=== PATIENT | female | born 1970 ===

== ENCOUNTER 2017-07-15 16:07 | Emergency (ER) | payer MEDICAID, MEDICARE ==
[2017-07-15 16:17] VITALS: RESP 18
[2017-07-15] MEDS ORDERED: Sodium Chloride 0.9% 1,000 ML IV ONE (16:47)
[2017-07-15 17:29] LABS: BASO % 0.5 % (0.0-2.0); EOS % 0.1 % (0.0-4.0); HEMATOCRIT 34.1 % (34.0-47.0); LYMPH # 0.4 K/uL (1.0-4.3); LYMPH % 4.4 % (20.0-40.0); MEAN CELL VOLUME 92.7 fL (81.0-99.0); MEAN CORPUSCULAR HGB CONC 33.4 g/dL (33.0-37.0); MEAN PLATELET VOLUME 7.4 fL (7.2-11.7); MONO # 0.4 K/uL (0.0-0.8); NRBC % 0.1 % (0.0-2.0); PLATELET COUNT 333 K/uL (130-400); RED CELL DISTRIBUTION WIDTH 14.8 % (11.5-14.5); WHITE BLOOD COUNT 8.6 K/uL (4.8-10.8)
--- NOTE | 2017-07-15 17:29 | C.PDOC ---
History Of Present Illness 46 yr old female with past medical history of kidney transplant in [address] [facility] and is compliant with all anti rejection medication, presents to the ER for feeling dehydrated and body pains. Patient states the body pain is chronic but recently seems worse for the past few days. Patient also reports of mild dysuria. Denies fever, chest pain, SOB, nausea, vomiting, hematuria, vaginal discharge or vaginal bleeding Time Seen by Provider: 07/15/17 16:31 Chief Complaint (Nursing): Weakness/Neurological Deficit History Per: Patient History/Exam Limitations: no limitations Onset/Duration Of Symptoms: Days Past Medical History Reviewed: Historical Data, Nursing Documentation, Vital Signs Vital Signs: Last Vital Signs Temp 98.1 F 07/15/17 16:14 Pulse 74 07/15/17 16:14 Resp 18 07/15/17 16:14 BP 138/76 07/15/17 16:14 Pulse Ox 100 07/15/17 17:31 - Medical History PMH: Anemia, Anxiety, Arthritis, Gall Bladder Disease, HTN, Migraine, Pancreatitis, Chronic Kidney Disease Surgical History: Cholecystectomy (2002), - [facility] Procedures DILATION OF COMMON BILE DUCT, ENDO (09/23/15) DILATION OF LEFT HEPATIC DUCT, ENDO (09/23/15) DRAINAGE OF RIGHT PLEURAL CAVITY, PERC APPROACH, DIAGN (09/23/15) ENDOSCOPIC EXCIS OR DESTRUCT OF LESION OF DUODENUM (07/01/15) ESOPHAGOGASTRODUODENOSCOPY [EGD] W/CLOSED BIOPSY (07/01/15) EXCISION OF DUODENUM, ENDO, DIAGN (03/13/16) EXCISION OF MIDDLE ESOPHAGUS, ENDO, DIAGN (03/13/16) EXCISION OF STOMACH, ENDO, DIAGN (03/13/16) Family History: States: No Known Family Hx - Social History Hx Alcohol Use: No Hx Substance Use: No - Immunization History Hx Tetanus Toxoid Vaccination: Yes Hx Influenza Vaccination: Yes Hx Pneumococcal Vaccination: No Review Of Systems Except As Marked, All Systems Reviewed And Found Negative. Constitutional: Positive for: Other ((+) Dehydrated. Body pain. ). Negative for : Fever Cardiovascular: Negative for: Chest Pain Respiratory: Negative for: Shortness of Breath Gastrointestinal: Negative for: Nausea, Vomiting Genitourinary: Positive for: Dysuria (Mild). Negative for: Hematuria, Vaginal Discharge, Vaginal Bleeding Physical Exam - Physical Exam Appears: Well, Non-toxic, No Acute Distress Skin: Normal Color, Warm, Dry, No Rash Head: Atraumatic, Normacephalic Eye(s): bilateral: Normal Inspection, PERRL, EOMI Nose: Normal Oral Mucosa: Moist Neck: Normal, Normal ROM, Supple Chest: Symmetrical, No Tenderness Cardiovascular: Rhythm Regular, No Murmur Respiratory: Normal Breath Sounds, No Rales, No Rhonchi, No Stridor, No Wheezing Gastrointestinal/Abdominal: Normal Exam, Soft, No Tenderness, No Guarding, No Rebound Back: Normal Inspection, No CVA Tenderness Extremity: Normal ROM, No Swelling Neurological/Psych: Oriented x3, Normal Speech, Normal Motor ED Course And Treatment - Laboratory Results Result Diagrams: 07/15/17 17:23 07/15/17 17:23 O2 Sat by Pulse Oximetry: 100 (RA ) Pulse Ox Interpretation: Normal Medical Decision Making Medical Decision Making: PLAN: * CBC * CMP * Urinalysis * Tylenol PO * Sodium Chloride IV 6:45pm - Patient feeling better. Labs reviewed. Patient to be discharged with followup instructions. Disposition - Disposition Referrals: Gretta Villela MD [Staff Provider] - Disposition: HOME/ ROUTINE Disposition Time: 18:45 Condition: IMPROVED Additional Instructions: Thank you for letting us take care of you today. Your provider was Dr. Verduzco. You were treated for dehydration. The emergency medical care you received today was directed at your acute symptoms. If you were prescribed any medication, please fill it and take as directed. It may take several days for your symptoms to resolve. Return to the Emergency Department if your symptoms worsen, do not improve, or if you have any other problems. Please contact your doctor or call one of the physicians/clinics you have been referred to that are listed on the Patient Visit Information form that is included in your discharge packet. Bring any paperwork you were given at discharge with you along with any medications you are taking to your follow up visit. Our treatment cannot replace ongoing medical care by a primary care provider (PCP) outside of the emergency department. Thank you for allowing the [facility] team to be part of your care today. Followup with Dr. Villela in 2-3 days for re-evaluation and further management. Instructions: Dehydration (ED) Forms: [employer] (Prydeinig) - Clinical Impression Clinical Impression: Dehydration - Scribe Statement The provider has reviewed the documentation as recorded by the Libanibe Rhona Martinez Provider Attestation: All medical record entries made by the Wally were at my direction and personally dictated by me. I have reviewed the chart and agree that the record accurately reflects my personal performance of the history, physical exam, medical decision making, and the department course for this patient. I have also personally directed, reviewed, and agree with the discharge instructions and disposition.
[2017-07-15 17:48] LABS: POTASSIUM 3.4 mmol/L (3.6-5.2)
[2017-07-15 17:51] LABS: ALB/GLOB RATIO 1.1 (1.0-2.1); BILIRUBIN,TOTAL 0.4 mg/dL (0.2-1.3); TOTAL PROTEIN 6.2 g/dL (6.3-8.3)
[2017-07-15 17:52] LABS: CALCIUM 8.4 mg/dl (8.6-10.4)
[2017-07-15 18:19] LABS: NEUTROPHIL 93 % (50-75); TOTAL CELLS COUNTED 100
[2017-07-15] MEDS ORDERED: Morphine 4 MG/ML VIAL IV STA (18:30)
[2017-07-15 18:31] LABS: RBC URINE < 1 /hpf (0-3); URINE BILIRUBIN NEGATIVE (NEGATIVE); URINE BLOOD NEGATIVE (NEGATIVE); URINE COLOR Straw (YELLOW); URINE GLUCOSE (UA) NORMAL (Normal); URINE KETONE NEGATIVE (NEGATIVE); URINE LEUKOCYTE ESTERASE NEG Leu/uL (Negative); URINE PROTEIN 2+ mg/dL (NEGATIVE); URINE UROBILINOGEN NORMAL mg/dL (0.2-1.0); WBC URINE 2 /hpf (0-5)
[2017-07-15 19:50] VITALS: BP 130/69; PULSE 72; TEMP 98; O2SAT 99
== END 2017-07-15 19:51 | disposition home or self-care (01) ==
LOC: C.ER 16:07
DX: E86.0 Dehydration (principal)
CPT/HCPCS: 80053; 81001; 83690; 85025; 87086; 96361; 96374; 99285; J2270; J7040

== ENCOUNTER 2017-12-13 20:14 | Emergency (ER) | payer OTHER ==
--- NOTE | 2017-12-13 21:02 | C.PDOC ---
History Of Present Illness Patient presents to the ER with a complaint of nausea and vomiting that began today, associate with a cough for the past 3 days. Patient saw her PMD and was started on augmentin today, she reports she began vomiting approximately 2 hours after she took the first pill. Denies fever or chills. Time Seen by Provider: 12/13/17 21:01 Chief Complaint (Nursing): GI Problem History Per: Patient History/Exam Limitations: no limitations Onset/Duration Of Symptoms: Hrs Current Symptoms Are (Timing): Still Present Severity: Mild Pain Scale Rating Of: 3 Location Of Pain/Discomfort: Diffuse Radiation Of Pain To:: None Quality Of Discomfort: Unable To Describe Associated Symptoms: Nausea, Vomiting, Other (Cough). denies: Fever, Chills Exacerbating Factors: None Alleviating Factors: None Recent travel outside of the [place]: No Additional History Per: Family Abnormal Vaginal Bleeding: No Past Medical History Reviewed: Historical Data, Nursing Documentation, Vital Signs Vital Signs: Last Vital Signs Temp 98.3 F 12/13/17 23:22 Pulse 66 12/13/17 23:22 Resp 22 12/13/17 23:22 BP 148/81 12/13/17 23:22 Pulse Ox 99 12/13/17 23:22 - Medical History PMH: Anemia, Anxiety, Arthritis, Gall Bladder Disease, HTN, Migraine, Pancreatitis, Chronic Kidney Disease Surgical History: Cholecystectomy (2002), - [facility] Procedures DILATION OF COMMON BILE DUCT, ENDO (09/23/15) DILATION OF LEFT HEPATIC DUCT, ENDO (09/23/15) DRAINAGE OF RIGHT PLEURAL CAVITY, PERC APPROACH, DIAGN (09/23/15) ENDOSCOPIC EXCIS OR DESTRUCT OF LESION OF DUODENUM (07/01/15) ESOPHAGOGASTRODUODENOSCOPY [EGD] W/CLOSED BIOPSY (07/01/15) EXCISION OF DUODENUM, ENDO, DIAGN (03/13/16) EXCISION OF MIDDLE ESOPHAGUS, ENDO, DIAGN (03/13/16) EXCISION OF STOMACH, ENDO, DIAGN (03/13/16) Family History: States: No Known Family Hx - Social History Hx Alcohol Use: No Hx Substance Use: No - Immunization History Hx Tetanus Toxoid Vaccination: Yes Hx Influenza Vaccination: Yes Hx Pneumococcal Vaccination: No Review Of Systems Constitutional: Negative for: Fever, Chills Cardiovascular: Negative for: Chest Pain Respiratory: Positive for: Cough. Negative for: Shortness of Breath Gastrointestinal: Positive for: Nausea, Vomiting Physical Exam - Physical Exam Appears: Non-toxic Skin: Warm, Dry Head: Normacephalic Eye(s): bilateral: Normal Inspection Oral Mucosa: Moist Neck: Supple Chest: Symmetrical, No Tenderness Cardiovascular: Rhythm Regular Respiratory: No Rales, Rhonchi (Scattered rhonchi), No Wheezing Gastrointestinal/Abdominal: Soft, No Tenderness Back: Normal Inspection, Other (Right flank healed surgical scar from renal transplant.) Extremity: Normal ROM Extremity: Bilateral: Atraumatic Neurological/Psych: Oriented x3 Gait: Steady ED Course And Treatment - Laboratory Results Result Diagrams: 12/13/17 22:43 12/13/17 22:43 O2 Sat by Pulse Oximetry: 100 (Room air) Pulse Ox Interpretation: Normal Progress Note: Blood work, CXR, and urinalysis ordered. IV fluids and zofran administered. pt wants to go home. feels better. Does not feel like she has to void and does not want to wait anymore. Is aware of the risks as I've explained to her including , but pt still wants to go home. Will follow up with dr villela Reevaluation Time: 23:58 Reassessment Condition: Improved Disposition Counseled Patient/Family Regarding: Studies Performed, Diagnosis, Need For Followup, Rx Given - Disposition Referrals: Gretta Villela MD [Staff Provider] - Disposition: HOME/ ROUTINE Disposition Time: 21:02 Condition: FAIR Additional Instructions: Please return of symptoms recur Prescriptions: Nitrofurantoin Macrocrystals [Macrobid] 1 cap PO BID #14 cap Ondansetron ODT [Zofran ODT] 1 odt PO BID PRN #10 odt PRN Reason: Nausea/Vomiting Instructions: Acute Nausea and Vomiting (ED), Urinary Tract Infection in Women (DC) Forms: [employer] (British) - Clinical Impression Clinical Impression: UTI (urinary tract infection), Nausea & vomiting, Medication reaction - Scribe Statement The provider has reviewed the documentation as recorded by the Scribe Ishan Tsang All medical record entries made by the Scribe were at my direction and personally dictated by me. I have reviewed the chart and agree that the record accurately reflects my personal performance of the history, physical exam, medical decision making, and the department course for this patient. I have also personally directed, reviewed, and agree with the discharge instructions and disposition.
[2017-12-13] MEDS ORDERED: Lactated Ringer's 1,000 ML IV STA (21:17)
[2017-12-13] MEDS ORDERED: Lactated Ringer's 1,000 ML ONE (22:39)
[2017-12-13 22:46] LABS: BASO # 0.1 K/uL (0.0-0.2); BASO % 0.5 % (0.0-2.0); EOS # 0.3 K/uL (0.0-0.7); EOS % 2.7 % (0.0-4.0); HEMOGLOBIN 9.7 g/dL (11.0-16.0); LYMPH % 9.1 % (20.0-40.0); MEAN CELL VOLUME 93.8 fL (81.0-99.0); MEAN CORPUSCULAR HEMOGLOBIN 30.1 pg (27.0-31.0); MEAN CORPUSCULAR HGB CONC 32.1 g/dL (33.0-37.0); MEAN PLATELET VOLUME 7.2 fL (7.2-11.7); MONO # 1.2 K/uL (0.0-0.8); NEUT # 8.2 K/uL (1.8-7.0); NEUT % 76.7 % (50.0-75.0); NRBC % 0.2 % (0.0-2.0); RBC 3.21 Mil/uL (3.80-5.20); RED CELL DISTRIBUTION WIDTH 14.1 % (11.5-14.5); WHITE BLOOD COUNT 10.7 K/uL (4.8-10.8)
[2017-12-13 22:53] LABS: PLATELET COUNT 521 K/uL (130-400)
[2017-12-13 22:57] LABS: CALCIUM 7.9 mg/dl (8.6-10.4)
[2017-12-13 22:59] LABS: ALB/GLOB RATIO 1.1 (1.0-2.1); ALBUMIN 3.4 g/dL (3.5-5.0)
[2017-12-13 23:23] VITALS: BP 148/81; PULSE 66; RESP 22; TEMP 98.3
[2017-12-13 23:45] LABS: ANISOCYTOSIS SLIGHT; EOSINOPHIL 2 % (0-4); LYMPHOCYTE 6 % (20-40); MONOCYTE 14 % (0-10); NEUTROPHIL 78 % (50-75); POIKILOCYTOSIS SLIGHT; TOTAL CELLS COUNTED 100
[2017-12-13 23:46] LABS: PLATELET ESTIMATE INCREASED (NORMAL)
[2017-12-14 00:01] VITALS: O2SAT 100
--- NOTE | 2017-12-14 10:14 | RAD ---
HISTORY: cough COMPARISON: 07/22/2016 TECHNIQUE: Chest PA and lateral FINDINGS: LUNGS: No active pulmonary disease. PLEURA: No significant pleural effusion identified. No pneumothorax apparent. CARDIOVASCULAR: Normal. OSSEOUS STRUCTURES: No significant abnormalities. VISUALIZED UPPER ABDOMEN: Normal. OTHER FINDINGS: None. IMPRESSION: No active disease.
== END 2017-12-14 00:11 | disposition home or self-care (01) ==
LOC: C.ER 20:14
DX: N39.0 Urinary tract infection, site not specified (principal); R11.2 Nausea with vomiting, unspecified; T36.0X5A Adverse effect of penicillins, initial encounter; Y92.89 Other specified places as the place of occurrence of the external cause
CPT/HCPCS: 71046; 80053; 83690; 85025; 87040; 96361; 96374; 96375; 99284; J2270; J2405; J7120

== ENCOUNTER 2017-12-27 15:10 | Emergency (ER) | payer OTHER ==
[2017-12-27 15:22] VITALS: BMI 17.3
[2017-12-27 15:25] VITALS: O2SAT 100
[2017-12-27] MEDS ORDERED: Sodium Chloride 0.9% 1,000 ML IV ONE (15:52)
--- NOTE | 2017-12-27 15:52 | C.PDOC ---
History Of Present Illness 47 yr old female presents to the ER with complaints of crampy abdominal discomfort and nausea for 1 week. Patient has chronic body pain from previous fibromyalgia and arthritis. Patient is s/p renal transplant and was referred by Dr. Villela. Patient takes Percocet 75/325 2x a day for her chronic pains. Denies fever, chills, cough, vomiting, diarrhea or dysuria. Time Seen by Provider: 12/27/17 15:23 Chief Complaint (Nursing): Flu-like Symptoms History Per: Patient History/Exam Limitations: no limitations Onset/Duration Of Symptoms: Days Past Medical History Reviewed: Historical Data, Nursing Documentation, Vital Signs Vital Signs: Last Vital Signs Temp 98.4 F 12/27/17 15:23 Pulse 84 12/27/17 15:23 Resp 20 12/27/17 15:23 BP 146/77 12/27/17 15:23 Pulse Ox 100 12/27/17 17:07 - Medical History PMH: Anemia, Anxiety, Arthritis, Gall Bladder Disease, HTN, Migraine, Pancreatitis, Chronic Kidney Disease Surgical History: Cholecystectomy (2002), - [facility] Procedures DILATION OF COMMON BILE DUCT, ENDO (09/23/15) DILATION OF LEFT HEPATIC DUCT, ENDO (09/23/15) DRAINAGE OF RIGHT PLEURAL CAVITY, PERC APPROACH, DIAGN (09/23/15) ENDOSCOPIC EXCIS OR DESTRUCT OF LESION OF DUODENUM (07/01/15) ESOPHAGOGASTRODUODENOSCOPY [EGD] W/CLOSED BIOPSY (07/01/15) EXCISION OF DUODENUM, ENDO, DIAGN (03/13/16) EXCISION OF MIDDLE ESOPHAGUS, ENDO, DIAGN (03/13/16) EXCISION OF STOMACH, ENDO, DIAGN (03/13/16) Family History: States: No Known Family Hx - Social History Hx Alcohol Use: No Hx Substance Use: No - Immunization History Hx Tetanus Toxoid Vaccination: Yes Hx Influenza Vaccination: Yes Hx Pneumococcal Vaccination: No Review Of Systems Except As Marked, All Systems Reviewed And Found Negative. Constitutional: Negative for: Fever, Chills Respiratory: Negative for: Cough Gastrointestinal: Positive for: Nausea, Abdominal Pain (crampy abdominal pain). Negative for: Vomiting, Diarrhea Genitourinary: Negative for: Dysuria Physical Exam - Physical Exam Appears: Non-toxic, Chronically Ill, Other ((+) thin) Skin: Warm, Dry, No Rash Eye(s): bilateral: Normal Inspection, PERRL, EOMI Oral Mucosa: Dry Throat: Normal, No Erythema, No Exudate Cardiovascular: Rhythm Regular, No Murmur Respiratory: Normal Breath Sounds, No Rales, No Rhonchi, No Wheezing Gastrointestinal/Abdominal: Normal Exam, Soft, No Tenderness, No Guarding, No Rebound Extremity: Normal ROM, No Tenderness, No Calf Tenderness, No Swelling Neurological/Psych: Oriented x3, Normal Speech ED Course And Treatment - Laboratory Results Result Diagrams: 12/27/17 15:59 12/27/17 15:59 Lab Interpretation: Normal (ua nl, creat 2.1 is baseline) O2 Sat by Pulse Oximetry: 100 (RA) Pulse Ox Interpretation: Normal - Radiology CXR: Interpreted by Me, Viewed By Me CXR Interpretation: Yes: No Acute Disease - Other Rad abd x 2 X-Ray: Interpreted by Me (+ increased gas, no obst/FA) Progress Note: IVF, pepcid, zofran Reevaluation Time: 17:04 Reassessment Condition: Improved - Physician Consult Information Outcome Of Conversation: 1545 and 1700, d/w Dr. Tyson, aware of baseline w/u and ok to d/c home w opt f/u. Medical Decision Making Medical Decision Making: PLAN: * X-Ray - Obstructive Series * Labs * HCG * Urinalysis * Tamiflu PO * Pepcid IVP * Toradol IVP * Sodium CHloride IV NOTE: viral syndrome vs influenza normal w/u Disposition Doctor Will See Patient In The: Office Counseled Patient/Family Regarding: Studies Performed, Diagnosis - Disposition Referrals: Gretta Villela MD [Staff Provider] - Disposition: HOME/ ROUTINE Disposition Time: 17:06 Condition: GOOD Additional Instructions: eat plenty of fruits and vegetables MINIMAL narcotics- which cause constipation normal baseline labs for you: creatinine 2.1 Continue Pepcid 20 mg @ night to lower stomach acid/Gastritis. Tamiflu 75 mg twice a day for 5 days- empiric treatment for Influenza. Prescriptions: Oseltamivir [Tamiflu] 75 mg PO BID #9 cap Instructions: Gastritis (ED), Constipation (ED), Influenza (ED) Forms: [employer] (Bengali) - Clinical Impression Clinical Impression: Influenza-like illness - Scribe Statement The provider has reviewed the documentation as recorded by the Scribe Rhona Juan Provider Attestation: All medical record entries made by the Wally were at my direction and personally dictated by me. I have reviewed the chart and agree that the record accurately reflects my personal performance of the history, physical exam, medical decision making, and the department course for this patient. I have also personally directed, reviewed, and agree with the discharge instructions and disposition.
[2017-12-27] MEDS ORDERED: Sodium Chloride 0.9% 1,000 ML ONE (15:59)
[2017-12-27 16:03] LABS: BASO % 0.2 % (0.0-2.0); EOS # 0.1 K/uL (0.0-0.7); EOS % 0.8 % (0.0-4.0); HEMOGLOBIN 9.6 g/dL (11.0-16.0); LYMPH # 0.3 K/uL (1.0-4.3); LYMPH % 3.4 % (20.0-40.0); MEAN CORPUSCULAR HEMOGLOBIN 30.5 pg (27.0-31.0); MEAN CORPUSCULAR HGB CONC 33.2 g/dL (33.0-37.0); MONO # 0.5 K/uL (0.0-0.8); NEUT # 8.5 K/uL (1.8-7.0); NEUT % 90.6 % (50.0-75.0); NRBC % 0.2 % (0.0-2.0); PLATELET COUNT 551 K/uL (130-400); RBC 3.16 Mil/uL (3.80-5.20); RED CELL DISTRIBUTION WIDTH 14.1 % (11.5-14.5); WHITE BLOOD COUNT 9.4 K/uL (4.8-10.8)
[2017-12-27 16:10] LABS: MEAN CELL VOLUME 91.8 fL (81.0-99.0)
[2017-12-27 16:22] LABS: ALB/GLOB RATIO 1.2 (1.0-2.1); ALBUMIN 3.6 g/dL (3.5-5.0); CALCIUM 8.8 mg/dl (8.6-10.4)
[2017-12-27 16:35] LABS: HCG,QUALITATIVE URINE NEGATIVE (NEGATIVE)
[2017-12-27 16:36] LABS: SQUAMOUS EPITHIAL 1 /hpf (0-5); URINE BILIRUBIN NEGATIVE (NEGATIVE); URINE BLOOD NEGATIVE (NEGATIVE); URINE CLARITY Hazy (Clear); URINE COLOR Yellow (YELLOW); URINE GLUCOSE (UA) 1+ mg/dL (Normal); URINE LEUKOCYTE ESTERASE NEG Leu/uL (Negative); URINE NITRATE NEGATIVE (NEGATIVE); URINE UROBILINOGEN NORMAL mg/dL (0.2-1.0)
[2017-12-27 16:48] LABS: BARBITURATES, UR NEGATIVE (NEGATIVE); BENZODIAZEPINES, UR NEGATIVE (NEGATIVE); OPIATES, UR NEGATIVE (NEGATIVE); PHENCYCLIDINE, UR NEGATIVE (NEGATIVE)
[2017-12-27 16:51] LABS: URINE PROTEIN 100 mg/dL (NEGATIVE)
--- NOTE | 2017-12-27 16:58 | RAD ---
PROCEDURE: Radiographs of the chest and abdomen (obstructive series) HISTORY: abd pain COMPARISON: Comparison made with chest radiograph 12/13/[address] scan of the abdomen and pelvis dated 08/13/2016. TECHNIQUE: AP radiograph of the chest, with upright and supine radiographs of the abdomen. FINDINGS: CHEST: Lungs: Clear. Cardiovascular: Heart is somewhat prominent. Previously described pericardial effusion seen on CT scan 07/22/2016 is not appreciated on this exam. . Pleura: No pleural fluid. No pneumothorax. Other findings: None. ABDOMEN AND PELVIS: Bowel: No evidence of obstruction however multiple nondistended air-filled loops of small bowel present containing fluid which exhibit non differential fluid levels. . Moderate amount of stool also seen throughout the large bowel ; rule out constipation. . Free air: None. Bones: Unremarkable. Other findings: Metallic clips right upper quadrant of the abdomen consistent with prior cholecystectomy. Metallic clips also seen left upper quadrant of the abdomen. . Transplant kidney seen in the right lower quadrant of the abdomen is not appreciated on this study. Clinical correlation with surgical history. . IMPRESSION: No acute infiltrates. Prominent cardiac silhouette as described above. Moderate amount of stool seen throughout the large bowel; rule out constipation. Transplant kidney right lower quadrant of the abdomen seen on prior CT scan is not appreciated on this exam. Metallic clips are seen in the right and left upper quadrants of the abdomen. Clinical correlation with surgical history.
[2017-12-27 17:22] LABS: ANISOCYTOSIS SLIGHT; EOSINOPHIL 1 % (0-4); HYPOCHROMIC SLIGHT; LYMPHOCYTE 6 % (20-40); MICROCYTOSIS SLIGHT; MONOCYTE 5 % (0-10); NEUTROPHIL 88 % (50-75); PLATELET ESTIMATE INCREASED (NORMAL); TOTAL CELLS COUNTED 100
[2017-12-27 17:23] LABS: BURR CELLS SLIGHT
[2017-12-27 17:31] VITALS: BP 132/80; PULSE 68; RESP 17; TEMP 98.8
== END 2017-12-27 17:43 | disposition home or self-care (01) ==
LOC: C.ER 15:10
DX: J11.1 Influenza due to unidentified influenza virus with other respiratory manifestations (principal); I12.9 Hypertensive chronic kidney disease with stage 1 through stage 4 chronic kidney disease, or unspecified chronic kidney disease; N18.9 Chronic kidney disease, unspecified; Z94.0 Kidney transplant status
CPT/HCPCS: 74022; 80053; 80324; 80345; 80346; 80349; 80353; 80358; 80361; 81001; 83690; 83992; 84703; 85025; 94770; 96361; 96374; 96375; 99284; J1885; J7040

== ENCOUNTER 2018-02-01 11:01 | Inpatient (IN) | payer OTHER ==
[2018-02-01 11:01] VITALS: BMI 17.3
[2018-02-01] MEDS ORDERED: Lactated Ringer's 1,000 ML IVB STA (11:54)
[2018-02-01] MEDS ORDERED: Lactated Ringer's 1,000 ML ONE (12:10)
[2018-02-01 12:13] LABS: BASO % 0.5 % (0.0-2.0); EOS # 0.1 K/uL (0.0-0.7); EOS % 1.6 % (0.0-4.0); HEMOGLOBIN 10.7 g/dL (11.0-16.0); LYMPH # 0.9 K/uL (1.0-4.3); LYMPH % 11.7 % (20.0-40.0); MEAN CELL VOLUME 93.3 fL (81.0-99.0); MEAN CORPUSCULAR HGB CONC 32.1 g/dL (33.0-37.0); MEAN PLATELET VOLUME 8.2 fL (7.2-11.7); MONO # 1.1 K/uL (0.0-0.8); MONO % 13.7 % (0.0-10.0); NEUT # 5.7 K/uL (1.8-7.0); NEUT % 72.5 % (50.0-75.0); NRBC % 0.3 % (0.0-2.0); RBC 3.58 Mil/uL (3.80-5.20); WHITE BLOOD COUNT 7.9 K/uL (4.8-10.8)
[2018-02-01 12:15] LABS: PROTHROMBIN TIME 10.8 SECONDS (9.7-12.2)
[2018-02-01 12:20] LABS: ALB/GLOB RATIO 1.2 (1.0-2.1); ALBUMIN 4.2 g/dL (3.5-5.0)
[2018-02-01 12:30] LABS: SQUAMOUS EPITHIAL 4 /hpf (0-5); URINE BACTERIA RARE (<OCC); URINE BILIRUBIN NEGATIVE (NEGATIVE); URINE BLOOD NEGATIVE (NEGATIVE); URINE CLARITY Hazy (Clear); URINE COLOR Yellow (YELLOW); URINE GLUCOSE (UA) NORMAL (Normal); URINE LEUKOCYTE ESTERASE NEG Leu/uL (Negative); URINE PROTEIN 3+ mg/dL (NEGATIVE); URINE UROBILINOGEN NORMAL mg/dL (0.2-1.0)
--- NOTE | 2018-02-01 12:56 | C.PDOC ---
Time Seen by Provider: 02/01/18 11:39 Chief Complaint (Nursing): Abdominal Pain History Per: Patient, Family Onset/Duration Of Symptoms: Days (about 1 month) Current Symptoms Are (Timing): Still Present Severity: Moderate Location Of Pain/Discomfort: Epigastric Quality Of Discomfort: Unable To Describe Associated Symptoms: Nausea, Vomiting, Diarrhea (watery) Exacerbating Factors: Food Alleviating Factors: None Recent travel outside of the [place]: No Additional History Per: Prior Records Abnormal Vaginal Bleeding: No Last Menstral Period: Menopause for 5 years Past Medical History Reviewed: Historical Data, Nursing Documentation, Vital Signs Vital Signs: Last Vital Signs Temp 98.0 F 02/01/18 11:15 Pulse 68 02/01/18 11:15 Resp 20 02/01/18 11:15 BP 152/80 H 02/01/18 11:15 Pulse Ox 100 02/01/18 12:57 - Medical History PMH: Anemia, Anxiety, Arthritis, Fibromyalgia, HTN, Migraine, Pancreatitis, Chronic Kidney Disease Surgical History: Cholecystectomy (2002), Other Surgeries: Kidney transplant recipient. - [facility] Procedures DILATION OF COMMON BILE DUCT, ENDO (09/23/15) DILATION OF LEFT HEPATIC DUCT, ENDO (09/23/15) DRAINAGE OF RIGHT PLEURAL CAVITY, PERC APPROACH, DIAGN (09/23/15) ENDOSCOPIC EXCIS OR DESTRUCT OF LESION OF DUODENUM (07/01/15) ESOPHAGOGASTRODUODENOSCOPY [EGD] W/CLOSED BIOPSY (07/01/15) EXCISION OF DUODENUM, ENDO, DIAGN (03/13/16) EXCISION OF MIDDLE ESOPHAGUS, ENDO, DIAGN (03/13/16) EXCISION OF STOMACH, ENDO, DIAGN (03/13/16) Family History: States: Unknown Family Hx - Social History Hx Alcohol Use: No Hx Substance Use: No - Immunization History Hx Tetanus Toxoid Vaccination: Yes Hx Influenza Vaccination: Yes Hx Pneumococcal Vaccination: No Review Of Systems Except As Marked, All Systems Reviewed And Found Negative. Constitutional: Positive for: Weakness, Malaise, Weight loss. Negative for: Fever Cardiovascular: Negative for: Chest Pain Respiratory: Negative for: Cough, Shortness of Breath Gastrointestinal: Positive for: Nausea, Vomiting, Abdominal Pain, Diarrhea. Negative for: Melena, Hematochezia, Hematemesis Genitourinary: Negative for: Dysuria Musculoskeletal: Negative for: Neck Pain Skin: Negative for: Rash Neurological: Negative for: Seizures, Altered Mental Status Physical Exam - Physical Exam Appears: No Acute Distress, Chronically Ill Skin: Normal Color, Warm, Dry, No Rash Head: Atraumatic, Normacephalic Eye(s): bilateral: PERRL, EOMI Neck: Normal ROM, Supple Cardiovascular: Rhythm Regular Respiratory: Normal Breath Sounds, No Accessory Muscle Use Gastrointestinal/Abdominal: Soft, Tenderness, No Distention, No Guarding, No Rebound Back: No CVA Tenderness Extremity: Normal ROM, No Pedal Edema, No Calf Tenderness Neurological/Psych: Oriented x3, Normal Motor, Normal Sensation ED Course And Treatment - Laboratory Results Result Diagrams: 02/01/18 12:02 02/01/18 12:02 ECG: Interpreted By Me, Viewed By Me ECG Rhythm: Sinus Rhythm, R BBB, Nonspecific Changes Interpretation Of ECG: No prior EKG available for comparison. O2 Sat by Pulse Oximetry: 100 Pulse Ox Interpretation: Normal Reassessment Condition: Unchanged Progress - Interventions Interventions:: Observation, Intravenous fluid - Medications Administered Intravenous: Antiemetic, Other (PPI) - Data Reviewed Data Reviewed: Lab, EKG, Old records - Patient Status Patient status: Unchanged - Continuity of Care Discussed patient case with:: Patient, Family-HIPPA compliant, ED Nurse, PMD - Patient Plan Patient Plan: Admission Disposition Discussed With : Gretta Villela Comment: He wants pt to be admitted to the hospital on his service for further evaluation and treatment. Doctor Will See Patient In The: Hospital Counseled Patient/Family Regarding: Studies Performed, Diagnosis - Disposition Disposition: HOSPITALIZED Disposition Time: 13:46 Condition: FAIR - Clinical Impression Clinical Impression: Chronic diarrhea, Renal transplant recipient, Immunocompromised patient, Weight loss, unintentional, Renal insufficiency
[2018-02-01 13:32] LABS: FREE T4 0.95 ng/dL (0.78-2.19)
[2018-02-01] MEDS ORDERED: Sodium Chloride 0.45% 1,000 ML IV SCH (17:30)
[2018-02-01] MEDS: Oxycodone/Acetaminophen 5/325 mg Tab PO PRN (18:44)
--- NOTE | 2018-02-01 18:47 | CP.PCM.HP ---
History of Present Illness - History of Present Illness History of Present Illness: Chief comparing: Abdominal pain, chronic recurrent diarrhea History of present illness: 47-year-old female with a history of renal transplant, on immuno suppressive treatment, hypertension, renal insufficiency, recurrent anemia, history of CBD obstruction, status post ERCP, ampullectomy, chronic pain syndrome. Patient also has a significant muscle wasting. Patient is complaining of increasing episodes of diarrheal episode, patient is having the symptoms for almost 2 months to 3 months now, gradually getting worse. Patient was seen by a administrative associate in the past, recently had a CAT scan of the abdomen and pelvis. Patient is having recurrent enteritis. The cause is unclear. Currently on immunosuppressive treatment. Significant nausea noted, and episodic vomiting present, liquid stools noted, patient is getting the diarrhea after eating any type of food, and also significant weight loss noted. Past medical history: Hypertension, renal insufficiency, anemia, osteoporosis, recurrent diarrhea now , history of renal transplant Surgical history: Patient had a cholecystectomy, , and renal transplant Allergies: No known drug allergy Personal history nonsmoker nonalcoholic Family history noncontributory Review of systems: Complaining of generalized body pain, occasional headache, minimal chest discomfort, abdominal discomfort, diarrhea, vomiting occasionally, weight loss. Appetite poor Vital signs reviewed No neck vein distention noted, significant wasting noted Chest good air entry bilaterally, no wheezing or rales noted CVS regular heart sound, no murmur noted Abdomen soft, nontender. 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 Hypertension, fairly controlled. Patient had a history of CBD obstruction, status post ampulla surgical intervention in the past Now having recurrent diarrheal episode, weight loss. Poor nutrition. We'll admit the patient. Stool workup. Renal, gastrointestinal, and a infectious disease evaluation may be needed. I would like to rule out underlying opportunistic infectious process. Present on Admission - Present on Admission Any Indicators Present on Admission: No History of DVT/PE: No History of Uncontrolled Diabetes: No Urinary Catheter: No Decubitus Ulcer Present: No Past Patient History - Infectious Disease Hx of Infectious Diseases: None - Past Medical History & Family History Past Medical History?: Yes - Past Social History Smoking Status: Never Smoked - CARDIAC Hx Hypertension: Yes - PULMONARY Hx Respiratory Disorders: Yes Other/Comment: FLUID IN THE LUNGS? - NEUROLOGICAL Hx Migraine: Yes - HEENT Hx HEENT Problems: No - RENAL Hx Chronic Kidney Disease: Yes - ENDOCRINE/METABOLIC Hx Endocrine Disorders: No - HEMATOLOGICAL/ONCOLOGICAL Hx Anemia: Yes - INTEGUMENTARY Hx Dermatological Problems: No - MUSCULOSKELETAL/RHEUMATOLOGICAL Hx Arthritis: Yes - GASTROINTESTINAL Hx Pancreatitis: Yes - GENITOURINARY/GYNECOLOGICAL Hx Genitourinary Disorders: No - PSYCHIATRIC Hx Anxiety: Yes Hx Substance Use: No - SURGICAL HISTORY Hx Cholecystectomy: Yes (2002) - ANESTHESIA Hx Anesthesia: Yes Hx Anesthesia Reactions: No Hx Malignant Hyperthermia: No Meds Allergies/Adverse Reactions: Allergies Allergy/AdvReac Type Severity Reaction Status Date / Time No Known Allergies Allergy Verified 02/01/18 11:19 Results - Vital Signs Recent Vital Signs: Last Vital Signs Temp 98.2 F 02/01/18 16:20 Pulse 62 02/01/18 16:20 Resp 20 02/01/18 16:20 BP 145/82 02/01/18 16:20 Pulse Ox 100 02/01/18 16:20 - Labs Result Diagrams: 02/01/18 12:02 02/01/18 12:02 Labs: Laboratory Results - last 24 hr 02/01/18 02/01/18 02/01/18 12:02 12:02 12:02 WBC 7.9 RBC 3.58 L Hgb 10.7 L Hct 33.4 L MCV 93.3 MCH 30.0 MCHC 32.1 L RDW 16.0 H Plt Count 483 H MPV 8.2 Neut % (Auto) 72.5 Lymph % (Auto) 11.7 L [place] % (Auto) 13.7 H Eos % (Auto) 1.6 Baso % (Auto) 0.5 Neut # (Auto) 5.7 Lymph # (Auto) 0.9 L [place] # (Auto) 1.1 H Eos # (Auto) 0.1 Baso # (Auto) 0.0 PT 10.8 INR 1.0 APTT 38 H Sodium 142 Potassium 3.7 Chloride 110 H Carbon Dioxide 17 L Anion Gap 19 BUN 26 H Creatinine 2.3 H Est GFR ( Amer) 27 Est GFR (Non-Af Amer) 23 Random Glucose 84 Calcium 9.0 Phosphorus 3.3 Magnesium 1.8 Total Bilirubin 0.5 AST 35 ALT 25 Alkaline Phosphatase 134 H Total Protein 7.8 Albumin 4.2 Globulin 3.6 Albumin/Globulin Ratio 1.2 Lipase 152 Free T4 TSH 3rd Generation Urine Color Urine Clarity Urine pH Ur Specific [place] Urine Protein Urine Glucose (UA) Urine Ketones Urine Blood Urine Nitrate Urine Bilirubin Urine Urobilinogen Ur Leukocyte Esterase Urine WBC (Auto) Urine RBC (Auto) Ur Squamous Epith Cells Urine Bacteria 02/01/18 02/01/18 12:16 12:45 WBC RBC Hgb Hct MCV MCH MCHC RDW Plt Count MPV Neut % (Auto) Lymph % (Auto) [place] % (Auto) Eos % (Auto) Baso % (Auto) Neut # (Auto) Lymph # (Auto) [place] # (Auto) Eos # (Auto) Baso # (Auto) PT INR APTT Sodium Potassium Chloride Carbon Dioxide Anion Gap BUN Creatinine Est GFR ( Amer) Est GFR (Non-Af Amer) Random Glucose Calcium Phosphorus Magnesium Total Bilirubin AST ALT Alkaline Phosphatase Total Protein Albumin Globulin Albumin/Globulin Ratio Lipase Free T4 0.95 TSH 3rd Generation 1.37 Urine Color Yellow Urine Clarity Hazy Urine pH 5.0 Ur Specific [place] 1.011 Urine Protein 3+ H Urine Glucose (UA) Normal Urine Ketones Negative Urine Blood Negative Urine Nitrate Negative Urine Bilirubin Negative Urine Urobilinogen Normal Ur Leukocyte Esterase Neg Urine WBC (Auto) 3 Urine RBC (Auto) < 1 Ur Squamous Epith Cells 4 Urine Bacteria Rare
[2018-02-01] MEDS: MYCOPHENOLIC ACID 360 MG PO SCH (21:12)
[2018-02-02] MEDS: Oxycodone/Acetaminophen 5/325 mg Tab PO PRN ×3 (01:13→21:14)
--- NOTE | 2018-02-02 09:17 | CP.PCM.CON ---
<Loi Reese - Last Filed: 02/02/18 12:54> History of Present Illness - History of Present Illness History of Present Illness: PGY4 GI Initial Consult Starla Mckeon is a 45F w/ hx of renal transplanton on immuno suppressive treatment, hypertension, renal insufficiency, recurrent anemia, history of CBD obstruction, status post ERCP, ampullectomy, chronic pain syndrome who presents to the hospital for acute on chronic diarrhea with weightloss Patient was previously seen by Dr. Mejia on 06/06/15 for a one year history of diarrhea and abdominal pain. All stool studies were negative. Colonoscopy on 06/28/15 showed essentially normal mucosa, and biopsies showed no significant findings. EGD on 07/03/15 also showed no significant findings. She was again admitted 09/23 for abdominal pain and elevated liver enzymes. The LFTs peaked at AST 655, ALT 705 and ALKP 472, with normal values of the bilirubin. Imaging studies showed that the bile duct, which was 8 mm on 06/21/15 had enlarged to 19 mm on sonogram and 17 mm on MRCP, without filling defects. Because of the possibility of biliary obstruction due to stricture or tumor, an ERCP with sphincterotomy and biopsy was performed on 09/29/15 but no stones were seen, and biopsies of the duodenal mucosa were unrevealing; specifically, the biopsies did not show evidence of an opportunistic infection. She notes that she has had chronic diarrhea for years, specifically after her transplant and starting her immunosupressive therapy.She notes that in the last month, her diarrhea has been daily. She notes having loose BM after meals. She denies any interval loose BM. Denies any fever, chills or diaphoresis. Denies any sick contacts. she has 1 dog at home and does have interaction with her godchildren. She also denies any recent travel. ROS: 12 point ROS conducted, neg other than above Past medical history: Hypertension, renal insufficiency, anemia, osteoporosis, recurrent diarrhea now , history of renal transplant Surgical history: Patient had a cholecystectomy, , and renal transplant Personal history nonsmoker nonalcoholic Family history: Denies nay hx of colon cancer or other GI related malignancies Past Patient History - Infectious Disease Hx of Infectious Diseases: None - Past Medical History & Family History Past Medical History?: Yes - Past Social History Smoking Status: Never Smoked - CARDIAC Hx Hypertension: Yes - PULMONARY Hx Respiratory Disorders: Yes Other/Comment: FLUID IN THE LUNGS? - NEUROLOGICAL Hx Migraine: Yes - HEENT Hx HEENT Problems: No - RENAL Hx Chronic Kidney Disease: Yes - ENDOCRINE/METABOLIC Hx Endocrine Disorders: No - HEMATOLOGICAL/ONCOLOGICAL Hx Anemia: Yes - INTEGUMENTARY Hx Dermatological Problems: No - MUSCULOSKELETAL/RHEUMATOLOGICAL Hx Falls: No - GASTROINTESTINAL Hx Pancreatitis: Yes - GENITOURINARY/GYNECOLOGICAL Hx Genitourinary Disorders: No - PSYCHIATRIC Hx Substance Use: No - SURGICAL HISTORY Hx Cholecystectomy: Yes (2002) - ANESTHESIA Hx Anesthesia: Yes Hx Anesthesia Reactions: No Hx Malignant Hyperthermia: No Meds Allergies/Adverse Reactions: Allergies Allergy/AdvReac Type Severity Reaction Status Date / Time No Known Allergies Allergy Verified 02/01/18 11:19 - Medications Medications: Current Medications Amlodipine Besylate (Norvasc) 10 mg PO DAILY [facility] Famotidine (Pepcid) 20 mg PO DAILY [facility] Last Admin: 02/01/18 18:44 Dose: 20 mg Heparin Sodium (Porcine) (Heparin) 5,000 units SC Q12 [facility] Home Med (Patient's Own Medication) 1 tab PO BID [facility] Last Admin: 02/01/18 21:12 Dose: 1 tab Sodium Chloride (Sodium Chloride 0.45%) 1,000 mls @ 50 mls/hr IV .Q20H [facility] Stop: 02/02/18 13:29 Last Admin: 02/01/18 18:45 Dose: 50 mls/hr Losartan Potassium (Cozaar) 50 mg PO DAILY [facility] Last Admin: 02/01/18 18:43 Dose: 50 mg Oxycodone/Acetaminophen (Percocet 5/325 Mg Tab) 1 tab PO TID PRN PRN Reason: Pain, moderate (4-7) Last Admin: 02/02/18 01:13 Dose: 1 tab Prednisone (Prednisone Tab) 5 mg PO DAILY [facility] Last Admin: 02/01/18 18:45 Dose: 5 mg Tacrolimus (Prograf Cap) 1 mg PO BID [facility] Last Admin: 02/01/18 18:45 Dose: 1 mg Vitamin B Complex/Vit C/Folic Acid (Nephro-Ron) 1 tab PO DAILY [facility] Physical Exam - Constitutional Appears: No Acute Distress, Cachectic - Head Exam Head Exam: ATRAUMATIC, NORMOCEPHALIC - Eye Exam Eye Exam: Normal appearance - ENT Exam ENT Exam: Mucous Membranes Moist, Normal Exam - Respiratory Exam Respiratory Exam: Clear to Auscultation Bilateral, NORMAL BREATHING PATTERN. absent: Rales, Rhonchi, Wheezes, Respiratory Distress - Cardiovascular Exam Cardiovascular Exam: REGULAR RHYTHM, +S1, +S2 - GI/Abdominal Exam GI & Abdominal Exam: Normal Bowel Sounds, Soft. absent: Distended, Firm, Guarding, Hernia, Tenderness - Neurological Exam Neurological exam: Alert, Oriented x3 - Psychiatric Exam Psychiatric exam: Normal Affect, Normal Mood - Skin Skin Exam: Dry, Intact, Normal Color, Warm Results - Vital Signs Recent Vital Signs: Last Vital Signs Temp 98.1 F 02/02/18 07:00 Pulse 59 L 02/02/18 07:00 Resp 20 02/02/18 07:00 BP 133/78 02/02/18 07:00 Pulse Ox 100 02/02/18 07:00 - Labs Result Diagrams: 02/01/18 12:02 02/01/18 12:02 Labs: Laboratory Results - last 24 hr 02/01/18 02/01/18 02/01/18 12:02 12:02 12:02 WBC 7.9 RBC 3.58 L Hgb 10.7 L Hct 33.4 L MCV 93.3 MCH 30.0 MCHC 32.1 L RDW 16.0 H Plt Count 483 H MPV 8.2 Neut % (Auto) 72.5 Lymph % (Auto) 11.7 L [place] % (Auto) 13.7 H Eos % (Auto) 1.6 Baso % (Auto) 0.5 Neut # (Auto) 5.7 Lymph # (Auto) 0.9 L [place] # (Auto) 1.1 H Eos # (Auto) 0.1 Baso # (Auto) 0.0 PT 10.8 INR 1.0 APTT 38 H Sodium 142 Potassium 3.7 Chloride 110 H Carbon Dioxide 17 L Anion Gap 19 BUN 26 H Creatinine 2.3 H Est GFR ( Amer) 27 Est GFR (Non-Af Amer) 23 Random Glucose 84 Calcium 9.0 Phosphorus 3.3 Magnesium 1.8 Total Bilirubin 0.5 AST 35 ALT 25 Alkaline Phosphatase 134 H Total Protein 7.8 Albumin 4.2 Globulin 3.6 Albumin/Globulin Ratio 1.2 Lipase 152 Free T4 TSH 3rd Generation Urine Color Urine Clarity Urine pH Ur Specific [place] Urine Protein Urine Glucose (UA) Urine Ketones Urine Blood Urine Nitrate Urine Bilirubin Urine Urobilinogen Ur Leukocyte Esterase Urine WBC (Auto) Urine RBC (Auto) Ur Squamous Epith Cells Urine Bacteria Stool Occult Blood 02/01/18 02/01/18 02/02/18 12:16 12:45 07:35 WBC RBC Hgb Hct MCV MCH MCHC RDW Plt Count MPV Neut % (Auto) Lymph % (Auto) [place] % (Auto) Eos % (Auto) Baso % (Auto) Neut # (Auto) Lymph # (Auto) [place] # (Auto) Eos # (Auto) Baso # (Auto) PT INR APTT Sodium Potassium Chloride Carbon Dioxide Anion Gap BUN Creatinine Est GFR ( Amer) Est GFR (Non-Af Amer) Random Glucose Calcium Phosphorus Magnesium Total Bilirubin AST ALT Alkaline Phosphatase Total Protein Albumin Globulin Albumin/Globulin Ratio Lipase Free T4 0.95 TSH 3rd Generation 1.37 Urine Color Yellow Urine Clarity Hazy Urine pH 5.0 Ur Specific [place] 1.011 Urine Protein 3+ H Urine Glucose (UA) Normal Urine Ketones Negative Urine Blood Negative Urine Nitrate Negative Urine Bilirubin Negative Urine Urobilinogen Normal Ur Leukocyte Esterase Neg Urine WBC (Auto) 3 Urine RBC (Auto) < 1 Ur Squamous Epith Cells 4 Urine Bacteria Rare Stool Occult Blood Negative Assessment & Plan - Assessment and Plan (Free Text) Assessment: Starla Mckeon is a 47F w/ hx of Hypertension, renal insufficiency, anemia, osteoporosis, recurrent diarrhea now, history of renal transplant who presents to the ED with complaints of diarrhea and weightloss Acute on chronic diarrhea, DDx: infectious, pancreatic insuff, bile acid malabsorbtion s/p renal transplant on Immunosupression Weightloss Plan: -agree with current infectous work-up, will add c.diff and ova and paracite -will eval stool electrolytes -imgaing reviewed from 01/21/2018 CT abd, no sig findings -continue diet -will hold on abx for now -can consider colonoscopy to rule microscopic colitis if rest of work-up is neg -will get tacrolimus and mycophenolic acid levels -will get fecal fat Will D/w Dr. Andres <Nithya Andres - Last Filed: 02/02/18 16:37> Meds - Medications Medications: Current Medications Amlodipine Besylate (Norvasc) 10 mg PO DAILY [facility] Last Admin: 02/02/18 10:01 Dose: 10 mg Famotidine (Pepcid) 20 mg PO DAILY [facility] Last Admin: 02/02/18 10:01 Dose: 20 mg Heparin Sodium (Porcine) (Heparin) 5,000 units SC Q12 [facility] Last Admin: 02/02/18 10:02 Dose: 5,000 units Home Med (Patient's Own Medication) 1 tab PO BID [facility] Last Admin: 02/02/18 10:02 Dose: 1 tab Linezolid (Zyvox 600mg/300ml D5w) 600 mg in 300 mls @ 200 mls/hr IVPB Q12 [facility] PRN Reason: Protocol Losartan Potassium (Cozaar) 50 mg PO DAILY [facility] Last Admin: 02/02/18 10:01 Dose: 50 mg Oxycodone/Acetaminophen (Percocet 5/325 Mg Tab) 1 tab PO QID PRN PRN Reason: pain Stop: 02/05/18 14:01 Last Admin: 02/02/18 13:04 Dose: 1 tab Prednisone (Prednisone Tab) 5 mg PO DAILY [facility] Last Admin: 02/02/18 10:01 Dose: 5 mg Tacrolimus (Prograf Cap) 1 mg PO BID [facility] Last Admin: 02/02/18 10:02 Dose: 1 mg Vitamin B Complex/Vit C/Folic Acid (Nephro-Ron) 1 tab PO DAILY [facility] Last Admin: 02/02/18 10:02 Dose: 1 tab Results - Vital Signs Recent Vital Signs: Last Vital Signs Temp 98.1 F 02/02/18 07:00 Pulse 59 L 02/02/18 07:00 Resp 20 02/02/18 07:00 BP 133/78 02/02/18 07:00 Pulse Ox 100 02/02/18 07:00 - Labs Result Diagrams: 02/01/18 12:02 02/01/18 12:02 Labs: Laboratory Results - last 24 hr 02/01/18 02/02/18 07:40 07:35 Stool Occult Blood Negative Stool Leukocytes, Qual Positive H Attending/Attestation - Attestation I have personally seen and examined this patient.: Yes I have fully participated in the care of the patient.: Yes I have reviewed all pertinent clinical information: Yes Notes (Text): 02/02/18 16:33 This is a 47 yr old F of Hypertension, renal insufficiency, anemia, osteoporosis , recurrent diarrhea now, history of renal transplant on 3 immunosuppresion with outpatient follow up at [facility], who presents to the ED with complaints of chronic diarrhea and weightloss. Will send stool infectious studies and electrolytes. Diet as tolerated. Will plan on luminal endoscopic evaluation on Friday. Imaging reviewed from 01/21/2018 CT abdomen with no significant findings
[2018-02-02] MEDS: Multivitamin Vitamin B Complex (Nephro-Vite) Tab PO SCH (10:02)
[2018-02-02] MEDS: MYCOPHENOLIC ACID 360 MG PO SCH ×2 (10:02→17:18)
--- NOTE | 2018-02-02 12:21 | CARD ---
APPROVED REPORT EKG Measurement Heart [id number] CT 194P73 [id number] <Conclusion> Sinus bradycardia Right bundle branch block Septal infarct, age undetermined Abnormal ECG
--- NOTE | 2018-02-02 14:07 | CP.PCM.CON ---
History of Present Illness - History of Present Illness History of Present Illness: INFECTIOUS DISEASE CONSULT; HPI; Starla Mckeon is a 45F w/ hx of renal transplanton on immuno suppressive treatment, hypertension, renal insufficiency, recurrent anemia, history of CBD obstruction, status post ERCP, ampullectomy, chronic pain syndrome who presents to the hospital for acute on chronic diarrhea with weightloss Patient was previously seen by Dr. Mejia on 06/06/15 for a one year history of diarrhea and abdominal pain. All stool studies were negative. Colonoscopy on 06/28/15 showed essentially normal mucosa, and biopsies showed no significant findings. EGD on 07/03/15 also showed no significant findings. She was again admitted 09/23 for abdominal pain and elevated liver enzymes. The LFTs peaked at AST 655, ALT 705 and ALKP 472, with normal values of the bilirubin. Imaging studies showed that the bile duct, which was 8 mm on 06/21/15 had enlarged to 19 mm on sonogram and 17 mm on MRCP, without filling defects. Because of the possibility of biliary obstruction due to stricture or tumor, an ERCP with sphincterotomy and biopsy was performed on 09/29/15 but no stones were seen, and biopsies of the duodenal mucosa were unrevealing; specifically, the biopsies did not show evidence of an opportunistic infection. She notes that she has had chronic diarrhea for years, specifically after her transplant and starting her immunosupressive therapy.She notes that in the last month, her diarrhea has been daily. She notes having loose BM after meals. She denies any interval loose BM. PATIENT ALSO ADMITS TO HAVING LOST ABOUT 15-20 POUNDS THIS YEAR. PATIENT DENIES ANY FEVER, CHILLS, NIGHT SWEATS OR DIAPHORESIS. PATIENT DENIES ANY PREVIOUS HISTORY OF TB/OR ANY SICK CONTACTS.PATIENT DENIES ANY RECENT TRAVEL. PETS; A DOG AT HOME, AND HAS INTERACTION WITH HER GODCHILDREN. ROS: 12 point ROS conducted, neg other than above PMH HYPERTENSION, RENAL INSUFFICIENCY, ANEMIA, OSTEOPOROSIS, PANCREATITIS, RECURRENT DIARRHEA NOW, RENAL TRANSPLANT . HISTORY OF MIGRAINE HEADACHES, FIBROMYALGIA, ARTHRITIS,ANXIETY PROBLEMS. Surgical history: Patient had a cholecystectomy, , and renal transplant SOCIAL HISTORY; nonsmoker nonalcoholic Family history: Denies hx of colon cancer or other GI related malignancies ALLERGIES; NKA. MEDS; REVIEWED; CELLCEPT 1 CAPSULE BY MOUTH ONCE A DAY, TACROLIMUS 1 MG BY MOUTH TWICE A DAY, PREDNISONE 5 MG BY MOUTH ONCE A DAY. (SEE MARS FOR FULL DETAILS ) IMMUNIZATIONS; Hx Tetanus Toxoid Vaccination: Yes Hx Influenza Vaccination: Yes Hx Pneumococcal Vaccination: No Past Patient History - Infectious Disease Hx of Infectious Diseases: None - Past Medical History & Family History Past Medical History?: Yes - Past Social History Smoking Status: Never Smoked - CARDIAC Hx Hypertension: Yes - PULMONARY Hx Respiratory Disorders: Yes Other/Comment: FLUID IN THE LUNGS? - NEUROLOGICAL Hx Migraine: Yes - HEENT Hx HEENT Problems: No - RENAL Hx Chronic Kidney Disease: Yes - ENDOCRINE/METABOLIC Hx Endocrine Disorders: No - HEMATOLOGICAL/ONCOLOGICAL Hx Anemia: Yes - INTEGUMENTARY Hx Dermatological Problems: No - MUSCULOSKELETAL/RHEUMATOLOGICAL Hx Falls: No - GASTROINTESTINAL Hx Pancreatitis: Yes - GENITOURINARY/GYNECOLOGICAL Hx Genitourinary Disorders: No - PSYCHIATRIC Hx Substance Use: No - SURGICAL HISTORY Hx Cholecystectomy: Yes (2002) - ANESTHESIA Hx Anesthesia: Yes Hx Anesthesia Reactions: No Hx Malignant Hyperthermia: No Meds Allergies/Adverse Reactions: Allergies Allergy/AdvReac Type Severity Reaction Status Date / Time No Known Allergies Allergy Verified 02/01/18 11:19 - Medications Medications: Current Medications Amlodipine Besylate (Norvasc) [address] [facility] Last Admin: 02/02/18 10:01 Dose: 10 mg Famotidine (Pepcid) [address] [facility] Last Admin: 02/02/18 10:01 Dose: 20 mg Heparin Sodium (Porcine) (Heparin) 5,[address] [facility] Last Admin: 02/02/18 10:02 Dose: 5,000 units Home Med (Patient's Own Medication) [address] [facility] Last Admin: 02/02/18 10:02 Dose: 1 tab Linezolid (Zyvox 600mg/300ml D5w) 600 mg in 300 mls @ 200 mls/hr IVPB Q12 [facility] PRN Reason: Protocol Losartan Potassium (Cozaar) [address] [facility] Last Admin: 02/02/18 10:01 Dose: 50 mg Oxycodone/Acetaminophen (Percocet 5/325 Mg Tab) 1 tab PO QID PRN PRN Reason: pain Stop: 02/05/18 14:01 Last Admin: 02/02/18 13:04 Dose: 1 tab Prednisone (Prednisone Tab) [address] [facility] Last Admin: 02/02/18 10:01 Dose: 5 mg Tacrolimus (Prograf Cap) [address] [facility] Last Admin: 02/02/18 10:02 Dose: 1 mg Vitamin B Complex/Vit C/Folic Acid (Nephro-Ron) [address] [facility] Last Admin: 02/02/18 10:02 Dose: 1 tab Physical Exam - Constitutional Appears: No Acute Distress, Cachectic, Chronically Ill - Head Exam Head Exam: NORMAL INSPECTION - Eye Exam Eye Exam: EOMI, PERRL - ENT Exam ENT Exam: Normal Oropharynx - Neck Exam Neck exam: Positive for: Normal Inspection. Negative for: Lymphadenopathy, Thyromegaly - Respiratory Exam Respiratory Exam: Clear to Auscultation Bilateral, NORMAL BREATHING PATTERN - Cardiovascular Exam Cardiovascular Exam: REGULAR RHYTHM, +S1, +S2. absent: Systolic Murmur - GI/Abdominal Exam GI & Abdominal Exam: Normal Bowel Sounds, Soft. absent: Organomegaly - Extremities Exam Extremities exam: Positive for: normal capillary refill, pedal pulses present. Negative for: calf tenderness, pedal edema - Neurological Exam Neurological exam: Alert, CN II-XII Intact, Oriented x3, Reflexes Normal - Psychiatric Exam Psychiatric exam: Normal Mood - Skin Skin Exam: Normal Color Results - Vital Signs Recent Vital Signs: Last Vital Signs Temp 98.1 F 02/02/18 07:00 Pulse 59 L 02/02/18 07:00 Resp 20 02/02/18 07:00 BP 133/78 02/02/18 07:00 Pulse Ox 100 02/02/18 07:00 - Labs Result Diagrams: 02/01/18 12:02 02/01/18 12:02 Labs: Laboratory Results - last 24 hr 02/02/18 07:35 Stool Occult Blood Negative Assessment & Plan (1) Chronic diarrhea Assessment and Plan: pancultures Agree with diarrhea workup as ordered by GI. Will check stools for leukocytes. Stools for ova and parasites. Stools for larvae of Strongyloides. stools for Salmonella Shigella, Campylobacter and Giardia. Stools for AFB stain for cystoisospora,AFB SMEARS AND CULTURE. STOOLS FOR MICROSPORIDIA, CRYPTOSPORIDIOSIS-ORDERED ALREADY CMV IGG ANTIBODY . CMV-DNA QUANTITATIVE LEVELS. ENTERIC PRECAUTIONS FOR NOW CASE DISCUSSED WITH PMD,PATIENT MAY NEED COLONOSCOPY WITH TISSUE BX AND CULTURES IF ABOVE WORKUP NOT CONCLUSIVE. Status: Acute (2) Renal transplant recipient Assessment and Plan: PATIENT DOES GIVE HISTORY OF ACUTE ON CHRONIC REJECTIONS IN THE PAST. PATIENT PRESENTLY ON IMMUNOSUPPRESSIVE MEDICATIONS AND PREDNISONE. cREATININE 2.3/bun 26. Status: Acute (3) Weight loss, unintentional Assessment and Plan: PATIENT ADMITS TO WEIGHT LOSS OF ABOUT 15-20 POUNDS DURING PAST FEW MONTHS. Status: Acute (4) SULEMA (acute kidney injury) Status: Acute (5) UTI (urinary tract infection) Assessment and Plan: URINE CULTURE POSITIVE FOR GRAM-POSITIVE COCCI. WILL START PATIENT ON iv ZYVOX 600 MG EVERY 12 HOURLY WHILE AWAITING CULTURES. .. Status: Acute
--- NOTE | 2018-02-02 14:16 | CP.PCM.CON ---
History of Present Illness - History of Present Illness History of Present Illness: Starla Mckeon is a 45F w/ hx of renal transplanton on immuno suppressive treatment, hypertension, renal insufficiency, recurrent anemia, history of CBD obstruction, status post ERCP, ampullectomy, chronic pain syndrome who presents to the hospital for acute on chronic diarrhea with weightloss Patient was previously seen by Dr. Mejia on 06/06/15 for a one year history of diarrhea and abdominal pain. All stool studies were negative. Colonoscopy on 06/28/15 showed essentially normal mucosa, and biopsies showed no significant findings. EGD on 07/03/15 also showed no significant findings. She was again admitted 09/23 for abdominal pain and elevated liver enzymes. The LFTs peaked at AST 655, ALT 705 and ALKP 472, with normal values of the bilirubin. Imaging studies showed that the bile duct, which was 8 mm on 06/21/15 had enlarged to 19 mm on sonogram and 17 mm on MRCP, without filling defects. Because of the possibility of biliary obstruction due to stricture or tumor, an ERCP with sphincterotomy and biopsy was performed on 09/29/15 but no stones were seen, and biopsies of the duodenal mucosa were unrevealing; specifically, the biopsies did not show evidence of an opportunistic infection. She notes that she has had chronic diarrhea for years, specifically after her transplant and starting her immunosupressive therapy.She notes that in the last month, her diarrhea has been daily. She notes having loose BM after meals. She denies any interval loose BM. Denies any fever, chills or diaphoresis. Denies any sick contacts. she has 1 dog at home and does have interaction with her godchildren. She also denies any recent travel. ROS: 12 point ROS conducted, neg other than above Past medical history:Renal transplant, h/o humeral rejection, CKD 4 Hypertension, renal insufficiency, anemia, osteoporosis, recurrent diarrhea now , history of renal transplant Surgical history: Patient had a cholecystectomy, , and renal transplant Personal history nonsmoker nonalcoholic Family history: Denies nay hx of colon cancer or other GI related malignancies Review of Systems - Constitutional Constitutional: Anorexia, Weight Loss, Weakness - EENT Eyes: absent: As Per HPI, Blind Spots, Blurred Vision, Change in Vision, Decreased Night Vision, Diplopia, Discharge, Dry Eye, Exophthalmos, Floaters, Irritation, Itchy Eyes, Loss of Peripheral Vision, Pain, Photophobia, Requires Corrective Lenses, Sees Flashes, Spots in Vision, Tunnel Vision, Other Visual Disturbances, Loss of Vision, Other Ears: absent: As Per HPI, Decreased Hearing, Ear Discharge, Ear Pain, Tinnitus, Abnormal Hearing, Disequilibrium, Dizziness, Other Nose/Mouth/Throat: absent: As Per HPI, Epistaxis, Nasal Congestion, Nasal Discharge, Nasal Obstruction, Nasal Trauma, Nose Pain, Post Nasal Drip, Sinus Pain, Sinus Pressure, Bleeding Gums, Change in Voice, Dental Pain, Dry Mouth, Dysphagia, Halitosis, Hoarsness, Lip Swelling, Mouth Lesions, Mouth Pain, Odynophagia, Sore Throat, Throat Swelling, Tongue Swelling, Facial Pain, Neck Pain, Neck Mass, Other - Cardiovascular Cardiovascular: absent: As Per HPI, Acrocyanosis, Chest Pain, Chest Pain at Rest , Chest Pain with Activity, Claudication, Diaphoresis, Dyspnea, Dyspnea on Exertion, Edema, Irregular Heart Rhythm, Pain Radiating to Arm/Neck/Jaw, Leg Edema, Leg Ulcers, Lightheadedness, Orthopnea, Palpitations, Paroxysmal Nocturnal Dyspnea, Pedal Edema, Radiating Pain, Rapid Heart Rate, Slow Heart Rate, Syncope, Other - Respiratory Respiratory: absent: As Per HPI, Cough, Dyspnea, Hemoptysis, Dyspnea on Exertion , Wheezing, Snoring, Stridor, Pain on Inspiration, Chest Congestion, Excessive Mucous Production, Change in Mucous Color, Pain with Coughing, Other - Gastrointestinal Gastrointestinal: As Per HPI - Genitourinary Genitourinary: Urinary Frequency - Musculoskeletal Musculoskeletal: Muscle Cramps, Muscle Weakness, Myalgias - Integumentary Integumentary: Dry Skin - Neurological Neurological: Weakness Past Patient History - Infectious Disease Hx of Infectious Diseases: None - Past Medical History & Family History Past Medical History?: Yes Past Family History: Reviewed and not pertinent - Past Social History Smoking Status: Never Smoked Chewing Tobacco Use: No Cigar Use: No Alcohol: None Drugs: Denies Home Situation {Lives}: With Family - CARDIAC Hx Hypertension: Yes - PULMONARY Hx Respiratory Disorders: Yes Other/Comment: FLUID IN THE LUNGS? - NEUROLOGICAL Hx Migraine: Yes - HEENT Hx HEENT Problems: No - RENAL Hx Chronic Kidney Disease: Yes - ENDOCRINE/METABOLIC Hx Endocrine Disorders: No - HEMATOLOGICAL/ONCOLOGICAL Hx Anemia: Yes - INTEGUMENTARY Hx Dermatological Problems: No - MUSCULOSKELETAL/RHEUMATOLOGICAL Hx Falls: No - GASTROINTESTINAL Hx Pancreatitis: Yes - GENITOURINARY/GYNECOLOGICAL Hx Genitourinary Disorders: No - PSYCHIATRIC Hx Substance Use: No - SURGICAL HISTORY Hx Cholecystectomy: Yes (2002) - ANESTHESIA Hx Anesthesia: Yes Hx Anesthesia Reactions: No Hx Malignant Hyperthermia: No Meds Allergies/Adverse Reactions: Allergies Allergy/AdvReac Type Severity Reaction Status Date / Time No Known Allergies Allergy Verified 02/01/18 11:19 - Medications Medications: Current Medications Amlodipine Besylate (Norvasc) 10 mg PO DAILY [facility] Last Admin: 02/02/18 10:01 Dose: 10 mg Famotidine (Pepcid) 20 mg PO DAILY [facility] Last Admin: 02/02/18 10:01 Dose: 20 mg Heparin Sodium (Porcine) (Heparin) 5,000 units SC Q12 [facility] Last Admin: 02/02/18 10:02 Dose: 5,000 units Home Med (Patient's Own Medication) 1 tab PO BID [facility] Last Admin: 02/02/18 10:02 Dose: 1 tab Linezolid (Zyvox 600mg/300ml D5w) 600 mg in 300 mls @ 200 mls/hr IVPB Q12 [facility] PRN Reason: Protocol Losartan Potassium (Cozaar) 50 mg PO DAILY [facility] Last Admin: 02/02/18 10:01 Dose: 50 mg Oxycodone/Acetaminophen (Percocet 5/325 Mg Tab) 1 tab PO QID PRN PRN Reason: pain Stop: 02/05/18 14:01 Last Admin: 02/02/18 13:04 Dose: 1 tab Prednisone (Prednisone Tab) 5 mg PO DAILY [facility] Last Admin: 02/02/18 10:01 Dose: 5 mg Tacrolimus (Prograf Cap) 1 mg PO BID [facility] Last Admin: 02/02/18 10:02 Dose: 1 mg Vitamin B Complex/Vit C/Folic Acid (Nephro-Ron) 1 tab PO DAILY [facility] Last Admin: 02/02/18 10:02 Dose: 1 tab Physical Exam - Constitutional Appears: Cachectic, Chronically Ill - Head Exam Head Exam: ATRAUMATIC, NORMAL INSPECTION - Eye Exam Eye Exam: EOMI, Normal appearance - Neck Exam Neck exam: Positive for: Tenderness. Negative for: Normal Inspection - Respiratory Exam Respiratory Exam: Clear to Auscultation Bilateral, NORMAL BREATHING PATTERN - Cardiovascular Exam Cardiovascular Exam: REGULAR RHYTHM, +S1 - GI/Abdominal Exam GI & Abdominal Exam: Soft, Tenderness - Extremities Exam Extremities exam: Positive for: normal inspection. Negative for: tenderness - Neurological Exam Neurological exam: Alert, CN II-XII Intact - Skin Skin Exam: Dry, Warm Results - Vital Signs Recent Vital Signs: Last Vital Signs Temp 98.1 F 02/02/18 07:00 Pulse 59 L 02/02/18 07:00 Resp 20 02/02/18 07:00 BP 133/78 02/02/18 07:00 Pulse Ox 100 02/02/18 07:00 - Labs Result Diagrams: 02/01/18 12:02 02/01/18 12:02 Labs: Laboratory Results - last 24 hr 02/01/18 02/02/18 07:40 07:35 Stool Occult Blood Negative Stool Leukocytes, Qual Positive H Assessment & Plan (1) History of kidney transplant Status: Acute (2) Chronic kidney disease, stage 4 (severe) Status: Acute (3) Chronic diarrhea Status: Acute (4) Immunocompromised patient Status: Acute (5) Pancreatitis Status: Acute - Assessment and Plan (Free Text) Plan: check FK level check amylase serial chemistries GI workup
[2018-02-02] MEDS: Linezolid 600 mg in D5W 300 ml 600 MG/300 ML BAG IVPB SCH (17:14)
--- NOTE | 2018-02-02 20:00 | CP.PCM.PN ---
Subjective - Date & Time of Evaluation Date of Evaluation: 02/02/18 Time of Evaluation: 19:59 - Subjective Subjective: I spoke to the anesthetic assistant, home attendant, as well as infectious disease. Unclear at this time for the diarrhea. According to the home attendant the possibility of drug-induced. Patient is also having significant weight loss. Elevated creatinine level Stool workup currently pending. Closely monitor. And will follow the patient. Objective - Vital Signs/Intake and Output Vital Signs (last 24 hours): Temp Pulse Resp BP Pulse Ox 98.1 F 65 19 105/63 100 02/02/18 15:00 02/02/18 15:00 02/02/18 15:00 02/02/18 15:00 02/02/18 15:00 Intake and Output: 02/02/18 02/03/18 18:59 06:59 Intake Total 400 Balance 400 - Medications Medications: Current Medications Amlodipine Besylate (Norvasc) 10 mg PO DAILY [facility] Last Admin: 02/02/18 10:01 Dose: 10 mg Famotidine (Pepcid) 20 mg PO DAILY [facility] Last Admin: 02/02/18 10:01 Dose: 20 mg Heparin Sodium (Porcine) (Heparin) 5,000 units SC Q12 [facility] Last Admin: 02/02/18 10:02 Dose: 5,000 units Home Med (Patient's Own Medication) 1 tab PO BID [facility] Last Admin: 02/02/18 17:18 Dose: 1 tab Linezolid (Zyvox 600mg/300ml D5w) 600 mg in 300 mls @ 200 mls/hr IVPB Q12 [facility] PRN Reason: Protocol Last Admin: 02/02/18 17:14 Dose: 200 mls/hr Losartan Potassium (Cozaar) 50 mg PO DAILY [facility] Last Admin: 02/02/18 10:01 Dose: 50 mg Oxycodone/Acetaminophen (Percocet 5/325 Mg Tab) 1 tab PO QID PRN PRN Reason: pain Stop: 02/05/18 14:01 Last Admin: 02/02/18 13:04 Dose: 1 tab Prednisone (Prednisone Tab) 5 mg PO DAILY [facility] Last Admin: 02/02/18 10:01 Dose: 5 mg Tacrolimus (Prograf Cap) 1 mg PO BID [facility] Last Admin: 02/02/18 18:28 Dose: 1 mg Vitamin B Complex/Vit C/Folic Acid (Nephro-Ron) 1 tab PO DAILY [facility] Last Admin: 02/02/18 10:02 Dose: 1 tab - Labs Labs: 02/01/18 12:02 02/01/18 12:02 PT 10.8 SECONDS (9.7-12.2) 02/01/18 12:02 INR 1.0 02/01/18 12:02 APTT 38 SECONDS (21-34) H 02/01/18 12:02
[2018-02-03 06:34] LABS: BASO % 0.2 % (0.0-2.0); EOS # 0.1 K/uL (0.0-0.7); EOS % 1.4 % (0.0-4.0); HEMOGLOBIN 8.7 g/dL (11.0-16.0); LYMPH # 0.9 K/uL (1.0-4.3); LYMPH % 12.2 % (20.0-40.0); MEAN CELL VOLUME 91.8 fL (81.0-99.0); MEAN CORPUSCULAR HEMOGLOBIN 30.4 pg (27.0-31.0); MEAN CORPUSCULAR HGB CONC 33.1 g/dL (33.0-37.0); MEAN PLATELET VOLUME 8.3 fL (7.2-11.7); MONO % 13.8 % (0.0-10.0); NEUT # 5.1 K/uL (1.8-7.0); NEUT % 72.4 % (50.0-75.0); NRBC % 0.1 % (0.0-2.0); RBC 2.87 Mil/uL (3.80-5.20); RED CELL DISTRIBUTION WIDTH 16.3 % (11.5-14.5)
[2018-02-03 06:49] LABS: ALB/GLOB RATIO 1.2 (1.0-2.1); ALT/SGPT 25 U/L (9-52); AST/SGOT 12 U/L (14-36); BLOOD UREA NITROGEN 22 mg/dL (7-17); CALCIUM 7.7 mg/dl (8.6-10.4); GFR AFRICAN-AMERICAN 30; GFR NON-AFRICAN AMERICAN 25
[2018-02-03] MEDS: Multivitamin Vitamin B Complex (Nephro-Vite) Tab PO SCH (10:42)
[2018-02-03] MEDS: MYCOPHENOLIC ACID 360 MG PO SCH ×2 (10:43→17:29)
[2018-02-03] MEDS: Oxycodone/Acetaminophen 5/325 mg Tab PO PRN ×2 (10:47→21:50)
[2018-02-03] MEDS: Linezolid 600 mg in D5W 300 ml 600 MG/300 ML BAG IVPB SCH ×2 (10:49→21:38)
--- NOTE | 2018-02-03 10:57 | CP.PCM.PN ---
<Loi Reese - Last Filed: 02/03/18 10:52> Subjective - Date & Time of Evaluation Date of Evaluation: 02/03/18 Time of Evaluation: 06:30 - Subjective Subjective: PGY4 GI Follow-up Pt seen and examined Dairrhea has sig improved Denies any abd pain +bloating Denies any rectal bleeding, melena, hematemesis or coffee-gorund emesis ROS: 10 point ROS conducted, neg other than above Objective - Vital Signs/Intake and Output Vital Signs (last 24 hours): Temp Pulse Resp BP Pulse Ox 98.1 F 55 L 20 151/78 H 99 02/03/18 07:00 02/03/18 07:00 02/03/18 07:00 02/03/18 07:00 02/03/18 07:00 Intake and Output: 02/03/18 02/03/18 06:59 18:59 Intake Total 620 Balance 620 - Medications Medications: Current Medications Amlodipine Besylate (Norvasc) 10 mg PO DAILY [facility] Last Admin: 02/03/18 10:42 Dose: 10 mg Famotidine (Pepcid) 20 mg PO DAILY [facility] Last Admin: 02/03/18 10:42 Dose: 20 mg Heparin Sodium (Porcine) (Heparin) 5,000 units SC Q12 [facility] Last Admin: 02/03/18 10:42 Dose: 5,000 units Home Med (Patient's Own Medication) 1 tab PO BID [facility] Last Admin: 02/03/18 10:43 Dose: 1 tab Linezolid (Zyvox 600mg/300ml D5w) 600 mg in 300 mls @ 200 mls/hr IVPB Q12 [facility] PRN Reason: Protocol Last Admin: 02/03/18 10:49 Dose: 200 mls/hr Losartan Potassium (Cozaar) 50 mg PO DAILY [facility] Last Admin: 02/02/18 10:01 Dose: 50 mg Oxycodone/Acetaminophen (Percocet 5/325 Mg Tab) 1 tab PO QID PRN PRN Reason: pain Stop: 02/05/18 14:01 Last Admin: 02/03/18 10:47 Dose: 1 tab Prednisone (Prednisone Tab) 5 mg PO DAILY [facility] Last Admin: 02/03/18 10:42 Dose: 5 mg Tacrolimus (Prograf Cap) 1 mg PO BID [facility] Last Admin: 02/03/18 10:41 Dose: 1 mg Vitamin B Complex/Vit C/Folic Acid (Nephro-Ron) 1 tab PO DAILY [facility] Last Admin: 02/03/18 10:42 Dose: 1 tab - Labs Labs: 02/03/18 06:14 02/03/18 06:14 PT 10.8 SECONDS (9.7-12.2) 02/01/18 12:02 INR 1.0 02/01/18 12:02 APTT 38 SECONDS (21-34) H 02/01/18 12:02 - Constitutional Appears: Well, No Acute Distress - Head Exam Head Exam: ATRAUMATIC, NORMOCEPHALIC - Eye Exam Eye Exam: Normal appearance - ENT Exam ENT Exam: Mucous Membranes Moist, Normal Exam - Respiratory Exam Respiratory Exam: Clear to Ausculation Bilateral, NORMAL BREATHING PATTERN. absent: Rales, Rhonchi, Wheezes, Respiratory Distress - Cardiovascular Exam Cardiovascular Exam: REGULAR RHYTHM, +S1, +S2 - GI/Abdominal Exam GI & Abdominal Exam: Soft, Normal Bowel Sounds. absent: Guarding, Rigid, Tenderness - Extremities Exam Extremities Exam: absent: Joint Swelling, Pedal Edema - Neurological Exam Neurological Exam: Alert, Awake, Oriented x3 - Psychiatric Exam Psychiatric exam: Normal Affect, Normal Mood - Skin Skin Exam: Dry, Intact, Normal Color, Warm Assessment and Plan - Assessment and Plan (Free Text) Assessment: Starla Mckeon is a 47F w/ hx of Hypertension, renal insufficiency, anemia, osteoporosis, recurrent diarrhea now, history of renal transplant who presents to the ED with complaints of diarrhea and weightloss Acute on chronic diarrhea, DDx: infectious, pancreatic insuff, bile acid malabsorbtion s/p renal transplant on Immunosupression Weightloss Plan: -c.diff neg -will eval stool electrolytes -imgaing reviewed from 01/21/2018 CT abd, no sig findings -continue diet -tacrolimus and mycophenolic acid levels pending -will get fecal fat -stool work-up still pending -will hold on EGD for now -can follow-up with Dr Sanchez as an oupt D/w Dr. Benson <Ugo Benson Y - Last Filed: 02/03/18 12:35> Objective - Vital Signs/Intake and Output Vital Signs (last 24 hours): Temp Pulse Resp BP Pulse Ox 98.1 F 55 L 20 151/78 H 99 02/03/18 07:00 02/03/18 07:00 02/03/18 07:00 02/03/18 07:00 02/03/18 07:00 Intake and Output: 02/03/18 02/03/18 06:59 18:59 Intake Total 620 Balance 620 - Medications Medications: Current Medications Amlodipine Besylate (Norvasc) 10 mg PO DAILY [facility] Last Admin: 02/03/18 10:42 Dose: 10 mg Famotidine (Pepcid) 20 mg PO DAILY [facility] Last Admin: 02/03/18 10:42 Dose: 20 mg Heparin Sodium (Porcine) (Heparin) 5,000 units SC Q12 [facility] Last Admin: 02/03/18 10:42 Dose: 5,000 units Home Med (Patient's Own Medication) 1 tab PO BID [facility] Last Admin: 02/03/18 10:43 Dose: 1 tab Linezolid (Zyvox 600mg/300ml D5w) 600 mg in 300 mls @ 200 mls/hr IVPB Q12 [facility] PRN Reason: Protocol Last Admin: 02/03/18 10:49 Dose: 200 mls/hr Losartan Potassium (Cozaar) 50 mg PO DAILY [facility] Last Admin: 02/02/18 10:01 Dose: 50 mg Oxycodone/Acetaminophen (Percocet 5/325 Mg Tab) 1 tab PO QID PRN PRN Reason: pain Stop: 02/05/18 14:01 Last Admin: 02/03/18 10:47 Dose: 1 tab Prednisone (Prednisone Tab) 5 mg PO DAILY [facility] Last Admin: 02/03/18 10:42 Dose: 5 mg Tacrolimus (Prograf Cap) 1 mg PO BID [facility] Last Admin: 02/03/18 10:41 Dose: 1 mg Vitamin B Complex/Vit C/Folic Acid (Nephro-Ron) 1 tab PO DAILY [facility] Last Admin: 02/03/18 10:42 Dose: 1 tab - Labs Labs: 02/03/18 06:14 02/03/18 06:14 PT 10.8 SECONDS (9.7-12.2) 02/01/18 12:02 INR 1.0 02/01/18 12:02 APTT 38 SECONDS (21-34) H 02/01/18 12:02 Attending/Attestation - Attestation I have personally seen and examined this patient.: Yes I have fully participated in the care of the patient.: Yes I have reviewed all pertinent clinical information, including history, physical exam and plan: Yes Notes (Text): 02/03/18 12:31 I have seen and examined patient with GI fellow. No acute events overnight, she is seen resting in bed comfortably. She reports significant improvement in diarrhea, had one bowel movement overnight. She otherwise denies abdominal pain , nausea, vomiting, fever/chills. Tolerating PO diet without difficulty. HTN CKD s/p renal transplant on immunosuppressive therapy Anemia Diarrhea - resolving UTI - Diet as tolerated - Await further results of stool studies - Patient with chronic anemia without evidence of overt GI bleeding, would likely benefit from additional outpatient follow up with Dr. Sanchez - Follow up renal and ID recommendations - Follow up fecal fat - No further planned GI interventions, will sign off case. Please reconsult as necessary, thank you.
--- NOTE | 2018-02-03 13:17 | CP.PCM.PN ---
Subjective - Date & Time of Evaluation Date of Evaluation: 02/03/18 Time of Evaluation: 13:16 - Subjective Subjective: seen and examined ongoing diarrhea denies any abd pain nausea vomiting fevers chills sob cp dizziness palpitations headache Objective - Vital Signs/Intake and Output Vital Signs (last 24 hours): Temp Pulse Resp BP Pulse Ox 98.1 F 55 L 20 151/78 H 99 02/03/18 07:00 02/03/18 07:00 02/03/18 07:00 02/03/18 07:00 02/03/18 07:00 Intake and Output: 02/03/18 02/03/18 06:59 18:59 Intake Total 620 Balance 620 - Medications Medications: Current Medications Amlodipine Besylate (Norvasc) 10 mg PO DAILY [facility] Last Admin: 02/03/18 10:42 Dose: 10 mg Famotidine (Pepcid) 20 mg PO DAILY [facility] Last Admin: 02/03/18 10:42 Dose: 20 mg Heparin Sodium (Porcine) (Heparin) 5,000 units SC Q12 [facility] Last Admin: 02/03/18 10:42 Dose: 5,000 units Home Med (Patient's Own Medication) 1 tab PO BID [facility] Last Admin: 02/03/18 10:43 Dose: 1 tab Linezolid (Zyvox 600mg/300ml D5w) 600 mg in 300 mls @ 200 mls/hr IVPB Q12 [facility] PRN Reason: Protocol Last Admin: 02/03/18 10:49 Dose: 200 mls/hr Potassium Chloride (Potassium Chloride 20 Meq/100 Ml) 20 meq in 100 mls @ 50 mls/hr IVPB ONCE ONE Stop: 02/03/18 15:14 Losartan Potassium (Cozaar) 50 mg PO DAILY [facility] Last Admin: 02/02/18 10:01 Dose: 50 mg Magnesium Oxide (Mag-Ox) 400 mg PO BID [facility] Oxycodone/Acetaminophen (Percocet 5/325 Mg Tab) 1 tab PO QID PRN PRN Reason: pain Stop: 02/05/18 14:01 Last Admin: 02/03/18 10:47 Dose: 1 tab Prednisone (Prednisone Tab) 5 mg PO DAILY [facility] Last Admin: 02/03/18 10:42 Dose: 5 mg Tacrolimus (Prograf Cap) 1 mg PO BID [facility] Last Admin: 02/03/18 10:41 Dose: 1 mg Vitamin B Complex/Vit C/Folic Acid (Nephro-Ron) 1 tab PO DAILY [facility] Last Admin: 02/03/18 10:42 Dose: 1 tab - Labs Labs: 02/03/18 06:14 02/03/18 06:14 PT 10.8 SECONDS (9.7-12.2) 02/01/18 12:02 INR 1.0 02/01/18 12:02 APTT 38 SECONDS (21-34) H 02/01/18 12:02 - Constitutional Appears: No Acute Distress, Cachectic, Chronically Ill - Head Exam Head Exam: NORMAL INSPECTION, NORMOCEPHALIC - Eye Exam Eye Exam: Normal appearance, PERRL - ENT Exam ENT Exam: Mucous Membranes Moist, Normal Exam - Neck Exam Neck Exam: Full ROM, Normal Inspection - Respiratory Exam Respiratory Exam: Clear to Ausculation Bilateral, NORMAL BREATHING PATTERN - Cardiovascular Exam Cardiovascular Exam: REGULAR RHYTHM, RRR - GI/Abdominal Exam GI & Abdominal Exam: Soft, Normal Bowel Sounds (no tenderness over transplant kidney) - Extremities Exam Extremities Exam: Full ROM, Normal Inspection - Neurological Exam Neurological Exam: Alert, Awake, Oriented x3 - Psychiatric Exam Psychiatric exam: Normal Affect, Normal Mood - Skin Skin Exam: Normal Color, Warm Assessment and Plan (1) Chronic diarrhea Status: Acute (2) Chronic kidney disease, stage 4 (severe) Status: Acute (3) History of kidney transplant Status: Acute (4) Immunocompromised patient Status: Acute (5) Weight loss, unintentional Status: Acute (6) Hypertension Status: Acute - Assessment and Plan (Free Text) Assessment: renal function stable. maintain immunosuppressives, follow tacrolimus level consider dc myfortic potassium and magnesium supplementation GI evaluation, plan for EGD noted
[2018-02-03] MEDS: Magnesium Sulfate 1 gm in D5W 1 GM/100 ML BAG IVPB SCH ×2 (16:26→17:29)
[2018-02-03 17:55] LABS: SOURCE STOOL
[2018-02-03] MEDS ORDERED: Magnesium Oxide 400 mg Tab UD PO SCH (18:00)
--- NOTE | 2018-02-03 20:59 | CP.PCM.PN ---
Subjective - Date & Time of Evaluation Date of Evaluation: 02/03/18 Time of Evaluation: 20:58 - Subjective Subjective: Patient today feeling slightly better. Less diarrhea noted today. No nausea no vomiting. Patient is feeling hungry. Patient was seen by tow truck dispatcher, I spoke to the tow truck dispatcher to, no endoscopy planned now. I suggested the patient needs possibly colonoscopy and possible biopsy, according to them can be done as an outpatient. I explained to the patient. Spoke to the infectious disease, currently pending. Further testing about the stool. Continue to monitor. Advance the diet today. Pain management. Anemia noted, will discuss with the oncologist, patient has a chronic renal insufficiency, possibly causing the anemia of chronic disease. Will follow the patient. Objective - Vital Signs/Intake and Output Vital Signs (last 24 hours): Temp Pulse Resp BP Pulse Ox 98.1 F 68 20 124/77 100 02/03/18 16:11 02/03/18 16:11 02/03/18 16:11 02/03/18 16:11 02/03/18 16:11 Intake and Output: 02/03/18 02/04/18 18:59 06:59 Intake Total 600 Balance 600 - Medications Medications: Current Medications Amlodipine Besylate (Norvasc) 10 mg PO DAILY [facility] Famotidine (Pepcid) 20 mg PO DAILY [facility] Last Admin: 02/03/18 10:42 Dose: 20 mg Gabapentin (Neurontin) 100 mg PO TID [facility] Last Admin: 02/03/18 19:21 Dose: 100 mg Heparin Sodium (Porcine) (Heparin) 5,000 units SC Q12 [facility] Last Admin: 02/03/18 10:42 Dose: 5,000 units Home Med (Patient's Own Medication) 1 tab PO BID [facility] Last Admin: 02/03/18 17:29 Dose: 1 tab Linezolid (Zyvox 600mg/300ml D5w) 600 mg in 300 mls @ 200 mls/hr IVPB Q12 [facility] PRN Reason: Protocol Last Admin: 02/03/18 10:49 Dose: 200 mls/hr Losartan Potassium (Cozaar) 50 mg PO DAILY [facility] Last Admin: 02/02/18 10:01 Dose: 50 mg Oxycodone/Acetaminophen (Percocet 5/325 Mg Tab) 1 tab PO QID PRN PRN Reason: pain Stop: 02/05/18 14:01 Last Admin: 02/03/18 10:47 Dose: 1 tab Prednisone (Prednisone Tab) 5 mg PO DAILY [facility] Last Admin: 02/03/18 10:42 Dose: 5 mg Tacrolimus (Prograf Cap) 1 mg PO BID [facility] Last Admin: 02/03/18 17:28 Dose: 1 mg Vitamin B Complex/Vit C/Folic Acid (Nephro-Ron) 1 tab PO DAILY [facility] Last Admin: 02/03/18 10:42 Dose: 1 tab - Labs Labs: 02/03/18 06:14 02/03/18 06:14 PT 10.8 SECONDS (9.7-12.2) 02/01/18 12:02 INR 1.0 02/01/18 12:02 APTT 38 SECONDS (21-34) H 02/01/18 12:02
--- NOTE | 2018-02-03 22:06 | CP.PCM.PN ---
Subjective - Date & Time of Evaluation Date of Evaluation: 02/03/18 Time of Evaluation: 22:06 - Subjective Subjective: CHIEF COMPLAINTS TODAY : ON GOING DIARRHOEA. DENIES ABDOMINAL PAIN. C/O BLOATING ROS. HEENT : N. Resp : No cough, wheezing ,pleuritic CP ,or hemoptysis Cardio : No anginal CP, PND, orthopnea, palpitation GI : No abd.pain, n/v ,+VE DIARRHOEA CHRONIC , NO GI bleeding . X RAY TECHNICIAN : No headache, vertigo, focal deficit. Musculoskel : No joint swelling , Derm : No rash Psych : Normal affect. Ext : No swelling ,calf pain PE. Pt. is alert awake in no distress. V.S As noted in the chart Head ,ear nose,throat and eyes : Normal. Neck : Supple with normal carotids. Lungs: Clear air entry. Heart : S1 & S2 normal with S4. No murmur. Abd : Soft non tender , BLOATED , DOUGHY with normal bowel sounds. Neuro : Moves all ext. with no localized deficit. Ext : No edema with intact pulses.Non tender calves Derm : No rashes or decubitus ulcer. LABS/RADIOLOGY: URINE CULTURES +VE GPC STOOLS +VE LEUKOCYTES. STOOLS -VE C.DIFFICILE STOOLS -VE OB BLOOD CULTURE -VE GROWTH Objective - Vital Signs/Intake and Output Vital Signs (last 24 hours): Temp Pulse Resp BP Pulse Ox 98.1 F 68 20 124/77 100 02/03/18 16:11 02/03/18 16:11 02/03/18 16:11 02/03/18 16:11 02/03/18 16:11 Intake and Output: 02/03/18 02/04/18 18:59 06:59 Intake Total 600 Balance 600 - Medications Medications: Current Medications Amlodipine Besylate (Norvasc) 10 mg PO DAILY [facility] Famotidine (Pepcid) 20 mg PO DAILY [facility] Last Admin: 02/03/18 10:42 Dose: 20 mg Gabapentin (Neurontin) 100 mg PO TID [facility] Last Admin: 02/03/18 19:21 Dose: 100 mg Heparin Sodium (Porcine) (Heparin) 5,000 units SC Q12 [facility] Last Admin: 02/03/18 21:38 Dose: 5,000 units Home Med (Patient's Own Medication) 1 tab PO BID [facility] Last Admin: 02/03/18 17:29 Dose: 1 tab Linezolid (Zyvox 600mg/300ml D5w) 600 mg in 300 mls @ 200 mls/hr IVPB Q12 [facility] PRN Reason: Protocol Last Admin: 02/03/18 21:38 Dose: 200 mls/hr Losartan Potassium (Cozaar) 50 mg PO DAILY [facility] Last Admin: 02/02/18 10:01 Dose: 50 mg Oxycodone/Acetaminophen (Percocet 5/325 Mg Tab) 1 tab PO QID PRN PRN Reason: pain Stop: 02/05/18 14:01 Last Admin: 02/03/18 21:50 Dose: 1 tab Prednisone (Prednisone Tab) 5 mg PO DAILY [facility] Last Admin: 02/03/18 10:42 Dose: 5 mg Tacrolimus (Prograf Cap) 1 mg PO BID [facility] Last Admin: 02/03/18 17:28 Dose: 1 mg Vitamin B Complex/Vit C/Folic Acid (Nephro-Ron) 1 tab PO DAILY [facility] Last Admin: 02/03/18 10:42 Dose: 1 tab - Labs Labs: 02/03/18 06:14 02/03/18 06:14 PT 10.8 SECONDS (9.7-12.2) 02/01/18 12:02 INR 1.0 02/01/18 12:02 APTT 38 SECONDS (21-34) H 02/01/18 12:02 Assessment and Plan (1) Chronic diarrhea Assessment & Plan: F/U DIARRHOEA W/U. Status: Acute (2) Renal transplant recipient Status: Acute (3) Weight loss, unintentional Status: Acute (4) SULEMA (acute kidney injury) Status: Acute (5) UTI (urinary tract infection) Assessment & Plan: PT ON IV ZYVOX FOR UTI (TRANSPLANT PT ) F/U CULTURES Status: Acute
[2018-02-04 07:30] LABS: BASO % 0.6 % (0.0-2.0); EOS # 0.2 K/uL (0.0-0.7); EOS % 2.4 % (0.0-4.0); HEMOGLOBIN 8.9 g/dL (11.0-16.0); MEAN CELL VOLUME 92.2 fL (81.0-99.0); MEAN CORPUSCULAR HEMOGLOBIN 30.3 pg (27.0-31.0); MEAN CORPUSCULAR HGB CONC 32.9 g/dL (33.0-37.0); MEAN PLATELET VOLUME 7.9 fL (7.2-11.7); NEUT # 4.3 K/uL (1.8-7.0); NRBC % 0.2 % (0.0-2.0); RBC 2.95 Mil/uL (3.80-5.20); RED CELL DISTRIBUTION WIDTH 16.2 % (11.5-14.5); WHITE BLOOD COUNT 6.4 K/uL (4.8-10.8)
[2018-02-04 07:40] LABS: ALB/GLOB RATIO 1.1 (1.0-2.1); ALBUMIN 3.1 g/dL (3.5-5.0); CALCIUM 8.5 mg/dl (8.6-10.4)
[2018-02-04] MEDS: Multivitamin Vitamin B Complex (Nephro-Vite) Tab PO SCH (10:12)
[2018-02-04] MEDS: MYCOPHENOLIC ACID 360 MG PO SCH (10:13)
[2018-02-04] MEDS: Linezolid 600 mg in D5W 300 ml 600 MG/300 ML BAG IVPB SCH (10:14)
--- NOTE | 2018-02-04 11:08 | CP.PCM.CON ---
History of Present Illness - History of Present Illness History of Present Illness: 47 year old female with a history of HTN, renal transplant on immunosuppresion, CKD, chronic anemia, admitted with diarrhea and weightloss. The patients anemia work up in my office was consistent with iron deficiency anemia, anemia of CKD, and anemia from immunsuppresion. She receive IV Venofer with normalization of her iron stores. She notes to improvement in her energy level with iron supplementation. Despite this, her diarrhea continues to make her feel weak and her appetite is poor. She continues to lose weight. She denies abnormal bleeding and bruising. past medical history: HTN, renal transplant on immunosuppresion, CKD, chronic anemia Past surgical history: Renal transplant Family history: Denies hematologic and oncologic problems Social history: Denies tobacco, alcohol, and illicit drug use. Allergies: NKA Review of systems: All remaining review of systems including HEENT, cardiovascular, respiratory, gastrointestinal, genitourinary, musculoskeletal, dermatologic, neurologic, and psychiatric are negative unless mentioned in the HPI. Past Patient History - Infectious Disease Hx of Infectious Diseases: None - Past Medical History & Family History Past Medical History?: Yes - Past Social History Smoking Status: Never Smoked - CARDIAC Hx Hypertension: Yes - PULMONARY Hx Respiratory Disorders: Yes Other/Comment: FLUID IN THE LUNGS? - NEUROLOGICAL Hx Migraine: Yes - HEENT Hx HEENT Problems: No - RENAL Hx Chronic Kidney Disease: Yes - ENDOCRINE/METABOLIC Hx Endocrine Disorders: No - HEMATOLOGICAL/ONCOLOGICAL Hx Anemia: Yes - INTEGUMENTARY Hx Dermatological Problems: No - MUSCULOSKELETAL/RHEUMATOLOGICAL Hx Falls: No - GASTROINTESTINAL Hx Pancreatitis: Yes - GENITOURINARY/GYNECOLOGICAL Hx Genitourinary Disorders: No - PSYCHIATRIC Hx Substance Use: No - SURGICAL HISTORY Hx Cholecystectomy: Yes (2002) - ANESTHESIA Hx Anesthesia: Yes Hx Anesthesia Reactions: No Hx Malignant Hyperthermia: No Meds Allergies/Adverse Reactions: Allergies Allergy/AdvReac Type Severity Reaction Status Date / Time No Known Allergies Allergy Verified 02/01/18 11:19 - Medications Medications: Current Medications Amlodipine Besylate (Norvasc) 10 mg PO DAILY [facility] Last Admin: 02/04/18 10:12 Dose: 10 mg Famotidine (Pepcid) 20 mg PO DAILY [facility] Last Admin: 02/04/18 10:12 Dose: 20 mg Gabapentin (Neurontin) 100 mg PO TID [facility] Last Admin: 02/04/18 10:12 Dose: 100 mg Heparin Sodium (Porcine) (Heparin) 5,000 units SC Q12 [facility] Last Admin: 02/04/18 10:13 Dose: 5,000 units Home Med (Patient's Own Medication) 1 tab PO BID [facility] Last Admin: 02/04/18 10:13 Dose: 1 tab Linezolid (Zyvox 600mg/300ml D5w) 600 mg in 300 mls @ 200 mls/hr IVPB Q12 [facility] PRN Reason: Protocol Last Admin: 02/04/18 10:14 Dose: 200 mls/hr Losartan Potassium (Cozaar) 50 mg PO DAILY [facility] Last Admin: 02/02/18 10:01 Dose: 50 mg Oxycodone/Acetaminophen (Percocet 5/325 Mg Tab) 1 tab PO QID PRN PRN Reason: pain Stop: 02/05/18 14:01 Last Admin: 02/03/18 21:50 Dose: 1 tab Prednisone (Prednisone Tab) 5 mg PO DAILY [facility] Last Admin: 02/04/18 10:12 Dose: 5 mg Tacrolimus (Prograf Cap) 1 mg PO BID [facility] Last Admin: 02/04/18 10:13 Dose: 1 mg Vitamin B Complex/Vit C/Folic Acid (Nephro-Ron) 1 tab PO DAILY [facility] Last Admin: 02/04/18 10:12 Dose: 1 tab Physical Exam - Constitutional Appears: Cachectic - Head Exam Head Exam: ATRAUMATIC - Eye Exam Eye Exam: Normal appearance - ENT Exam ENT Exam: Mucous Membranes Dry - Respiratory Exam Respiratory Exam: NORMAL BREATHING PATTERN - Cardiovascular Exam Cardiovascular Exam: +S1, +S2 - GI/Abdominal Exam GI & Abdominal Exam: Normal Bowel Sounds - Extremities Exam Extremities exam: Positive for: normal inspection - Neurological Exam Neurological exam: Oriented x3 - Psychiatric Exam Psychiatric exam: Normal Affect, Normal Mood - Skin Skin Exam: Warm Results - Vital Signs Recent Vital Signs: Last Vital Signs Temp 97.8 F 02/04/18 07:00 Pulse 63 02/04/18 07:00 Resp 20 02/04/18 07:00 BP 146/84 02/04/18 07:00 Pulse Ox 100 02/04/18 07:00 - Labs Result Diagrams: 02/05/18 08:12 02/05/18 08:12 Labs: Laboratory Results - last 24 hr 03/10/1102/03/18 02/04/18 07:40 15:42 07:12 WBC RBC Hgb Hct MCV MCH MCHC RDW Plt Count MPV Neut % (Auto) Lymph % (Auto) [place] % (Auto) Eos % (Auto) Baso % (Auto) Neut # (Auto) Lymph # (Auto) [place] # (Auto) Eos # (Auto) Baso # (Auto) Sodium 138 Potassium 3.6 Chloride 108 H Carbon Dioxide 17 L Anion Gap 17 BUN 18 H Creatinine 2.2 H Est GFR ( Amer) 29 Est GFR (Non-Af Amer) 24 Random Glucose 82 Calcium 8.5 L Magnesium 2.1 Total Bilirubin 0.1 L AST 22 ALT 29 Alkaline Phosphatase 110 Total Protein 5.8 L Albumin 3.1 L Globulin 2.7 Albumin/Globulin Ratio 1.1 Alpha Fetoprotein 8.6 H Stl Cryptosporidium Ag Not detected Cryptosp/Giardia Source Stool Giardia Antigen Not detected 02/04/18 07:12 WBC 6.4 RBC 2.95 L Hgb 8.9 L Hct 27.2 L MCV 92.2 MCH 30.3 MCHC 32.9 L RDW 16.2 H Plt Count 396 MPV 7.9 Neut % (Auto) 67.0 Lymph % (Auto) 15.0 L [place] % (Auto) 15.0 H Eos % (Auto) 2.4 Baso % (Auto) 0.6 Neut # (Auto) 4.3 Lymph # (Auto) 1.0 [place] # (Auto) 1.0 H Eos # (Auto) 0.2 Baso # (Auto) 0.0 Sodium Potassium Chloride Carbon Dioxide Anion Gap BUN Creatinine Est GFR ( Amer) Est GFR (Non-Af Amer) Random Glucose Calcium Magnesium Total Bilirubin AST ALT Alkaline Phosphatase Total Protein Albumin Globulin Albumin/Globulin Ratio Alpha Fetoprotein Stl Cryptosporidium Ag Cryptosp/Giardia Source Giardia Antigen Assessment & Plan (1) Anemia Assessment and Plan: prior iron deficiency s/p IV iron - ?absorption issue given chronic diarrhea anemia of CKD; EPO if H/H declines anemia of immunosuppression Thank you for this interesting consult. Status: Acute
[2018-02-04] MEDS: Oxycodone/Acetaminophen 5/325 mg Tab PO PRN ×2 (12:11→20:34)
--- NOTE | 2018-02-04 14:34 | CP.PCM.PN ---
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- heme to consider outpt PET scan will stop myfortic due to continued diarrhea Objective - Vital Signs/Intake and Output Vital Signs (last 24 hours): Temp Pulse Resp BP Pulse Ox 97.8 F 63 20 146/84 100 02/04/18 07:00 02/04/18 07:00 02/04/18 07:00 02/04/18 07:00 02/04/18 07:00 - Medications Medications: Current Medications Amlodipine Besylate (Norvasc) 10 mg PO DAILY [facility] Last Admin: 02/04/18 10:12 Dose: 10 mg Famotidine (Pepcid) 20 mg PO DAILY [facility] Last Admin: 02/04/18 10:12 Dose: 20 mg Gabapentin (Neurontin) 100 mg PO TID [facility] Last Admin: 02/04/18 14:28 Dose: 100 mg Heparin Sodium (Porcine) (Heparin) 5,000 units SC Q12 [facility] Last Admin: 02/04/18 10:13 Dose: 5,000 units Home Med (Patient's Own Medication) 1 tab PO BID [facility] Last Admin: 02/04/18 10:13 Dose: 1 tab Linezolid (Zyvox 600mg/300ml D5w) 600 mg in 300 mls @ 200 mls/hr IVPB Q12 [facility] PRN Reason: Protocol Last Admin: 02/04/18 10:14 Dose: 200 mls/hr Losartan Potassium (Cozaar) 50 mg PO DAILY [facility] Last Admin: 02/02/18 10:01 Dose: 50 mg Oxycodone/Acetaminophen (Percocet 5/325 Mg Tab) 1 tab PO QID PRN PRN Reason: pain Stop: 02/05/18 14:01 Last Admin: 02/04/18 12:11 Dose: 1 tab Prednisone (Prednisone Tab) 5 mg PO DAILY [facility] Last Admin: 02/04/18 10:12 Dose: 5 mg Tacrolimus (Prograf Cap) 1 mg PO BID [facility] Last Admin: 02/04/18 10:13 Dose: 1 mg Vitamin B Complex/Vit C/Folic Acid (Nephro-Ron) 1 tab PO DAILY [facility] Last Admin: 02/04/18 10:12 Dose: 1 tab - Labs Labs: 02/04/18 07:12 02/04/18 07:12 PT 10.8 SECONDS (9.7-12.2) 02/01/18 12:02 INR 1.0 02/01/18 12:02 APTT 38 SECONDS (21-34) H 02/01/18 12:02 - Constitutional Appears: No Acute Distress, Cachectic, Chronically Ill - Head Exam Head Exam: ATRAUMATIC, NORMAL INSPECTION - Eye Exam Eye Exam: EOMI, Normal appearance - Neck Exam Neck Exam: Normal Inspection. absent: Tenderness - Respiratory Exam Respiratory Exam: Clear to Ausculation Bilateral, NORMAL BREATHING PATTERN - Cardiovascular Exam Cardiovascular Exam: REGULAR RHYTHM, +S1 - GI/Abdominal Exam GI & Abdominal Exam: Soft. absent: Tenderness - Extremities Exam Extremities Exam: Normal Inspection. absent: Tenderness - Neurological Exam Neurological Exam: Alert, CN II-XII Intact - Skin Skin Exam: Dry, Warm Assessment and Plan (1) History of kidney transplant Status: Acute (2) Chronic kidney disease, stage 4 (severe) Status: Acute (3) Chronic diarrhea Status: Acute (4) Immunocompromised patient Status: Acute (5) Pancreatitis Status: Acute - Assessment and Plan (Free Text) Plan: stop myfortic GI workup Add na bicarb check fe stores ESAs as per heme
[2018-02-04] MEDS: [UNRECOGNIZED DRUG - OTHER] PO SCH (19:05)
--- NOTE | 2018-02-04 22:12 | CP.PCM.PN ---
Subjective - Date & Time of Evaluation Date of Evaluation: 02/04/18 Time of Evaluation: 22:10 - Subjective Subjective: Patient will feeling better, no abdominal pain, had a BM today. But no diarrhea noted. No nausea noted. Slightly increasing intake noted. No leg swelling. Vital signs reviewed No neck vein distention noted Chest good air entry bilaterally, no wheezing or rales noted CVS regular heart sound, no murmur noted Abdomen soft, nontender. 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 On IV antibiotic. Assessment/plan: 47-year-old female with a history of transplant, on immunosuppressive treatment. Admitted with diarrhea, abdominal pain, weight loss. Currently improving. He had attacked infection noted, on antibiotic. We'll repeat the CT of the abdomen tomorrow, if no acute findings, and patient does not have any symptoms after getting infectious disease clearance will possibly discharge the patient. Will follow the patient Objective - Vital Signs/Intake and Output Vital Signs (last 24 hours): Temp Pulse Resp BP Pulse Ox 98.0 F 75 20 120/75 100 02/04/18 15:15 02/04/18 15:15 02/04/18 15:15 02/04/18 15:15 02/04/18 15:15 Intake and Output: 02/04/18 02/05/18 18:59 06:59 Intake Total 300 Balance 300 - Medications Medications: Current Medications Amlodipine Besylate (Norvasc) 10 mg PO DAILY [facility] Last Admin: 02/04/18 10:12 Dose: 10 mg Famotidine (Pepcid) 20 mg PO DAILY [facility] Last Admin: 02/04/18 10:12 Dose: 20 mg Gabapentin (Neurontin) 100 mg PO TID [facility] Last Admin: 02/04/18 17:46 Dose: 100 mg Heparin Sodium (Porcine) (Heparin) 5,000 units SC Q12 [facility] Last Admin: 02/04/18 21:22 Dose: 5,000 units Linezolid (Zyvox) 600 mg PO Q12 [facility] Last Admin: 02/04/18 21:22 Dose: 600 mg Losartan Potassium (Cozaar) 50 mg PO DAILY [facility] Last Admin: 02/02/18 10:01 Dose: [address] ( (Myfortic) 180 Mg) 2 ea PO BID [facility] Last Admin: 02/04/18 19:05 Dose: Not Given Oxycodone/Acetaminophen (Percocet 5/325 Mg Tab) 1 tab PO QID PRN PRN Reason: pain Stop: 02/05/18 14:01 Last Admin: 02/04/18 20:34 Dose: 1 tab Prednisone (Prednisone Tab) 5 mg PO DAILY [facility] Last Admin: 02/04/18 10:12 Dose: 5 mg Sodium Bicarbonate (Sodium Bicarbonate Tab) 650 mg PO BID [facility] Last Admin: 02/04/18 17:47 Dose: 650 mg Tacrolimus (Prograf Cap) 1 mg PO BID [facility] Last Admin: 02/04/18 17:47 Dose: 1 mg Vitamin B Complex/Vit C/Folic Acid (Nephro-Ron) 1 tab PO DAILY [facility] Last Admin: 02/04/18 10:12 Dose: 1 tab - Labs Labs: 02/04/18 07:12 02/04/18 07:12 PT 10.8 SECONDS (9.7-12.2) 02/01/18 12:02 INR 1.0 02/01/18 12:02 APTT 38 SECONDS (21-34) H 02/01/18 12:02
--- NOTE | 2018-02-04 23:29 | CP.PCM.PN ---
Subjective - Date & Time of Evaluation Date of Evaluation: 02/04/18 Time of Evaluation: 23:28 - Subjective Subjective: CHIEF COMPLAINTS TODAY : DIARRHOEA IMPROVING DENIES ABDOMINAL PAIN. ROS. HEENT : N. Resp : No cough, wheezing ,pleuritic CP ,or hemoptysis Cardio : No anginal CP, PND, orthopnea, palpitation GI : No abd.pain, n/v ,+VE DIARRHOEA CHRONIC , NO GI bleeding . TIE LAYER : No headache, vertigo, focal deficit. Musculoskel : No joint swelling , Derm : No rash Psych : Normal affect. Ext : No swelling ,calf pain PE. Pt. is alert awake in no distress. V.S As noted in the chart Head ,ear nose,throat and eyes : Normal. Neck : Supple with normal carotids. Lungs: Clear air entry. Heart : S1 & S2 normal with S4. No murmur. Abd : Soft non tender , BLOATED , DOUGHY with normal bowel sounds. Neuro : Moves all ext. with no localized deficit. Ext : No edema with intact pulses.Non tender calves Derm : No rashes or decubitus ulcer. LABS/RADIOLOGY: wbc 6.4, H/H 8.9 [id number]. CREAT 2.2/BUN 18 LFTS -N URINE CULTURES +VE STREPTOCOCCUS ANGINOUS S -CTR,PCN STOOLS +VE LEUKOCYTES. STOOLS -VE C.DIFFICILE STOOLS -VE OB STOOL -VE SALMONELLA SHIGELLA AND CAMPYLOBACTER. BLOOD CULTURE -VE GROWTH X 48 HOURS. Objective - Vital Signs/Intake and Output Vital Signs (last 24 hours): Temp Pulse Resp BP Pulse Ox 98.0 F 75 20 120/75 100 02/04/18 15:15 02/04/18 15:15 02/04/18 15:15 02/04/18 15:15 02/04/18 15:15 Intake and Output: 02/04/18 02/05/18 18:59 06:59 Intake Total 300 400 Balance 300 400 - Medications Medications: Current Medications Amlodipine Besylate (Norvasc) 10 mg PO DAILY [facility] Last Admin: 02/04/18 10:12 Dose: 10 mg Famotidine (Pepcid) 20 mg PO DAILY [facility] Last Admin: 02/04/18 10:12 Dose: 20 mg Gabapentin (Neurontin) 100 mg PO TID [facility] Last Admin: 02/04/18 17:46 Dose: 100 mg Heparin Sodium (Porcine) (Heparin) 5,000 units SC Q12 [facility] Last Admin: 02/04/18 21:22 Dose: 5,000 units Linezolid (Zyvox) 600 mg PO Q12 [facility] Last Admin: 02/04/18 21:22 Dose: 600 mg Losartan Potassium (Cozaar) 50 mg PO DAILY [facility] Last Admin: 02/02/18 10:01 Dose: [address] ( (Myfortic) 180 Mg) 2 ea PO BID [facility] Last Admin: 02/04/18 19:05 Dose: Not Given Oxycodone/Acetaminophen (Percocet 5/325 Mg Tab) 1 tab PO QID PRN PRN Reason: pain Stop: 02/05/18 14:01 Last Admin: 02/04/18 20:34 Dose: 1 tab Prednisone (Prednisone Tab) 5 mg PO DAILY [facility] Last Admin: 02/04/18 10:12 Dose: 5 mg Sodium Bicarbonate (Sodium Bicarbonate Tab) 650 mg PO BID [facility] Last Admin: 02/04/18 17:47 Dose: 650 mg Tacrolimus (Prograf Cap) 1 mg PO BID [facility] Last Admin: 02/04/18 17:47 Dose: 1 mg Vitamin B Complex/Vit C/Folic Acid (Nephro-Ron) 1 tab PO DAILY [facility] Last Admin: 02/04/18 10:12 Dose: 1 tab - Labs Labs: 02/04/18 07:12 02/04/18 07:12 PT 10.8 SECONDS (9.7-12.2) 02/01/18 12:02 INR 1.0 02/01/18 12:02 APTT 38 SECONDS (21-34) H 02/01/18 12:02 Assessment and Plan (1) UTI (urinary tract infection) Assessment & Plan: IV ZYVOX NOT AVAILABLE IN PHARMACY. START IV ROCEPHIN 1GM IVPB Q 24HRLY. DC PO ZYVOX DUE TO POOR ABSORPTION VIA GI ROUTE. Status: Acute (2) Chronic diarrhea Assessment & Plan: DIARRHEA WORKUP IN PROGRESS. IF NO CONCLUSIVE WORKUP , AND DIARRHEA PERSISTS PATIENT WILL NEED COLONOSCOPY AND BIOPSY WITH APPROPRIATE CULTURE INTRALUMINAL R /O CMV-COLITIS Status: Acute (3) Renal transplant recipient Assessment & Plan: PATIENT ON IMMUNOSUPPRESIVE RX . SEE MARS. Status: Acute (4) Weight loss, unintentional Assessment & Plan: PATIENT FOR CT OF THE ABDOMEN /AND PELVIS PER ONCOLOGY DUE TO UNINTENTIONAL WEIGHT LOSS. CHECK VIT B12 SEUM FOLATE LEVEL.. Status: Acute (5) SULEMA (acute kidney injury) Status: Acute (6) History of splenectomy Assessment & Plan: HX OF SPLENECTOMY NOTED PER RENAL.. pATIENT MORE IMMUNOSUPPERRESSED. Status: Acute
[2018-02-05] MEDS: Oxycodone/Acetaminophen 5/325 mg Tab PO PRN ×2 (04:33→13:40)
[2018-02-05 06:38] LABS: SQUAMOUS EPITHIAL 1 /hpf (0-5); URINE BACTERIA RARE (<OCC); URINE BILIRUBIN NEGATIVE (NEGATIVE); URINE BLOOD NEGATIVE (NEGATIVE); URINE CLARITY Clear (Clear); URINE COLOR Straw (YELLOW); URINE GLUCOSE (UA) NORMAL (Normal); URINE LEUKOCYTE ESTERASE NEG Leu/uL (Negative); URINE PROTEIN 2+ mg/dL (NEGATIVE); URINE UROBILINOGEN NORMAL mg/dL (0.2-1.0)
[2018-02-05 08:23] LABS: HEMOGLOBIN 9.2 g/dL (11.0-16.0); MEAN CELL VOLUME 92.2 fL (81.0-99.0); MEAN CORPUSCULAR HGB CONC 32.5 g/dL (33.0-37.0); MEAN PLATELET VOLUME 8.2 fL (7.2-11.7); RBC 3.06 Mil/uL (3.80-5.20); RED CELL DISTRIBUTION WIDTH 16.3 % (11.5-14.5); WHITE BLOOD COUNT 6.6 K/uL (4.8-10.8)
[2018-02-05 08:45] LABS: ALB/GLOB RATIO 1.1 (1.0-2.1); ALBUMIN 3.2 g/dL (3.5-5.0); ALT/SGPT 41 U/L (9-52); AST/SGOT 29 U/L (14-36); BLOOD UREA NITROGEN 18 mg/dL (7-17); CALCIUM 8.7 mg/dl (8.6-10.4); GFR AFRICAN-AMERICAN 25; GFR NON-AFRICAN AMERICAN 21
[2018-02-05 09:27] LABS: FERRITIN 82.4 ng/mL
[2018-02-05 09:57] LABS: FOLATE > 20.0 ng/mL
--- NOTE | 2018-02-05 10:16 | CP.PCM.PN ---
Subjective - Date & Time of Evaluation Date of Evaluation: 02/05/18 Time of Evaluation: 10:14 - Subjective Subjective: on treatment for UTI claims less diarrhea creat increased to 2.5 tacro level low-3.5 feels sl better Objective - Vital Signs/Intake and Output Vital Signs (last 24 hours): Temp Pulse Resp BP Pulse Ox 97.2 F L 66 20 120/78 100 02/05/18 08:31 02/05/18 08:31 02/05/18 08:31 02/05/18 08:31 02/05/18 08:31 Intake and Output: 02/05/18 02/05/18 06:59 18:59 Intake Total 400 Balance 400 - Medications Medications: Current Medications Amlodipine Besylate (Norvasc) 10 mg PO DAILY [facility] Last Admin: 02/04/18 10:12 Dose: 10 mg Famotidine (Pepcid) 20 mg PO DAILY [facility] Last Admin: 02/04/18 10:12 Dose: 20 mg Gabapentin (Neurontin) 100 mg PO TID [facility] Last Admin: 02/04/18 17:46 Dose: 100 mg Ceftriaxone Sodium 1 gm/ (Sodium Chloride) 100 mls @ 100 mls/hr IVPB DAILY [facility] PRN Reason: Protocol Losartan Potassium (Cozaar) 50 mg PO DAILY [facility] Last Admin: 02/02/18 10:01 Dose: [address] ( (Myfortic) 180 Mg) 2 ea PO BID [facility] Last Admin: 02/04/18 19:05 Dose: Not Given Oxycodone/Acetaminophen (Percocet 5/325 Mg Tab) 1 tab PO QID PRN PRN Reason: pain Stop: 02/05/18 14:01 Last Admin: 02/05/18 04:33 Dose: 1 tab Prednisone (Prednisone Tab) 5 mg PO DAILY [facility] Last Admin: 02/04/18 10:12 Dose: 5 mg Sodium Bicarbonate (Sodium Bicarbonate Tab) 650 mg PO BID [facility] Last Admin: 02/04/18 17:47 Dose: 650 mg Tacrolimus (Prograf Cap) 1 mg PO BID [facility] Last Admin: 02/04/18 17:47 Dose: 1 mg Vitamin B Complex/Vit C/Folic Acid (Nephro-Ron) 1 tab PO DAILY [facility] Last Admin: 02/04/18 10:12 Dose: 1 tab - Labs Labs: 02/05/18 08:12 02/05/18 08:12 PT 10.8 SECONDS (9.7-12.2) 02/01/18 12:02 INR 1.0 02/01/18 12:02 APTT 38 SECONDS (21-34) H 02/01/18 12:02 - Constitutional Appears: No Acute Distress, Chronically Ill - Head Exam Head Exam: ATRAUMATIC, NORMAL INSPECTION - Eye Exam Eye Exam: EOMI, Normal appearance - Neck Exam Neck Exam: Normal Inspection. absent: Tenderness - Respiratory Exam Respiratory Exam: Clear to Ausculation Bilateral, NORMAL BREATHING PATTERN - Cardiovascular Exam Cardiovascular Exam: REGULAR RHYTHM, +S1 - GI/Abdominal Exam GI & Abdominal Exam: Soft. absent: Tenderness - Extremities Exam Extremities Exam: Normal Inspection, Tenderness - Neurological Exam Neurological Exam: Alert, CN II-XII Intact - Skin Skin Exam: Dry, Warm Assessment and Plan (1) History of kidney transplant Status: Acute (2) Chronic kidney disease, stage 4 (severe) Status: Acute (3) Chronic diarrhea Status: Acute (4) Immunocompromised patient Status: Acute (5) Pancreatitis Status: Acute - Assessment and Plan (Free Text) Plan: stop ARB increase tacro dose; myfortic has been stopped f/u chemistries
[2018-02-05] MEDS ORDERED: Iohexol 240 (50 ml) PO ONE (10:30)
[2018-02-05] MEDS: Multivitamin Vitamin B Complex (Nephro-Vite) Tab PO SCH (10:33)
[2018-02-05] MEDS: [UNRECOGNIZED DRUG - OTHER] PO SCH (10:34)
--- NOTE | 2018-02-05 13:17 | CP.PCM.PN ---
Subjective - Date & Time of Evaluation Date of Evaluation: 02/05/18 Time of Evaluation: 13:17 - Subjective Subjective: CHIEF COMPLAINTS TODAY : afebrile DIARRHOEA IMPROVING DENIES ABDOMINAL PAIN. STOOL NOROVIRUS AG +VE CTABDOMEN/PELVIS W/PO CONTRAST Showed fluid-filled bowel loops appeared within limits of caliber. No bulky lymphadenopathy. +ve splenectomy Right lower quadrant transplant kidney, no hydronephrosis ROS. HEENT : N. Resp : No cough, wheezing ,pleuritic CP ,or hemoptysis Cardio : No anginal CP, PND, orthopnea, palpitation GI : No abd.pain, n/v ,+VE DIARRHOEA CHRONIC , NO GI bleeding . T[employer] MECH[employer]IC : No headache, vertigo, focal deficit. Musculoskel : No joint swelling , Derm : No rash Psych : Normal affect. Ext : No swelling ,calf pain PE. Pt. is alert awake in no distress. V.S As noted in the chart Head ,ear nose,throat and eyes : Normal. Neck : Supple with normal carotids. Lungs: Clear air entry. Heart : S1 & S2 normal with S4. No murmur. Abd : Soft non tender , BLOATED , DOUGHY with normal bowel sounds. Neuro : Moves all ext. with no localized deficit. Ext : No edema with intact pulses.Non tender calves Derm : No rashes or decubitus ulcer. LABS/RADIOLOGY: wbc 6.6, H/H 9.2 PLT 407 CREAT 2.5/BUN 18 LFTS -N stools positive Norovirus antigen URINE CULTURES +VE STREPTOCOCCUS ANGINOUS S -CTR,PCN STOOLS +VE LEUKOCYTES. STOOLS -VE C.DIFFICILE STOOLS -VE OB STOOL -VE SALMONELLA SHIGELLA AND CAMPYLOBACTER. BLOOD CULTURE -VE GROWTH X 48 HOURS Objective - Vital Signs/Intake and Output Vital Signs (last 24 hours): Temp Pulse Resp BP Pulse Ox 97.8 F 66 18 136/83 100 02/05/18 12:17 02/05/18 12:17 02/05/18 12:17 02/05/18 12:17 02/05/18 12:17 Intake and Output: 02/05/18 02/05/18 06:59 18:59 Intake Total 400 Balance 400 - Medications Medications: Current Medications Amlodipine Besylate (Norvasc) 10 mg PO DAILY [facility] Last Admin: 02/05/18 10:33 Dose: 10 mg Famotidine (Pepcid) 20 mg PO DAILY [facility] Last Admin: 02/05/18 10:33 Dose: 20 mg Gabapentin (Neurontin) 100 mg PO TID [facility] Last Admin: 02/05/18 10:32 Dose: 100 mg Ceftriaxone Sodium 1 gm/ (Sodium Chloride) 100 mls @ 100 mls/hr IVPB DAILY [facility] PRN Reason: Protocol Last Admin: 02/05/18 10:33 Dose: 100 mls/hr Oxycodone/Acetaminophen (Percocet 5/325 Mg Tab) 1 tab PO QID PRN PRN Reason: pain Stop: 02/05/18 14:01 Last Admin: 02/05/18 04:33 Dose: 1 tab Prednisone (Prednisone Tab) 5 mg PO DAILY [facility] Last Admin: 02/05/18 10:33 Dose: 5 mg Sodium Bicarbonate (Sodium Bicarbonate Tab) 650 mg PO BID [facility] Last Admin: 02/05/18 10:33 Dose: 650 mg Tacrolimus (Prograf Cap) 1 mg PO BID [facility] Last Admin: 02/05/18 10:34 Dose: 1 mg Tacrolimus (Prograf Cap) 0.5 mg PO Q12 [facility] Vitamin B Complex/Vit C/Folic Acid (Nephro-Ron) 1 tab PO DAILY [facility] Last Admin: 02/05/18 10:33 Dose: 1 tab - Labs Labs: 02/05/18 08:12 02/05/18 08:12 PT 10.8 SECONDS (9.7-12.2) 02/01/18 12:02 INR 1.0 02/01/18 12:02 APTT 38 SECONDS (21-34) H 02/01/18 12:02 Assessment and Plan (1) UTI (urinary tract infection) Assessment & Plan: urine culture positive for Streptococcus anginosis -s ceftriaxone, penicillin. Patient started on IV Rocephin 1 g once a day daily 02/04/18 dc po Zyvox. f/u repeat UA urine cultures to clearing. Status: Acute (2) Chronic diarrhea Assessment & Plan: Stools positive for norovirus antigen. Patient placed in contact isolation/ ENTERIC PRECAUTIONS. STRICT HAND WASHING WITH SOAP AND WATER. ALCOHOL CLEANSING DOES NOT PREVENT INFECTION. CASE ALSO DISCUSSED WITH INFECTION CONTROL- MS AXEL STRATTONConor CASE DISCUSSED WITH PMD. ARCHANA VIRUS IN IMMUNOSUPPRESSED PATIENT CAN BE LETHAL AND CAUSE SEVERE PROTRACTED DIARRHEA AND WEIGHT LOSS WITH MALNUTRITION AND EVEN . PATIENT NOTED TO BE ON IMMUNOSUPPRESSIVE DRUGS AND ALSO HAS DECREASED HUMORAL IMMUNITY BECAUSE OF SPLENECTOMY. SHE CARRIES EXTRA RISK NOT ONLY FOR THE GUT GRAFT VERSUS HOST DISEASE,BUT WILL NEED IMMUNOSUPPRESSION DECREASED. PATIENT IF CONTINUES TO LOSE WEIGHT,MAY NEED HELP OF PARENTERAL NUTRITION. PATIENT TO CONTACT THE TRANSPLANT TEAM AFTER DISCHARGE. PATIENT ALSO INSTRUCTED TO AVOID EATING UNCOOKED MEALS, EGGS OR ANY EGG PRODUCTS. THOROUGHLY WASH PRODUCE. DRINK BOILING WATER/OR BOTTLED WATER. Status: Acute (3) Renal transplant recipient Status: Acute (4) Weight loss, unintentional Status: Acute (5) SULEMA (acute kidney injury) Assessment & Plan: CREATININE 2.5 bun 18 ON 02/05/18 NEPHROLOGY ON BOARD. Status: Acute (6) History of splenectomy Status: Acute
--- NOTE | 2018-02-05 15:24 | CT ---
PROCEDURE: CT Abdomen and Pelvis without IV contrast. HISTORY: colitis COMPARISON: CT abdomen and pelvis without contrast performed 01/16/18 TECHNIQUE: Contiguous axial images of the abdomen and pelvis. Oral contrast was administered. No IV contrast given. Coronal and Sagittal reformats generated and reviewed. Radiation dose: Total exam DLP = 208.23 mGy-cm. This CT exam was performed using one or more of the following dose reduction techniques: Automated exposure control, adjustment of the mA and/or kV according to patient size, and/or use of iterative reconstruction technique. FINDINGS: There is limited evaluation of the solid organs without the administration of IV contrast. LOWER THORAX: No visible consolidation, pleural effusion, or pneumothorax. Partially imaged small to moderate pericardial effusion. LIVER: Too small to characterize hepatic hypodensities. GALLBLADDER AND BILE DUCTS: Prominence of the common bile duct in the setting of cholecystectomy. PANCREAS: Unremarkable unenhanced appearance. SPLEEN: Splenectomy. ADRENALS: Unremarkable unenhanced appearance. KIDNEYS AND URETERS: Severe atrophy of bilateral tunica-biloxi kidneys containing numerous punctate calcifications as well as bilateral too small to characterize renal hypodensities, likely cysts. Right lower quadrant transplant kidney. No hydronephrosis. BLADDER: The urinary bladder appears unremarkable. REPRODUCTIVE: Uterus is present. APPENDIX: The appendix appears within normal limits of caliber. No secondary signs of acute appendicitis. BOWEL: The stomach is nondistended. Fluid-filled small bowel loops appear within normal limits of caliber. Contrast is seen within the colon. PERITONEUM: No significant free fluid. No definite free air. LYMPH NODES: No bulky lymphadenopathy identified. VASCULATURE: Dense atherosclerotic calcifications of the aorta and branches. No aortic aneurysm. BONES: No acute osseous abnormality is detected. OTHER FINDINGS: None. IMPRESSION: Small to moderate pericardial effusion. Dilated common bile duct in the setting of cholecystectomy. Severe bilateral renal atrophy. Right iliac fossa transplant kidney. Splenectomy. Too small to characterize hepatic hypodensities. Fluid-filled small bowel loops appear within normal limits of caliber. Contrast is seen within the colon. Additional findings as above.
[2018-02-05 16:28] VITALS: BP 135/80; PULSE 73; RESP 20; TEMP 98.4; O2SAT 99
--- NOTE | 2018-02-05 18:08 | CP.PCM.PN ---
Subjective - Date & Time of Evaluation Date of Evaluation: 02/05/18 Time of Evaluation: 13:30 - Subjective Subjective: Diarrhea improved Objective - Vital Signs/Intake and Output Vital Signs (last 24 hours): Temp Pulse Resp BP Pulse Ox 98.4 F 73 20 135/80 99 02/05/18 15:27 02/05/18 15:27 02/05/18 15:27 02/05/18 15:27 02/05/18 15:27 Intake and Output: 02/05/18 02/05/18 06:59 18:59 Intake Total 400 400 Balance 400 400 - Medications Medications: Current Medications Amlodipine Besylate (Norvasc) 10 mg PO DAILY [facility] Last Admin: 02/05/18 10:33 Dose: 10 mg Famotidine (Pepcid) 20 mg PO DAILY [facility] Last Admin: 02/05/18 10:33 Dose: 20 mg Gabapentin (Neurontin) 100 mg PO TID [facility] Last Admin: 02/05/18 17:43 Dose: 100 mg Ceftriaxone Sodium 1 gm/ (Sodium Chloride) 100 mls @ 100 mls/hr IVPB DAILY [facility] PRN Reason: Protocol Last Admin: 02/05/18 10:33 Dose: 100 mls/hr Prednisone (Prednisone Tab) 5 mg PO DAILY [facility] Last Admin: 02/05/18 10:33 Dose: 5 mg Sodium Bicarbonate (Sodium Bicarbonate Tab) 650 mg PO BID [facility] Last Admin: 02/05/18 17:42 Dose: 650 mg Tacrolimus (Prograf Cap) 1 mg PO BID [facility] Last Admin: 02/05/18 17:43 Dose: 1 mg Tacrolimus (Prograf Cap) 0.5 mg PO Q12 [facility] Vitamin B Complex/Vit C/Folic Acid (Nephro-Ron) 1 tab PO DAILY [facility] Last Admin: 02/05/18 10:33 Dose: 1 tab - Labs Labs: 02/05/18 08:12 02/05/18 08:12 PT 10.8 SECONDS (9.7-12.2) 02/01/18 12:02 INR 1.0 02/01/18 12:02 APTT 38 SECONDS (21-34) H 02/01/18 12:02 - Head Exam Head Exam: ATRAUMATIC - Eye Exam Eye Exam: Normal appearance - ENT Exam ENT Exam: Mucous Membranes Dry - Respiratory Exam Respiratory Exam: NORMAL BREATHING PATTERN - Cardiovascular Exam Cardiovascular Exam: +S1, +S2 - GI/Abdominal Exam GI & Abdominal Exam: Normal Bowel Sounds Assessment and Plan (1) Anemia Assessment & Plan: prior iron deficiency s/p IV iron - ?absorption issue from chronic diarrhea anemia of CKD; Procrit if H/H declines anemia of immunosupression Status: Acute
--- NOTE | 2018-02-05 19:44 | CP.PCM.PN ---
Subjective - Date & Time of Evaluation Date of Evaluation: 02/05/18 Time of Evaluation: 19:42 - Subjective Subjective: pt has less diarrhea had ct abd today and showing no new changes but some fluid filled small bowels nonspecific. no abd pain vitals noted stool positive for norovirus isolated now as per ID streptococci urine infection on rocephine will monitor Objective - Vital Signs/Intake and Output Vital Signs (last 24 hours): Temp Pulse Resp BP Pulse Ox 98.4 F 73 20 135/80 99 02/05/18 15:27 02/05/18 15:27 02/05/18 15:27 02/05/18 15:27 02/05/18 15:27 Intake and Output: 02/05/18 02/06/18 18:59 06:59 Intake Total 400 Balance 400 - Medications Medications: Current Medications Amlodipine Besylate (Norvasc) 10 mg PO DAILY [facility] Last Admin: 02/05/18 10:33 Dose: 10 mg Famotidine (Pepcid) 20 mg PO DAILY [facility] Last Admin: 02/05/18 10:33 Dose: 20 mg Gabapentin (Neurontin) 100 mg PO TID [facility] Last Admin: 02/05/18 17:43 Dose: 100 mg Ceftriaxone Sodium 1 gm/ (Sodium Chloride) 100 mls @ 100 mls/hr IVPB DAILY [facility] PRN Reason: Protocol Last Admin: 02/05/18 10:33 Dose: 100 mls/hr Prednisone (Prednisone Tab) 5 mg PO DAILY [facility] Last Admin: 02/05/18 10:33 Dose: 5 mg Sodium Bicarbonate (Sodium Bicarbonate Tab) 650 mg PO BID [facility] Last Admin: 02/05/18 17:42 Dose: 650 mg Tacrolimus (Prograf Cap) 1 mg PO BID [facility] Last Admin: 02/05/18 17:43 Dose: 1 mg Tacrolimus (Prograf Cap) 0.5 mg PO Q12 [facility] Vitamin B Complex/Vit C/Folic Acid (Nephro-Rno) 1 tab PO DAILY [facility] Last Admin: 02/05/18 10:33 Dose: 1 tab - Labs Labs: 02/05/18 08:12 02/05/18 08:12 PT 10.8 SECONDS (9.7-12.2) 02/01/18 12:02 INR 1.0 02/01/18 12:02 APTT 38 SECONDS (21-34) H 02/01/18 12:02
[2018-02-05 19:51] LABS: MYCOPHENOLIC ACID 6.6 mcg/mL (1.0-3.5)
--- NOTE | 2018-02-05 21:17 | CP.PCM.DIS ---
Provider - Provider Date of Admission: 02/01/18 12:47 Attending physician: Gretta Villela MD Hospital Course - Lab Results Lab Results: Micro Results 02/02/18 16:45 Blood-Venous Blood Culture - Preliminary NO GROWTH AFTER 3 DAYS 02/02/18 16:15 Blood-Venous Blood Culture - Preliminary NO GROWTH AFTER 3 DAYS 02/02/18 19:56 Other: Please Indicate Mycobacterial Culture - Preliminary 02/04/18 Unknown Stool Ova and Parasite Concentrate Exam - Final 02/02/18 19:56 Stool Ova and Parasite Concentrate Exam - Final 02/02/18 05:47 Stool Stool Culture - Final NO SALMONELLA, SHIGELLA OR CAMPYLOBACTER ISOLATED. 02/01/18 11:51 Urine Urine Culture - Final Streptococcus anginosus group Most Recent Lab Values WBC 6.6 K/uL (4.8-10.8) 02/05/18 08:12 RBC 3.06 Mil/uL (3.80-5.20) L 02/05/18 08:12 Hgb 9.2 g/dL (11.0-16.0) L 02/05/18 08:12 Hct 28.2 % (34.0-47.0) L 02/05/18 08:12 MCV 92.2 fL (81.0-99.0) 02/05/18 08:12 MCH 30.0 pg (27.0-31.0) 02/05/18 08:12 MCHC 32.5 g/dL (33.0-37.0) L 02/05/18 08:12 RDW 16.3 % (11.5-14.5) H 02/05/18 08:12 Plt Count 407 K/uL (130-400) H 02/05/18 08:12 MPV 8.2 fL (7.2-11.7) 02/05/18 08:12 Neut % (Auto) 67.0 % (50.0-75.0) 02/04/18 07:12 Lymph % (Auto) 15.0 % (20.0-40.0) L 02/04/18 07:12 [place] % (Auto) 15.0 % (0.0-10.0) H 02/04/18 07:12 Eos % (Auto) 2.4 % (0.0-4.0) 02/04/18 07:12 Baso % (Auto) 0.6 % (0.0-2.0) 02/04/18 07:12 Neut # (Auto) 4.3 K/uL (1.8-7.0) 02/04/18 07:12 Lymph # (Auto) 1.0 K/uL (1.0-4.3) 02/04/18 07:12 [place] # (Auto) 1.0 K/uL (0.0-0.8) H 02/04/18 07:12 Eos # (Auto) 0.2 K/uL (0.0-0.7) 02/04/18 07:12 Baso # (Auto) 0.0 K/uL (0.0-0.2) 02/04/18 07:12 PT 10.8 SECONDS (9.7-12.2) 02/01/18 12:02 INR 1.0 02/01/18 12:02 APTT 38 SECONDS (21-34) H 02/01/18 12:02 Sodium 138 mmol/L (132-148) 02/05/18 08:12 Potassium 3.8 mmol/L (3.6-5.2) 02/05/18 08:12 Chloride 107 mmol/L (98-107) 02/05/18 08:12 Carbon Dioxide 17 mmol/L (22-30) L 02/05/18 08:12 Anion Gap 18 (10-20) 02/05/18 08:12 BUN 18 mg/dL (7-17) H 02/05/18 08:12 Creatinine 2.5 mg/dL (0.7-1.2) H 02/05/18 08:12 Est GFR ( Amer) 25 02/05/18 08:12 Est GFR (Non-Af Amer) 21 02/05/18 08:12 Random Glucose 80 mg/dL (65-105) 02/05/18 08:12 Calcium 8.7 mg/dl (8.6-10.4) 02/05/18 08:12 Phosphorus 3.1 mg/dL (2.5-4.5) 02/03/18 06:14 Magnesium 2.1 mg/dL (1.6-2.3) 02/04/18 07:12 % Saturation 27 (20-55) 02/05/18 08:12 Ferritin 82.4 ng/mL 02/05/18 08:12 Total Bilirubin 0.2 mg/dL (0.2-1.3) 02/05/18 08:12 AST 29 U/L (14-36) 02/05/18 08:12 ALT 41 U/L (9-52) 02/05/18 08:12 Alkaline Phosphatase 111 U/L (38-126) 02/05/18 08:12 Total Protein 6.3 g/dL (6.3-8.3) 02/05/18 08:12 Albumin 3.2 g/dL (3.5-5.0) L 02/05/18 08:12 Globulin 3.1 gm/dL (2.2-3.9) 02/05/18 08:12 Albumin/Globulin Ratio 1.1 (1.0-2.1) 02/05/18 08:12 Lipase 152 U/L (23-300) 02/01/18 12:02 Alpha Fetoprotein 8.6 ng/mL (0.0-7.5) H 02/03/18 15:42 Vitamin B12 240 pg/mL (239-931) 02/05/18 08:12 25-OH Vitamin D Total 26.8 NG/ML (30.0-100.0) L 02/05/18 08:12 Folate > 20.0 ng/mL 02/05/18 08:12 Free T4 0.95 ng/dL (0.78-2.19) 02/01/18 12:45 TSH 3rd Generation 1.37 mIU/L (0.46-4.68) 02/01/18 12:45 Urine Color Straw (YELLOW) 02/05/18 06:31 Urine Clarity Clear (Clear) 02/05/18 06:31 Urine pH 5.0 (5.0-8.0) 02/05/18 06:31 Ur Specific [place] 1.008 (1.003-1.030) 02/05/18 06:31 Urine Protein 2+ mg/dL (NEGATIVE) H 02/05/18 06:31 Urine Glucose (UA) Normal mg/dL (Normal) 02/05/18 06:31 Urine Ketones Negative mg/dL (NEGATIVE) 02/05/18 06:31 Urine Blood Negative (NEGATIVE) 02/05/18 06:31 Urine Nitrate Negative (NEGATIVE) 02/05/18 06:31 Urine Bilirubin Negative (NEGATIVE) 02/05/18 06:31 Urine Urobilinogen Normal mg/dL (0.2-1.0) 02/05/18 06:31 Ur Leukocyte Esterase Neg Rubén/uL (Negative) 02/05/18 06:31 Urine WBC (Auto) 1 /hpf (0-5) 02/05/18 06:31 Urine RBC (Auto) < 1 /hpf (0-3) 02/01/18 12:16 Ur Squamous Epith Cells 1 /hpf (0-5) 02/05/18 06:31 Urine Bacteria Rare (<OCC) 02/05/18 06:31 Stool Fat, Qual See note 02/02/18 08:47 Stool Occult Blood Negative (NEGATIVE) 02/02/18 07:35 Stool Leukocytes, Qual Positive (NEGATIVE) H 02/01/18 07:40 Stl Cryptosporidium Ag Not detected (Not detected) 02/01/18 07:40 Stool Norovirus Ag Detected H 02/01/18 07:40 Mycophenolic Acid 6.6 mcg/mL (1.0-3.5) H 02/03/18 06:14 MPA Glucuronide 132.0 mcg/mL (35.0-100.0) H 02/03/18 06:14 Tacrolimus (LC/MS/MS) 3.5 mcg/L (5.0-20.0) L 02/03/18 06:14 C. difficile Ag & Toxin Negative (NEGATIVE) 02/02/18 22:00 Cryptosp/Giardia Source Stool 02/01/18 07:40 CMV IgG Ab Negative (NEGATIVE) 02/03/18 06:14 Giardia Antigen Not detected (Not Detected) 02/01/18 07:40 Discharge Exam - Head Exam Head Exam: ATRAUMATIC Discharge Plan - Discharge Medications Prescriptions: Amoxicillin/Clavulanate [Augmentin 875 MG-125 MG] 1 tab PO BID #14 tab - Follow Up Plan Condition: FAIR Disposition: HOME/ ROUTINE Instructions: Diarrhea in Adolescents and Adults, Heart Healthy Diet, Norovirus (DC), Kidney Transplant
[2018-02-06 09:33] LABS: SOURCE: PLASMA
== END 2018-02-05 21:29 | disposition home or self-care (01) | DRG 552 ==
LOC: C.ER 11:01 → C.9E 12:47 → C.6T 15:02 → C.5S 02-05 11:45
PROVIDERS: ADMIT Internal Medicine; ATTEND Internal Medicine
DX: K52.1 Toxic gastroenteritis and colitis (principal); N17.9 Acute kidney failure, unspecified; N18.4 Chronic kidney disease, stage 4 (severe); N39.0 Urinary tract infection, site not specified; Z94.0 Kidney transplant status; M19.90 Unspecified osteoarthritis, unspecified site; I12.9 Hypertensive chronic kidney disease with stage 1 through stage 4 chronic kidney disease, or unspecified chronic kidney disease; R63.4 Abnormal weight loss; Z90.49 Acquired absence of other specified parts of digestive tract; G89.4 Chronic pain syndrome; D50.9 Iron deficiency anemia, unspecified; D63.1 Anemia in chronic kidney disease; T45.1X5A Adverse effect of antineoplastic and immunosuppressive drugs, initial encounter; Z90.81 Acquired absence of spleen; B95.5 Unspecified streptococcus as the cause of diseases classified elsewhere

== ENCOUNTER 2018-06-03 16:24 | Inpatient (IN) | payer OTHER ==
[2018-06-03 16:24] VITALS: BMI 17.3
[2018-06-03] MEDS ORDERED: Sodium Chloride 0.9% 1,000 ML IV ONE ×2 (16:52→18:15)
--- NOTE | 2018-06-03 17:02 | C.PDOC ---
History Of Present Illness 47 year old female with PMHx of hypertension and PSHx of a kidney transplant presents to the ER for crampy abdominal pain for 3 days. Her associated symptoms are nausea, vomiting, and diarrhea. Patient denies fever, chills, or SOB. Patient reports that she was in an infirmary [place] for [place]. Time Seen by Provider: 06/03/18 16:44 Chief Complaint (Nursing): Abdominal Pain History Per: Patient History/Exam Limitations: no limitations Onset/Duration Of Symptoms: Days Current Symptoms Are (Timing): Still Present Location Of Pain/Discomfort: Diffuse Associated Symptoms: Nausea, Vomiting, Diarrhea, Other (SOB). denies: Fever, Chills Recent travel outside of the [place]: Yes (cruise) Additional History Per: Patient Past Medical History Reviewed: Historical Data, Nursing Documentation, Vital Signs Vital Signs: Last Vital Signs Temp 98.2 F 06/03/18 16:35 Pulse 64 06/03/18 16:35 Resp 20 06/03/18 16:35 BP 163/93 H 06/03/18 16:35 Pulse Ox 99 06/03/18 18:38 - Medical History PMH: Anemia, Anxiety, Arthritis, Bronchitis, Fibromyalgia, Gall Bladder Disease , HTN, Migraine, Pancreatitis, Chronic Kidney Disease Surgical History: Cholecystectomy (2002), Other Surgeries: Kidney transplant - [facility] Procedures DILATION OF COMMON BILE DUCT, ENDO (09/23/15) DILATION OF LEFT HEPATIC DUCT, ENDO (09/23/15) DRAINAGE OF RIGHT PLEURAL CAVITY, PERC APPROACH, DIAGN (09/23/15) ENDOSCOPIC EXCIS OR DESTRUCT OF LESION OF DUODENUM (07/01/15) ESOPHAGOGASTRODUODENOSCOPY [EGD] W/CLOSED BIOPSY (07/01/15) EXCISION OF DUODENUM, ENDO, DIAGN (03/13/16) EXCISION OF MIDDLE ESOPHAGUS, ENDO, DIAGN (03/13/16) EXCISION OF STOMACH, ENDO, DIAGN (03/13/16) Family History: States: Unknown Family Hx - Social History Hx Alcohol Use: No Hx Substance Use: No - Immunization History Hx Tetanus Toxoid Vaccination: Yes Hx Influenza Vaccination: Yes Hx Pneumococcal Vaccination: No Review Of Systems Constitutional: Negative for: Fever, Chills Respiratory: Negative for: Shortness of Breath Gastrointestinal: Positive for: Nausea, Vomiting, Diarrhea Musculoskeletal: Positive for: Other (diffuse abdominal pain) Physical Exam - Physical Exam Appears: Non-toxic, No Acute Distress Skin: Normal Color, Warm, Dry Head: Atraumatic, Normacephalic Eye(s): bilateral: Normal Inspection Nose: Normal Oral Mucosa: Moist Throat: Normal Neck: Normal ROM, Supple Chest: Symmetrical, No Deformity Cardiovascular: Rhythm Regular Respiratory: Normal Breath Sounds, No Rales, No Rhonchi, No Wheezing Gastrointestinal/Abdominal: Soft, Tenderness (mild diffuse), No Guarding, No Rebound Back: No CVA Tenderness Extremity: Normal ROM (x4) Neurological/Psych: Oriented x3, Normal Speech, Normal Motor, Normal Sensation Gait: Steady ED Course And Treatment - Laboratory Results Result Diagrams: 06/03/18 17:38 06/03/18 17:38 Lab Interpretation: Abnormal ECG: Interpreted By Me ECG Rhythm: Sinus Rhythm, Nonspecific Changes ECG Interpretation: No Acute Changes Rate From EC O2 Sat by Pulse Oximetry: 99 (RA) Pulse Ox Interpretation: Normal Progress Note: Treated with IVF NSS and Kcl 20 meq IV Reassessment Condition: Improved - Physician Consult Information Physician Contacted: Gretta Villela Outcome Of Conversation: admit to tele Medical Decision Making Medical Decision Making: Impression: Abdominal pain Plan: -- blood work -- IV fluids -- Zofran 4 mg -- UCx -- UA Disposition Discussed With : Gretta Villela Doctor Will See Patient In The: Hospital - Disposition Disposition: HOSPITALIZED Disposition Time: 18:50 Condition: GUARDED Forms: [facility] (Thai) - POA Present On Arrival: None - Clinical Impression Clinical Impression: Nausea, Vomiting, Renal insufficiency, Abdominal pain, Diarrhea, Hypokalemia - 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 - Scribe Statement The provider has reviewed the documentation as recorded by the Wally Garcia Do All medical record entries made by the Scribe were at my direction and personally dictated by me. I have reviewed the chart and agree that the record accurately reflects my personal performance of the history, physical exam, medical decision making, and the department course for this patient. I have also personally directed, reviewed, and agree with the discharge instructions and disposition. Decision To Admit - Pt Status Changed To: Hospital Disposition Of: Inpatient - Admit Certification Admit to Inpatient:: After my assessment, the patient will require hospitalization for at least two midnights. This is because of the severity of symptoms shown, intensity of services needed, and/or the medical risk in this patient being treated as an outpatient. - InPatient: Physician Admission Certification:: Dehydration. Renal failure S/P kidney transplant. Hypokalemia - . Bed Request Type: Telemetry Admitting Physician: Gretta Villela Patient Diagnosis: Nausea, Vomiting, Renal insufficiency, Abdominal pain, Diarrhea, Hypokalemia
[2018-06-03] MEDS ORDERED: Sodium Chloride 0.9% 1,000 ML ONE ×2 (17:15→18:22)
[2018-06-03 17:53] LABS: BASO % 0.2 % (0.0-2.0); EOS # 0.1 K/uL (0.0-0.7); EOS % 1.2 % (0.0-4.0); HEMOGLOBIN 10.5 g/dL (11.0-16.0); LYMPH # 0.3 K/uL (1.0-4.3); LYMPH % 3.2 % (20.0-40.0); MEAN CORPUSCULAR HEMOGLOBIN 28.8 pg (27.0-31.0); MEAN CORPUSCULAR HGB CONC 32.2 g/dL (33.0-37.0); MEAN PLATELET VOLUME 7.8 fL (7.2-11.7); MONO % 10.4 % (0.0-10.0); NEUT # 8.2 K/uL (1.8-7.0); NRBC % 0.3 % (0.0-2.0); PLATELET COUNT 361 K/uL (130-400); RBC 3.64 Mil/uL (3.80-5.20); RED CELL DISTRIBUTION WIDTH 16.9 % (11.5-14.5); WHITE BLOOD COUNT 9.6 K/uL (4.8-10.8)
[2018-06-03 17:57] LABS: MEAN CELL VOLUME 89.4 fL (81.0-99.0)
[2018-06-03 18:07] LABS: ALB/GLOB RATIO 1.3 (1.0-2.1); ALBUMIN 3.6 g/dL (3.5-5.0)
[2018-06-03] MEDS ORDERED: Potassium Chloride 20 mEq 100 ML ONE (18:22)
[2018-06-03 18:24] LABS: ANISOCYTOSIS SLIGHT; EOSINOPHIL 3 % (0-4); HYPOCHROMIC SLIGHT; LYMPHOCYTE 6 % (20-40); MONOCYTE 10 % (0-10); NEUTROPHIL 81 % (50-75); PLATELET ESTIMATE NORMAL (NORMAL); POIKILOCYTOSIS SLIGHT; TOTAL CELLS COUNTED 100
[2018-06-03 18:25] LABS: BURR CELLS SLIGHT; TEARDROP CELLS SLIGHT
[2018-06-03 19:38] LABS: SQUAMOUS EPITHIAL < 1 /hpf (0-5); URINE BILIRUBIN NEGATIVE (NEGATIVE); URINE BLOOD 1+ (NEGATIVE); URINE CLARITY Clear (Clear); URINE COLOR Straw (YELLOW); URINE GLUCOSE (UA) NORMAL (Normal); URINE LEUKOCYTE ESTERASE NEG Leu/uL (Negative); URINE PROTEIN 2+ mg/dL (NEGATIVE); URINE UROBILINOGEN NORMAL mg/dL (0.2-1.0)
--- NOTE | 2018-06-03 20:59 | CP.PCM.HP ---
History of Present Illness - History of Present Illness History of Present Illness: Chief comparing: Abdominal pain, not feeling well, diarrhea History of present illness: 47-year-old female with a history of renal transplant, on immuno suppressive treatment, hypertension, renal insufficiency, recurrent anemia, history of CBD obstruction, status post ERCP, ampullectomy, chronic pain syndrome. Patient was recently just returned from cruise in [place]. While she was in the cruise in the initial days she was feeling okay, but later she started having increasing abdominal pain. Nausea. Episode of vomiting. Also persistent diarrhea. She is also walking of the sun significant amount of time. She got sick while in the cruise, she was quaretined, given IV fluid and potassium in the cruise. While she came out of the cruise, she started having increasing weakness, not feeling well, abdominal pain, and a episodes of diarrhea. Currently no vomiting noted, but still feeling nauseated. Not eating well. Almost 2-3 days she is not eating well. No fever noted. No chills. But cold feeling noted. Patient also has a significant muscle wasting. Patient immunosuppressive treatment was recently increased. Her baseline creatinine level was 1.9-2.5 He was also recently diagnosed with the noravirus diarrhea Past medical history: Hypertension, renal insufficiency, anemia, osteoporosis, recurrent diarrhea now , history of renal transplant Surgical history: Patient had a cholecystectomy, , and renal transplant Allergies: No known drug allergy Personal history nonsmoker nonalcoholic Family history noncontributory Review of systems: Complaining of generalized body pain, occasional headache, minimal chest discomfort, abdominal discomfort, diarrhea, vomiting occasionally, weight loss. Appetite poor Vital signs reviewed No neck vein distention noted, significant wasting noted Chest good air entry bilaterally, no wheezing or rales noted CVS regular heart sound, no murmur noted Abdomen soft, nontender. Extremities no pedal edema VETERINARY PHARMACOLOGIST alert awake oriented -3, no functional neurological deficit Labs reviewed Patient labs showing evidence of low potassium level, low bicarbonate level. Elevated creatinine blood urea nitrogen level noted. Overall worsening renal insufficiency noted now Assessment/plan: 47-year-old female with history of renal transplant on immunosuppressive treatment. Hypertension, fairly controlled. Patient had a history of CBD obstruction, status post ampulla surgical intervention in the past Now having recurrent diarrheal episode, weight loss. Poor nutrition. We'll admit the patient. Patient now having acute renal insufficiency on chronic renal failure. Acute electrolytic imbalance. Hypokalemia. Acidosis secondary to bicarbonate loss noted. Metabolic most likely. Will continue the IV fluid IV hydration renal evaluation. Potassium supplementation. Bicarbonate supplementation. We'll also get the stool workup. Repeat blood works. DVT GI prophylaxis. Overall prognosis is guarded. Will follow the patient Present on Admission - Present on Admission Any Indicators Present on Admission: No History of DVT/PE: No History of Uncontrolled Diabetes: No Urinary Catheter: No Decubitus Ulcer Present: No Past Patient History - Infectious Disease Hx of Infectious Diseases: None - Past Medical History & Family History Past Medical History?: Yes - Past Social History Smoking Status: Never Smoked - CARDIAC Hx Hypertension: Yes - PULMONARY Hx Bronchitis: Yes - NEUROLOGICAL Hx Migraine: Yes - HEENT Hx HEENT Problems: No - RENAL Hx Chronic Kidney Disease: Yes - ENDOCRINE/METABOLIC Hx Endocrine Disorders: No - HEMATOLOGICAL/ONCOLOGICAL Hx Anemia: Yes - INTEGUMENTARY Hx Dermatological Problems: No - MUSCULOSKELETAL/RHEUMATOLOGICAL Hx Arthritis: Yes - GASTROINTESTINAL Hx Gall Bladder Disease: Yes Hx Pancreatitis: Yes - GENITOURINARY/GYNECOLOGICAL Hx Genitourinary Disorders: No - PSYCHIATRIC Hx Anxiety: Yes Hx Substance Use: No - SURGICAL HISTORY Hx Cholecystectomy: Yes (2002) - ANESTHESIA Hx Anesthesia: Yes Hx Anesthesia Reactions: No Hx Malignant Hyperthermia: No Meds Allergies/Adverse Reactions: Allergies Allergy/AdvReac Type Severity Reaction Status Date / Time No Known Allergies Allergy Verified 02/01/18 11:19 Results - Vital Signs Recent Vital Signs: Last Vital Signs Temp 97.8 F 06/03/18 20:35 Pulse 73 06/03/18 20:35 Resp 18 06/03/18 20:35 BP 162/79 H 06/03/18 20:35 Pulse Ox 98 06/03/18 20:35 - Labs Result Diagrams: 06/03/18 17:38 06/03/18 17:38 Labs: Laboratory Results - last 24 hr 06/03/18 06/03/18 06/03/18 17:38 17:38 17:38 WBC 9.6 RBC 3.64 L Hgb 10.5 L Hct 32.6 L MCV 89.4 D MCH 28.8 MCHC 32.2 L RDW 16.9 H Plt Count 361 MPV 7.8 Neut % (Auto) 85.0 H Lymph % (Auto) 3.2 L [place] % (Auto) 10.4 H Eos % (Auto) 1.2 Baso % (Auto) 0.2 Neut # (Auto) 8.2 H Lymph # (Auto) 0.3 L [place] # (Auto) 1.0 H Eos # (Auto) 0.1 Baso # (Auto) 0.0 Neutrophils % (Manual) 81 H Lymphocytes % (Manual) 6 L Monocytes % (Manual) 10 Eosinophils % (Manual) 3 Platelet Estimate Normal Hypochromasia (manual) Slight Poikilocytosis (manual Slight Anisocytosis (manual) Slight Tear Drop Cells Slight [place] Cells Slight Sodium 136 Potassium 2.3 L* D Chloride 109 H Carbon Dioxide 8 L* D Anion Gap 22 H BUN 44 H Creatinine 5.1 H Est GFR ( Amer) 11 Est GFR (Non-Af Amer) 9 Random Glucose 79 Lactic Acid < 0.5 L Calcium 6.0 L* D Total Bilirubin 0.2 AST 14 D ALT 35 Alkaline Phosphatase 105 Total Protein 6.3 Albumin 3.6 Globulin 2.7 Albumin/Globulin Ratio 1.3 Lipase 121 Urine Color Urine Clarity Urine pH Ur Specific [place] Urine Protein Urine Glucose (UA) Urine Ketones Urine Blood Urine Nitrate Urine Bilirubin Urine Urobilinogen Ur Leukocyte Esterase Urine WBC (Auto) Urine RBC (Auto) Ur Squamous Epith Cells 06/03/18 19:26 WBC RBC Hgb Hct MCV MCH MCHC RDW Plt Count MPV Neut % (Auto) Lymph % (Auto) [place] % (Auto) Eos % (Auto) Baso % (Auto) Neut # (Auto) Lymph # (Auto) [place] # (Auto) Eos # (Auto) Baso # (Auto) Neutrophils % (Manual) Lymphocytes % (Manual) Monocytes % (Manual) Eosinophils % (Manual) Platelet Estimate Hypochromasia (manual) Poikilocytosis (manual Anisocytosis (manual) Tear Drop Cells [place] Cells Sodium Potassium Chloride Carbon Dioxide Anion Gap BUN Creatinine Est GFR ( Amer) Est GFR (Non-Af Amer) Random Glucose Lactic Acid Calcium Total Bilirubin AST ALT Alkaline Phosphatase Total Protein Albumin Globulin Albumin/Globulin Ratio Lipase Urine Color Straw Urine Clarity Clear Urine pH 5.0 Ur Specific [place] 1.005 Urine Protein 2+ H Urine Glucose (UA) Normal Urine Ketones Negative Urine Blood 1+ H Urine Nitrate Negative Urine Bilirubin Negative Urine Urobilinogen Normal Ur Leukocyte Esterase Neg Urine WBC (Auto) 2 Urine RBC (Auto) 3 Ur Squamous Epith Cells < 1
[2018-06-03] MEDS ORDERED: Sodium Bicarbonate 8.4% 100 MEQ in Dextrose 5% In Water 1,000 ML IV SCH (21:15)
[2018-06-03 23:09] LABS: ALB/GLOB RATIO 1.2 (1.0-2.1); ALBUMIN 2.9 g/dL (3.5-5.0); CALCIUM 5.4 mg/dl (8.6-10.4)
[2018-06-04] MEDS: Magnesium Sulfate 1 gm in D5W 1 GM/100 ML BAG IVPB SCH ×3 (00:20→02:42)
--- NOTE | 2018-06-04 01:04 | CP.PCM.CON ---
History of Present Illness - History of Present Illness History of Present Illness: Attending: Dr Villela Dough Catcher: Dr Clark Reason for Consult: Critidal care management Chief Complaint: Diarrhea/ Abdominal pain /Vomiting The Patient was seen and examined on the Telemetry unit. HPI:The Hx was obtained from the patient , discussion with Dr Villela and after review of the Medical records. She is a 47 yeard old female with hx of HTN , Hypothyroidism,CKD and DM. She returned today from a sea cruise to [place], [place] and [facility], referring 3 days of loose diarrhea with cramp-like generalized abdominal pain. She vomited once. No fever, headaches, cough, dysuria nor urinary frequency. In the Ed she was found to have low magnesium. Potassium, Calcium and Glucose. She is transferred from Telemetry to the ICU for critical care management. PMH: Anemia, Anxiety, Arthritis, Bronchitis, Fibromyalgia, Gall Bladder Disease , HTN, Migraine, Pancreatitis, CKD; Hypothyroidism; DM? PSH: Cholecystectomy (2002), ; Kidney transplant 2009, complicated causing Splenectomy 2009;AV shunt; EGD 2014 showing Gastritis and Duodenitis; Right Thoracentesis for Pleural effusion n112/08; ERCP and Sphinsterotomy SH: Former Smoker; Former Alcohol drinker; No illegal drug use; Live with family FH: Father with Throat Cancer Mother with DM and HTN Allergies: NKDA Medication: Reviewed Review of Systems - Constitutional Constitutional: Fatigue, Weakness. absent: Chills, Fever, Headache - EENT Eyes: Requires Corrective Lenses. absent: Blurred Vision, Diplopia, Photophobia , Sees Flashes Ears: absent: Decreased Hearing, Ear Discharge, Tinnitus Nose/Mouth/Throat: absent: Nasal Congestion, Nasal Discharge, Nasal Trauma, Sinus Pain, Sinus Pressure - Cardiovascular Cardiovascular: Dyspnea, Palpitations. absent: Chest Pain, Edema, Pedal Edema - Respiratory Respiratory: absent: Cough, Dyspnea, Stridor, Excessive Mucous Production - Gastrointestinal Gastrointestinal: Abdominal Pain, Cramping, Diarrhea, Nausea, Vomiting - Genitourinary Genitourinary: absent: Dysuria, Flank Pain, Urinary Frequency - Musculoskeletal Musculoskeletal: absent: Arthralgias, Back Pain, Joint Swelling, Muscle Weakness - Integumentary Integumentary: absent: Pruritus, Rash, Skin Ulcer, Sores, Striae, Swelling - Neurological Neurological: Dizziness, Weakness. absent: Confusion, Focal Weakness, Headaches - Psychiatric Psychiatric: absent: Anxiety, Depression, Panic Attacks - Endocrine Endocrine: absent: Palpitations, Polydipsia, Polyphagia, Polyuria - Hematologic/Lymphatic Hematologic: absent: Easy Bleeding, Easy Bruising Past Patient History - Infectious Disease Hx of Infectious Diseases: None - Past Medical History & Family History Past Medical History?: Yes - Past Social History Smoking Status: Former Smoker Chewing Tobacco Use: No Cigar Use: No Alcohol: None Drugs: Denies Home Situation {Lives}: With Family - CARDIAC Hx Hypertension: Yes - PULMONARY Hx Bronchitis: Yes - NEUROLOGICAL Hx Migraine: Yes - HEENT Hx HEENT Problems: No - RENAL Hx Chronic Kidney Disease: Yes - ENDOCRINE/METABOLIC Hx Endocrine Disorders: No - HEMATOLOGICAL/ONCOLOGICAL Hx Anemia: Yes - INTEGUMENTARY Hx Dermatological Problems: No - MUSCULOSKELETAL/RHEUMATOLOGICAL Hx Arthritis: Yes - GASTROINTESTINAL Hx Gall Bladder Disease: Yes Hx Pancreatitis: Yes - GENITOURINARY/GYNECOLOGICAL Hx Genitourinary Disorders: No - PSYCHIATRIC Hx Anxiety: Yes Hx Substance Use: No - SURGICAL HISTORY Hx Section: Yes (X2) Hx Cholecystectomy: Yes (2002) Hx Splenectomy: Yes Other/Comment: Renal transplane - ANESTHESIA Hx Anesthesia: Yes Hx Anesthesia Reactions: No Hx Malignant Hyperthermia: No Meds Allergies/Adverse Reactions: Allergies Allergy/AdvReac Type Severity Reaction Status Date / Time No Known Allergies Allergy Verified 02/01/18 11:19 - Medications Medications: Current Medications Amlodipine Besylate (Norvasc) 10 mg PO DAILY [facility] Famotidine (Pepcid) 20 mg PO DAILY [facility] Heparin Sodium (Porcine) (Heparin) 5,000 units SC Q8 [facility] Home Med (Mycophenolate Sodium [Mycophenolic Acid]) 1 cap PO BID [facility] Sodium Bicarbonate 100 meq/ (Dextrose) 1,100 mls @ 75 mls/hr IV .[id number] [facility] Last Admin: 06/03/18 22:34 Dose: 75 mls/hr Potassium Chloride (Potassium Chloride 20 Meq/100 Ml) 20 meq in 100 mls @ 50 mls/hr IVPB ONCE ONE Stop: 06/04/18 01:32 Last Admin: 06/04/18 00:40 Dose: 50 mls/hr Potassium Chloride (Potassium Chloride 10 Meq/100 Ml) 10 meq in 100 mls @ 100 mls/hr IVPB Q2 [facility] Stop: 06/04/18 04:59 Calcium Gluconate 4.65 meq/ (Sodium Chloride) 110 mls @ 50 mls/hr IV ONCE ONE Stop: 06/04/18 02:00 Oxycodone/Acetaminophen (Percocet 5/325 Mg Tab) 1 tab PO Q4 PRN PRN Reason: PAIN MODERATE 4-7 Stop: 06/06/18 21:22 Prednisone (Prednisone Tab) 20 mg PO DAILY [facility]RIAN Tacrolimus (Prograf Cap) 1 mg PO BID BRIAN Vitamin B Complex/Vit C/Folic Acid (Nephro-Ron) 1 tab PO DAILY BRIAN Physical Exam - Constitutional Appears: No Acute Distress - Head Exam Head Exam: ATRAUMATIC, NORMAL INSPECTION, NORMOCEPHALIC - Eye Exam Eye Exam: EOMI, Normal appearance Pupil Exam: NORMAL ACCOMODATION, PERRL - ENT Exam ENT Exam: Normal Exam, Normal External Ear Exam - Neck Exam Neck exam: Positive for: Full Rom, Normal Inspection. Negative for: Lymphadenopathy, Tenderness - Respiratory Exam Respiratory Exam: Clear to Auscultation Bilateral. absent: Rales, Rhonchi, Wheezes - Cardiovascular Exam Cardiovascular Exam: RRR, +S1, +S2. absent: Gallop, JVD, Rubs - GI/Abdominal Exam GI & Abdominal Exam: Normal Bowel Sounds, Organomegaly, Rigid, Soft. absent: Tenderness - Rectal Exam Rectal Exam: Deferred - Extremities Exam Extremities exam: Positive for: full ROM, normal inspection. Negative for: joint swelling, pedal edema - Back Exam Back exam: NORMAL INSPECTION. absent: CVA tenderness (L), CVA tenderness (R) - Neurological Exam Neurological exam: Alert, CN II-XII Intact, Oriented x3, Reflexes Normal - Psychiatric Exam Psychiatric exam: Normal Affect, Normal Mood - Skin Skin Exam: Dry, Intact, Normal Color, Warm Results - Vital Signs Recent Vital Signs: Last Vital Signs Temp 98.1 F 06/03/18 23:35 Pulse 60 06/03/18 23:35 Resp 20 06/03/18 23:35 BP 163/85 H 06/03/18 23:35 Pulse Ox 99 06/03/18 23:35 - Labs Result Diagrams: 06/03/18 17:38 06/03/18 22:19 Labs: Laboratory Results - last 24 hr 06/03/18 06/03/18 06/03/18 17:38 17:38 17:38 WBC 9.6 RBC 3.64 L Hgb 10.5 L Hct 32.6 L MCV 89.4 D MCH 28.8 MCHC 32.2 L RDW 16.9 H Plt Count 361 MPV 7.8 Neut % (Auto) 85.0 H Lymph % (Auto) 3.2 L [place] % (Auto) 10.4 H Eos % (Auto) 1.2 Baso % (Auto) 0.2 Neut # (Auto) 8.2 H Lymph # (Auto) 0.3 L [place] # (Auto) 1.0 H Eos # (Auto) 0.1 Baso # (Auto) 0.0 Neutrophils % (Manual) 81 H Lymphocytes % (Manual) 6 L Monocytes % (Manual) 10 Eosinophils % (Manual) 3 Platelet Estimate Normal Hypochromasia (manual) Slight Poikilocytosis (manual Slight Anisocytosis (manual) Slight Tear Drop Cells Slight [place] Cells Slight Sodium 136 Potassium 2.3 L* D Chloride 109 H Carbon Dioxide 8 L* D Anion Gap 22 H BUN 44 H Creatinine 5.1 H Est GFR ( Amer) 11 Est GFR (Non-Af Amer) 9 Random Glucose 79 Lactic Acid < 0.5 L Calcium 6.0 L* D Magnesium Total Bilirubin 0.2 AST 14 D ALT 35 Alkaline Phosphatase 105 Total Protein 6.3 Albumin 3.6 Globulin 2.7 Albumin/Globulin Ratio 1.3 Lipase 121 Urine Color Urine Clarity Urine pH Ur Specific [place] Urine Protein Urine Glucose (UA) Urine Ketones Urine Blood Urine Nitrate Urine Bilirubin Urine Urobilinogen Ur Leukocyte Esterase Urine WBC (Auto) Urine RBC (Auto) Ur Squamous Epith Cells 06/03/18 06/03/18 06/03/18 19:26 22:19 22:38 WBC RBC Hgb Hct MCV MCH MCHC RDW Plt Count MPV Neut % (Auto) Lymph % (Auto) [place] % (Auto) Eos % (Auto) Baso % (Auto) Neut # (Auto) Lymph # (Auto) [place] # (Auto) Eos # (Auto) Baso # (Auto) Neutrophils % (Manual) Lymphocytes % (Manual) Monocytes % (Manual) Eosinophils % (Manual) Platelet Estimate Hypochromasia (manual) Poikilocytosis (manual Anisocytosis (manual) Tear Drop Cells [place] Cells Sodium 141 Potassium 2.4 L* Chloride 116 H Carbon Dioxide 8 L* Anion Gap 19 BUN 40 H Creatinine 4.3 H Est GFR ( Amer) 13 Est GFR (Non-Af Amer) 11 Random Glucose 65 Lactic Acid < 0.5 L Calcium 5.4 L* Magnesium 0.9 L* D Total Bilirubin 0.3 AST 11 L D ALT 37 Alkaline Phosphatase 94 Total Protein 5.3 L Albumin 2.9 L Globulin 2.4 Albumin/Globulin Ratio 1.2 Lipase Urine Color Straw Urine Clarity Clear Urine pH 5.0 Ur Specific [place] 1.005 Urine Protein 2+ H Urine Glucose (UA) Normal Urine Ketones Negative Urine Blood 1+ H Urine Nitrate Negative Urine Bilirubin Negative Urine Urobilinogen Normal Ur Leukocyte Esterase Neg Urine WBC (Auto) 2 Urine RBC (Auto) 3 Ur Squamous Epith Cells < 1 - EKG Data EKG comments: NSR 74/min with IVCD Assessment & Plan - Assessment and Plan (Free Text) Assessment: #. Gastroenteritis #. Electrolyte Imbalance #. Hypoglycemia #. ESRD s/p Renal transplant #. Metabolic Acidosis #. Abnormal ABG Plan: 47 yeard old female with hx of HTN, Hypothyroidism,CKD and DM. She returned today from a sea cruise to [place], [place] and [facility], referring 3 days of loose diarrhea with cramp-like generalized abdominal pain. She vomited once. No fever, headaches, cough, dysuria nor urinary frequency. In the Ed she was found to have low magnesium. Potassium, Calcium and Glucose. She is transferred from Telemetry to the ICU for critical care management. #. Gastroenteritis most probably viral as the patient was on a Cruise Ship - Norovirus; Rotavirus; Cryptosporidium; Giarda; - Stool for WBC and Electrolytes - Zofran - IV Fluids #. Electrolyte Imbalance with Hypokalemia; Hypomagnesemia; Hypocalcemia due to the Diarrhea and Poor intake - Replace Potassium with KCL IV - Calcium Gluconate - Magnesium Sulfate - Follow Electrolytes next blood draw #. Hypoglycemia In patient supposidely with DM - IV Fluids to include Dextose - HbA1c #. ESRD s/p Renal transplant - Consult Dr Clark nephrology - IV Fluids - Follow Renal labs #. Metabolic Acidosis - Sodium Bicarbonate Depending on th ABG being ordered #. Abnormal EKG caused by the Electrolyte imbalance - Follow EKG #. DVT Prophylaxis with SCD and Heparin - Follow INR and PTT #. Code Status Full - Date & Time Date: 06/04/18 Time: 01:04
[2018-06-04] MEDS: Oxycodone/Acetaminophen 5/325 mg Tab PO PRN ×4 (02:45→21:33)
[2018-06-04 02:48] LABS: ABG ALLEN TEST POS; ARTERIAL BLOOD GAS HCO3 9.9 mmol/L (21-28); ARTERIAL BLOOD GAS HEMOGLOBIN 9.8 g/dL (11.7-17.4); ARTERIAL BLOOD GAS O2 SAT 97.8 % (95-98); ARTERIAL BLOOD GAS PCO2 22 mm/Hg (35-45); ARTERIAL BLOOD GAS PH 7.16 (7.35-7.45); ARTERIAL BLOOD GAS PO2 122 mm/Hg (80-100); ARTERIAL BLOOD GAS TCO2 8.5 mmol/L (22-28)
[2018-06-04] MEDS ORDERED: Magnesium Sulfate 1 gm in D5W 1 GM/100 ML BAG IVPB SCH (03:00)
[2018-06-04 06:48] LABS: BASO % 0.3 % (0.0-2.0); EOS # 0.1 K/uL (0.0-0.7); EOS % 1.6 % (0.0-4.0); HEMOGLOBIN 9.9 g/dL (11.0-16.0); LYMPH # 0.2 K/uL (1.0-4.3); LYMPH % 2.1 % (20.0-40.0); MEAN CELL VOLUME 88.8 fL (81.0-99.0); MEAN CORPUSCULAR HEMOGLOBIN 29.6 pg (27.0-31.0); MEAN CORPUSCULAR HGB CONC 33.3 g/dL (33.0-37.0); MEAN PLATELET VOLUME 7.7 fL (7.2-11.7); MONO # 1.1 K/uL (0.0-0.8); MONO % 11.8 % (0.0-10.0); NEUT # 7.7 K/uL (1.8-7.0); NEUT % 84.2 % (50.0-75.0); NRBC % 0.3 % (0.0-2.0); PLATELET COUNT 315 K/uL (130-400); RBC 3.35 Mil/uL (3.80-5.20); RED CELL DISTRIBUTION WIDTH 16.8 % (11.5-14.5); WHITE BLOOD COUNT 9.1 K/uL (4.8-10.8)
[2018-06-04 06:50] LABS: INR 1.9; PROTHROMBIN TIME 20.7 SECONDS (9.7-12.2)
[2018-06-04 07:26] LABS: CALCIUM 6.5 mg/dl (8.6-10.4)
[2018-06-04 08:50] LABS: EOSINOPHIL 1 % (0-4); LYMPHOCYTE 2 % (20-40); MONOCYTE 8 % (0-10); NEUTROPHIL 89 % (50-75); NUCLEATED RED BLOOD CELL 1 % (0-0); TOTAL CELLS COUNTED 100
[2018-06-04 08:51] LABS: ANISOCYTOSIS SLIGHT; BURR CELLS MODERATE; HYPOCHROMIC SLIGHT; PLATELET ESTIMATE NORMAL (NORMAL); POIKILOCYTOSIS SLIGHT
[2018-06-04 08:52] LABS: ACANTHOCYTES SLIGHT; LARGE PLATELETS PRESENT
--- NOTE | 2018-06-04 08:55 | CP.CCUPN ---
<Jahaira Cha - Last Filed: 06/04/18 17:27> CCU Subjective - Physician Review Subjective (Free Text): 06/04/18 08:53 Pt seen and examined at bedside this am. No acute events overnight. Patient is resting comfortably. Complaining of generalized weakness and generalized pain. Patient denies having any bowel movements overnight. Complains of mild periumbillical abd pain. Denies having any N/V, F/C, CP, SOB. CCU Objective - Vital Signs / Intake & Output Vital Signs (Last 4 hours): Vital Signs Temp Pulse Resp BP Pulse Ox 06/04/18 08:34 166/88 H 06/04/18 08:04 51 L 12 174/82 H 100 06/04/18 08:00 98.2 F 52 L 14 100 06/04/18 07:56 55 L 14 161/93 H 100 06/04/18 07:34 63 12 162/108 H 06/04/18 07:00 48 L 13 06/04/18 06:34 77 11 L 165/88 H 06/04/18 06:10 53 L 12 142/75 100 06/04/18 06:00 53 L 12 100 06/04/18 05:34 52 L 11 L 199/97 H 100 06/04/18 05:00 54 L 12 100 Intake and Output (Last 8hrs): Intake & Output 06/03/18 06/04/18 06/04/18 22:59 06:59 14:59 Intake Total 975 510 Output Total 1200 300 Balance -225 210 Weight 90 lb 77 lb Intake: Intake, IV Amount 975 150 RIGHT INNER FOREARM 675 150 Right Forearm 300 Oral 0 360 Output: Urine 1200 300 Urine, Voided 1200 300 Other: Voiding Method Bedpan # Voids Urine, Voided 0 # Bowel Movements 0 0 - Physical Exam Head: Positive for: Atraumatic, Normocephalic Mouth: Positive for: Moist Mucous Membranes Respiratory/Chest: Positive for: Clear to Auscultation. Negative for: Accessory Muscle Use, Wheezes, Rales, Rhonchi Cardiovascular: Positive for: Regular Rate and Rhythm, Normal S1, S2. Negative for: Murmurs Abdomen: Positive for: Normal Bowel Sounds. Negative for: Tenderness, Distention, Peritoneal Signs, Guarding Lower Extremity: Negative for: Edema, CALF TENDERNESS Neurological: Positive for: GCS=15, Speech Normal Skin: Positive for: Warm, Dry, Normal Color. Negative for: Rashes Psychiatric: Positive for: Alert, Oriented x 3, Normal Insight, Normal Concentration - Medications Active Medications: Active Medications Generic Name Dose Route Start Last Admin Trade Name Freq PRN Reason Stop Dose Admin Amlodipine Besylate 10 mg 06/04/18 10:00 Norvasc PO DAILY [facility] Famotidine 20 mg 06/04/18 10:00 Pepcid PO DAILY [facility] Heparin Sodium (Porcine) 5,000 units 06/04/18 06:00 06/04/18 06:22 Heparin SC 5,000 units Q8 BRIAN Administration Home Med 1 cap 06/04/18 10:00 Mycophenolate Sodium [Mycophenolic Acid] PO BID [facility] Sodium Bicarbonate 100 meq/ 1,100 mls @ 75 mls/hr 06/03/18 21:15 06/03/18 22: 34 Dextrose IV 75 mls/hr .[id number] BRIAN Administration Ondansetron HCl 4 mg 06/04/18 01:12 Zofran Inj IVP Q4 PRN Nausea/Vomiting Oxycodone/Acetaminophen 1 tab 06/03/18 21:21 06/04/18 08:46 Percocet 5/325 Mg Tab PO 06/06/18 21:22 1 tab Q4 PRN Administration PAIN MODERATE 4-7 Prednisone 20 mg 06/04/18 10:00 Prednisone Tab PO DAILY [facility] Tacrolimus 1 mg 06/04/18 10:00 Prograf Cap PO BID [facility] Vitamin B Complex/Vit C/Folic Acid 1 tab 06/04/18 10:00 Nephro-Ron PO DAILY BRIAN - Patient Studies Lab Studies: Lab Studies 06/04/18 06/04/18 06/04/18 Range/Units 07:56 06:37 06:37 WBC 9.1 (4.8-10.8) K/uL RBC 3.35 L (3.80-5.20) Mil/uL Hgb 9.9 L (11.0-16.0) g/dL Hct 29.7 L (34.0-47.0) % MCV 88.8 (81.0-99.0) fL MCH 29.6 (27.0-31.0) pg MCHC 33.3 (33.0-37.0) g/dL RDW 16.8 H (11.5-14.5) % Plt Count 315 (130-400) K/uL MPV 7.7 (7.2-11.7) fL Neut % (Auto) 84.2 H (50.0-75.0) % Lymph % (Auto) 2.1 L (20.0-40.0) % [place] % (Auto) 11.8 H (0.0-10.0) % Eos % (Auto) 1.6 (0.0-4.0) % Baso % (Auto) 0.3 (0.0-2.0) % Neut # (Auto) 7.7 H (1.8-7.0) K/uL Lymph # (Auto) 0.2 L (1.0-4.3) K/uL [place] # (Auto) 1.1 H (0.0-0.8) K/uL Eos # (Auto) 0.1 (0.0-0.7) K/uL Baso # (Auto) 0.0 (0.0-0.2) K/uL Neutrophils % (Manual) 89 H (50-75) % Lymphocytes % (Manual) 2 L (20-40) % Monocytes % (Manual) 8 (0-10) % Eosinophils % (Manual) 1 (0-4) % Nucleated RBC % 1 H (0-0) % Platelet Estimate Normal (NORMAL) Large Platelets Present Hypochromasia (manual) Slight Poikilocytosis (manual Slight Anisocytosis (manual) Slight Tear Drop Cells [place] Cells Moderate Acanthocytes (Spur) Slight PT 20.7 H (9.7-12.2) SECONDS INR 1.9 APTT 42 H (21-34) SECONDS Puncture Site pCO2 (35-45) mm/Hg pO2 (80-100) mm/Hg HCO3 (21-28) mmol/L ABG pH (7.35-7.45) ABG Total CO2 (22-28) mmol/L ABG O2 Saturation (95-98) % ABG Base Excess (-2.0-3.0) mmol/L ABG Hemoglobin (11.7-17.4) g/dL ABG Carboxyhemoglobin (0.5-1.5) % POC ABG HHb (Measured) (0.0-5.0) % ABG Methemoglobin (0.0-3.0) % Sudeep Test A-a O2 Difference mm/Hg Respiratory Index Hgb O2 Saturation (95.0-98.0) % Liter Flow FiO2 % Crit Value Called To Crit Value Called By Crit Value Read Back Blood Gas Notified Time Sodium (132-148) mmol/L Potassium (3.6-5.2) mmol/L Chloride (98-107) mmol/L Carbon Dioxide (22-30) mmol/L Anion Gap (10-20) BUN (7-17) mg/dL Creatinine (0.7-1.2) mg/dL Est GFR ( Amer) Est GFR (Non-Af Amer) POC Glucose (mg/dL) 72 (65-110) mg/dL Random Glucose (65-105) mg/dL Lactic Acid (0.7-2.1) mmol/L Calcium (8.6-10.4) mg/dl Phosphorus (2.5-4.5) mg/dL Magnesium (1.6-2.3) mg/dL Total Bilirubin (0.2-1.3) mg/dL AST (14-36) U/L ALT (9-52) U/L Alkaline Phosphatase (38-126) U/L Total Protein (6.3-8.3) g/dL Albumin (3.5-5.0) g/dL Globulin (2.2-3.9) gm/dL Albumin/Globulin Ratio (1.0-2.1) Lipase (23-300) U/L TSH 3rd Generation (0.46-4.68) mIU/L Urine Color (YELLOW) Urine Clarity (Clear) Urine pH (5.0-8.0) Ur Specific [place] (1.003-1.030) Urine Protein (NEGATIVE) mg/dL Urine Glucose (UA) (Normal) mg/dL Urine Ketones (NEGATIVE) mg/dL Urine Blood (NEGATIVE) Urine Nitrate (NEGATIVE) Urine Bilirubin (NEGATIVE) Urine Urobilinogen (0.2-1.0) mg/dL Ur Leukocyte Esterase (Negative) Rubén/uL Urine WBC (Auto) (0-5) /hpf Urine RBC (Auto) (0-3) /hpf Ur Squamous Epith Cells (0-5) /hpf 06/04/18 06/04/18 06/03/18 Range/Units 06:37 02:31 22:38 WBC (4.8-10.8) K/uL RBC (3.80-5.20) Mil/uL Hgb (11.0-16.0) g/dL Hct (34.0-47.0) % MCV (81.0-99.0) fL MCH (27.0-31.0) pg MCHC (33.0-37.0) g/dL RDW (11.5-14.5) % Plt Count (130-400) K/uL MPV (7.2-11.7) fL Neut % (Auto) (50.0-75.0) % Lymph % (Auto) (20.0-40.0) % [place] % (Auto) (0.0-10.0) % Eos % (Auto) (0.0-4.0) % Baso % (Auto) (0.0-2.0) % Neut # (Auto) (1.8-7.0) K/uL Lymph # (Auto) (1.0-4.3) K/uL [place] # (Auto) (0.0-0.8) K/uL Eos # (Auto) (0.0-0.7) K/uL Baso # (Auto) (0.0-0.2) K/uL Neutrophils % (Manual) (50-75) % Lymphocytes % (Manual) (20-40) % Monocytes % (Manual) (0-10) % Eosinophils % (Manual) (0-4) % Nucleated RBC % (0-0) % Platelet Estimate (NORMAL) Large Platelets Hypochromasia (manual) Poikilocytosis (manual Anisocytosis (manual) Tear Drop Cells [place] Cells Acanthocytes (Spur) PT (9.7-12.2) SECONDS INR APTT (21-34) SECONDS Puncture Site R rad pCO2 22 L (35-45) mm/Hg pO2 122 H (80-100) mm/Hg HCO3 9.9 L* (21-28) mmol/L ABG pH 7.16 L* (7.35-7.45) ABG Total CO2 8.5 L (22-28) mmol/L ABG O2 Saturation 97.8 (95-98) % ABG Base Excess -19.2 L (-2.0-3.0) mmol/L ABG Hemoglobin 9.8 L (11.7-17.4) g/dL ABG Carboxyhemoglobin 0.5 (0.5-1.5) % POC ABG HHb (Measured) 2.2 (0.0-5.0) % ABG Methemoglobin 1.2 (0.0-3.0) % Sudeep Test Pos A-a O2 Difference 0.0 mm/Hg Respiratory Index 0 Hgb O2 Saturation 96.1 (95.0-98.0) % Liter Flow 0 FiO2 21.0 % Crit 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 Crit Value Called By Janie esparza rt Crit Value Read Back Y Blood Gas Notified Time 250 Sodium 138 (132-148) mmol/L Potassium 3.0 L (3.6-5.2) mmol/L Chloride 115 H (98-107) mmol/L Carbon Dioxide 10 L* D (22-30) mmol/L Anion Gap 17 (10-20) BUN 39 H (7-17) mg/dL Creatinine 3.8 H (0.7-1.2) mg/dL Est GFR ( Amer) 15 Est GFR (Non-Af Amer) 13 POC Glucose (mg/dL) (65-110) mg/dL Random Glucose 91 (65-105) mg/dL Lactic Acid < 0.5 L (0.7-2.1) mmol/L Calcium 6.5 L (8.6-10.4) mg/dl Phosphorus 3.7 (2.5-4.5) mg/dL Magnesium 2.2 (1.6-2.3) mg/dL Total Bilirubin (0.2-1.3) mg/dL AST (14-36) U/L ALT (9-52) U/L Alkaline Phosphatase (38-126) U/L Total Protein (6.3-8.3) g/dL Albumin (3.5-5.0) g/dL Globulin (2.2-3.9) gm/dL Albumin/Globulin Ratio (1.0-2.1) Lipase (23-300) U/L TSH 3rd Generation 1.75 (0.46-4.68) mIU/L Urine Color (YELLOW) Urine Clarity (Clear) Urine pH (5.0-8.0) Ur Specific [place] (1.003-1.030) Urine Protein (NEGATIVE) mg/dL Urine Glucose (UA) (Normal) mg/dL Urine Ketones (NEGATIVE) mg/dL Urine Blood (NEGATIVE) Urine Nitrate (NEGATIVE) Urine Bilirubin (NEGATIVE) Urine Urobilinogen (0.2-1.0) mg/dL Ur Leukocyte Esterase (Negative) Rubén/uL Urine WBC (Auto) (0-5) /hpf Urine RBC (Auto) (0-3) /hpf Ur Squamous Epith Cells (0-5) /hpf 06/03/18 06/03/18 06/03/18 Range/Units 22:19 19:26 17:38 WBC (4.8-10.8) K/uL RBC (3.80-5.20) Mil/uL Hgb (11.0-16.0) g/dL Hct (34.0-47.0) % MCV (81.0-99.0) fL MCH (27.0-31.0) pg MCHC (33.0-37.0) g/dL RDW (11.5-14.5) % Plt Count (130-400) K/uL MPV (7.2-11.7) fL Neut % (Auto) (50.0-75.0) % Lymph % (Auto) (20.0-40.0) % [place] % (Auto) (0.0-10.0) % Eos % (Auto) (0.0-4.0) % Baso % (Auto) (0.0-2.0) % Neut # (Auto) (1.8-7.0) K/uL Lymph # (Auto) (1.0-4.3) K/uL [place] # (Auto) (0.0-0.8) K/uL Eos # (Auto) (0.0-0.7) K/uL Baso # (Auto) (0.0-0.2) K/uL Neutrophils % (Manual) (50-75) % Lymphocytes % (Manual) (20-40) % Monocytes % (Manual) (0-10) % Eosinophils % (Manual) (0-4) % Nucleated RBC % (0-0) % Platelet Estimate (NORMAL) Large Platelets Hypochromasia (manual) Poikilocytosis (manual Anisocytosis (manual) Tear Drop Cells [place] Cells Acanthocytes (Spur) PT (9.7-12.2) SECONDS INR APTT (21-34) SECONDS Puncture Site pCO2 (35-45) mm/Hg pO2 (80-100) mm/Hg HCO3 (21-28) mmol/L ABG pH (7.35-7.45) ABG Total CO2 (22-28) mmol/L ABG O2 Saturation (95-98) % ABG Base Excess (-2.0-3.0) mmol/L ABG Hemoglobin (11.7-17.4) g/dL ABG Carboxyhemoglobin (0.5-1.5) % POC ABG HHb (Measured) (0.0-5.0) % ABG Methemoglobin (0.0-3.0) % Sudeep Test A-a O2 Difference mm/Hg Respiratory Index Hgb O2 Saturation (95.0-98.0) % Liter Flow FiO2 % Crit Value Called To Crit Value Called By Crit Value Read Back Blood Gas Notified Time Sodium 141 (132-148) mmol/L Potassium 2.4 L* (3.6-5.2) mmol/L Chloride 116 H (98-107) mmol/L Carbon Dioxide 8 L* (22-30) mmol/L Anion Gap 19 (10-20) BUN 40 H (7-17) mg/dL Creatinine 4.3 H (0.7-1.2) mg/dL Est GFR ( Amer) 13 Est GFR (Non-Af Amer) 11 POC Glucose (mg/dL) (65-110) mg/dL Random Glucose 65 (65-105) mg/dL Lactic Acid < 0.5 L (0.7-2.1) mmol/L Calcium 5.4 L* (8.6-10.4) mg/dl Phosphorus (2.5-4.5) mg/dL Magnesium 0.9 L* D (1.6-2.3) mg/dL Total Bilirubin 0.3 (0.2-1.3) mg/dL AST 11 L D (14-36) U/L ALT 37 (9-52) U/L Alkaline Phosphatase 94 (38-126) U/L Total Protein 5.3 L (6.3-8.3) g/dL Albumin 2.9 L (3.5-5.0) g/dL Globulin 2.4 (2.2-3.9) gm/dL Albumin/Globulin Ratio 1.2 (1.0-2.1) Lipase (23-300) U/L TSH 3rd Generation (0.46-4.68) mIU/L Urine Color Straw (YELLOW) Urine Clarity Clear (Clear) Urine pH 5.0 (5.0-8.0) Ur Specific [place] 1.005 (1.003-1.030) Urine Protein 2+ H (NEGATIVE) mg/dL Urine Glucose (UA) Normal (Normal) mg/dL Urine Ketones Negative (NEGATIVE) mg/dL Urine Blood 1+ H (NEGATIVE) Urine Nitrate Negative (NEGATIVE) Urine Bilirubin Negative (NEGATIVE) Urine Urobilinogen Normal (0.2-1.0) mg/dL Ur Leukocyte Esterase Neg (Negative) Rubén/uL Urine WBC (Auto) 2 (0-5) /hpf Urine RBC (Auto) 3 (0-3) /hpf Ur Squamous Epith Cells < 1 (0-5) /hpf 06/03/18 06/03/18 Range/Units 17:38 17:38 WBC 9.6 (4.8-10.8) K/uL RBC 3.64 L (3.80-5.20) Mil/uL Hgb 10.5 L (11.0-16.0) g/dL Hct 32.6 L (34.0-47.0) % MCV 89.4 D (81.0-99.0) fL MCH 28.8 (27.0-31.0) pg MCHC 32.2 L (33.0-37.0) g/dL RDW 16.9 H (11.5-14.5) % Plt Count 361 (130-400) K/uL MPV 7.8 (7.2-11.7) fL Neut % (Auto) 85.0 H (50.0-75.0) % Lymph % (Auto) 3.2 L (20.0-40.0) % [place] % (Auto) 10.4 H (0.0-10.0) % Eos % (Auto) 1.2 (0.0-4.0) % Baso % (Auto) 0.2 (0.0-2.0) % Neut # (Auto) 8.2 H (1.8-7.0) K/uL Lymph # (Auto) 0.3 L (1.0-4.3) K/uL [place] # (Auto) 1.0 H (0.0-0.8) K/uL Eos # (Auto) 0.1 (0.0-0.7) K/uL Baso # (Auto) 0.0 (0.0-0.2) K/uL Neutrophils % (Manual) 81 H (50-75) % Lymphocytes % (Manual) 6 L (20-40) % Monocytes % (Manual) 10 (0-10) % Eosinophils % (Manual) 3 (0-4) % Nucleated RBC % (0-0) % Platelet Estimate Normal (NORMAL) Large Platelets Hypochromasia (manual) Slight Poikilocytosis (manual Slight Anisocytosis (manual) Slight Tear Drop Cells Slight [place] Cells Slight Acanthocytes (Spur) PT (9.7-12.2) SECONDS INR APTT (21-34) SECONDS Puncture Site pCO2 (35-45) mm/Hg pO2 (80-100) mm/Hg HCO3 (21-28) mmol/L ABG pH (7.35-7.45) ABG Total CO2 (22-28) mmol/L ABG O2 Saturation (95-98) % ABG Base Excess (-2.0-3.0) mmol/L ABG Hemoglobin (11.7-17.4) g/dL ABG Carboxyhemoglobin (0.5-1.5) % POC ABG HHb (Measured) (0.0-5.0) % ABG Methemoglobin (0.0-3.0) % Sudeep Test A-a O2 Difference mm/Hg Respiratory Index Hgb O2 Saturation (95.0-98.0) % Liter Flow FiO2 % Crit Value Called To Crit Value Called By Crit Value Read Back Blood Gas Notified Time Sodium 136 (132-148) mmol/L Potassium 2.3 L* D (3.6-5.2) mmol/L Chloride 109 H (98-107) mmol/L Carbon Dioxide 8 L* D (22-30) mmol/L Anion Gap 22 H (10-20) BUN 44 H (7-17) mg/dL Creatinine 5.1 H (0.7-1.2) mg/dL Est GFR ( Amer) 11 Est GFR (Non-Af Amer) 9 POC Glucose (mg/dL) (65-110) mg/dL Random Glucose 79 (65-105) mg/dL Lactic Acid (0.7-2.1) mmol/L Calcium 6.0 L* D (8.6-10.4) mg/dl Phosphorus (2.5-4.5) mg/dL Magnesium (1.6-2.3) mg/dL Total Bilirubin 0.2 (0.2-1.3) mg/dL AST 14 D (14-36) U/L ALT 35 (9-52) U/L Alkaline Phosphatase 105 (38-126) U/L Total Protein 6.3 (6.3-8.3) g/dL Albumin 3.6 (3.5-5.0) g/dL Globulin 2.7 (2.2-3.9) gm/dL Albumin/Globulin Ratio 1.3 (1.0-2.1) Lipase 121 (23-300) U/L TSH 3rd Generation (0.46-4.68) mIU/L Urine Color (YELLOW) Urine Clarity (Clear) Urine pH (5.0-8.0) Ur Specific [place] (1.003-1.030) Urine Protein (NEGATIVE) mg/dL Urine Glucose (UA) (Normal) mg/dL Urine Ketones (NEGATIVE) mg/dL Urine Blood (NEGATIVE) Urine Nitrate (NEGATIVE) Urine Bilirubin (NEGATIVE) Urine Urobilinogen (0.2-1.0) mg/dL Ur Leukocyte Esterase (Negative) Rubén/uL Urine WBC (Auto) (0-5) /hpf Urine RBC (Auto) (0-3) /hpf Ur Squamous Epith Cells (0-5) /hpf Laboratory Results - last 24 hr 06/03/18 06/03/18 06/03/18 17:38 17:38 17:38 WBC 9.6 RBC 3.64 L Hgb 10.5 L Hct 32.6 L MCV 89.4 D MCH 28.8 MCHC 32.2 L RDW 16.9 H Plt Count 361 MPV 7.8 Neut % (Auto) 85.0 H Lymph % (Auto) 3.2 L [place] % (Auto) 10.4 H Eos % (Auto) 1.2 Baso % (Auto) 0.2 Neut # (Auto) 8.2 H Lymph # (Auto) 0.3 L [place] # (Auto) 1.0 H Eos # (Auto) 0.1 Baso # (Auto) 0.0 Neutrophils % (Manual) 81 H Lymphocytes % (Manual) 6 L Monocytes % (Manual) 10 Eosinophils % (Manual) 3 Nucleated RBC % Platelet Estimate Normal Large Platelets Hypochromasia (manual) Slight Poikilocytosis (manual Slight Anisocytosis (manual) Slight Tear Drop Cells Slight [place] Cells Slight Acanthocytes (Spur) PT INR APTT Puncture Site pCO2 pO2 HCO3 ABG pH ABG Total CO2 ABG O2 Saturation ABG Base Excess ABG Hemoglobin ABG Carboxyhemoglobin POC ABG HHb (Measured) ABG Methemoglobin Sudeep Test A-a O2 Difference Respiratory Index Hgb O2 Saturation Liter Flow FiO2 Crit Value Called To Crit Value Called By Crit Value Read Back Blood Gas Notified Time Sodium 136 Potassium 2.3 L* D Chloride 109 H Carbon Dioxide 8 L* D Anion Gap 22 H BUN 44 H Creatinine 5.1 H Est GFR ( Amer) 11 Est GFR (Non-Af Amer) 9 POC Glucose (mg/dL) Random Glucose 79 Lactic Acid < 0.5 L Calcium 6.0 L* D Phosphorus Magnesium Total Bilirubin 0.2 AST 14 D ALT 35 Alkaline Phosphatase 105 Total Protein 6.3 Albumin 3.6 Globulin 2.7 Albumin/Globulin Ratio 1.3 Lipase 121 TSH 3rd Generation Urine Color Urine Clarity Urine pH Ur Specific [place] Urine Protein Urine Glucose (UA) Urine Ketones Urine Blood Urine Nitrate Urine Bilirubin Urine Urobilinogen Ur Leukocyte Esterase Urine WBC (Auto) Urine RBC (Auto) Ur Squamous Epith Cells 06/03/18 06/03/18 06/03/18 19:26 22:19 22:38 WBC RBC Hgb Hct MCV MCH MCHC RDW Plt Count MPV Neut % (Auto) Lymph % (Auto) [place] % (Auto) Eos % (Auto) Baso % (Auto) Neut # (Auto) Lymph # (Auto) [place] # (Auto) Eos # (Auto) Baso # (Auto) Neutrophils % (Manual) Lymphocytes % (Manual) Monocytes % (Manual) Eosinophils % (Manual) Nucleated RBC % Platelet Estimate Large Platelets Hypochromasia (manual) Poikilocytosis (manual Anisocytosis (manual) Tear Drop Cells [place] Cells Acanthocytes (Spur) PT INR APTT Puncture Site pCO2 pO2 HCO3 ABG pH ABG Total CO2 ABG O2 Saturation ABG Base Excess ABG Hemoglobin ABG Carboxyhemoglobin POC ABG HHb (Measured) ABG Methemoglobin Sudeep Test A-a O2 Difference Respiratory Index Hgb O2 Saturation Liter Flow FiO2 Crit Value Called To Crit Value Called By Crit Value Read Back Blood Gas Notified Time Sodium 141 Potassium 2.4 L* Chloride 116 H Carbon Dioxide 8 L* Anion Gap 19 BUN 40 H Creatinine 4.3 H Est GFR ( Amer) 13 Est GFR (Non-Af Amer) 11 POC Glucose (mg/dL) Random Glucose 65 Lactic Acid < 0.5 L Calcium 5.4 L* Phosphorus Magnesium 0.9 L* D Total Bilirubin 0.3 AST 11 L D ALT 37 Alkaline Phosphatase 94 Total Protein 5.3 L Albumin 2.9 L Globulin 2.4 Albumin/Globulin Ratio 1.2 Lipase TSH 3rd Generation Urine Color Straw Urine Clarity Clear Urine pH 5.0 Ur Specific [place] 1.005 Urine Protein 2+ H Urine Glucose (UA) Normal Urine Ketones Negative Urine Blood 1+ H Urine Nitrate Negative Urine Bilirubin Negative Urine Urobilinogen Normal Ur Leukocyte Esterase Neg Urine WBC (Auto) 2 Urine RBC (Auto) 3 Ur Squamous Epith Cells < 1 06/04/18 06/04/18 06/04/18 02:31 06:37 06:37 WBC 9.1 RBC 3.35 L Hgb 9.9 L Hct 29.7 L MCV 88.8 MCH 29.6 MCHC 33.3 RDW 16.8 H Plt Count 315 MPV 7.7 Neut % (Auto) 84.2 H Lymph % (Auto) 2.1 L [place] % (Auto) 11.8 H Eos % (Auto) 1.6 Baso % (Auto) 0.3 Neut # (Auto) 7.7 H Lymph # (Auto) 0.2 L [place] # (Auto) 1.1 H Eos # (Auto) 0.1 Baso # (Auto) 0.0 Neutrophils % (Manual) 89 H Lymphocytes % (Manual) 2 L Monocytes % (Manual) 8 Eosinophils % (Manual) 1 Nucleated RBC % 1 H Platelet Estimate Normal Large Platelets Present Hypochromasia (manual) Slight Poikilocytosis (manual Slight Anisocytosis (manual) Slight Tear Drop Cells [place] Cells Moderate Acanthocytes (Spur) Slight PT INR APTT Puncture Site R rad pCO2 22 L pO2 122 H HCO3 9.9 L* ABG pH 7.16 L* ABG Total CO2 8.5 L ABG O2 Saturation 97.8 ABG Base Excess -19.2 L ABG Hemoglobin 9.8 L ABG Carboxyhemoglobin 0.5 POC ABG HHb (Measured) 2.2 ABG Methemoglobin 1.2 Sudeep Test Pos A-a O2 Difference 0.0 Respiratory Index 0 Hgb O2 Saturation 96.1 Liter Flow 0 FiO2 21.0 Crit 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 Crit Value Called By Janie esparza rt Crit Value Read Back Y Blood Gas Notified Time 250 Sodium 138 Potassium 3.0 L Chloride 115 H Carbon Dioxide 10 L* D Anion Gap 17 BUN 39 H Creatinine 3.8 H Est GFR ( Amer) 15 Est GFR (Non-Af Amer) 13 POC Glucose (mg/dL) Random Glucose 91 Lactic Acid Calcium 6.5 L Phosphorus 3.7 Magnesium 2.2 Total Bilirubin AST ALT Alkaline Phosphatase Total Protein Albumin Globulin Albumin/Globulin Ratio Lipase TSH 3rd Generation 1.75 Urine Color Urine Clarity Urine pH Ur Specific [place] Urine Protein Urine Glucose (UA) Urine Ketones Urine Blood Urine Nitrate Urine Bilirubin Urine Urobilinogen Ur Leukocyte Esterase Urine WBC (Auto) Urine RBC (Auto) Ur Squamous Epith Cells 06/04/18 06/04/18 06:37 07:56 WBC RBC Hgb Hct MCV MCH MCHC RDW Plt Count MPV Neut % (Auto) Lymph % (Auto) [place] % (Auto) Eos % (Auto) Baso % (Auto) Neut # (Auto) Lymph # (Auto) [place] # (Auto) Eos # (Auto) Baso # (Auto) Neutrophils % (Manual) Lymphocytes % (Manual) Monocytes % (Manual) Eosinophils % (Manual) Nucleated RBC % Platelet Estimate Large Platelets Hypochromasia (manual) Poikilocytosis (manual Anisocytosis (manual) Tear Drop Cells [place] Cells Acanthocytes (Spur) PT 20.7 H INR 1.9 APTT 42 H Puncture Site pCO2 pO2 HCO3 ABG pH ABG Total CO2 ABG O2 Saturation ABG Base Excess ABG Hemoglobin ABG Carboxyhemoglobin POC ABG HHb (Measured) ABG Methemoglobin Sudeep Test A-a O2 Difference Respiratory Index Hgb O2 Saturation Liter Flow FiO2 Crit Value Called To Crit Value Called By Crit Value Read Back Blood Gas Notified Time Sodium Potassium Chloride Carbon Dioxide Anion Gap BUN Creatinine Est GFR ( Amer) Est GFR (Non-Af Amer) POC Glucose (mg/dL) 72 Random Glucose Lactic Acid Calcium Phosphorus Magnesium Total Bilirubin AST ALT Alkaline Phosphatase Total Protein Albumin Globulin Albumin/Globulin Ratio Lipase TSH 3rd Generation Urine Color Urine Clarity Urine pH Ur Specific [place] Urine Protein Urine Glucose (UA) Urine Ketones Urine Blood Urine Nitrate Urine Bilirubin Urine Urobilinogen Ur Leukocyte Esterase Urine WBC (Auto) Urine RBC (Auto) Ur Squamous Epith Cells EKG/Cardiology Studies: Cardiology / EKG Studies 06/03/18 18:21 ELECTROCARDIOGRAM Stat Comment: ed 8b Mode Of Transportation: STRETCHER Reason For Exam: weakness 06/04/18 07:30 EKG [ELECTROCARDIOGRAM] Routine Comment: Mode Of Transportation: PORTABLE Reason For Exam: Abnormal EKG follow up Review of Systems - EENT Eyes: absent: Blurred Vision, Change in Vision Nose/Mouth/Throat: absent: Nasal Congestion, Nasal Discharge - Cardiovascular Cardiovascular: UNREMARKABLE. absent: Chest Pain, Dyspnea, Edema, Pedal Edema, Syncope - Respiratory Respiratory: absent: Cough, Dyspnea, Dyspnea on Exertion, Wheezing, Chest Congestion - Gastrointestinal Gastrointestinal: Abdominal Pain. absent: Constipation, Diarrhea, Nausea, Vomiting - Genitourinary Genitourinary: absent: Dysuria, Urinary Frequency - Musculoskeletal Musculoskeletal: Muscle Weakness - Integumentary Integumentary: absent: Lesions, Rash - Psychiatric Psychiatric: absent: Anxiety, Depression Critical Care Progress Note - Prophylaxis GI Prophylaxis GI: Pepsid - Prophylaxis DVT Prophylaxis DVT: Heparin SQ, SCDs - Nutrition Nutrition: Nutrition Category Date Time Status Liquid Diet [DIET] Diets 06/03/18 Breakfast Active Assessment/Plan - Assessment and Plan (Free Text) Assessment: 47 year old female with past medical history of CKD s/p renal transplant in 2010 currently on immunosuppression, HTN, recurrent anemia, hx of CBD obstruction s/p ERCP and ampulectomy, chronic pain syndrome and CHF is admitted for severe dehydration 2/2 gastroenteritis, abnormal lab values and acute on chronic renal disease. Dehydration 2/2 gastroenteritis - Diarrhea has improved. - Stool studies pending - Currently on IV fluid hydration: D5W with bicarb - Will consider advancing diet as tolerated - Zofran prn Hypokalemia - Improving - Pt received KCl overnight. - Will replace as needed Metabolic acidosis - Bicarb is improving from admission. This as 10 on CMP. Will repeat ABG - Continue D5W with baicarb - 1 amp bicarb additional given to pt - Will repeat labs after electrolyte replacement today Acute on chronic renal disease s/p renal transplant - BUN/Cr this am 39/3.8. Improving - Nephrology, Dr. Clark is consulted - Continue immunosuppressive home regimen: prednisone 20 mg po qd, tacrolimus, mycophenolate - Continue nephrovite HTN - Continue norvasc 10 mg po qd Chronic pain syndrome - Percocet prn Prophylaxis -Pepcid - Heparin - SCDs Tom Jaramillo - Date & Time Date: 06/04/18 Time: 09:01 <Marko Jaramillo - Last Filed: 06/04/18 18:48> CCU Objective - Vital Signs / Intake & Output Vital Signs (Last 4 hours): Vital Signs Pulse Resp BP Pulse Ox 06/04/18 18:34 81 18 163/95 H 100 06/04/18 18:00 76 15 100 06/04/18 17:34 82 19 162/97 H 100 06/04/18 17:00 76 11 L 100 06/04/18 16:33 85 152/92 H 06/04/18 16:00 65 17 100 06/04/18 15:34 68 16 139/71 100 06/04/18 15:00 67 13 100 Intake and Output (Last 8hrs): Intake & Output 06/04/18 06/04/18 06/04/18 06:59 14:59 22:59 Intake Total 975 1855 540 Output Total 1200 952 300 Balance -225 903 240 Weight 77 lb Intake: Intake, IV Amount 975 775 300 RIGHT INNER FOREARM 675 675 300 Right Forearm 300 Right Hand 100 Oral 0 1080 240 Output: Urine 1200 950 300 Urine, Voided 1200 950 300 Stool 1 Urine/Stool Mix 1 Other: # Voids Urine, Voided 0 # Bowel Movements 0 0 - Medications Active Medications: Active Medications Generic Name Dose Route Start Last Admin Trade Name Freq PRN Reason Stop Dose Admin Amlodipine Besylate 10 mg 06/04/18 10:00 06/04/18 09:32 Norvasc PO 10 mg DAILY BRIAN Administration Calcium Carbonate 500 mg 06/04/18 10:00 06/04/18 17:29 Tums PO 500 mg BID BRIAN Administration Famotidine 20 mg 06/04/18 10:00 06/04/18 09:32 Pepcid PO 20 mg DAILY BRIAN Administration Heparin Sodium (Porcine) 5,000 units 06/04/18 06:00 06/04/18 15:02 Heparin SC 5,000 units Q8 BRIAN Administration Home Med 1 cap 06/04/18 10:00 Mycophenolate Sodium [Mycophenolic Acid] PO BID BRIAN Sodium Bicarbonate 100 meq/ 1,100 mls @ 100 mls/hr 06/04/18 10:30 06/04/18 11 :07 Dextrose IV 100 mls/hr .Q11H BRIAN Administration Ondansetron HCl 4 mg 06/04/18 01:12 Zofran Inj IVP Q4 PRN Nausea/Vomiting Oxycodone/Acetaminophen 1 tab 06/03/18 21:21 06/04/18 15:04 Percocet 5/325 Mg Tab PO 06/06/18 21:22 1 tab Q4 PRN Administration PAIN MODERATE 4-7 Potassium Chloride 20 meq 06/04/18 11:30 06/04/18 11:36 K-Dur 20 Meq Er Tab PO 20 meq DAILY BRIAN Administration Prednisone 30 mg 06/04/18 10:00 06/04/18 10:37 Prednisone Tab PO 30 mg DAILY BRIAN Administration Tacrolimus 1 mg 06/04/18 10:00 06/04/18 17:29 Prograf Cap PO 1 mg BID BRIAN Administration Vitamin B Complex/Vit C/Folic Acid 1 tab 06/04/18 10:00 06/04/18 09:32 Nephro-Ron PO 1 tab DAILY BRIAN Administration - Patient Studies Lab Studies: Microbiology Studies 06/03/18 19:26 Urine Culture - Preliminary Urine Gram Negative Niko Lab Studies 06/04/18 06/04/18 06/04/18 Range/Units 16:24 14:09 14:03 WBC (4.8-10.8) K/uL RBC (3.80-5.20) Mil/uL Hgb (11.0-16.0) g/dL Hct (34.0-47.0) % MCV (81.0-99.0) fL MCH (27.0-31.0) pg MCHC (33.0-37.0) g/dL RDW (11.5-14.5) % Plt Count (130-400) K/uL MPV (7.2-11.7) fL Neut % (Auto) (50.0-75.0) % Lymph % (Auto) (20.0-40.0) % [place] % (Auto) (0.0-10.0) % Eos % (Auto) (0.0-4.0) % Baso % (Auto) (0.0-2.0) % Neut # (Auto) (1.8-7.0) K/uL Lymph # (Auto) (1.0-4.3) K/uL [place] # (Auto) (0.0-0.8) K/uL Eos # (Auto) (0.0-0.7) K/uL Baso # (Auto) (0.0-0.2) K/uL Neutrophils % (Manual) (50-75) % Lymphocytes % (Manual) (20-40) % Monocytes % (Manual) (0-10) % Eosinophils % (Manual) (0-4) % Nucleated RBC % (0-0) % Platelet Estimate (NORMAL) Large Platelets Hypochromasia (manual) Poikilocytosis (manual Anisocytosis (manual) [place] Cells Acanthocytes (Spur) PT (9.7-12.2) SECONDS INR APTT (21-34) SECONDS Puncture Site pCO2 (35-45) mm/Hg pO2 (80-100) mm/Hg HCO3 (21-28) mmol/L ABG pH (7.35-7.45) ABG Total CO2 (22-28) mmol/L ABG O2 Saturation (95-98) % ABG Base Excess (-2.0-3.0) mmol/L ABG Hemoglobin (11.7-17.4) g/dL ABG Carboxyhemoglobin (0.5-1.5) % POC ABG HHb (Measured) (0.0-5.0) % ABG Methemoglobin (0.0-3.0) % Sudeep Test A-a O2 Difference mm/Hg Respiratory Index Hgb O2 Saturation (95.0-98.0) % Liter Flow FiO2 % Crit Value Called To Crit Value Called By Crit Value Read Back Blood Gas Notified Time Sodium (132-148) mmol/L Potassium (3.6-5.2) mmol/L Chloride (98-107) mmol/L Carbon Dioxide (22-30) mmol/L Anion Gap (10-20) BUN (7-17) mg/dL Creatinine (0.7-1.2) mg/dL Est GFR ( Amer) Est GFR (Non-Af Amer) POC Glucose (mg/dL) 142 H (65-110) mg/dL Random Glucose (65-105) mg/dL Hemoglobin A1c (4.2-6.5) % Lactic Acid (0.7-2.1) mmol/L Calcium (8.6-10.4) mg/dl Phosphorus (2.5-4.5) mg/dL Magnesium (1.6-2.3) mg/dL Total Bilirubin (0.2-1.3) mg/dL AST (14-36) U/L ALT (9-52) U/L Alkaline Phosphatase (38-126) U/L Total Protein (6.3-8.3) g/dL Albumin (3.5-5.0) g/dL Globulin (2.2-3.9) gm/dL Albumin/Globulin Ratio (1.0-2.1) TSH 3rd Generation (0.46-4.68) mIU/L Urine Color (YELLOW) Urine Clarity (Clear) Urine pH (5.0-8.0) Ur Specific [place] (1.003-1.030) Urine Protein (NEGATIVE) mg/dL Urine Glucose (UA) (Normal) mg/dL Urine Ketones (NEGATIVE) mg/dL Urine Blood (NEGATIVE) Urine Nitrate (NEGATIVE) Urine Bilirubin (NEGATIVE) Urine Urobilinogen (0.2-1.0) mg/dL Ur Leukocyte Esterase (Negative) Rubén/uL Urine WBC (Auto) (0-5) /hpf Urine RBC (Auto) (0-3) /hpf Ur Squamous Epith Cells (0-5) /hpf Stool Occult Blood (NEGATIVE) Stool Leukocytes, Qual Negative (NEGATIVE) Stool Rotavirus Antigen Negative (NEGATIVE) 06/04/18 06/04/18 06/04/18 Range/Units 14:03 11:58 10:05 WBC (4.8-10.8) K/uL RBC (3.80-5.20) Mil/uL Hgb (11.0-16.0) g/dL Hct (34.0-47.0) % MCV (81.0-99.0) fL MCH (27.0-31.0) pg MCHC (33.0-37.0) g/dL RDW (11.5-14.5) % Plt Count (130-400) K/uL MPV (7.2-11.7) fL Neut % (Auto) (50.0-75.0) % Lymph % (Auto) (20.0-40.0) % [place] % (Auto) (0.0-10.0) % Eos % (Auto) (0.0-4.0) % Baso % (Auto) (0.0-2.0) % Neut # (Auto) (1.8-7.0) K/uL Lymph # (Auto) (1.0-4.3) K/uL [place] # (Auto) (0.0-0.8) K/uL Eos # (Auto) (0.0-0.7) K/uL Baso # (Auto) (0.0-0.2) K/uL Neutrophils % (Manual) (50-75) % Lymphocytes % (Manual) (20-40) % Monocytes % (Manual) (0-10) % Eosinophils % (Manual) (0-4) % Nucleated RBC % (0-0) % Platelet Estimate (NORMAL) Large Platelets Hypochromasia (manual) Poikilocytosis (manual Anisocytosis (manual) [place] Cells Acanthocytes (Spur) PT (9.7-12.2) SECONDS INR APTT (21-34) SECONDS Puncture Site R/b pCO2 22 L (35-45) mm/Hg pO2 123 H (80-100) mm/Hg HCO3 13.0 L (21-28) mmol/L ABG pH 7.26 L (7.35-7.45) ABG Total CO2 10.6 L (22-28) mmol/L ABG O2 Saturation 97.4 (95-98) % ABG Base Excess -15.3 L (-2.0-3.0) mmol/L ABG Hemoglobin 11.4 L (11.7-17.4) g/dL ABG Carboxyhemoglobin 0.2 L (0.5-1.5) % POC ABG HHb (Measured) 2.6 (0.0-5.0) % ABG Methemoglobin 0.9 (0.0-3.0) % Sudeep Test Na A-a O2 Difference -1.0 mm/Hg Respiratory Index 0 Hgb O2 Saturation 96.3 (95.0-98.0) % Liter Flow FiO2 21.0 % Crit Value Called To Crit Value Called By Crit Value Read Back Blood Gas Notified Time Sodium (132-148) mmol/L Potassium (3.6-5.2) mmol/L Chloride (98-107) mmol/L Carbon Dioxide (22-30) mmol/L Anion Gap (10-20) BUN (7-17) mg/dL Creatinine (0.7-1.2) mg/dL Est GFR ( Amer) Est GFR (Non-Af Amer) POC Glucose (mg/dL) 90 (65-110) mg/dL Random Glucose (65-105) mg/dL Hemoglobin A1c (4.2-6.5) % Lactic Acid (0.7-2.1) mmol/L Calcium (8.6-10.4) mg/dl Phosphorus (2.5-4.5) mg/dL Magnesium (1.6-2.3) mg/dL Total Bilirubin (0.2-1.3) mg/dL AST (14-36) U/L ALT (9-52) U/L Alkaline Phosphatase (38-126) U/L Total Protein (6.3-8.3) g/dL Albumin (3.5-5.0) g/dL Globulin (2.2-3.9) gm/dL Albumin/Globulin Ratio (1.0-2.1) TSH 3rd Generation (0.46-4.68) mIU/L Urine Color (YELLOW) Urine Clarity (Clear) Urine pH (5.0-8.0) Ur Specific [place] (1.003-1.030) Urine Protein (NEGATIVE) mg/dL Urine Glucose (UA) (Normal) mg/dL Urine Ketones (NEGATIVE) mg/dL Urine Blood (NEGATIVE) Urine Nitrate (NEGATIVE) Urine Bilirubin (NEGATIVE) Urine Urobilinogen (0.2-1.0) mg/dL Ur Leukocyte Esterase (Negative) Rubén/uL Urine WBC (Auto) (0-5) /hpf Urine RBC (Auto) (0-3) /hpf Ur Squamous Epith Cells (0-5) /hpf Stool Occult Blood Positive H (NEGATIVE) Stool Leukocytes, Qual (NEGATIVE) Stool Rotavirus Antigen (NEGATIVE) 06/04/18 06/04/18 06/04/18 Range/Units 07:56 06:37 06:37 WBC 9.1 (4.8-10.8) K/uL RBC 3.35 L (3.80-5.20) Mil/uL Hgb 9.9 L (11.0-16.0) g/dL Hct 29.7 L (34.0-47.0) % MCV 88.8 (81.0-99.0) fL MCH 29.6 (27.0-31.0) pg MCHC 33.3 (33.0-37.0) g/dL RDW 16.8 H (11.5-14.5) % Plt Count 315 (130-400) K/uL MPV 7.7 (7.2-11.7) fL Neut % (Auto) 84.2 H (50.0-75.0) % Lymph % (Auto) 2.1 L (20.0-40.0) % [place] % (Auto) 11.8 H (0.0-10.0) % Eos % (Auto) 1.6 (0.0-4.0) % Baso % (Auto) 0.3 (0.0-2.0) % Neut # (Auto) 7.7 H (1.8-7.0) K/uL Lymph # (Auto) 0.2 L (1.0-4.3) K/uL [place] # (Auto) 1.1 H (0.0-0.8) K/uL Eos # (Auto) 0.1 (0.0-0.7) K/uL Baso # (Auto) 0.0 (0.0-0.2) K/uL Neutrophils % (Manual) 89 H (50-75) % Lymphocytes % (Manual) 2 L (20-40) % Monocytes % (Manual) 8 (0-10) % Eosinophils % (Manual) 1 (0-4) % Nucleated RBC % 1 H (0-0) % Platelet Estimate Normal (NORMAL) Large Platelets Present Hypochromasia (manual) Slight Poikilocytosis (manual Slight Anisocytosis (manual) Slight [place] Cells Moderate Acanthocytes (Spur) Slight PT 20.7 H (9.7-12.2) SECONDS INR 1.9 APTT 42 H (21-34) SECONDS Puncture Site pCO2 (35-45) mm/Hg pO2 (80-100) mm/Hg HCO3 (21-28) mmol/L ABG pH (7.35-7.45) ABG Total CO2 (22-28) mmol/L ABG O2 Saturation (95-98) % ABG Base Excess (-2.0-3.0) mmol/L ABG Hemoglobin (11.7-17.4) g/dL ABG Carboxyhemoglobin (0.5-1.5) % POC ABG HHb (Measured) (0.0-5.0) % ABG Methemoglobin (0.0-3.0) % Sudeep Test A-a O2 Difference mm/Hg Respiratory Index Hgb O2 Saturation (95.0-98.0) % Liter Flow FiO2 % Crit Value Called To Crit Value Called By Crit Value Read Back Blood Gas Notified Time Sodium (132-148) mmol/L Potassium (3.6-5.2) mmol/L Chloride (98-107) mmol/L Carbon Dioxide (22-30) mmol/L Anion Gap (10-20) BUN (7-17) mg/dL Creatinine (0.7-1.2) mg/dL Est GFR ( Amer) Est GFR (Non-Af Amer) POC Glucose (mg/dL) 72 (65-110) mg/dL Random Glucose (65-105) mg/dL Hemoglobin A1c (4.2-6.5) % Lactic Acid (0.7-2.1) mmol/L Calcium (8.6-10.4) mg/dl Phosphorus (2.5-4.5) mg/dL Magnesium (1.6-2.3) mg/dL Total Bilirubin (0.2-1.3) mg/dL AST (14-36) U/L ALT (9-52) U/L Alkaline Phosphatase (38-126) U/L Total Protein (6.3-8.3) g/dL Albumin (3.5-5.0) g/dL Globulin (2.2-3.9) gm/dL Albumin/Globulin Ratio (1.0-2.1) TSH 3rd Generation (0.46-4.68) mIU/L Urine Color (YELLOW) Urine Clarity (Clear) Urine pH (5.0-8.0) Ur Specific [place] (1.003-1.030) Urine Protein (NEGATIVE) mg/dL Urine Glucose (UA) (Normal) mg/dL Urine Ketones (NEGATIVE) mg/dL Urine Blood (NEGATIVE) Urine Nitrate (NEGATIVE) Urine Bilirubin (NEGATIVE) Urine Urobilinogen (0.2-1.0) mg/dL Ur Leukocyte Esterase (Negative) Rubén/uL Urine WBC (Auto) (0-5) /hpf Urine RBC (Auto) (0-3) /hpf Ur Squamous Epith Cells (0-5) /hpf Stool Occult Blood (NEGATIVE) Stool Leukocytes, Qual (NEGATIVE) Stool Rotavirus Antigen (NEGATIVE) 06/04/18 06/04/18 06/04/18 Range/Units 06:37 06:37 02:31 WBC (4.8-10.8) K/uL RBC (3.80-5.20) Mil/uL Hgb (11.0-16.0) g/dL Hct (34.0-47.0) % MCV (81.0-99.0) fL MCH (27.0-31.0) pg MCHC (33.0-37.0) g/dL RDW (11.5-14.5) % Plt Count (130-400) K/uL MPV (7.2-11.7) fL Neut % (Auto) (50.0-75.0) % Lymph % (Auto) (20.0-40.0) % [place] % (Auto) (0.0-10.0) % Eos % (Auto) (0.0-4.0) % Baso % (Auto) (0.0-2.0) % Neut # (Auto) (1.8-7.0) K/uL Lymph # (Auto) (1.0-4.3) K/uL [place] # (Auto) (0.0-0.8) K/uL Eos # (Auto) (0.0-0.7) K/uL Baso # (Auto) (0.0-0.2) K/uL Neutrophils % (Manual) (50-75) % Lymphocytes % (Manual) (20-40) % Monocytes % (Manual) (0-10) % Eosinophils % (Manual) (0-4) % Nucleated RBC % (0-0) % Platelet Estimate (NORMAL) Large Platelets Hypochromasia (manual) Poikilocytosis (manual Anisocytosis (manual) Zh[place] Cells Acanthocytes (Spur) PT (9.7-12.2) SECONDS INR APTT (21-34) SECONDS Puncture Site R rad pCO2 22 L (35-45) mm/Hg pO2 122 H (80-100) mm/Hg HCO3 9.9 L* (21-28) mmol/L ABG pH 7.16 L* (7.35-7.45) ABG Total CO2 8.5 L (22-28) mmol/L ABG O2 Saturation 97.8 (95-98) % ABG Base Excess -19.2 L (-2.0-3.0) mmol/L ABG Hemoglobin 9.8 L (11.7-17.4) g/dL ABG Carboxyhemoglobin 0.5 (0.5-1.5) % POC ABG HHb (Measured) 2.2 (0.0-5.0) % ABG Methemoglobin 1.2 (0.0-3.0) % Sudeep Test Pos A-a O2 Difference 0.0 mm/Hg Respiratory Index 0 Hgb O2 Saturation 96.1 (95.0-98.0) % Liter Flow 0 FiO2 21.0 % Crit 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 Crit Value Called By Janie esparza rt Crit Value Read Back Y Blood Gas Notified Time 250 Sodium 138 (132-148) mmol/L Potassium 3.0 L (3.6-5.2) mmol/L Chloride 115 H (98-107) mmol/L Carbon Dioxide 10 L* D (22-30) mmol/L Anion Gap 17 (10-20) BUN 39 H (7-17) mg/dL Creatinine 3.8 H (0.7-1.2) mg/dL Est GFR ( Amer) 15 Est GFR (Non-Af Amer) 13 POC Glucose (mg/dL) (65-110) mg/dL Random Glucose 91 (65-105) mg/dL Hemoglobin A1c 5.5 (4.2-6.5) % Lactic Acid (0.7-2.1) mmol/L Calcium 6.5 L (8.6-10.4) mg/dl Phosphorus 3.7 (2.5-4.5) mg/dL Magnesium 2.2 (1.6-2.3) mg/dL Total Bilirubin (0.2-1.3) mg/dL AST (14-36) U/L ALT (9-52) U/L Alkaline Phosphatase (38-126) U/L Total Protein (6.3-8.3) g/dL Albumin (3.5-5.0) g/dL Globulin (2.2-3.9) gm/dL Albumin/Globulin Ratio (1.0-2.1) TSH 3rd Generation 1.75 (0.46-4.68) mIU/L Urine Color (YELLOW) Urine Clarity (Clear) Urine pH (5.0-8.0) Ur Specific [place] (1.003-1.030) Urine Protein (NEGATIVE) mg/dL Urine Glucose (UA) (Normal) mg/dL Urine Ketones (NEGATIVE) mg/dL Urine Blood (NEGATIVE) Urine Nitrate (NEGATIVE) Urine Bilirubin (NEGATIVE) Urine Urobilinogen (0.2-1.0) mg/dL Ur Leukocyte Esterase (Negative) Rubén/uL Urine WBC (Auto) (0-5) /hpf Urine RBC (Auto) (0-3) /hpf Ur Squamous Epith Cells (0-5) /hpf Stool Occult Blood (NEGATIVE) Stool Leukocytes, Qual (NEGATIVE) Stool Rotavirus Antigen (NEGATIVE) 06/03/18 06/03/18 06/03/18 Range/Units 22:38 22:19 19:26 WBC (4.8-10.8) K/uL RBC (3.80-5.20) Mil/uL Hgb (11.0-16.0) g/dL Hct (34.0-47.0) % MCV (81.0-99.0) fL MCH (27.0-31.0) pg MCHC (33.0-37.0) g/dL RDW (11.5-14.5) % Plt Count (130-400) K/uL MPV (7.2-11.7) fL Neut % (Auto) (50.0-75.0) % Lymph % (Auto) (20.0-40.0) % [place] % (Auto) (0.0-10.0) % Eos % (Auto) (0.0-4.0) % Baso % (Auto) (0.0-2.0) % Neut # (Auto) (1.8-7.0) K/uL Lymph # (Auto) (1.0-4.3) K/uL [place] # (Auto) (0.0-0.8) K/uL Eos # (Auto) (0.0-0.7) K/uL Baso # (Auto) (0.0-0.2) K/uL Neutrophils % (Manual) (50-75) % Lymphocytes % (Manual) (20-40) % Monocytes % (Manual) (0-10) % Eosinophils % (Manual) (0-4) % Nucleated RBC % (0-0) % Platelet Estimate (NORMAL) Large Platelets Hypochromasia (manual) Poikilocytosis (manual Anisocytosis (manual) Zh[place] Cells Acanthocytes (Spur) PT (9.7-12.2) SECONDS INR APTT (21-34) SECONDS Puncture Site pCO2 (35-45) mm/Hg pO2 (80-100) mm/Hg HCO3 (21-28) mmol/L ABG pH (7.35-7.45) ABG Total CO2 (22-28) mmol/L ABG O2 Saturation (95-98) % ABG Base Excess (-2.0-3.0) mmol/L ABG Hemoglobin (11.7-17.4) g/dL ABG Carboxyhemoglobin (0.5-1.5) % POC ABG HHb (Measured) (0.0-5.0) % ABG Methemoglobin (0.0-3.0) % Sudeep Test A-a O2 Difference mm/Hg Respiratory Index Hgb O2 Saturation (95.0-98.0) % Liter Flow FiO2 % Crit Value Called To Crit Value Called By Crit Value Read Back Blood Gas Notified Time Sodium 141 (132-148) mmol/L Potassium 2.4 L* (3.6-5.2) mmol/L Chloride 116 H (98-107) mmol/L Carbon Dioxide 8 L* (22-30) mmol/L Anion Gap 19 (10-20) BUN 40 H (7-17) mg/dL Creatinine 4.3 H (0.7-1.2) mg/dL Est GFR ( Amer) 13 Est GFR (Non-Af Amer) 11 POC Glucose (mg/dL) (65-110) mg/dL Random Glucose 65 (65-105) mg/dL Hemoglobin A1c (4.2-6.5) % Lactic Acid < 0.5 L (0.7-2.1) mmol/L Calcium 5.4 L* (8.6-10.4) mg/dl Phosphorus (2.5-4.5) mg/dL Magnesium 0.9 L* D (1.6-2.3) mg/dL Total Bilirubin 0.3 (0.2-1.3) mg/dL AST 11 L D (14-36) U/L ALT 37 (9-52) U/L Alkaline Phosphatase 94 (38-126) U/L Total Protein 5.3 L (6.3-8.3) g/dL Albumin 2.9 L (3.5-5.0) g/dL Globulin 2.4 (2.2-3.9) gm/dL Albumin/Globulin Ratio 1.2 (1.0-2.1) TSH 3rd Generation (0.46-4.68) mIU/L Urine Color Straw (YELLOW) Urine Clarity Clear (Clear) Urine pH 5.0 (5.0-8.0) Ur Specific [place] 1.005 (1.003-1.030) Urine Protein 2+ H (NEGATIVE) mg/dL Urine Glucose (UA) Normal (Normal) mg/dL Urine Ketones Negative (NEGATIVE) mg/dL Urine Blood 1+ H (NEGATIVE) Urine Nitrate Negative (NEGATIVE) Urine Bilirubin Negative (NEGATIVE) Urine Urobilinogen Normal (0.2-1.0) mg/dL Ur Leukocyte Esterase Neg (Negative) Rubén/uL Urine WBC (Auto) 2 (0-5) /hpf Urine RBC (Auto) 3 (0-3) /hpf Ur Squamous Epith Cells < 1 (0-5) /hpf Stool Occult Blood (NEGATIVE) Stool Leukocytes, Qual (NEGATIVE) Stool Rotavirus Antigen (NEGATIVE) Laboratory Results - last 24 hr 06/03/18 06/03/18 06/03/18 19:26 22:19 22:38 WBC RBC Hgb Hct MCV MCH MCHC RDW Plt Count MPV Neut % (Auto) Lymph % (Auto) [place] % (Auto) Eos % (Auto) Baso % (Auto) Neut # (Auto) Lymph # (Auto) [place] # (Auto) Eos # (Auto) Baso # (Auto) Neutrophils % (Manual) Lymphocytes % (Manual) Monocytes % (Manual) Eosinophils % (Manual) Nucleated RBC % Platelet Estimate Large Platelets Hypochromasia (manual) Poikilocytosis (manual Anisocytosis (manual) Zhane Cells Acanthocytes (Spur) PT INR APTT Puncture Site pCO2 pO2 HCO3 ABG pH ABG Total CO2 ABG O2 Saturation ABG Base Excess ABG Hemoglobin ABG Carboxyhemoglobin POC ABG HHb (Measured) ABG Methemoglobin Sudeep Test A-a O2 Difference Respiratory Index Hgb O2 Saturation Liter Flow FiO2 Crit Value Called To Crit Value Called By Crit Value Read Back Blood Gas Notified Time Sodium 141 Potassium 2.4 L* Chloride 116 H Carbon Dioxide 8 L* Anion Gap 19 BUN 40 H Creatinine 4.3 H Est GFR ( Amer) 13 Est GFR (Non-Af Amer) 11 POC Glucose (mg/dL) Random Glucose 65 Hemoglobin A1c Lactic Acid < 0.5 L Calcium 5.4 L* Phosphorus Magnesium 0.9 L* D Total Bilirubin 0.3 AST 11 L D ALT 37 Alkaline Phosphatase 94 Total Protein 5.3 L Albumin 2.9 L Globulin 2.4 Albumin/Globulin Ratio 1.2 TSH 3rd Generation Urine Color Straw Urine Clarity Clear Urine pH 5.0 Ur Specific [place] 1.005 Urine Protein 2+ H Urine Glucose (UA) Normal Urine Ketones Negative Urine Blood 1+ H Urine Nitrate Negative Urine Bilirubin Negative Urine Urobilinogen Normal Ur Leukocyte Esterase Neg Urine WBC (Auto) 2 Urine RBC (Auto) 3 Ur Squamous Epith Cells < 1 Stool Occult Blood Stool Leukocytes, Qual Stool Rotavirus Antigen 06/04/18 06/04/18 06/04/18 02:31 06:37 06:37 WBC RBC Hgb Hct MCV MCH MCHC RDW Plt Count MPV Neut % (Auto) Lymph % (Auto) [place] % (Auto) Eos % (Auto) Baso % (Auto) Neut # (Auto) Lymph # (Auto) [place] # (Auto) Eos # (Auto) Baso # (Auto) Neutrophils % (Manual) Lymphocytes % (Manual) Monocytes % (Manual) Eosinophils % (Manual) Nucleated RBC % Platelet Estimate Large Platelets Hypochromasia (manual) Poikilocytosis (manual Anisocytosis (manual) [place] Cells Acanthocytes (Spur) PT INR APTT Puncture Site R rad pCO2 22 L pO2 122 H HCO3 9.9 L* ABG pH 7.16 L* ABG Total CO2 8.5 L ABG O2 Saturation 97.8 ABG Base Excess -19.2 L ABG Hemoglobin 9.8 L ABG Carboxyhemoglobin 0.5 POC ABG HHb (Measured) 2.2 ABG Methemoglobin 1.2 Sudeep Test Pos A-a O2 Difference 0.0 Respiratory Index 0 Hgb O2 Saturation 96.1 Liter Flow 0 FiO2 21.0 Crit 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 Crit Value Called By Janie esparza rt Crit Value Read Back Y Blood Gas Notified Time 250 Sodium 138 Potassium 3.0 L Chloride 115 H Carbon Dioxide 10 L* D Anion Gap 17 BUN 39 H Creatinine 3.8 H Est GFR ( Amer) 15 Est GFR (Non-Af Amer) 13 POC Glucose (mg/dL) Random Glucose 91 Hemoglobin A1c 5.5 Lactic Acid Calcium 6.5 L Phosphorus 3.7 Magnesium 2.2 Total Bilirubin AST ALT Alkaline Phosphatase Total Protein Albumin Globulin Albumin/Globulin Ratio TSH 3rd Generation 1.75 Urine Color Urine Clarity Urine pH Ur Specific [place] Urine Protein Urine Glucose (UA) Urine Ketones Urine Blood Urine Nitrate Urine Bilirubin Urine Urobilinogen Ur Leukocyte Esterase Urine WBC (Auto) Urine RBC (Auto) Ur Squamous Epith Cells Stool Occult Blood Stool Leukocytes, Qual Stool Rotavirus Antigen 06/04/18 06/04/18 06/04/18 06:37 06:37 07:56 WBC 9.1 RBC 3.35 L Hgb 9.9 L Hct 29.7 L MCV 88.8 MCH 29.6 MCHC 33.3 RDW 16.8 H Plt Count 315 MPV 7.7 Neut % (Auto) 84.2 H Lymph % (Auto) 2.1 L [place] % (Auto) 11.8 H Eos % (Auto) 1.6 Baso % (Auto) 0.3 Neut # (Auto) 7.7 H Lymph # (Auto) 0.2 L [place] # (Auto) 1.1 H Eos # (Auto) 0.1 Baso # (Auto) 0.0 Neutrophils % (Manual) 89 H Lymphocytes % (Manual) 2 L Monocytes % (Manual) 8 Eosinophils % (Manual) 1 Nucleated RBC % 1 H Platelet Estimate Normal Large Platelets Present Hypochromasia (manual) Slight Poikilocytosis (manual Slight Anisocytosis (manual) Slight [place] Cells Moderate Acanthocytes (Spur) Slight PT 20.7 H INR 1.9 APTT 42 H Puncture Site pCO2 pO2 HCO3 ABG pH ABG Total CO2 ABG O2 Saturation ABG Base Excess ABG Hemoglobin ABG Carboxyhemoglobin POC ABG HHb (Measured) ABG Methemoglobin Sudeep Test A-a O2 Difference Respiratory Index Hgb O2 Saturation Liter Flow FiO2 Crit Value Called To Crit Value Called By Crit Value Read Back Blood Gas Notified Time Sodium Potassium Chloride Carbon Dioxide Anion Gap BUN Creatinine Est GFR ( Amer) Est GFR (Non-Af Amer) POC Glucose (mg/dL) 72 Random Glucose Hemoglobin A1c Lactic Acid Calcium Phosphorus Magnesium Total Bilirubin AST ALT Alkaline Phosphatase Total Protein Albumin Globulin Albumin/Globulin Ratio TSH 3rd Generation Urine Color Urine Clarity Urine pH Ur Specific [place] Urine Protein Urine Glucose (UA) Urine Ketones Urine Blood Urine Nitrate Urine Bilirubin Urine Urobilinogen Ur Leukocyte Esterase Urine WBC (Auto) Urine RBC (Auto) Ur Squamous Epith Cells Stool Occult Blood Stool Leukocytes, Qual Stool Rotavirus Antigen 06/04/18 06/04/18 06/04/18 10:05 11:58 14:03 WBC RBC Hgb Hct MCV MCH MCHC RDW Plt Count MPV Neut % (Auto) Lymph % (Auto) [place] % (Auto) Eos % (Auto) Baso % (Auto) Neut # (Auto) Lymph # (Auto) [place] # (Auto) Eos # (Auto) Baso # (Auto) Neutrophils % (Manual) Lymphocytes % (Manual) Monocytes % (Manual) Eosinophils % (Manual) Nucleated RBC % Platelet Estimate Large Platelets Hypochromasia (manual) Poikilocytosis (manual Anisocytosis (manual) [place] Cells Acanthocytes (Spur) PT INR APTT Puncture Site R/b pCO2 22 L pO2 123 H HCO3 13.0 L ABG pH 7.26 L ABG Total CO2 10.6 L ABG O2 Saturation 97.4 ABG Base Excess -15.3 L ABG Hemoglobin 11.4 L ABG Carboxyhemoglobin 0.2 L POC ABG HHb (Measured) 2.6 ABG Methemoglobin 0.9 Sudeep Test Na A-a O2 Difference -1.0 Respiratory Index 0 Hgb O2 Saturation 96.3 Liter Flow FiO2 21.0 Crit Value Called To Crit Value Called By Crit Value Read Back Blood Gas Notified Time Sodium Potassium Chloride Carbon Dioxide Anion Gap BUN Creatinine Est GFR ( Amer) Est GFR (Non-Af Amer) POC Glucose (mg/dL) 90 Random Glucose Hemoglobin A1c Lactic Acid Calcium Phosphorus Magnesium Total Bilirubin AST ALT Alkaline Phosphatase Total Protein Albumin Globulin Albumin/Globulin Ratio TSH 3rd Generation Urine Color Urine Clarity Urine pH Ur Specific [place] Urine Protein Urine Glucose (UA) Urine Ketones Urine Blood Urine Nitrate Urine Bilirubin Urine Urobilinogen Ur Leukocyte Esterase Urine WBC (Auto) Urine RBC (Auto) Ur Squamous Epith Cells Stool Occult Blood Positive H Stool Leukocytes, Qual Stool Rotavirus Antigen 06/04/18 06/04/18 06/04/18 14:03 14:09 16:24 WBC RBC Hgb Hct MCV MCH MCHC RDW Plt Count MPV Neut % (Auto) Lymph % (Auto) [place] % (Auto) Eos % (Auto) Baso % (Auto) Neut # (Auto) Lymph # (Auto) [place] # (Auto) Eos # (Auto) Baso # (Auto) Neutrophils % (Manual) Lymphocytes % (Manual) Monocytes % (Manual) Eosinophils % (Manual) Nucleated RBC % Platelet Estimate Large Platelets Hypochromasia (manual) Poikilocytosis (manual Anisocytosis (manual) [place] Cells Acanthocytes (Spur) PT INR APTT Puncture Site pCO2 pO2 HCO3 ABG pH ABG Total CO2 ABG O2 Saturation ABG Base Excess ABG Hemoglobin ABG Carboxyhemoglobin POC ABG HHb (Measured) ABG Methemoglobin Sudeep Test A-a O2 Difference Respiratory Index Hgb O2 Saturation Liter Flow FiO2 Crit Value Called To Crit Value Called By Crit Value Read Back Blood Gas Notified Time Sodium Potassium Chloride Carbon Dioxide Anion Gap BUN Creatinine Est GFR ( Amer) Est GFR (Non-Af Amer) POC Glucose (mg/dL) 142 H Random Glucose Hemoglobin A1c Lactic Acid Calcium Phosphorus Magnesium Total Bilirubin AST ALT Alkaline Phosphatase Total Protein Albumin Globulin Albumin/Globulin Ratio TSH 3rd Generation Urine Color Urine Clarity Urine pH Ur Specific [place] Urine Protein Urine Glucose (UA) Urine Ketones Urine Blood Urine Nitrate Urine Bilirubin Urine Urobilinogen Ur Leukocyte Esterase Urine WBC (Auto) Urine RBC (Auto) Ur Squamous Epith Cells Stool Occult Blood Stool Leukocytes, Qual Negative Stool Rotavirus Antigen Negative EKG/Cardiology Studies: Cardiology / EKG Studies 06/03/18 18:21 ELECTROCARDIOGRAM Stat Comment: ed [id number] Mode Of Transportation: STRETCHER Reason For Exam: weakness 06/04/18 07:30 EKG [ELECTROCARDIOGRAM] Routine Comment: Mode Of Transportation: PORTABLE Reason For Exam: Abnormal EKG follow up Critical Care Progress Note - Nutrition Nutrition: Nutrition Category Date Time Status Liquid Diet [DIET] Diets 06/03/18 Breakfast Active Attending/Attestation - Attestation I have personally seen and examined this patient.: Yes I have fully participated in the care of the patient.: Yes I have reviewed all pertinent clinical information: Yes Notes (Text): 06/04/18 18:48 Today: May The Patient was seen and examined at the bedside, Medical records reviewed, and management issues were discussed and formulated with the house staff. I have reviewed all the relevant clinical, laboratory, hemodynamic, radiographic data and medications Events reviewed Pain issues, skin care, head of the bed elevation, glycemic control were addressed. Agree with above resident's assessment and treatment plans of care as transcribed in Dr. Cha's note.
--- NOTE | 2018-06-04 09:11 | CP.PCM.CON ---
History of Present Illness - History of Present Illness History of Present Illness: Reason for Consult: Critidal care management Chief Complaint: Diarrhea/ Abdominal pain /Vomiting The Patient was seen and examined : HPI:The Hx was obtained from the patient , discussion with Dr Villela and after review of the Medical records. She is a 47 yeard old female with hx of HTN , Hypothyroidism,CKD and DM. She returned today from a sea cruise to [place], [place] and the [facility], referring 3 days of loose diarrhea with cramp-like generalized abdominal pain. She vomited once. No fever, headaches, cough, dysuria nor urinary frequency. In the Ed she was found to have low magnesium. Potassium, Calcium and Glucose. She is transferred from Telemetry to the ICU for critical care management. 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 PSH: Cholecystectomy (2002), ; Kidney transplant 2009, complicated causing Splenectomy 2009;AV shunt; EGD 2014 showing Gastritis and Duodenitis; Right Thoracentesis for Pleural effusion n112/08; ERCP and Sphinsterotomy SH: Former Smoker; Former Alcohol drinker; former illicit drug use;former smoker Live with family FH: Father with Throat Cancer Mother with DM and HTN, ckd Review of Systems - Constitutional Constitutional: Chills, Fever, Weight Loss - EENT Eyes: absent: As Per HPI, Blind Spots, Blurred Vision, Change in Vision, Decreased Night Vision, Diplopia, Discharge, Dry Eye, Exophthalmos, Floaters, Irritation, Itchy Eyes, Loss of Peripheral Vision, Pain, Photophobia, Requires Corrective Lenses, Sees Flashes, Spots in Vision, Tunnel Vision, Other Visual Disturbances, Loss of Vision, Other Ears: absent: As Per HPI, Decreased Hearing, Ear Discharge, Ear Pain, Tinnitus, Abnormal Hearing, Disequilibrium, Dizziness, Other Nose/Mouth/Throat: absent: As Per HPI, Epistaxis, Nasal Congestion, Nasal Discharge, Nasal Obstruction, Nasal Trauma, Nose Pain, Post Nasal Drip, Sinus Pain, Sinus Pressure, Bleeding Gums, Change in Voice, Dental Pain, Dry Mouth, Dysphagia, Halitosis, Hoarsness, Lip Swelling, Mouth Lesions, Mouth Pain, Odynophagia, Sore Throat, Throat Swelling, Tongue Swelling, Facial Pain, Neck Pain, Neck Mass, Other - Cardiovascular Cardiovascular: absent: As Per HPI, Acrocyanosis, Chest Pain, Chest Pain at Rest , Chest Pain with Activity, Claudication, Diaphoresis, Dyspnea, Dyspnea on Exertion, Edema, Irregular Heart Rhythm, Pain Radiating to Arm/Neck/Jaw, Leg Edema, Leg Ulcers, Lightheadedness, Orthopnea, Palpitations, Paroxysmal Nocturnal Dyspnea, Pedal Edema, Radiating Pain, Rapid Heart Rate, Slow Heart Rate, Syncope, Other - Respiratory Respiratory: absent: As Per HPI, Cough, Dyspnea, Hemoptysis, Dyspnea on Exertion , Wheezing, Snoring, Stridor, Pain on Inspiration, Chest Congestion, Excessive Mucous Production, Change in Mucous Color, Pain with Coughing, Other - Gastrointestinal Gastrointestinal: As Per HPI - Genitourinary Genitourinary: Change in Urinary Stream - Musculoskeletal Musculoskeletal: Muscle Cramps, Muscle Weakness, Myalgias - Neurological Neurological: Weakness Past Patient History - Infectious Disease Hx of Infectious Diseases: None - Past Medical History & Family History Past Medical History?: Yes - Past Social History Smoking Status: Former Smoker Chewing Tobacco Use: No Cigar Use: No Alcohol: None Drugs: Cannabis, Cocaine Home Situation {Lives}: With Family - CARDIAC Hx Hypertension: Yes - PULMONARY Hx Bronchitis: Yes - NEUROLOGICAL Hx Migraine: Yes - HEENT Hx HEENT Problems: No - RENAL Hx Chronic Kidney Disease: Yes - ENDOCRINE/METABOLIC Hx Endocrine Disorders: No - HEMATOLOGICAL/ONCOLOGICAL Hx Anemia: Yes - INTEGUMENTARY Hx Dermatological Problems: No - MUSCULOSKELETAL/RHEUMATOLOGICAL Hx Arthritis: Yes - GASTROINTESTINAL Hx Gall Bladder Disease: Yes Hx Pancreatitis: Yes - GENITOURINARY/GYNECOLOGICAL Hx Genitourinary Disorders: No - PSYCHIATRIC Hx Anxiety: Yes Hx Substance Use: No - SURGICAL HISTORY Hx Section: Yes (X2) Hx Cholecystectomy: Yes (2002) Hx Splenectomy: Yes Other/Comment: Renal transplane - ANESTHESIA Hx Anesthesia: Yes Hx Anesthesia Reactions: No Hx Malignant Hyperthermia: No Meds Allergies/Adverse Reactions: Allergies Allergy/AdvReac Type Severity Reaction Status Date / Time No Known Allergies Allergy Verified 02/01/18 11:19 - Medications Medications: Current Medications Amlodipine Besylate (Norvasc) 10 mg PO DAILY [facility] Famotidine (Pepcid) 20 mg PO DAILY [facility] Heparin Sodium (Porcine) (Heparin) 5,000 units SC Q8 [facility] Last Admin: 06/04/18 06:22 Dose: 5,000 units Home Med (Mycophenolate Sodium [Mycophenolic Acid]) 1 cap PO BID [facility] Sodium Bicarbonate 100 meq/ (Dextrose) 1,100 mls @ 75 mls/hr IV .[id number] [facility] Last Admin: 06/03/18 22:34 Dose: 75 mls/hr Potassium Chloride (Potassium Chloride 20 Meq/100 Ml) 20 meq in 100 mls @ 50 mls/hr IVPB ONCE ONE Stop: 06/04/18 11:03 Ondansetron HCl (Zofran Inj) 4 mg IVP Q4 PRN PRN Reason: Nausea/Vomiting Oxycodone/Acetaminophen (Percocet 5/325 Mg Tab) 1 tab PO Q4 PRN PRN Reason: PAIN MODERATE 4-7 Stop: 06/06/18 21:22 Last Admin: 06/04/18 08:46 Dose: 1 tab Prednisone (Prednisone Tab) 20 mg PO DAILY [facility] Tacrolimus (Prograf Cap) 1 mg PO BID [facility] Vitamin B Complex/Vit C/Folic Acid (Nephro-Ron) 1 tab PO DAILY [facility] Physical Exam - Head Exam Head Exam: ATRAUMATIC, NORMAL INSPECTION - Eye Exam Eye Exam: EOMI, Normal appearance - Neck Exam Neck exam: Positive for: Normal Inspection. Negative for: Tenderness - Respiratory Exam Respiratory Exam: Clear to Auscultation Bilateral, NORMAL BREATHING PATTERN - Cardiovascular Exam Cardiovascular Exam: REGULAR RHYTHM, +S1 - GI/Abdominal Exam GI & Abdominal Exam: Firm, Soft. absent: Tenderness - Extremities Exam Extremities exam: Positive for: normal inspection. Negative for: tenderness - Neurological Exam Neurological exam: Altered, CN II-XII Intact - Skin Skin Exam: Dry, Warm Results - Vital Signs Recent Vital Signs: Last Vital Signs Temp 98.2 F 06/04/18 08:00 Pulse 51 L 06/04/18 08:04 Resp 12 06/04/18 08:04 BP 166/88 H 06/04/18 08:34 Pulse Ox 100 06/04/18 08:04 - Labs Result Diagrams: 06/04/18 06:37 06/04/18 06:37 Labs: Laboratory Results - last 24 hr 06/03/18 06/03/18 06/03/18 17:38 17:38 17:38 WBC 9.6 RBC 3.64 L Hgb 10.5 L Hct 32.6 L MCV 89.4 D MCH 28.8 MCHC 32.2 L RDW 16.9 H Plt Count 361 MPV 7.8 Neut % (Auto) 85.0 H Lymph % (Auto) 3.2 L Whitley % (Auto) 10.4 H Eos % (Auto) 1.2 Baso % (Auto) 0.2 Neut # (Auto) 8.2 H Lymph # (Auto) 0.3 L Whitley # (Auto) 1.0 H Eos # (Auto) 0.1 Baso # (Auto) 0.0 Neutrophils % (Manual) 81 H Lymphocytes % (Manual) 6 L Monocytes % (Manual) 10 Eosinophils % (Manual) 3 Nucleated RBC % Platelet Estimate Normal Large Platelets Hypochromasia (manual) Slight Poikilocytosis (manual Slight Anisocytosis (manual) Slight Tear Drop Cells Slight Zhane Cells Slight Acanthocytes (Spur) PT INR APTT Puncture Site pCO2 pO2 HCO3 ABG pH ABG Total CO2 ABG O2 Saturation ABG Base Excess ABG Hemoglobin ABG Carboxyhemoglobin POC ABG HHb (Measured) ABG Methemoglobin Sudeep Test A-a O2 Difference Respiratory Index Hgb O2 Saturation Liter Flow FiO2 Crit Value Called To Crit Value Called By Crit Value Read Back Blood Gas Notified Time Sodium 136 Potassium 2.3 L* D Chloride 109 H Carbon Dioxide 8 L* D Anion Gap 22 H BUN 44 H Creatinine 5.1 H Est GFR ( Amer) 11 Est GFR (Non-Af Amer) 9 POC Glucose (mg/dL) Random Glucose 79 Hemoglobin A1c Lactic Acid < 0.5 L Calcium 6.0 L* D Phosphorus Magnesium Total Bilirubin 0.2 AST 14 D ALT 35 Alkaline Phosphatase 105 Total Protein 6.3 Albumin 3.6 Globulin 2.7 Albumin/Globulin Ratio 1.3 Lipase 121 TSH 3rd Generation Urine Color Urine Clarity Urine pH Ur Specific Dutton Urine Protein Urine Glucose (UA) Urine Ketones Urine Blood Urine Nitrate Urine Bilirubin Urine Urobilinogen Ur Leukocyte Esterase Urine WBC (Auto) Urine RBC (Auto) Ur Squamous Epith Cells 06/03/18 06/03/18 06/03/18 19:26 22:19 22:38 WBC RBC Hgb Hct MCV MCH MCHC RDW Plt Count MPV Neut % (Auto) Lymph % (Auto) Whitley % (Auto) Eos % (Auto) Baso % (Auto) Neut # (Auto) Lymph # (Auto) Whitley # (Auto) Eos # (Auto) Baso # (Auto) Neutrophils % (Manual) Lymphocytes % (Manual) Monocytes % (Manual) Eosinophils % (Manual) Nucleated RBC % Platelet Estimate Large Platelets Hypochromasia (manual) Poikilocytosis (manual Anisocytosis (manual) Tear Drop Cells Zhane Cells Acanthocytes (Spur) PT INR APTT Puncture Site pCO2 pO2 HCO3 ABG pH ABG Total CO2 ABG O2 Saturation ABG Base Excess ABG Hemoglobin ABG Carboxyhemoglobin POC ABG HHb (Measured) ABG Methemoglobin Sudeep Test A-a O2 Difference Respiratory Index Hgb O2 Saturation Liter Flow FiO2 Crit Value Called To Crit Value Called By Crit Value Read Back Blood Gas Notified Time Sodium 141 Potassium 2.4 L* Chloride 116 H Carbon Dioxide 8 L* Anion Gap 19 BUN 40 H Creatinine 4.3 H Est GFR ( Amer) 13 Est GFR (Non-Af Amer) 11 POC Glucose (mg/dL) Random Glucose 65 Hemoglobin A1c Lactic Acid < 0.5 L Calcium 5.4 L* Phosphorus Magnesium 0.9 L* D Total Bilirubin 0.3 AST 11 L D ALT 37 Alkaline Phosphatase 94 Total Protein 5.3 L Albumin 2.9 L Globulin 2.4 Albumin/Globulin Ratio 1.2 Lipase TSH 3rd Generation Urine Color Straw Urine Clarity Clear Urine pH 5.0 Ur Specific Dutton 1.005 Urine Protein 2+ H Urine Glucose (UA) Normal Urine Ketones Negative Urine Blood 1+ H Urine Nitrate Negative Urine Bilirubin Negative Urine Urobilinogen Normal Ur Leukocyte Esterase Neg Urine WBC (Auto) 2 Urine RBC (Auto) 3 Ur Squamous Epith Cells < 1 06/04/18 06/04/18 06/04/18 02:31 06:37 06:37 WBC RBC Hgb Hct MCV MCH MCHC RDW Plt Count MPV Neut % (Auto) Lymph % (Auto) Whitley % (Auto) Eos % (Auto) Baso % (Auto) Neut # (Auto) Lymph # (Auto) Whitley # (Auto) Eos # (Auto) Baso # (Auto) Neutrophils % (Manual) Lymphocytes % (Manual) Monocytes % (Manual) Eosinophils % (Manual) Nucleated RBC % Platelet Estimate Large Platelets Hypochromasia (manual) Poikilocytosis (manual Anisocytosis (manual) Tear Drop Cells [place] Cells Acanthocytes (Spur) PT INR APTT Puncture Site R rad pCO2 22 L pO2 122 H HCO3 9.9 L* ABG pH 7.16 L* ABG Total CO2 8.5 L ABG O2 Saturation 97.8 ABG Base Excess -19.2 L ABG Hemoglobin 9.8 L ABG Carboxyhemoglobin 0.5 POC ABG HHb (Measured) 2.2 ABG Methemoglobin 1.2 Sudeep Test Pos A-a O2 Difference 0.0 Respiratory Index 0 Hgb O2 Saturation 96.1 Liter Flow 0 FiO2 21.0 Crit Value Called To [facility] icu manager Crit Value Called By Janie esparza rt Crit Value Read Back Y Blood Gas Notified Time 250 Sodium 138 Potassium 3.0 L Chloride 115 H Carbon Dioxide 10 L* D Anion Gap 17 BUN 39 H Creatinine 3.8 H Est GFR ( Amer) 15 Est GFR (Non-Af Amer) 13 POC Glucose (mg/dL) Random Glucose 91 Hemoglobin A1c 5.5 Lactic Acid Calcium 6.5 L Phosphorus 3.7 Magnesium 2.2 Total Bilirubin AST ALT Alkaline Phosphatase Total Protein Albumin Globulin Albumin/Globulin Ratio Lipase TSH 3rd Generation 1.75 Urine Color Urine Clarity Urine pH Ur Specific Dutton Urine Protein Urine Glucose (UA) Urine Ketones Urine Blood Urine Nitrate Urine Bilirubin Urine Urobilinogen Ur Leukocyte Esterase Urine WBC (Auto) Urine RBC (Auto) Ur Squamous Epith Cells 06/04/18 06/04/18 06/04/18 06:37 06:37 07:56 WBC 9.1 RBC 3.35 L Hgb 9.9 L Hct 29.7 L MCV 88.8 MCH 29.6 MCHC 33.3 RDW 16.8 H Plt Count 315 MPV 7.7 Neut % (Auto) 84.2 H Lymph % (Auto) 2.1 L Whitley % (Auto) 11.8 H Eos % (Auto) 1.6 Baso % (Auto) 0.3 Neut # (Auto) 7.7 H Lymph # (Auto) 0.2 L Whitley # (Auto) 1.1 H Eos # (Auto) 0.1 Baso # (Auto) 0.0 Neutrophils % (Manual) 89 H Lymphocytes % (Manual) 2 L Monocytes % (Manual) 8 Eosinophils % (Manual) 1 Nucleated RBC % 1 H Platelet Estimate Normal Large Platelets Present Hypochromasia (manual) Slight Poikilocytosis (manual Slight Anisocytosis (manual) Slight Tear Drop Cells Zhane Cells Moderate Acanthocytes (Spur) Slight PT 20.7 H INR 1.9 APTT 42 H Puncture Site pCO2 pO2 HCO3 ABG pH ABG Total CO2 ABG O2 Saturation ABG Base Excess ABG Hemoglobin ABG Carboxyhemoglobin POC ABG HHb (Measured) ABG Methemoglobin Sudeep Test A-a O2 Difference Respiratory Index Hgb O2 Saturation Liter Flow FiO2 Crit Value Called To Crit Value Called By Crit Value Read Back Blood Gas Notified Time Sodium Potassium Chloride Carbon Dioxide Anion Gap BUN Creatinine Est GFR ( Amer) Est GFR (Non-Af Amer) POC Glucose (mg/dL) 72 Random Glucose Hemoglobin A1c Lactic Acid Calcium Phosphorus Magnesium Total Bilirubin AST ALT Alkaline Phosphatase Total Protein Albumin Globulin Albumin/Globulin Ratio Lipase TSH 3rd Generation Urine Color Urine Clarity Urine pH Ur Specific Dutton Urine Protein Urine Glucose (UA) Urine Ketones Urine Blood Urine Nitrate Urine Bilirubin Urine Urobilinogen Ur Leukocyte Esterase Urine WBC (Auto) Urine RBC (Auto) Ur Squamous Epith Cells Assessment & Plan - Assessment and Plan (Free Text) Assessment: SULEMA dehydration recent acut cellular rejection gastroenteritis from MMF use h/o humeral rejection of transplant 2009 Plan: IV fluids continue steroids stop MMF check FK levels
[2018-06-04] MEDS: Multivitamin Vitamin B Complex (Nephro-Vite) Tab PO SCH (09:32)
[2018-06-04] MEDS ORDERED: MYCOPHENOLATE SODIUM PO SCH (10:00)
[2018-06-04 10:09] LABS: ARTERIAL BLOOD GAS HEMOGLOBIN 11.4 g/dL (11.7-17.4); ARTERIAL BLOOD GAS O2 SAT 97.4 % (95-98); ARTERIAL BLOOD GAS PCO2 22 mm/Hg (35-45); ARTERIAL BLOOD GAS PH 7.26 (7.35-7.45); ARTERIAL BLOOD GAS PO2 123 mm/Hg (80-100); ARTERIAL BLOOD GAS TCO2 10.6 mmol/L (22-28)
[2018-06-04] MEDS: Calcium Carbonate 500 mg Chewable Antacid Tab PO SCH ×2 (10:37→17:29)
[2018-06-04] MEDS: Sodium Bicarbonate 8.4% 100 MEQ in Dextrose 5% In Water 1,000 ML IV SCH ×2 (11:07→21:30)
[2018-06-04] MEDS ORDERED: Sodium Bicarbonate (8.4%) 50 Meq Syringe IVP ONE (11:30)
[2018-06-04] MEDS: Potassium Chloride 20 mEq ER Tab PO SCH (11:36)
[2018-06-04] MEDS ORDERED: Potassium Phosphate 15 MMOLE in Sodium Chloride 0.9% 250 ML IVPB ONE (11:45)
[2018-06-04 21:02] LABS: ALB/GLOB RATIO 1.2 (1.0-2.1); ALBUMIN 2.9 g/dL (3.5-5.0); CALCIUM 6.7 mg/dl (8.6-10.4)
[2018-06-04 23:24] LABS: U CREAT 24HOUR URINE 548.1 mg/24hr (800-2800); URINE CREATININE 18.9 mg/dL
--- NOTE | 2018-06-05 00:33 | CP.PCM.PN ---
Subjective - Date & Time of Evaluation Date of Evaluation: 06/04/18 Time of Evaluation: 18:04 - Subjective Subjective: Patient is feeling comfortable. Blood pressure stable. Still blood on analysis, anaphylaxis still abnormal. Currently receiving intravenous supplementation. On examination: Vital signs stable. Chest good air entry Regular heart sound. Abdomen soft nontender Assessment and recognition: 47-year-old female with a history of hypertension end-stage renal disease, status post transplant. Currently on immunosuppressive treatment. Patient recently returned from cruise. Episodes of diarrhea. Most likely foot poisoning. Electrolytes being supplemented. We'll closely monitor. Stool workup pending. Nephrology evaluation will follow-up the patient Objective - Vital Signs/Intake and Output Vital Signs (last 24 hours): Temp Pulse Resp BP Pulse Ox 98.2 F 73 12 151/82 H 100 06/04/18 08:00 06/04/18 22:00 06/04/18 22:00 06/04/18 21:34 06/04/18 22:00 Intake and Output: 06/04/18 06/05/18 18:59 06:59 Intake Total 2495 350 Output Total 1252 Balance 1243 350 - Medications Medications: Current Medications Amlodipine Besylate (Norvasc) 10 mg PO DAILY [facility] Last Admin: 06/04/18 09:32 Dose: 10 mg Calcium Carbonate (Tums) 500 mg PO BID [facility] Last Admin: 06/04/18 17:29 Dose: 500 mg Famotidine (Pepcid) 20 mg PO DAILY [facility] Last Admin: 06/04/18 09:32 Dose: 20 mg Heparin Sodium (Porcine) (Heparin) 5,000 units SC Q8 [facility] Last Admin: 06/04/18 21:33 Dose: 5,000 units Home Med (Mycophenolate Sodium [Mycophenolic Acid]) 1 cap PO BID [facility] Sodium Bicarbonate 100 meq/ (Dextrose) 1,100 mls @ 100 mls/hr IV .Q11H [facility] Last Admin: 06/04/18 21:30 Dose: Not Given Potassium Chloride (Potassium Chloride 10 Meq/100 Ml) 10 meq in 100 mls @ 100 mls/hr IVPB Q1H [facility] Stop: 06/05/18 01:44 Last Admin: 06/05/18 00:17 Dose: 100 mls/hr Ondansetron HCl (Zofran Inj) 4 mg IVP Q4 PRN PRN Reason: Nausea/Vomiting Oxycodone/Acetaminophen (Percocet 5/325 Mg Tab) 1 tab PO Q4 PRN PRN Reason: PAIN MODERATE 4-7 Stop: 06/06/18 21:22 Last Admin: 06/04/18 21:33 Dose: 1 tab Potassium Chloride (K-Dur 20 Meq Er Tab) 20 meq PO DAILY [facility] Last Admin: 06/04/18 11:36 Dose: 20 meq Prednisone (Prednisone Tab) 30 mg PO DAILY [facility] Last Admin: 06/04/18 10:37 Dose: 30 mg Tacrolimus (Prograf Cap) 1 mg PO BID [facility] Last Admin: 06/04/18 17:29 Dose: 1 mg Vitamin B Complex/Vit C/Folic Acid (Nephro-Ron) 1 tab PO DAILY [facility] Last Admin: 06/04/18 09:32 Dose: 1 tab - Labs Labs: 06/04/18 06:37 06/04/18 22:36 PT 20.7 SECONDS (9.7-12.2) H 06/04/18 06:37 INR 1.9 06/04/18 06:37 APTT 42 SECONDS (21-34) H 06/04/18 06:37
[2018-06-05] MEDS: Sodium Bicarbonate 8.4% 100 MEQ in Dextrose 5% In Water 1,000 ML IV SCH ×2 (06:21→09:13)
[2018-06-05] MEDS: Oxycodone/Acetaminophen 5/325 mg Tab PO PRN ×3 (06:22→21:26)
[2018-06-05 06:42] LABS: BASO % 0.2 % (0.0-2.0); EOS % 0.7 % (0.0-4.0); HEMOGLOBIN 9.3 g/dL (11.0-16.0); LYMPH # 0.2 K/uL (1.0-4.3); LYMPH % 3.3 % (20.0-40.0); MEAN CELL VOLUME 87.5 fL (81.0-99.0); MEAN CORPUSCULAR HGB CONC 33.1 g/dL (33.0-37.0); MEAN PLATELET VOLUME 8.7 fL (7.2-11.7); MONO % 15.2 % (0.0-10.0); NEUT # 5.2 K/uL (1.8-7.0); NEUT % 80.6 % (50.0-75.0); NRBC % 0.6 % (0.0-2.0); PLATELET COUNT 295 K/uL (130-400); RBC 3.23 Mil/uL (3.80-5.20); RED CELL DISTRIBUTION WIDTH 16.8 % (11.5-14.5); WHITE BLOOD COUNT 6.5 K/uL (4.8-10.8)
[2018-06-05 07:00] LABS: ALB/GLOB RATIO 1.3 (1.0-2.1); CALCIUM 6.7 mg/dl (8.6-10.4)
[2018-06-05] MEDS ORDERED: Potassium Chloride 20 mEq/15 ml LIQ UD PO ONE (07:15)
[2018-06-05] MEDS: Magnesium Sulfate 1 gm in D5W 1 GM/100 ML BAG IVPB SCH ×2 (07:40→08:04)
[2018-06-05 08:31] LABS: ANISOCYTOSIS SLIGHT; LYMPHOCYTE 2 % (20-40); MONOCYTE 10 % (0-10); NEUTROPHIL 88 % (50-75); PLATELET ESTIMATE NORMAL (NORMAL); TOTAL CELLS COUNTED 100
[2018-06-05 08:32] LABS: HYPOCHROMIC SLIGHT; OVALOCYTES SLIGHT; POIKILOCYTOSIS SLIGHT
[2018-06-05] MEDS: Calcium Carbonate 500 mg Chewable Antacid Tab PO SCH ×2 (09:08→17:23)
[2018-06-05] MEDS: Multivitamin Vitamin B Complex (Nephro-Vite) Tab PO SCH (09:08)
[2018-06-05] MEDS: Potassium Chloride 20 mEq ER Tab PO SCH (09:09)
--- NOTE | 2018-06-05 11:41 | CARD ---
APPROVED REPORT Date of service: 06/04/2018 EKG Measurement Heart [id number] <Conclusion> Sinus bradycardia Right bundle branch block Anteroseptal infarct, age undetermined Abnormal ECG
--- NOTE | 2018-06-05 11:56 | CP.PCM.PN ---
Subjective - Date & Time of Evaluation Date of Evaluation: 06/05/18 Time of Evaluation: 11:54 - Subjective Subjective: resolved nausea vomiting diarrhea tolerating po diet good uop denies any dysuria hematuria sob cp dizziness headache cough f/c Objective - Vital Signs/Intake and Output Vital Signs (last 24 hours): Temp Pulse Resp BP Pulse Ox 98.2 F 65 11 L 138/92 H 98 06/05/18 08:00 06/05/18 08:34 06/05/18 08:34 06/05/18 08:34 06/05/18 08:00 Intake and Output: 06/05/18 06/05/18 06:59 18:59 Intake Total 350 Balance 350 - Medications Medications: Current Medications Amlodipine Besylate (Norvasc) 10 mg PO DAILY [facility] Last Admin: 06/05/18 09:11 Dose: 10 mg Calcium Carbonate (Tums) 500 mg PO BID [facility] Last Admin: 06/05/18 09:08 Dose: 500 mg Famotidine (Pepcid) 20 mg PO DAILY [facility] Last Admin: 06/05/18 09:15 Dose: 20 mg Heparin Sodium (Porcine) (Heparin) 5,000 units SC Q8 [facility] Last Admin: 06/05/18 06:21 Dose: 5,000 units Home Med (Mycophenolate Sodium [Mycophenolic Acid]) 1 cap PO BID [facility] Sodium Bicarbonate 100 meq/ (Dextrose) 1,100 mls @ 100 mls/hr IV .Q11H [facility] Last Admin: 06/05/18 09:13 Dose: Not Given Potassium Chloride (Potassium Chloride 10 Meq/100 Ml) 10 meq in 100 mls @ 100 mls/hr IVPB Q1H [facility] Stop: 06/05/18 12:14 Last Admin: 06/05/18 11:15 Dose: 100 mls/hr Ondansetron HCl (Zofran Inj) 4 mg IVP Q4 PRN PRN Reason: Nausea/Vomiting Oxycodone/Acetaminophen (Percocet 5/325 Mg Tab) 1 tab PO Q4 PRN PRN Reason: PAIN MODERATE 4-7 Stop: 06/06/18 21:22 Last Admin: 06/05/18 06:22 Dose: 1 tab Potassium Chloride (K-Dur 20 Meq Er Tab) 20 meq PO DAILY [facility] Last Admin: 06/05/18 09:09 Dose: 20 meq Prednisone (Prednisone Tab) 30 mg PO DAILY [facility] Last Admin: 06/05/18 09:09 Dose: 30 mg Tacrolimus (Prograf Cap) 1 mg PO BID [facility] Last Admin: 06/05/18 09:09 Dose: 1 mg Vitamin B Complex/Vit C/Folic Acid (Nephro-Ron) 1 tab PO DAILY [facility] Last Admin: 06/05/18 09:08 Dose: 1 tab - Labs Labs: 06/05/18 06:32 06/05/18 06:32 PT 20.7 SECONDS (9.7-12.2) H 06/04/18 06:37 INR 1.9 06/04/18 06:37 APTT 42 SECONDS (21-34) H 06/04/18 06:37 - Constitutional Appears: Non-toxic, Cachectic, Chronically Ill - Head Exam Head Exam: NORMAL INSPECTION, NORMOCEPHALIC - Eye Exam Eye Exam: Normal appearance, PERRL - ENT Exam ENT Exam: Mucous Membranes Moist, Normal Exam - Neck Exam Neck Exam: Full ROM, Normal Inspection - Respiratory Exam Respiratory Exam: Clear to Ausculation Bilateral, NORMAL BREATHING PATTERN - Cardiovascular Exam Cardiovascular Exam: REGULAR RHYTHM, RRR - GI/Abdominal Exam GI & Abdominal Exam: Soft, Normal Bowel Sounds (no tenderness RLQ) - Extremities Exam Extremities Exam: Normal Inspection Assessment and Plan (1) Diarrhea Status: Acute (2) Hypokalemia Status: Acute (3) Nausea Status: Acute (4) Vomiting Status: Acute (5) SULEMA (acute kidney injury) Status: Acute (6) Anemia Status: Acute (7) Dehydration Status: Acute (8) Diabetes Status: Acute (9) History of kidney transplant Status: Acute - Assessment and Plan (Free Text) Assessment: # sulema - ? 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 liberalize k in diet iv bicarb check transplant renal ultrasound pending fk level, follow mmf on hold due to Gi symptoms, restart at a lower dose tomorrow check blood cultures. +urine cultures, add ciprofloxacin
[2018-06-05] MEDS ORDERED: Magnesium Sulfate 1 gm in D5W 1 GM/100 ML BAG IVPB SCH (12:00)
[2018-06-05] MEDS ORDERED: Magnesium Oxide 400 mg Tab UD PO SCH (12:00)
--- NOTE | 2018-06-05 12:04 | CARD ---
APPROVED REPORT Date of service: 06/03/2018 EKG Measurement Heart [id number] <Conclusion> Normal sinus rhythm Rightward axis Nonspecific intraventricular block Abnormal ECG
[2018-06-05] MEDS ORDERED: Sodium Bicarbonate 8.4% 150 MEQ in Dextrose 5% In Water 1,000 ML IV SCH (13:30)
[2018-06-05 16:22] LABS: SOURCE STOOL
[2018-06-06 06:18] LABS: BASO # 0.1 K/uL (0.0-0.2); EOS % 0.2 % (0.0-4.0); HEMOGLOBIN 9.7 g/dL (11.0-16.0); LYMPH # 0.3 K/uL (1.0-4.3); LYMPH % 5.2 % (20.0-40.0); MEAN CELL VOLUME 87.5 fL (81.0-99.0); MEAN CORPUSCULAR HEMOGLOBIN 29.7 pg (27.0-31.0); MEAN PLATELET VOLUME 8.4 fL (7.2-11.7); MONO % 15.3 % (0.0-10.0); NEUT # 5.1 K/uL (1.8-7.0); NEUT % 78.3 % (50.0-75.0); NRBC % 0.5 % (0.0-2.0); PLATELET COUNT 277 K/uL (130-400); RBC 3.26 Mil/uL (3.80-5.20); WHITE BLOOD COUNT 6.5 K/uL (4.8-10.8)
[2018-06-06 06:48] LABS: ALB/GLOB RATIO 1.1 (1.0-2.1); ALBUMIN 2.8 g/dL (3.5-5.0)
--- NOTE | 2018-06-06 07:11 | CP.PCM.PN ---
Subjective - Date & Time of Evaluation Date of Evaluation: 06/06/18 Time of Evaluation: 07:10 - Subjective Subjective: bp stable afebrile output about 1800cc input about 3 liters in positive water balance creatinine around 3 k remains low awake alert comfortable in bed bm now becoming mushy ROS no chills fever no chest pain sob cough Generalized abd pain.no nausea vomiting no dysuria hematuria Objective - Vital Signs/Intake and Output Vital Signs (last 24 hours): Temp Pulse Resp BP Pulse Ox 98.2 F 45 L 11 L 161/72 H 98 06/05/18 08:00 06/06/18 06:34 06/06/18 06:34 06/06/18 06:34 06/05/18 08:00 - Medications Medications: Current Medications Amlodipine Besylate (Norvasc) 10 mg PO DAILY [facility] Last Admin: 06/05/18 09:11 Dose: 10 mg Calcium Carbonate (Tums) 500 mg PO BID [facility] Last Admin: 06/05/18 17:23 Dose: 500 mg Famotidine (Pepcid) 20 mg PO DAILY [facility] Last Admin: 06/05/18 09:15 Dose: 20 mg Heparin Sodium (Porcine) (Heparin) 5,000 units SC Q8 [facility] Last Admin: 06/06/18 06:21 Dose: 5,000 units Home Med (Mycophenolate Sodium [Mycophenolic Acid]) 1 cap PO DAILY [facility] Sodium Bicarbonate 150 meq/ (Dextrose) 1,150 mls @ 100 mls/hr IV .[id number] [facility] Last Admin: 06/05/18 13:46 Dose: 100 mls/hr Ondansetron HCl (Zofran Inj) 4 mg IVP Q4 PRN PRN Reason: Nausea/Vomiting Oxycodone/Acetaminophen (Percocet 5/325 Mg Tab) 1 tab PO Q4 PRN PRN Reason: PAIN MODERATE 4-7 Stop: 06/06/18 21:22 Last Admin: 06/05/18 21:26 Dose: 1 tab Potassium Chloride (K-Dur 20 Meq Er Tab) 20 meq PO DAILY [facility] Last Admin: 06/05/18 09:09 Dose: 20 meq Prednisone (Prednisone Tab) 30 mg PO DAILY [facility] Last Admin: 06/05/18 09:09 Dose: 30 mg Tacrolimus (Prograf Cap) 1 mg PO BID [facility] Last Admin: 06/05/18 17:23 Dose: 1 mg Vitamin B Complex/Vit C/Folic Acid (Nephro-Ron) 1 tab PO DAILY [facility] Last Admin: 06/05/18 09:08 Dose: 1 tab - Labs Labs: 06/06/18 06:09 06/06/18 06:09 PT 20.7 SECONDS (9.7-12.2) H 06/04/18 06:37 INR 1.9 06/04/18 06:37 APTT 42 SECONDS (21-34) H 06/04/18 06:37 - Constitutional Appears: Non-toxic, No Acute Distress - Eye Exam Eye Exam: Normal appearance - Respiratory Exam Respiratory Exam: Clear to Ausculation Bilateral. absent: Rhonchi, Wheezes - Cardiovascular Exam Cardiovascular Exam: Bradycardia, REGULAR RHYTHM. absent: JVD - GI/Abdominal Exam GI & Abdominal Exam: Soft. absent: Distended, Tenderness Additional comments: graft rlq not enlarged or tender - Extremities Exam Extremities Exam: absent: Calf Tenderness - Back Exam Additional comments: no leg edema - Psychiatric Exam Psychiatric exam: Normal Affect - Skin Skin Exam: Dry Assessment and Plan (1) Diarrhea Status: Acute (2) Hypokalemia Status: Acute (3) SULEMA (acute kidney injury) Status: Acute (4) History of kidney transplant Status: Acute - Assessment and Plan (Free Text) Plan: maintain present immunosuppression pending tacrolimus level continue iv's supplement k follow chems closely
[2018-06-06] MEDS ORDERED: Potassium Chloride 40 MEQ in Dextrose 5%/0.9% NS 1,000 ML IV ONE (07:17)
[2018-06-06] MEDS ORDERED: POTASSIUM CHLORIDE IV ONE ×4 (08:00)
[2018-06-06] MEDS ORDERED: [UNRECOGNIZED DRUG - OTHER] IV ONE (08:00)
[2018-06-06] MEDS ORDERED: NS IV ONE ×2 (08:00)
[2018-06-06] MEDS ORDERED: [UNRECOGNIZED DRUG - OTHER] IV ONE (08:00)
[2018-06-06] MEDS ORDERED: SODIUM CHLORIDE IV ONE ×5 (08:00→08:45)
[2018-06-06] MEDS ORDERED: DEXTROSE IV ONE ×2 (08:00)
[2018-06-06 08:23] LABS: LYMPHOCYTE 7 % (20-40); MONOCYTE 13 % (0-10); NEUTROPHIL 80 % (50-75); TOTAL CELLS COUNTED 100
[2018-06-06 08:24] LABS: PLATELET ESTIMATE NORMAL (NORMAL)
[2018-06-06 08:25] LABS: ANISOCYTOSIS SLIGHT; BURR CELLS SLIGHT; HYPOCHROMIC SLIGHT; LARGE PLATELETS PRESENT; POIKILOCYTOSIS SLIGHT; POLYCHROMIC SLIGHT
[2018-06-06] MEDS: Oxycodone/Acetaminophen 5/325 mg Tab PO PRN ×3 (08:25→23:56)
[2018-06-06] MEDS ORDERED: D5 IV ONE (08:45)
[2018-06-06] MEDS ORDERED: POTASSIUM CHL IV ONE (08:45)
[2018-06-06] MEDS: Multivitamin Vitamin B Complex (Nephro-Vite) Tab PO SCH (09:49)
[2018-06-06] MEDS: Calcium Carbonate 500 mg Chewable Antacid Tab PO SCH ×2 (09:49→17:24)
[2018-06-06] MEDS ORDERED: Magnesium Sulfate 1 gm in D5W 1 GM/100 ML BAG IVPB ONE (10:26)
--- NOTE | 2018-06-06 12:01 | US ---
Abdominal ultrasound History: Acute renal insufficiency. Transplant kidney. Abdominal pain. Comparison: Ultrasound dated 09/23/2015 Technique: Real-time sonography was performed through the abdomen. Findings: Liver: 15 centimeters in length. Increased echogenicity of the hepatic parenchymal cortex suggestive for fatty infiltration versus hepatic parenchymal disease. Clinical correlation. Hypoechoic foci within the liver which may represent a cyst measuring up to 9 x 10 millimeters. Cholecystectomy. Common bile duct measures up to 7 millimeters, prominent. Limited visualization of the pancreas. Right lower quadrant contains a transplanted kidney which appears slightly echogenic and contains an upper pole hypoechoic lesion which may represent a cyst measuring 8 x 7 x 6 millimeters. Mild fullness of the transplant kidney collecting system. Right kidney measures 6.1 x 2.6 x 2.7 centimeters. Diminutive and echogenic. No calculi or hydronephrosis. Left kidney measures 5.8 x 3.2 x 2.7 centimeters. Diminutive and echogenic. No calculi or hydronephrosis. Spleen is obscured by overlying bowel gas. Visualized portions of the aorta and IVC are preserved. Urinary bladder is underdistended limiting evaluation. Impression: 1. Cholecystectomy. Mild compensatory extra hepatic biliary enlargement secondary to gallbladder absence. Common bile duct measures 7 millimeters. 2. Shrunken council kidneys consistent with chronic renal failure. 3. Transplant kidney in the right lower quadrant with mild fullness of the renal collecting system. Suggestion of an 8 millimeter cyst in the upper pole of the transplant kidney. Mild increased echogenicity of the transplant kidney which may represent medical renal disease. Clinical correlation. 4. Liver with increased echogenicity suggesting hepatic steatosis. These findings were preliminarily reported at 8:02 p.m. on 06/05/[address] Alec Martinez from [employer].
[2018-06-06] MEDS: SODIUM CHLORIDE IV SCH (20:00)
[2018-06-06] MEDS: POTASSIUM CHL IV SCH (20:00)
[2018-06-06] MEDS: D5 IV SCH (20:00)
[2018-06-07] MEDS: POTASSIUM CHL IV SCH ×3 (00:50→21:28)
[2018-06-07] MEDS: SODIUM CHLORIDE IV SCH ×3 (00:50→21:28)
[2018-06-07] MEDS: D5 IV SCH ×3 (00:50→21:28)
[2018-06-07] MEDS: Oxycodone/Acetaminophen 5/325 mg Tab PO PRN ×2 (06:03→12:49)
--- NOTE | 2018-06-07 07:49 | CP.PCM.CON ---
History of Present Illness - History of Present Illness History of Present Illness: Asked by Dr. Villela for a GI consultation on this patient. 47 year old female with history of CKD s/p renal transplant on prograf, HTN, anemia who presents to hospital with complaint of abdominal pain, vomiting, diarrhea which began while on cruise ship. She recently returned from cruise on June 03 and towards the end of her trip she began to develop frequent loose bowel movements (up to 4 times daily) along with epigastric abdominal pain and two episodes of non-bloody emesis. She was seen by cruise ship medical staff and sent to hospital for further evaluation. Prior to this she was in usual state of health. She has a history of chronic diarrhea which she attributes to immunosuppresive therapy and was seen in hospital in January 2018 for similar complaints. She denies fever/chills, weight loss, rectal bleeding, recent antibiotic use. She had an EGD/colonoscopy in 2014 which were unremarkable. Since arrival to hospital, symptoms have slightly improved, she had one loose bowel movement at 4 am, none this morning thus far. Tolerating PO diet without difficulty. Social history: non-smoker, no ETOH use Family history: reviewed, denies history of GI malignancies Review of Systems - Review of Systems Review of Systems: - Comprehensive 12 point review of systems performed, negative - Constitutional Constitutional: Malaise - Cardiovascular Cardiovascular: absent: Acrocyanosis, Chest Pain, Chest Pain at Rest, Chest Pain with Activity, Claudication, Diaphoresis, Dyspnea, Dyspnea on Exertion, Edema, Irregular Heart Rhythm, Pain Radiating to Arm/Neck/Jaw, Leg Edema, Leg Ulcers, Lightheadedness, Orthopnea, Palpitations, Paroxysmal Nocturnal Dyspnea, Pedal Edema, Radiating Pain, Rapid Heart Rate, Slow Heart Rate, Syncope, Other - Respiratory Respiratory: absent: Cough, Dyspnea, Hemoptysis, Dyspnea on Exertion, Wheezing, Snoring, Stridor, Pain on Inspiration, Chest Congestion, Excessive Mucous Production, Change in Mucous Color, Pain with Coughing, Other - Gastrointestinal Gastrointestinal: Abdominal Pain, Loose Stools - Musculoskeletal Musculoskeletal: absent: Abnormal Gait, Arthralgias, Atrophy, Back Pain, Deformity, Joint Swelling, Limited Range of Motion, Loss of Height, Muscle Cramps, Muscle Weakness, Myalgias, Neck Pain, Numbness, Radiating Pain into Limb , Stiffness, Tingling, Other - Neurological Neurological: absent: Abnormal Gait, Abnormal Hearing, Abnormal Movements, Abnormal Speech, Behavioral Changes, Burning Sensations, Confusion, Convulsions , Disequilibrium, Dizziness, Numbness, Focal Weakness, Frequent Falls, Headaches , Lack of Coordination, Loss of Vision, Memory Loss, Paresthesias, Radicular Pain, Restless Legs, Sensory Deficit, Syncope, Tingling, Tremor, Vertigo, Weakness, Other Visual Disturbances, Other Past Patient History - Infectious Disease Hx of Infectious Diseases: None - Past Medical History & Family History Past Medical History?: Yes - Past Social History Smoking Status: Former Smoker Chewing Tobacco Use: No Cigar Use: No Alcohol: None Drugs: Cannabis, Cocaine Home Situation {Lives}: With Family - CARDIAC Hx Hypertension: Yes - PULMONARY Hx Bronchitis: Yes - NEUROLOGICAL Hx Migraine: Yes - HEENT Hx HEENT Problems: No - RENAL Hx Chronic Kidney Disease: Yes - ENDOCRINE/METABOLIC Hx Endocrine Disorders: No - HEMATOLOGICAL/ONCOLOGICAL Hx Anemia: Yes - INTEGUMENTARY Hx Dermatological Problems: No - MUSCULOSKELETAL/RHEUMATOLOGICAL Hx Arthritis: Yes - GASTROINTESTINAL Hx Gall Bladder Disease: Yes Hx Pancreatitis: Yes - GENITOURINARY/GYNECOLOGICAL Hx Genitourinary Disorders: No - PSYCHIATRIC Hx Anxiety: Yes Hx Substance Use: No - SURGICAL HISTORY Hx Section: Yes (X2) Hx Cholecystectomy: Yes (2002) Hx Splenectomy: Yes Other/Comment: Renal transplane - ANESTHESIA Hx Anesthesia: Yes Hx Anesthesia Reactions: No Hx Malignant Hyperthermia: No Meds Allergies/Adverse Reactions: Allergies Allergy/AdvReac Type Severity Reaction Status Date / Time No Known Allergies Allergy Verified 02/01/18 11:19 - Medications Medications: Current Medications Amlodipine Besylate (Norvasc) 10 mg PO DAILY [facility] Last Admin: 06/06/18 09:53 Dose: 10 mg Calcium Carbonate (Tums) 500 mg PO BID [facility] Last Admin: 06/06/18 17:24 Dose: 500 mg Famotidine (Pepcid) 20 mg PO DAILY [facility] Last Admin: 06/06/18 09:48 Dose: 20 mg Heparin Sodium (Porcine) (Heparin) 5,000 units SC Q8 [facility] Last Admin: 06/07/18 06:01 Dose: 5,000 units Home Med (Mycophenolate Sodium [Mycophenolic Acid]) 1 cap PO DAILY [facility] Sodium Chloride 75 meq/Potassium Chloride/Dextrose/Sod Cl 1,018.75 mls @ 100 mls/hr IV .[id number] [facility] Last Admin: 06/07/18 00:50 Dose: Not Given Ondansetron HCl (Zofran Inj) 4 mg IVP Q4 PRN PRN Reason: Nausea/Vomiting Oxycodone/Acetaminophen (Percocet 5/325 Mg Tab) 1 tab PO Q4H PRN PRN Reason: Pain, moderate (4-7) Stop: 06/09/18 23:50 Last Admin: 06/07/18 06:03 Dose: 1 tab Potassium Chloride (K-Dur 20 Meq Er Tab) 20 meq PO DAILY [facility] Last Admin: 06/05/18 09:09 Dose: 20 meq Prednisone (Prednisone Tab) 30 mg PO DAILY [facility] Last Admin: 06/06/18 09:49 Dose: 30 mg Tacrolimus (Prograf Cap) 1 mg PO BID [facility] Last Admin: 06/06/18 17:24 Dose: 1 mg Vitamin B Complex/Vit C/Folic Acid (Nephro-Ron) 1 tab PO DAILY [facility] Last Admin: 06/06/18 09:49 Dose: 1 tab Physical Exam - Constitutional Appears: Non-toxic, No Acute Distress - Head Exam Head Exam: NORMAL INSPECTION - Eye Exam Eye Exam: EOMI, Normal appearance - ENT Exam ENT Exam: Mucous Membranes Moist - Respiratory Exam Respiratory Exam: Clear to Auscultation Bilateral - Cardiovascular Exam Cardiovascular Exam: REGULAR RHYTHM, +S1, +S2 - GI/Abdominal Exam GI & Abdominal Exam: Normal Bowel Sounds, Soft, Tenderness Additional comments: mild epigastric tenderness to palpation, no rebound/guarding no palpable hepato/splenomegaly - Extremities Exam Extremities exam: Positive for: normal inspection - Neurological Exam Neurological exam: Alert, CN II-XII Intact, Oriented x3, Reflexes Normal - Psychiatric Exam Psychiatric exam: Normal Affect, Normal Mood - Skin Skin Exam: Dry, Intact, Normal Color, Warm Results - Vital Signs Recent Vital Signs: Last Vital Signs Temp 97.8 F 06/07/18 04:44 Pulse 51 L 06/07/18 04:44 Resp 20 06/07/18 04:44 BP 175/89 H 06/07/18 04:44 Pulse Ox 99 06/07/18 04:44 - Labs Result Diagrams: 06/06/18 06:09 06/06/18 20:37 Labs: Laboratory Results - last 24 hr 06/03/18 06/06/18 06/06/18 22:19 06:09 07:32 Neutrophils % (Manual) 80 H Lymphocytes % (Manual) 7 L Monocytes % (Manual) 13 H Platelet Estimate Normal Large Platelets Present Polychromasia Slight Hypochromasia (manual) Slight Poikilocytosis (manual Slight Anisocytosis (manual) Slight Brady Cells Slight Sodium Potassium Chloride Carbon Dioxide Anion Gap BUN Creatinine Est GFR ( Amer) Est GFR (Non-Af Amer) POC Glucose (mg/dL) 90 Random Glucose Calcium Mycophenolic Acid 1.7 MPA Glucuronide 104.0 H C. difficile Ag & Toxin 06/06/18 06/06/18 06/06/18 08:47 12:29 16:16 Neutrophils % (Manual) Lymphocytes % (Manual) Monocytes % (Manual) Platelet Estimate Large Platelets Polychromasia Hypochromasia (manual) Poikilocytosis (manual Anisocytosis (manual) Zhane Cells Sodium Potassium Chloride Carbon Dioxide Anion Gap BUN Creatinine Est GFR ( Amer) Est GFR (Non-Af Amer) POC Glucose (mg/dL) 120 H 144 H Random Glucose Calcium Mycophenolic Acid MPA Glucuronide C. difficile Ag & Toxin Negative 06/06/18 06/06/18 20:37 21:10 Neutrophils % (Manual) Lymphocytes % (Manual) Monocytes % (Manual) Platelet Estimate Large Platelets Polychromasia Hypochromasia (manual) Poikilocytosis (manual Anisocytosis (manual) Zhane Cells Sodium 135 Potassium 3.2 L Chloride 105 Carbon Dioxide 17 L Anion Gap 16 BUN 26 H Creatinine 2.5 H Est GFR ( Amer) 25 Est GFR (Non-Af Amer) 21 POC Glucose (mg/dL) 155 H Random Glucose 121 H Calcium 6.0 L* Mycophenolic Acid MPA Glucuronide C. difficile Ag & Toxin Assessment & Plan - Assessment and Plan (Free Text) Assessment: CKD s/p renal transplantation on prograf HTN Anemia Chronic pain syndrome Diarrhea - likely infectious given clinical scenario. Symptoms improving. Plan: - Diet as tolerated - c-difficile negative, awaiting additional stool study results - Prograf level ordered, follow up results - Diarrhea improving, continue with supportive care and IVF hydration - Oral H2 espinoza therapy PRN - Patient has outpatient appointment with Dr. Andres on June 09 for follow up. No planned GI interventions at this time, will sign off case. Please reconsult as necessary, thank you.
[2018-06-07 07:57] LABS: ALB/GLOB RATIO 1.2 (1.0-2.1); ALBUMIN 2.6 g/dL (3.5-5.0); CALCIUM 7.2 mg/dl (8.6-10.4)
[2018-06-07] MEDS: Calcium Carbonate 500 mg Chewable Antacid Tab PO SCH ×2 (10:20→17:44)
[2018-06-07] MEDS: Multivitamin Vitamin B Complex (Nephro-Vite) Tab PO SCH (10:20)
[2018-06-07] MEDS ORDERED: Potassium Chloride 20 mEq/15 ml LIQ UD PO ONE (10:26)
--- NOTE | 2018-06-07 18:01 | CP.PCM.PN ---
Subjective - Date & Time of Evaluation Date of Evaluation: 06/05/18 Time of Evaluation: 18:05 - Subjective Subjective: Patient's electrolytes improved markedly. Feeling better. Vital signs stable. Tolerating the oral feeding On examination: Vital signs stable Chest good air entry Nontender abdomen No edema noted Labs reviewed Assessment and recommendation: So far the stool workup is negative. Potassium is on the low side still, supplemented. Will continue the current treatment. But diarrhea, most likely foot poisoning, unclear etiology at this time. GI evaluation pending will follow the patient Objective - Vital Signs/Intake and Output Vital Signs (last 24 hours): Temp Pulse Resp BP Pulse Ox 98 F 69 20 149/79 99 06/07/18 15:00 06/07/18 15:00 06/07/18 15:00 06/07/18 15:00 06/07/18 15:00 Intake and Output: 06/07/18 06/07/18 06:59 18:59 Intake Total 900 400 Output Total 1375 Balance -475 400 - Medications Medications: Current Medications Amlodipine Besylate (Norvasc) 10 mg PO DAILY [facility] Last Admin: 06/07/18 10:20 Dose: 10 mg Calcium Carbonate (Tums) 500 mg PO BID [facility] Last Admin: 06/07/18 17:44 Dose: Not Given Famotidine (Pepcid) 20 mg PO DAILY [facility] Last Admin: 06/07/18 10:20 Dose: 20 mg Heparin Sodium (Porcine) (Heparin) 5,000 units SC Q8 [facility] Last Admin: 06/07/18 14:24 Dose: 5,000 units Home Med (Mycophenolate Sodium [Mycophenolic Acid]) 1 cap PO DAILY [facility] Sodium Chloride 75 meq/Potassium Chloride/Dextrose/Sod Cl 1,018.75 mls @ 100 mls/hr IV .[id number] [facility] Last Admin: 06/07/18 17:40 Dose: 100 mls/hr Ondansetron HCl (Zofran Inj) 4 mg IVP Q4 PRN PRN Reason: Nausea/Vomiting Oxycodone/Acetaminophen (Percocet 5/325 Mg Tab) 1 tab PO Q4H PRN PRN Reason: Pain, moderate (4-7) Stop: 06/09/18 23:50 Last Admin: 06/07/18 12:49 Dose: 1 tab Prednisone (Prednisone Tab) 30 mg PO DAILY [facility] Last Admin: 06/07/18 10:20 Dose: 30 mg Tacrolimus (Prograf Cap) 1 mg PO BID [facility] Last Admin: 06/07/18 17:44 Dose: Not Given Vitamin B Complex/Vit C/Folic Acid (Nephro-Ron) 1 tab PO DAILY [facility] Last Admin: 06/07/18 10:20 Dose: 1 tab - Labs Labs: 06/06/18 06:09 06/07/18 07:15 PT 20.7 SECONDS (9.7-12.2) H 06/04/18 06:37 INR 1.9 06/04/18 06:37 APTT 42 SECONDS (21-34) H 06/04/18 06:37
--- NOTE | 2018-06-07 18:02 | CP.PCM.PN ---
Subjective - Date & Time of Evaluation Date of Evaluation: 06/07/18 Time of Evaluation: 18:02 - Subjective Subjective: This morning patient's labs reviewed Also patient was feeling better. She was not in any distress, she was comfortable. She had a BM this morning. But later she become more abdominal distention. Abdominal discomfort noted. No nausea, no vomiting noted On examination patient has a severe tympanic abdomen noted. Distention present. Mediately CAT scan of the abdomen and pelvis was done. Increasing gas pattern noted. Small bowel obstruction likely noted. Immediately NG tube was placed. Suction was applied. Patient is currently feeling slightly better. We will repeat the blood test again Continue the IV hydration. Spoke to the family at bedside. DVT GI prophylaxis. Currently nothing by mouth. We'll closely monitor for the rejection medication. Nephrology follow-up. Objective - Vital Signs/Intake and Output Vital Signs (last 24 hours): Temp Pulse Resp BP Pulse Ox 98 F 69 20 149/79 99 06/07/18 15:00 06/07/18 15:00 06/07/18 15:00 06/07/18 15:00 06/07/18 15:00 Intake and Output: 06/07/18 06/07/18 06:59 18:59 Intake Total 900 400 Output Total 1375 Balance -475 400 - Medications Medications: Current Medications Amlodipine Besylate (Norvasc) 10 mg PO DAILY [facility] Last Admin: 06/07/18 10:20 Dose: 10 mg Calcium Carbonate (Tums) 500 mg PO BID [facility] Last Admin: 06/07/18 17:44 Dose: Not Given Famotidine (Pepcid) 20 mg PO DAILY [facility] Last Admin: 06/07/18 10:20 Dose: 20 mg Heparin Sodium (Porcine) (Heparin) 5,000 units SC Q8 [facility] Last Admin: 06/07/18 14:24 Dose: 5,000 units Home Med (Mycophenolate Sodium [Mycophenolic Acid]) 1 cap PO DAILY [facility] Sodium Chloride 75 meq/Potassium Chloride/Dextrose/Sod Cl 1,018.75 mls @ 100 mls/hr IV .[id number] [facility] Last Admin: 06/07/18 17:40 Dose: 100 mls/hr Ondansetron HCl (Zofran Inj) 4 mg IVP Q4 PRN PRN Reason: Nausea/Vomiting Oxycodone/Acetaminophen (Percocet 5/325 Mg Tab) 1 tab PO Q4H PRN PRN Reason: Pain, moderate (4-7) Stop: 06/09/18 23:50 Last Admin: 06/07/18 12:49 Dose: 1 tab Prednisone (Prednisone Tab) 30 mg PO DAILY [facility] Last Admin: 06/07/18 10:20 Dose: 30 mg Tacrolimus (Prograf Cap) 1 mg PO BID [facility] Last Admin: 06/07/18 17:44 Dose: Not Given Vitamin B Complex/Vit C/Folic Acid (Nephro-Ron) 1 tab PO DAILY [facility] Last Admin: 06/07/18 10:20 Dose: 1 tab - Labs Labs: 06/06/18 06:09 06/07/18 07:15 PT 20.7 SECONDS (9.7-12.2) H 06/04/18 06:37 INR 1.9 06/04/18 06:37 APTT 42 SECONDS (21-34) H 06/04/18 06:37
--- NOTE | 2018-06-07 18:02 | CP.PCM.PN ---
Subjective - Date & Time of Evaluation Date of Evaluation: 06/06/18 Time of Evaluation: 18:06 - Subjective Subjective: Patient is comfortable, sitting up comfortably. Eating well Vital signs stable Chest good air entry Regular heart sound Labs reviewed Potassium being supplemented again Seen by brand sales manager. Will get a GI evaluation Continue the current treatment. Patient will be transferred to telemetry Objective - Vital Signs/Intake and Output Vital Signs (last 24 hours): Temp Pulse Resp BP Pulse Ox 98 F 69 20 149/79 99 06/07/18 15:00 06/07/18 15:00 06/07/18 15:00 06/07/18 15:00 06/07/18 15:00 Intake and Output: 06/07/18 06/07/18 06:59 18:59 Intake Total 900 400 Output Total 1375 Balance -475 400 - Medications Medications: Current Medications Amlodipine Besylate (Norvasc) 10 mg PO DAILY [facility] Last Admin: 06/07/18 10:20 Dose: 10 mg Calcium Carbonate (Tums) 500 mg PO BID [facility] Last Admin: 06/07/18 17:44 Dose: Not Given Famotidine (Pepcid) 20 mg PO DAILY [facility] Last Admin: 06/07/18 10:20 Dose: 20 mg Heparin Sodium (Porcine) (Heparin) 5,000 units SC Q8 [facility] Last Admin: 06/07/18 14:24 Dose: 5,000 units Home Med (Mycophenolate Sodium [Mycophenolic Acid]) 1 cap PO DAILY [facility] Sodium Chloride 75 meq/Potassium Chloride/Dextrose/Sod Cl 1,018.75 mls @ 100 mls/hr IV .[id number] [facility] Last Admin: 06/07/18 17:40 Dose: 100 mls/hr Ondansetron HCl (Zofran Inj) 4 mg IVP Q4 PRN PRN Reason: Nausea/Vomiting Oxycodone/Acetaminophen (Percocet 5/325 Mg Tab) 1 tab PO Q4H PRN PRN Reason: Pain, moderate (4-7) Stop: 06/09/18 23:50 Last Admin: 06/07/18 12:49 Dose: 1 tab Prednisone (Prednisone Tab) 30 mg PO DAILY [facility] Last Admin: 06/07/18 10:20 Dose: 30 mg Tacrolimus (Prograf Cap) 1 mg PO BID [facility] Last Admin: 06/07/18 17:44 Dose: Not Given Vitamin B Complex/Vit C/Folic Acid (Nephro-Ron) 1 tab PO DAILY [facility] Last Admin: 06/07/18 10:20 Dose: 1 tab - Labs Labs: 06/06/18 06:09 06/07/18 07:15 PT 20.7 SECONDS (9.7-12.2) H 06/04/18 06:37 INR 1.9 06/04/18 06:37 APTT 42 SECONDS (21-34) H 06/04/18 06:37
[2018-06-07] MEDS ORDERED: MYCOPHENOLIC ACID 360 MG PO SCH (18:45)
--- NOTE | 2018-06-07 19:01 | CP.PCM.PN ---
Subjective - Date & Time of Evaluation Date of Evaluation: 06/07/18 Time of Evaluation: 19:00 - Subjective Subjective: Patient become severely hypoxic. Severe acidosis. Spoke to the family. Family agreed for DNR. Patient become severely bradycardic and becoming asystolic@6:49 PM. Patient pronounced . Family at bedside. Objective - Vital Signs/Intake and Output Vital Signs (last 24 hours): Temp Pulse Resp BP Pulse Ox 98 F 69 20 149/79 99 06/07/18 15:00 06/07/18 15:00 06/07/18 15:00 06/07/18 15:00 06/07/18 15:00 Intake and Output: 06/07/18 06/08/18 18:59 06:59 Intake Total 400 Balance 400 - Medications Medications: Current Medications Amlodipine Besylate (Norvasc) 10 mg PO DAILY [facility] Last Admin: 06/07/18 10:20 Dose: 10 mg Calcium Carbonate (Tums) 500 mg PO BID [facility] Last Admin: 06/07/18 17:44 Dose: Not Given Famotidine (Pepcid) 20 mg PO DAILY [facility] Last Admin: 06/07/18 10:20 Dose: 20 mg Heparin Sodium (Porcine) (Heparin) 5,000 units SC Q8 [facility] Last Admin: 06/07/18 14:24 Dose: 5,000 units Home Med (Patient's Own Medication) 1 tab PO DAILY [facility] Sodium Chloride 75 meq/Potassium Chloride/Dextrose/Sod Cl 1,018.75 mls @ 100 mls/hr IV .[id number] [facility] Last Admin: 06/07/18 17:40 Dose: 100 mls/hr Morphine Sulfate (Morphine) 2 mg IVP Q4 PRN PRN Reason: Pain, severe (8-10) Last Admin: 06/07/18 18:14 Dose: 2 mg Ondansetron HCl (Zofran Inj) 4 mg IVP Q4 PRN PRN Reason: Nausea/Vomiting Oxycodone/Acetaminophen (Percocet 5/325 Mg Tab) 1 tab PO Q4H PRN PRN Reason: Pain, moderate (4-7) Stop: 06/09/18 23:50 Last Admin: 06/07/18 12:49 Dose: 1 tab Prednisone (Prednisone Tab) 30 mg PO DAILY [facility] Last Admin: 07/15/18 10:20 Dose: 30 mg Tacrolimus (Prograf Cap) 1 mg PO BID [facility] Last Admin: 06/07/18 17:44 Dose: Not Given Vitamin B Complex/Vit C/Folic Acid (Nephro-Ron) 1 tab PO DAILY [facility] Last Admin: 06/07/18 10:20 Dose: 1 tab - Labs Labs: 06/06/18 06:09 06/07/18 07:15 PT 20.7 SECONDS (9.7-12.2) H 06/04/18 06:37 INR 1.9 06/04/18 06:37 APTT 42 SECONDS (21-34) H 06/04/18 06:37
[2018-06-07 19:30] LABS: EOS % 0.1 % (0.0-4.0); LYMPH % 0.5 % (20.0-40.0); MEAN CELL VOLUME 89.6 fL (81.0-99.0); MEAN CORPUSCULAR HEMOGLOBIN 28.8 pg (27.0-31.0); MEAN CORPUSCULAR HGB CONC 32.2 g/dL (33.0-37.0); MEAN PLATELET VOLUME 8.4 fL (7.2-11.7); MONO # 0.5 K/uL (0.0-0.8); MONO % 5.4 % (0.0-10.0); NEUT # 8.1 K/uL (1.8-7.0); NRBC % 0.3 % (0.0-2.0); PLATELET COUNT 302 K/uL (130-400); RBC 3.48 Mil/uL (3.80-5.20); RED CELL DISTRIBUTION WIDTH 17.1 % (11.5-14.5); WHITE BLOOD COUNT 8.6 K/uL (4.8-10.8)
--- NOTE | 2018-06-07 19:43 | CT ---
Date of service: 06/07/2018 PROCEDURE: CT Abdomen and Pelvis without intravenous contrast HISTORY: intestinal obstruction COMPARISON: CT dated 03/15/2016 TECHNIQUE: Multiple contiguous axial images were performed through the abdomen and pelvis without the use of intravenous contrast. Subsequently, sagittal and coronal reformatted images were obtained. Radiation dose: Total exam DLP = 253 mGy-cm. This CT exam was performed using one or more of the following dose reduction techniques: Automated exposure control, adjustment of the mA and/or kV according to patient size, and/or use of iterative reconstruction technique. FINDINGS: LOWER THORAX: Moderate pericardial effusion. Underlying pericardiac tamponade cannot be excluded. Clinical correlation. LIVER: Scattered low-attenuation lesions in the kidney some of which are too small to characterize. Others appear indeterminate. Correlation with multiphasic CT or MR may be helpful for further evaluation if clinically indicated. GALLBLADDER AND BILE DUCTS: Cholecystectomy. PANCREAS: Unremarkable. No gross lesion or ductal dilatation. SPLEEN: Splenectomy. ADRENALS: Unremarkable. No mass. KIDNEYS AND URETERS: Transplant kidney within the right lower quadrant with moderate pelvocaliectasis. [place] kidneys are shrunken and atrophic with dystrophic calcification involving the vessels. Mild right [place] kidney pelvocaliectasis. 4 millimeter low-attenuation lesion seen within the right transplant kidney, too small to adequately characterize. Punctate 2 millimeter calcification seen in the lower pole of the right lower quadrant transplant kidney. VASCULATURE: Severe atherosclerotic calcification with likely a stent in the left renal artery origin. Severe atherosclerotic calcification and ectasia of the aorta. BOWEL: Moderate gas distention of large bowel. Relative narrowing of the proximal sigmoid colon. Fluid is present in the small bowel loops and in the proximal large bowel loops. APPENDIX: Not well visualized. PERITONEUM: Trace free fluid in the pelvis. LYMPH NODES: Unremarkable. No enlarged lymph nodes. BLADDER: Urinary bladder is markedly distended. REPRODUCTIVE: Unremarkable. BONES: Degenerative changes. OTHER FINDINGS: Mild subcutaneous edema associated with the flank and torso compatible with third-spacing of fluid or anasarca. IMPRESSION: Gaseous distention of large bowel. Some relative narrowing at the proximal sigmoid colon. Nonspecific. Clinical correlation. Nonspecific fluid-filled bowel loops without a clear transition, possibly related to an enteritis or ileus or additional etiology. Clinical correlation. Moderate pericardial effusion. Transplant kidney within the right lower quadrant with moderate pelvocaliectasis. 4 millimeter low-attenuation lesion seen within the right transplant kidney, too small to adequately characterize. Punctate 2 millimeter calcification seen in the lower pole of the right lower quadrant transplant kidney. [place] kidneys are shrunken and atrophic with dystrophic calcification involving the vessels. Mild right [place] kidney pelvocaliectasis. Additional findings as above. These findings were preliminarily reported at 6:17 p.m. on 06/07/[address] Alec Martinez from [facility].
[2018-06-07 19:44] LABS: ALB/GLOB RATIO 1.4 (1.0-2.1); ALBUMIN 3.2 g/dL (3.5-5.0); CALCIUM 7.9 mg/dl (8.6-10.4)
[2018-06-07 20:37] LABS: LARGE PLATELETS PRESENT; LYMPHOCYTE 3 % (20-40); MONOCYTE 1 % (0-10); NEUTROPHIL 96 % (50-75); PLATELET ESTIMATE SLIGHTLY INCREASED (NORMAL); TOTAL CELLS COUNTED 100
[2018-06-07] MEDS: metroNIDAZOLE IV 500 mg/100 ml 250 MG in Premixed IV 1 EA IVPB SCH (22:11)
[2018-06-08] MEDS: Oxycodone/Acetaminophen 5/325 mg Tab PO PRN ×2 (03:02→20:08)
[2018-06-08] MEDS: D5 IV SCH ×2 (04:11→07:59)
[2018-06-08] MEDS: SODIUM CHLORIDE IV SCH ×2 (04:11→07:59)
[2018-06-08] MEDS: POTASSIUM CHL IV SCH ×2 (04:11→07:59)
[2018-06-08] MEDS ORDERED: Albuterol-Ipratrop 3 mg / 0.5 (3 ml) UD INH STA (04:42)
[2018-06-08] MEDS: metroNIDAZOLE IV 500 mg/100 ml 250 MG in Premixed IV 1 EA IVPB SCH ×3 (05:36→21:54)
[2018-06-08 06:55] LABS: HEMOGLOBIN 8.7 g/dL (11.0-16.0); MEAN CELL VOLUME 89.4 fL (81.0-99.0); MEAN CORPUSCULAR HEMOGLOBIN 28.9 pg (27.0-31.0); MEAN CORPUSCULAR HGB CONC 32.3 g/dL (33.0-37.0); MEAN PLATELET VOLUME 8.8 fL (7.2-11.7); PLATELET COUNT 268 K/uL (130-400); RBC 3.02 Mil/uL (3.80-5.20); WHITE BLOOD COUNT 8.2 K/uL (4.8-10.8)
[2018-06-08 07:39] LABS: ALB/GLOB RATIO 1.1 (1.0-2.1); ALBUMIN 2.4 g/dL (3.5-5.0); CALCIUM 7.8 mg/dl (8.6-10.4)
[2018-06-08] MEDS ORDERED: Albuterol-Ipratrop 3 mg / 0.5 (3 ml) UD INH SCH (09:00)
[2018-06-08 09:56] LABS: MONO # 0.8 K/uL (0.0-0.8)
[2018-06-08 09:57] LABS: NEUT # 6.7 K/uL (1.8-7.0)
[2018-06-08 09:58] LABS: LYMPH # 0.7 K/uL (1.0-4.3)
[2018-06-08 10:00] LABS: BANDS 1 % (0-2); TOTAL CELLS COUNTED 100
[2018-06-08 10:01] LABS: ANISOCYTOSIS SLIGHT; BURR CELLS SLIGHT; HYPOCHROMIC SLIGHT; LYMPHOCYTE 4 % (20-40); MONOCYTE 8 % (0-10); NEUTROPHIL 87 % (50-75); PLATELET ESTIMATE NORMAL (NORMAL); POIKILOCYTOSIS SLIGHT; TARGET CELLS SLIGHT
--- NOTE | 2018-06-08 10:15 | CP.PCM.PN ---
Subjective - Date & Time of Evaluation Date of Evaluation: 06/08/18 Time of Evaluation: 10:13 - Subjective Subjective: seen and examined ct scan noted resolved GI symptoms improved diarrhea clinically better Objective - Vital Signs/Intake and Output Vital Signs (last 24 hours): Temp Pulse Resp BP Pulse Ox 98.0 F 89 18 170/78 H 100 06/08/18 07:30 06/08/18 07:30 06/08/18 07:30 06/08/18 07:30 06/08/18 07:30 Intake and Output: 06/08/18 06/08/18 06:59 18:59 Intake Total 1700 Output Total 100 Balance 1600 - Medications Medications: Current Medications Amlodipine Besylate (Norvasc) 10 mg PO DAILY [facility] Last Admin: 06/07/18 10:20 Dose: 10 mg Bisacodyl (Dulcolax) 10 mg [place] ONCE [facility] Calcium Carbonate (Tums) 500 mg PO BID [facility] Last Admin: 06/07/18 17:44 Dose: Not Given Famotidine (Pepcid) 20 mg PO DAILY [facility] Last Admin: 06/07/18 10:20 Dose: 20 mg Heparin Sodium (Porcine) (Heparin) 5,000 units SC Q8 [facility] Last Admin: 06/08/18 05:36 Dose: 5,000 units Metronidazole 250 mg/ (Miscellaneous) 50 mls @ 100 mls/hr IVPB Q8H [facility] PRN Reason: Protocol Last Admin: 06/08/18 05:36 Dose: 100 mls/hr Ondansetron HCl (Zofran Inj) 4 mg IVP Q4 PRN PRN Reason: Nausea/Vomiting Oxycodone/Acetaminophen (Percocet 5/325 Mg Tab) 1 tab PO Q4H PRN PRN Reason: Pain, moderate (4-7) Stop: 06/09/18 23:50 Last Admin: 06/08/18 03:02 Dose: 1 tab Prednisone (Prednisone Tab) 30 mg PO DAILY [facility] Last Admin: 06/07/18 10:20 Dose: 30 mg Sodium Bicarbonate (Sodium Bicarbonate Tab) 650 mg PO TID [facility] Tacrolimus (Prograf Cap) 1 mg PO BID [facility] Last Admin: 06/07/18 21:30 Dose: 1 mg Vitamin B Complex/Vit C/Folic Acid (Nephro-Ron) 1 tab PO DAILY [facility] Last Admin: 06/07/18 10:20 Dose: 1 tab Zolpidem Tartrate (Ambien) 5 mg PO HS PRN PRN Reason: Insomnia Last Admin: 06/07/18 21:32 Dose: 5 mg - Labs Labs: 06/08/18 06:43 06/08/18 06:43 PT 20.7 SECONDS (9.7-12.2) H 06/04/18 06:37 INR 1.9 06/04/18 06:37 APTT 42 SECONDS (21-34) H 06/04/18 06:37 - Constitutional Appears: Non-toxic, No Acute Distress, Chronically Ill - Head Exam Head Exam: NORMAL INSPECTION, NORMOCEPHALIC - Eye Exam Eye Exam: Normal appearance, PERRL - ENT Exam ENT Exam: Mucous Membranes Moist, Normal Exam - Neck Exam Neck Exam: Full ROM, Normal Inspection - Respiratory Exam Respiratory Exam: Clear to Ausculation Bilateral, NORMAL BREATHING PATTERN - Cardiovascular Exam Cardiovascular Exam: REGULAR RHYTHM, RRR - GI/Abdominal Exam GI & Abdominal Exam: Distended, Soft, Normal Bowel Sounds - Extremities Exam Extremities Exam: Full ROM, Normal Inspection - Neurological Exam Neurological Exam: Alert, Awake, Oriented x3 - Psychiatric Exam Psychiatric exam: Normal Affect, Normal Mood - Skin Skin Exam: Dry, Intact Assessment and Plan (1) Diarrhea Status: Acute (2) Hypokalemia Status: Acute (3) Nausea Status: Acute (4) Vomiting Status: Acute (5) SULEMA (acute kidney injury) Status: Acute (6) Anemia Status: Acute (7) Dehydration Status: Acute (8) Diabetes Status: Acute (9) History of kidney transplant Status: Acute - Assessment and Plan (Free Text) Assessment: improved renal function and electrolytes dc iv fluids po bicarb regular diet treat UTI, iv ciprofloxacin ordered
[2018-06-08] MEDS: Multivitamin Vitamin B Complex (Nephro-Vite) Tab PO SCH (10:18)
[2018-06-08] MEDS: Calcium Carbonate 500 mg Chewable Antacid Tab PO SCH (10:19)
--- NOTE | 2018-06-08 13:25 | RAD ---
Date of service: 06/08/2018 HISTORY: colon distension COMPARISON: No prior. FINDINGS: BOWEL: Colonic distention. No obstruction. No free air. BONES: Normal. OTHER FINDINGS: Upper quadrant surgical clips. IMPRESSION: Colonic distention.
[2018-06-08] MEDS: Ciprofloxacin 200mg/100ml D5W 100 ML IVPB SCH (13:53)
[2018-06-08 15:19] LABS: STOOL SODIUM 69.1 mEq/L
[2018-06-08] MEDS ORDERED: Mycophenolic Acid DR 360 mg Tab PO SCH ×3 (18:00→21:00)
[2018-06-08] MEDS ORDERED: MYCOPHENOLIC ACID 360 MG PO SCH (21:00)
[2018-06-09] MEDS: metroNIDAZOLE IV 500 mg/100 ml 250 MG in Premixed IV 1 EA IVPB SCH (06:01)
[2018-06-09] MEDS: Oxycodone/Acetaminophen 5/325 mg Tab PO PRN (06:11)
[2018-06-09 08:39] VITALS: RESP 18; TEMP 98; O2SAT 97
[2018-06-09 09:52] VITALS: BP 117/77; PULSE 88
[2018-06-09] MEDS: Multivitamin Vitamin B Complex (Nephro-Vite) Tab PO SCH (09:52)
--- NOTE | 2018-06-09 10:30 | RAD ---
Date of service: 06/09/2018 HISTORY: colon distension COMPARISON: Abdominal radiographs dated 06/08/2018. FINDINGS: BOWEL: Grossly stable configuration of colonic distension. BONES: Normal. OTHER FINDINGS: Bilateral upper quadrant surgical clips/ material. IMPRESSION: Grossly stable configuration of colonic gaseous distension.
[2018-06-09] MEDS: Ciprofloxacin 200mg/100ml D5W 100 ML IVPB SCH (11:30)
--- NOTE | 2018-06-09 16:05 | CP.PCM.PN ---
Subjective - Date & Time of Evaluation Date of Evaluation: 06/09/18 Time of Evaluation: 11:00 - Subjective Subjective: Alert, oriented x3, denies any pain or distress. Objective - Vital Signs/Intake and Output Vital Signs (last 24 hours): Temp Pulse Resp BP Pulse Ox 98.0 F 88 18 117/77 97 06/09/18 07:30 06/09/18 09:51 06/09/18 07:30 06/09/18 09:51 06/09/18 07:30 Intake and Output: 06/09/18 06/09/18 06:59 18:59 Intake Total 650 Balance 650 - Labs Labs: 06/08/18 06:43 06/08/18 06:43 PT 20.7 SECONDS (9.7-12.2) H 06/04/18 06:37 INR 1.9 06/04/18 06:37 APTT 42 SECONDS (21-34) H 06/04/18 06:37 Assessment and Plan - Assessment and Plan (Free Text) Assessment: Patient s/p kidney transplant admitted with severe dehydration, renal failure, seen and examined. Alert and orientedx3, denies any nausea, vomiting or distress. Discussed with DR Villela, plan to discharge home today. Advised to follow up in the office in 1 week.
--- NOTE | 2018-06-09 17:25 | CP.PCM.PN ---
Subjective - Date & Time of Evaluation Date of Evaluation: 06/09/18 Time of Evaluation: 17:23 - Subjective Subjective: seen and examined resolved diarrhea tolerating po meds Objective - Vital Signs/Intake and Output Vital Signs (last 24 hours): Temp Pulse Resp BP Pulse Ox 98.0 F 88 18 117/77 97 06/09/18 07:30 06/09/18 09:51 06/09/18 07:30 06/09/18 09:51 06/09/18 07:30 Intake and Output: 06/09/18 06/09/18 06:59 18:59 Intake Total 650 Balance 650 - Labs Labs: 06/08/18 06:43 06/08/18 06:43 PT 20.7 SECONDS (9.7-12.2) H 06/04/18 06:37 INR 1.9 06/04/18 06:37 APTT 42 SECONDS (21-34) H 06/04/18 06:37 - Constitutional Appears: Cachectic, Chronically Ill - Head Exam Head Exam: NORMAL INSPECTION, NORMOCEPHALIC - Eye Exam Eye Exam: Normal appearance, PERRL - ENT Exam ENT Exam: Mucous Membranes Moist, Normal Exam - Neck Exam Neck Exam: Full ROM, Normal Inspection - Respiratory Exam Respiratory Exam: Clear to Ausculation Bilateral, NORMAL BREATHING PATTERN - Cardiovascular Exam Cardiovascular Exam: REGULAR RHYTHM, RRR - GI/Abdominal Exam GI & Abdominal Exam: Soft, Normal Bowel Sounds - Extremities Exam Extremities Exam: Full ROM, Normal Inspection - Neurological Exam Neurological Exam: Alert, Awake, Oriented x3 - Skin Skin Exam: Intact, Warm Assessment and Plan (1) Diarrhea Status: Acute (2) Hypokalemia Status: Acute (3) Nausea Status: Acute (4) Vomiting Status: Acute (5) SULEMA (acute kidney injury) Status: Acute (6) Anemia Status: Acute (7) Dehydration Status: Acute (8) Diabetes Status: Acute (9) History of kidney transplant Status: Acute - Assessment and Plan (Free Text) Assessment: stable renal function at baseline instructed to resume home myfortic dose and other immunosuppressants f/u outpt
--- NOTE | 2018-06-13 16:12 | CP.PCM.DIS ---
Provider - Provider Date of Admission: 06/03/18 18:19 Attending physician: Gretta Villela MD Time Spent in preparation of Discharge (in minutes): 45 Hospital Course - Lab Results Lab Results: Micro Results 06/07/18 05:54 Naris MRSA Culture - Final MRSA NOT DETECTED 06/04/18 06:37 Nose MRSA Culture (Admit) - Final MRSA NOT DETECTED 06/03/18 19:26 Urine Urine Culture - Final Escherichia Coli Most Recent Lab Values WBC 8.2 K/uL (4.8-10.8) 06/08/18 06:43 RBC 3.02 Mil/uL (3.80-5.20) L 06/08/18 06:43 Hgb 8.7 g/dL (11.0-16.0) L 06/08/18 06:43 Hct 27.0 % (34.0-47.0) L 06/08/18 06:43 MCV 89.4 fL (81.0-99.0) 06/08/18 06:43 MCH 28.9 pg (27.0-31.0) 06/08/18 06:43 MCHC 32.3 g/dL (33.0-37.0) L 06/08/18 06:43 RDW 17.0 % (11.5-14.5) H 06/08/18 06:43 Plt Count 268 K/uL (130-400) 06/08/18 06:43 MPV 8.8 fL (7.2-11.7) 06/08/18 06:43 Neut % (Auto) 82.0 % (50.0-75.0) H 06/08/18 06:43 Lymph % (Auto) 8.0 % (20.0-40.0) L 06/08/18 06:43 [place] % (Auto) 10.0 % (0.0-10.0) 06/08/18 06:43 Eos % (Auto) 0.0 % (0.0-4.0) 06/08/18 06:43 Baso % (Auto) 0.0 % (0.0-2.0) 06/08/18 06:43 Neut # (Auto) 6.7 K/uL (1.8-7.0) 06/08/18 06:43 Lymph # (Auto) 0.7 K/uL (1.0-4.3) L 06/08/18 06:43 Boundary # (Auto) 0.8 K/uL (0.0-0.8) 06/08/18 06:43 Eos # (Auto) 0.0 K/uL (0.0-0.7) 06/08/18 06:43 Baso # (Auto) 0.0 K/uL (0.0-0.2) 06/08/18 06:43 Neutrophils % (Manual) 87 % (50-75) H 06/08/18 06:43 Band Neutrophils % 1 % (0-2) 06/08/18 06:43 Lymphocytes % (Manual) 4 % (20-40) L 06/08/18 06:43 Monocytes % (Manual) 8 % (0-10) 06/08/18 06:43 Eosinophils % (Manual) 1 % (0-4) 06/04/18 06:37 Nucleated RBC % 1 % (0-0) H 06/04/18 06:37 Platelet Estimate Normal (NORMAL) 06/08/18 06:43 Large Platelets Present 06/07/18 19:26 Polychromasia Slight 06/06/18 06:09 Hypochromasia (manual) Slight 06/08/18 06:43 Poikilocytosis (manual Slight 06/08/18 06:43 Anisocytosis (manual) Slight 06/08/18 06:43 Target Cells Slight 06/08/18 06:43 Tear Drop Cells Slight 06/03/18 17:38 Ovalocytes Slight 06/05/18 06:32 [place] Cells Slight 06/08/18 06:43 Acanthocytes (Spur) Slight 06/04/18 06:37 PT 20.7 SECONDS (9.7-12.2) H 06/04/18 06:37 INR 1.9 06/04/18 06:37 APTT 42 SECONDS (21-34) H 06/04/18 06:37 Puncture Site R/b 06/04/18 10:05 pCO2 22 mm/Hg (35-45) L 06/04/18 10:05 pO2 123 mm/Hg (80-100) H 06/04/18 10:05 HCO3 13.0 mmol/L (21-28) L 06/04/18 10:05 ABG pH 7.26 (7.35-7.45) L 06/04/18 10:05 ABG Total CO2 10.6 mmol/L (22-28) L 06/04/18 10:05 ABG O2 Saturation 97.4 % (95-98) 06/04/18 10:05 ABG Base Excess -15.3 mmol/L (-2.0-3.0) L 06/04/18 10:05 ABG Hemoglobin 11.4 g/dL (11.7-17.4) L 06/04/18 10:05 ABG Carboxyhemoglobin 0.2 % (0.5-1.5) L 06/04/18 10:05 POC ABG HHb (Measured) 2.6 % (0.0-5.0) 06/04/18 10:05 ABG Methemoglobin 0.9 % (0.0-3.0) 06/04/18 10:05 Sudeep Test Na 06/04/18 10:05 A-a O2 Difference -1.0 mm/Hg 06/04/18 10:05 Respiratory Index 0 06/04/18 10:05 Hgb O2 Saturation 96.3 % (95.0-98.0) 06/04/18 10:05 Liter Flow 0 06/04/18 02:31 FiO2 21.0 % 06/04/18 10:05 Crit Value Called To [facility] agriculture intern 06/04/18 02:31 Crit Value Called By Janie esparza rt 06/04/18 02:31 Crit Value Read Back Y 06/04/18 02:31 Blood Gas Notified Time 250 06/04/18 02:31 Sodium 140 mmol/L (132-148) 06/08/18 06:43 Potassium 4.8 mmol/L (3.6-5.2) 06/08/18 06:43 Chloride 115 mmol/L (98-107) H 06/08/18 06:43 Carbon Dioxide 17 mmol/L (22-30) L 06/08/18 06:43 Anion Gap 13 (10-20) 06/08/18 06:43 BUN 29 mg/dL (7-17) H 06/08/18 06:43 Creatinine 2.5 mg/dL (0.7-1.2) H 06/08/18 06:43 Est GFR ( Amer) 25 06/08/18 06:43 Est GFR (Non-Af Amer) 21 06/08/18 06:43 POC Glucose (mg/dL) 141 mg/dL (65-110) H 06/09/18 11:48 Random Glucose 91 mg/dL (65-105) 06/08/18 06:43 Hemoglobin A1c 5.5 % (4.2-6.5) 06/04/18 06:37 Lactic Acid 0.9 mmol/L (0.7-2.1) 06/07/18 19:26 Calcium 7.8 mg/dl (8.6-10.4) L 06/08/18 06:43 Phosphorus 1.8 mg/dL (2.5-4.5) L 06/07/18 19:26 Magnesium 1.4 mg/dL (1.6-2.3) L 06/08/18 06:43 Total Bilirubin 0.1 mg/dL (0.2-1.3) L 06/08/18 06:43 AST 18 U/L (14-36) 06/08/18 06:43 ALT 33 U/L (9-52) 06/08/18 06:43 Alkaline Phosphatase 83 U/L (38-126) 06/08/18 06:43 Total Protein 4.6 g/dL (6.3-8.3) L 06/08/18 06:43 Albumin 2.4 g/dL (3.5-5.0) L D 06/08/18 06:43 Globulin 2.2 gm/dL (2.2-3.9) 06/08/18 06:43 Albumin/Globulin Ratio 1.1 (1.0-2.1) 06/08/18 06:43 Lipase 204 U/L (23-300) 06/07/18 19:26 TSH 3rd Generation 1.75 mIU/L (0.46-4.68) 06/04/18 06:37 Urine Color Straw (YELLOW) 06/03/18 19:26 Urine Clarity Clear (Clear) 06/03/18 19:26 Urine pH 5.0 (5.0-8.0) 06/03/18 19:26 Ur Specific [place] 1.005 (1.003-1.030) 06/03/18 19:26 Urine Protein 2+ mg/dL (NEGATIVE) H 06/03/18 19:26 Urine Glucose (UA) Normal mg/dL (Normal) 06/03/18 19:26 Urine Ketones Negative mg/dL (NEGATIVE) 06/03/18 19:26 Urine Blood 1+ (NEGATIVE) H 06/03/18 19:26 Urine Nitrate Negative (NEGATIVE) 06/03/18 19:26 Urine Bilirubin Negative (NEGATIVE) 06/03/18 19: Urine Urobilinogen Normal mg/dL (0.2-1.0) 06/03/18 19:26 Ur Leukocyte Esterase Neg Rubén/uL (Negative) 06/03/18 19:26 Urine WBC (Auto) 2 /hpf (0-5) 06/03/18 19: Urine RBC (Auto) 3 /hpf (0-3) 06/03/18 19:26 Ur Squamous Epith Cells < 1 /hpf (0-5) 06/03/18 19:26 Urine Collection Time 24 HRS 06/04/18 22:36 Urine Total Volume 2900 mL 06/04/18 22:36 Ur Creatinine 24 Hour 548.1 mg/24hr (800-2800) L 06/04/18 22:36 Creatinine Clearance 11.0 mL/min (87-107) L 06/04/18 22:36 Stool Sodium 69.10 mEq/L 06/04/18 14:03 Stool Potassium 62 mEq/L 06/04/18 14:03 Stool Chloride 55 mEq/L 06/04/18 14:03 Stool Occult Blood Positive (NEGATIVE) H 06/04/18 14:03 Stool Leukocytes, Qual Negative (NEGATIVE) 06/04/18 14:09 Stl Lactoferrin (THERESE) <30.0 mcg/mL (<30.0) 06/04/18 14:03 Stool Rotavirus Antigen Negative (NEGATIVE) 06/04/18 14:03 Stl Cryptosporidium Ag Not detected (Not detected) 06/04/18 14:03 Stl Giardia Antigen TEST NOT PERFORMED 06/04/18 14:03 Stool H. pylori Ag Not detected (Not Detected) 06/04/18 14:03 Stool Norovirus Ag Detected H 06/04/18 14:03 Mycophenolic Acid 1.7 mcg/mL (1.0-3.5) 07/11/18 22:19 MPA Glucuronide 104.0 mcg/mL (35.0-100.0) H 06/03/18 22:19 Tacrolimus (LC/MS/MS) 7.7 mcg/L (5.0-20.0) 06/05/18 06:32 C. difficile Ag & Toxin Negative (NEGATIVE) 06/08/18 15:07 Cryptosp/Giardia Source Stool 06/04/18 14:03 Giardia Antigen Not detected (Not Detected) 06/04/18 14:03 H. pylori Source Stool 06/04/18 14:03 - Hospital Course Hospital Course: CC: Abdominal pain, not feeling well, diarrhea History of present illness: 47-year-old female with a history of renal transplant, on immuno suppressive treatment, hypertension, renal insufficiency, recurrent anemia, history of CBD obstruction, status post ERCP, ampullectomy, chronic pain syndrome. Patient was recently just returned from cruise in [place]. While she was in the cruise in the initial days she was feeling okay, but later she started having increasing abdominal pain. Nausea. Episode of vomiting. Also persistent diarrhea. She is also walking of the sun significant amount of time. She got sick while in the cruise, she was quaretined, given IV fluid and potassium in the cruise. While she came out of the cruise, she started having increasing weakness, not feeling well, abdominal pain, and a episodes of diarrhea. Currently no vomiting noted, but still feeling nauseated. Not eating well. Almost 2-3 days she is not eating well. No fever noted. No chills. But cold feeling noted. Patient also has a significant muscle wasting. Patient immunosuppressive treatment was recently increased. Her baseline creatinine level was 1.9-2.5 He was also recently diagnosed with the noravirus diarrhea Past medical history: Hypertension, renal insufficiency, anemia, osteoporosis, recurrent diarrhea now , history of renal transplant Surgical history: Patient had a cholecystectomy, , and renal transplant Allergies: No known drug allergy Personal history nonsmoker nonalcoholic Family history noncontributory Review of systems: Complaining of generalized body pain, occasional headache, minimal chest discomfort, abdominal discomfort, diarrhea, vomiting occasionally, weight loss. Appetite poor Vital signs reviewed No neck vein distention noted, significant wasting noted Chest good air entry bilaterally, no wheezing or rales noted CVS regular heart sound, no murmur noted Abdomen soft, nontender. Extremities no pedal edema TUBE [employer]OL[employer] alert awake oriented -3, no functional neurological deficit Labs reviewed Patient labs showing evidence of low potassium level, low bicarbonate level. Elevated creatinine blood urea nitrogen level noted. Overall worsening renal insufficiency noted now Assessment/plan: 47-year-old female with history of renal transplant on immunosuppressive treatment. Hypertension, fairly controlled. Patient had a history of CBD obstruction, status post ampulla surgical intervention in the past Now having recurrent diarrheal episode, weight loss. Poor nutrition. We'll admit the patient. Patient now having acute renal insufficiency on chronic renal failure. Acute electrolytic imbalance. Hypokalemia. Acidosis secondary to bicarbonate loss noted. Metabolic most likely. Will continue the IV fluid IV hydration renal evaluation. Potassium supplementation. Bicarbonate supplementation. We'll also get the stool workup. Repeat blood works. DVT GI prophylaxis. Overall prognosis is guarded. Will follow the patient Course in the hospital: Patient initially admitted to the telemetry, because of the severe electrolyte imbalance, patient was transferred to the intensive care unit Patient was also having significant weakness, nausea, and vomiting. Diarrhea noted current persistently. Patient started on intravenous IV fluid, magnesium, potassium supplementation. Nephrology evaluation called in. Patient started on her immunosuppressive treatment for the transplant Slowly her diarrhea improved. She was able to tolerate the oral feeding. Suddenly patient become 1 day with abdominal distention, and not going to the bathroom. Pain medications was on hold. NG tube was attempted, but not much secretions was noted. It was discontinued. Continue with IV fluid. Clinically become stable. Renal functions back to baseline. Discussed with the poultry grader. Clinically stable she will be discharged home. She will continue the home medication,, immunosuppressive treatment Labs sodium level normal. Albumin is 2.4 Hemoglobin 8.7 noted which will be followed up as an outpatient C. difficile, stool workup for crypto Giardia, H. pylori negative tacrolimus level is 7.7 Stool occult blood was positive But no active bleeding noted Again stool H. pylori Giardia was negative further workup is pending Urine creatinine clearance noted to be 11 Final diagnoses: Acute renal insufficiency Acute diarrhea Possible rejection Possible colitis GI evaluation called in, nephrology evaluation called in Patient will be discharged home, she will follow-up as an outpatient She will follow up with the nephrology team, patient will need outpatient colonoscopy screening. We will follow the patient Discharge Exam - Head Exam Head Exam: NORMAL INSPECTION, NORMOCEPHALIC Discharge Plan - Discharge Medications Prescriptions: Bacillus Coagulans [Probiotic] 1 each PO DAILY #14 capsule.dr - Follow Up Plan Condition: GUARDED Disposition: HOME/ ROUTINE Instructions: Dehydration, Adult (DC), Probiotics, Acute Kidney Failure (DC), Hypokalemia (DC) Additional Instructions: follow up in the office in 1 week Referrals: Gretta Villela MD [Staff Provider] -
== END 2018-06-09 14:10 | disposition home or self-care (01) | DRG 551 ==
LOC: C.ER 16:24 → C.9E 18:19 → C.6T 19:49 → C.9I 06-04 01:20 → C.6T 06-06 23:04
PROVIDERS: ADMIT Internal Medicine; ATTEND Internal Medicine
DX: A05.9 Bacterial foodborne intoxication, unspecified (principal); N17.9 Acute kidney failure, unspecified; E87.2 Acidosis; E87.6 Hypokalemia; E11.22 Type 2 diabetes mellitus with diabetic chronic kidney disease; E11.649 Type 2 diabetes mellitus with hypoglycemia without coma; I13.2 Hypertensive heart and chronic kidney disease with heart failure and with stage 5 chronic kidney disease, or end stage renal disease; I50.9 Heart failure, unspecified; N39.0 Urinary tract infection, site not specified; E86.0 Dehydration; E03.9 Hypothyroidism, unspecified; D64.9 Anemia, unspecified; G89.4 Chronic pain syndrome; M79.7 Fibromyalgia; M81.0 Age-related osteoporosis without current pathological fracture; Z94.0 Kidney transplant status; Z90.49 Acquired absence of other specified parts of digestive tract

== ENCOUNTER 2018-07-21 16:28 | Inpatient (IN) | payer OTHER ==
[2018-07-21 16:28] VITALS: BMI 17.3
[2018-07-21] MEDS ORDERED: Sodium Chloride 0.9% 500 ML IV ONE ×2 (18:13→18:20)
--- NOTE | 2018-07-21 18:20 | C.PDOC ---
"History Of Present Illness 47 y/o F with PMHx of kidney transplant, comes in to the ER complaining my kidney is rejecting. Saw Dr. Clark in the office today, who changed her medication. She reports she did not feel any better, and came immediately to the ER. Currently she is complaining of generalized myalgias, diarrhea, nausea, and dysuria. Otherwise she denies any chest pain, SOB, dizziness, numbness, tingling Time Seen by Provider: 07/21/18 17:54 Chief Complaint (Nursing): Female Genitourinary History Per: Patient History/Exam Limitations: no limitations Onset/Duration Of Symptoms: Days Current Symptoms Are (Timing): Still Present Past Medical History Reviewed: Historical Data, Nursing Documentation, Vital Signs Vital Signs: Last Vital Signs Temp 98.3 F 07/21/18 16:35 Pulse 82 07/21/18 16:35 Resp 20 07/21/18 16:35 BP 157/92 H 07/21/18 16:35 Pulse Ox 100 07/21/18 20:04 - Medical History PMH: Anemia, Anxiety, Arthritis, Bronchitis, Fibromyalgia, Gall Bladder Disease , HTN, Migraine, Pancreatitis, Chronic Kidney Disease Surgical History: Cholecystectomy (2002), - [facility] Procedures DILATION OF COMMON BILE DUCT, ENDO (09/23/15) DILATION OF LEFT HEPATIC DUCT, ENDO (09/23/15) DRAINAGE OF RIGHT PLEURAL CAVITY, PERC APPROACH, DIAGN (09/23/15) ENDOSCOPIC EXCIS OR DESTRUCT OF LESION OF DUODENUM (07/01/15) ESOPHAGOGASTRODUODENOSCOPY [EGD] W/CLOSED BIOPSY (07/01/15) EXCISION OF DUODENUM, ENDO, DIAGN (03/13/16) EXCISION OF MIDDLE ESOPHAGUS, ENDO, DIAGN (03/13/16) EXCISION OF STOMACH, ENDO, DIAGN (03/13/16) Family History: States: Unknown Family Hx - Social History Hx Alcohol Use: No Hx Substance Use: No - Immunization History Hx Tetanus Toxoid Vaccination: Yes Hx Influenza Vaccination: Yes Hx Pneumococcal Vaccination: No Review Of Systems Except As Marked, All Systems Reviewed And Found Negative. Constitutional: Negative for: Fever, Chills Cardiovascular: Negative for: Chest Pain Respiratory: Negative for: Shortness of Breath Gastrointestinal: Positive for: Nausea. Negative for: Vomiting, Diarrhea Genitourinary: Positive for: Dysuria Musculoskeletal: Positive for: Other (Generalized myalgias) Neurological: Negative for: Weakness, Numbness, Incoordination, Dizziness Physical Exam - Physical Exam Appears: Non-toxic, No Acute Distress, Other (Thin appearing) Skin: Normal Color, Warm, Dry Head: Atraumatic, Normacephalic Eye(s): bilateral: Normal Inspection, PERRL, EOMI Nose: Normal Oral Mucosa: Moist Neck: Normal ROM, Supple Chest: Symmetrical Cardiovascular: Rhythm Regular, No Murmur Respiratory: Normal Breath Sounds, No Rales, No Rhonchi, No Wheezing Gastrointestinal/Abdominal: Bowel Sounds (normal), Soft, No Tenderness, No Distention, No Guarding Back: Normal Inspection, No CVA Tenderness Extremity: Bilateral: Atraumatic, Normal Color And Temperature, Normal ROM Neurological/Psych: Oriented x3, Normal Speech Gait: Steady ED Course And Treatment - Laboratory Results Result Diagrams: 07/21/18 18:29 07/21/18 18:29 O2 Sat by Pulse Oximetry: 100 (RA) Pulse Ox Interpretation: Normal Medical Decision Making Medical Decision Making: Initial Plan: --CMP --Lipase --CBC --PTT/PT --Tacrolimus --Urinalysis --Urine preg --Urine culture --IV fluids --CT Abd/Pelvis CT shows COMPARISON: CT - ABD PELVIS W/O PO OR IV CONT 06/07/2018 4:45 PM FINDINGS: Lung bases: See below. ABDOMEN: Liver: There is a simple left lobe hepatic cyst. Gallbladder and bile ducts: There has been a cholecystectomy. Mild compensatory biliary enlargement secondary to gallbladder absence. Pancreas: Unremarkable. No ductal dilation. Spleen: Unremarkable. No splenomegaly. Adrenals: Unremarkable. No mass. Kidneys and ureters: Bilateral shrunken [place] kidneys with renal failure. There are numerous bilateral renal nonobstructing stones versus hilus calcific foci likely vascular in etiology. A simple cyst is present within the right kidney. Transplant kidney noted in the right lower quadrant without hydronephrosis. Small nonobstructing stones lower pole of the right transplanted kidney. Small simple cyst in the transplant kidney. Stomach and bowel: Extensive pneumatosis intestinalis associated with the ascending colon and cecum. Slightly prominent fluid-filled loops of small intestine are identified without a clear transition [facility] | Preliminary Radiology Report CONFIDENTIALITY STATEMENT This report is intended only for the use of the referring physician, and only in accordance with law, If you received this in error, call [phone] Page 2 of 2 area without significant dilatation, either within physiologic limits or secondary to enteritis. Fluid-filled colonic loops with multiple air-fluid levels without significant distention. Remaining large bowel appears unremarkable. PELVIS: Appendix: No findings to suggest acute appendicitis. Bladder: Unremarkable. No stones. Reproductive: Unremarkable as visualized. ABDOMEN and PELVIS: Intraperitoneal space: Unremarkable. No free air. No significant fluid collection. Bones/joints: No acute fracture. No dislocation. Soft tissues: Unremarkable. Vasculature: The aorta demonstrates severe atherosclerotic calcification and ectasia. Lymph nodes: Unremarkable. No enlarged lymph nodes. IMPRESSION: Findings suggesting possible ischemic bowel in the presence of extensive pneumatosis intestinalis of the ascending colon. Nonspecific fluid-filled bowel loops without a clear transition, possibly related to gastroenteritis, or a diarrheal-type illness. Please correlate clinically. A transplant kidney in the right lower quadrant shows no hydronephrosis and a small nonobstructing stone. Spoke to Dr. Villela who is requesting tele. Requesting LR at 100cc/hr with Magnesium, potassium, and calcium replacement. Requesting Dr. Lackey for surgery consult. Resident aware 8:57PM Dr. Lao at bedside and evaluating. Dr. Lackey with resident at bedside and will continue to follow Disposition - Disposition Disposition: HOSPITALIZED Disposition Time: 20:03 Condition: FAIR - Clinical Impression Clinical Impression: CKD (chronic kidney disease), Diarrhea, Hypocalcemia - Scribe Statement The provider has reviewed the documentation as recorded by the Scribe (Sisi Augustin) Provider Attestation: All medical record entries made by the Scribe were at my direction and personally dictated by me. I have reviewed the chart and agree that the record accurately reflects my personal performance of the history, physical exam, medical decision making, and the department course for this patient. I have also personally directed, reviewed, and agree with the discharge instructions and disposition."
[2018-07-21 18:33] LABS: BASO % 0.1 % (0.0-2.0); EOS # 0.1 K/uL (0.0-0.7); EOS % 0.9 % (0.0-4.0); HEMOGLOBIN 10.3 g/dL (11.0-16.0); LYMPH # 0.3 K/uL (1.0-4.3); LYMPH % 2.4 % (20.0-40.0); MEAN CORPUSCULAR HEMOGLOBIN 29.9 pg (27.0-31.0); MEAN CORPUSCULAR HGB CONC 32.4 g/dL (33.0-37.0); MEAN PLATELET VOLUME 8.3 fL (7.2-11.7); MONO # 1.2 K/uL (0.0-0.8); MONO % 10.9 % (0.0-10.0); NEUT # 9.2 K/uL (1.8-7.0); NEUT % 85.7 % (50.0-75.0); RBC 3.44 Mil/uL (3.80-5.20); RED CELL DISTRIBUTION WIDTH 17.4 % (11.5-14.5); WHITE BLOOD COUNT 10.7 K/uL (4.8-10.8)
[2018-07-21 18:41] LABS: INR 1.5; PROTHROMBIN TIME 16.7 SECONDS (9.7-12.2)
[2018-07-21 18:45] LABS: MEAN CELL VOLUME 92.3 fL (81.0-99.0); PLATELET COUNT 381 K/uL (130-400)
[2018-07-21 18:50] LABS: ALB/GLOB RATIO 1.4 (1.0-2.1); ALBUMIN 3.2 g/dL (3.5-5.0)
[2018-07-21 18:53] LABS: CALCIUM 5.9 mg/dl (8.6-10.4)
[2018-07-21 18:59] LABS: ANISOCYTOSIS SLIGHT; EOSINOPHIL 1 % (0-4); LYMPHOCYTE 2 % (20-40); MONOCYTE 9 % (0-10); NEUTROPHIL 88 % (50-75); PLATELET ESTIMATE NORMAL (NORMAL); TOTAL CELLS COUNTED 100
[2018-07-21 19:00] LABS: ACANTHOCYTES MODERATE; BURR CELLS SLIGHT; HYPOCHROMIC SLIGHT; POIKILOCYTOSIS SLIGHT
[2018-07-21] MEDS ORDERED: Calcium Gluconate 4.65 mEq/10 ml Inj IVP ONE (19:52)
[2018-07-21] MEDS ORDERED: Magnesium Sulfate 1 gm in D5W 1 GM/100 ML BAG IVPB ONE ×2 (19:55→20:23)
[2018-07-21] MEDS ORDERED: Lactated Ringer's 1,000 ML IV SCH (20:00)
[2018-07-21] MEDS ORDERED: Calcium Gluconate 4.65 mEq/10 ml Inj ONE (20:24)
[2018-07-21 21:29] LABS: CALCIUM 6.3 mg/dl (8.6-10.4)
[2018-07-21 21:29] LABS: VENOUS BLOOD GAS BASE EXCESS -16.2 mmol/L (0.0-2.0); VENOUS BLOOD GAS PCO2 18 mmHg (40-60); VENOUS BLOOD GAS PO2 168 mm/Hg (30-55); VENOUS BLOOD PH 7.27 (7.32-7.43)
[2018-07-21] MEDS ORDERED: Potassium Chloride 20 mEq ER Tab PO STA (21:31)
--- NOTE | 2018-07-21 21:39 | CP.PCM.HP ---
History of Present Illness - History of Present Illness History of Present Illness: Chief comparing: Abdominal pain, not feeling well, diarrhea History of present illness: 47-year-old female with a history of renal transplant, on immuno suppressive treatment, hypertension, renal insufficiency, recurrent anemia, history of CBD obstruction, status post ERCP, ampullectomy, chronic pain syndrome. patient was recently hospitalized with acute diarrhea, worsening renal failure. at the time patient improved with intravenous fluid, antibiotic. Patient went to see a drug enforcement administration agent today. Doing the last visit 1 week ago patient had increasing creatinine level around 4.0 Today she was having increasingsymptoms of body pain, malaise, abdominal pain, epigastric pain, episode of nausea, vomiting. Patient has diarrhea at least 4-5 times watery. Currently patient is taking opiate medication for chr pain. In spite of that persistent diarrhea present. Abdominal distention also present sometime. Today patient had a few episodes of diarrhea. Patient not making much ur. Patient also has a significant muscle wasting. Patient immunosuppressive treatment was recently increased. Her baseline creatinine level was 1.9-2.5 He was also recently diagnosed with the noravirus diarrhea Past medical history: Hypertension, renal insufficiency, anemia, osteoporosis, recurrent diarrhea now , history of renal transplant Surgical history: Patient had a cholecystectomy, , and renal transplant Allergies: No known drug allergy Personal history nonsmoker nonalcoholic Family history noncontributory Review of systems: Complaining of generalized body pain, occasional headache, minimal chest discomfort, abdominal discomfort, diarrhea, vomiting occasionally, weight loss. Appetite poor Vital signs reviewed No neck vein distention noted, significant wasting noted Chest good air entry bilaterally, no wheezing or rales noted CVS regular heart sound, no murmur noted Abdomen soft, nontender. Extremities no pedal edema PANTOMIMIST alert awake oriented -3, no functional neurological deficit Labs reviewed Patient labs showing evidence of low potassium level, low bicarbonate level. Elevated creatinine blood urea nitrogen level noted. Overall worsening renal insufficiency noted now Assessment/plan: 47-year-old female with history of renal transplant on immunosuppressive treatment. Hypertension, fairly controlled. Patient had a history of CBD obstruction, status post ampulla surgical intervention in the past Now having recurrent diarrheal episode, weight loss. Poor nutrition. We'll admit the patient. Patient now having acute renal insufficiency on chronic renal failure. Acute electrolytic imbalance. Hypokalemia. Acidosis secondary to bicarbonate loss noted. Metabolic most likely. Will continue the IV fluid IV hydration renal evaluation. Potassium supplementation. Bicarbonate supplementation. We'll also get the stool workup. Repeat blood works. DVT GI prophylaxis. Overall prognosis is guarded. Will follow the patient nephrology evaluation. Surgical evaluation. CAT scan of the abdomen showing evidence of pneumatosis. Patient doesn't look toxic at this. We will get a VBG. IV fluid. Surgical, infectious disease, nephrolo, if needed evaluation by the critical care. Present on Admission - Present on Admission Any Indicators Present on Admission: No History of DVT/PE: No History of Uncontrolled Diabetes: No Urinary Catheter: No Decubitus Ulcer Present: No Past Patient History - Infectious Disease Hx of Infectious Diseases: None - Past Medical History & Family History Past Medical History?: Yes - Past Social History Smoking Status: Former Smoker - CARDIAC Hx Hypertension: Yes - PULMONARY Hx Bronchitis: Yes - NEUROLOGICAL Hx Migraine: Yes - HEENT Hx HEENT Problems: No - RENAL Hx Chronic Kidney Disease: Yes - ENDOCRINE/METABOLIC Hx Endocrine Disorders: No - HEMATOLOGICAL/ONCOLOGICAL Hx Anemia: Yes - INTEGUMENTARY Hx Dermatological Problems: No - MUSCULOSKELETAL/RHEUMATOLOGICAL Hx Arthritis: Yes - GASTROINTESTINAL Hx Gall Bladder Disease: Yes Hx Pancreatitis: Yes - GENITOURINARY/GYNECOLOGICAL Hx Genitourinary Disorders: No - PSYCHIATRIC Hx Anxiety: Yes Hx Substance Use: No - SURGICAL HISTORY Hx Cholecystectomy: Yes (2002) - ANESTHESIA Hx Anesthesia: Yes Hx Anesthesia Reactions: No Hx Malignant Hyperthermia: No Meds Allergies/Adverse Reactions: Allergies Allergy/AdvReac Type Severity Reaction Status Date / Time No Known Allergies Allergy Verified 07/21/18 16:38 Results - Vital Signs Recent Vital Signs: Last Vital Signs Temp 98.3 F 07/21/18 16:35 Pulse 82 07/21/18 16:35 Resp 20 07/21/18 16:35 BP 157/92 H 07/21/18 16:35 Pulse Ox 100 07/21/18 20:57 - Labs Result Diagrams: 07/21/18 18:29 07/21/18 21:12 Labs: Laboratory Results - last 24 hr 07/21/18 07/21/18 07/21/18 18:29 18:29 18:29 WBC 10.7 RBC 3.44 L Hgb 10.3 L Hct 31.7 L MCV 92.3 D MCH 29.9 MCHC 32.4 L RDW 17.4 H Plt Count 381 D MPV 8.3 Neut % (Auto) 85.7 H Lymph % (Auto) 2.4 L [place] % (Auto) 10.9 H Eos % (Auto) 0.9 Baso % (Auto) 0.1 Neut # (Auto) 9.2 H Lymph # (Auto) 0.3 L [place] # (Auto) 1.2 H Eos # (Auto) 0.1 Baso # (Auto) 0.0 Neutrophils % (Manual) 88 H Lymphocytes % (Manual) 2 L Monocytes % (Manual) 9 Eosinophils % (Manual) 1 Platelet Estimate Normal Hypochromasia (manual) Slight Poikilocytosis (manual Slight Anisocytosis (manual) Slight [place] Cells Slight Acanthocytes (Spur) Moderate PT 16.7 H INR 1.5 APTT 32 pO2 VBG pH VBG pCO2 VBG HCO3 VBG Total CO2 VBG O2 Sat (Calc) VBG Base Excess VBG Potassium Glucose Lactate Crit Value Called To Crit Value Called By Crit Value Read Back Blood Gas Notified Time Sodium 135 Potassium 3.0 L Chloride 107 Carbon Dioxide 13 L Anion Gap 19 BUN 47 H Creatinine 5.8 H Est GFR ( Amer) 9 Est GFR (Non-Af Amer) 8 Random Glucose 86 Calcium 5.9 L* D Phosphorus Magnesium Total Bilirubin 0.3 AST 10 L D ALT 24 Alkaline Phosphatase 100 Total Protein 5.5 L Albumin 3.2 L D Globulin 2.3 Albumin/Globulin Ratio 1.4 Lipase 98 Venous Blood Potassium 07/21/18 07/21/18 07/21/18 19:16 21:12 21:25 WBC RBC Hgb Hct MCV MCH MCHC RDW Plt Count MPV Neut % (Auto) Lymph % (Auto) [place] % (Auto) Eos % (Auto) Baso % (Auto) Neut # (Auto) Lymph # (Auto) [place] # (Auto) Eos # (Auto) Baso # (Auto) Neutrophils % (Manual) Lymphocytes % (Manual) Monocytes % (Manual) Eosinophils % (Manual) Platelet Estimate Hypochromasia (manual) Poikilocytosis (manual Anisocytosis (manual) [place] Cells Acanthocytes (Spur) PT INR APTT pO2 168 H VBG pH 7.27 L VBG pCO2 18 L* VBG HCO3 12.3 VBG Total CO2 8.9 L VBG O2 Sat (Calc) 98.8 H VBG Base Excess -16.2 L VBG Potassium 1.5 L* Glucose 59 L Lactate 0.6 L Crit Value Called To Er nurse Crit Value Called By Antonieta rt Crit Value Read Back Y Blood Gas Notified Time 2128 Sodium 136 144.0 Potassium 2.7 L Chloride 109 H 120.0 H Carbon Dioxide 12 L Anion Gap 18 BUN 45 H Creatinine 5.8 H Est GFR ( Amer) 9 Est GFR (Non-Af Amer) 8 Random Glucose 90 Calcium 6.3 L Phosphorus 5.6 H Magnesium 1.3 L Total Bilirubin AST ALT Alkaline Phosphatase Total Protein Albumin Globulin Albumin/Globulin Ratio Lipase Venous Blood Potassium 1.5 L*
--- NOTE | 2018-07-21 23:15 | CP.PCM.CON ---
History of Present Illness - History of Present Illness History of Present Illness: GENERAL SURGERY CONSULT NOTE FOR DR. OTT 47yo F with PMHx of CKD s/p kidney transplant, HTN, anemia, chronic diarrhea, admitted for norovirus a month ago, who presents to the ED stating that "her kidney is rejecting". She states that she went to [facility] today for an appointment and found to have elevated Cr and told to come to the ED. Per the patient, she has been dealing with possible kidney rejection for several years. Pt states that she has "pain all over", weakness, diarrhea. The diarrhea has been on and off over the past 2 years. She has not made urine today. She had 1 episode of non bloody diarrhea this AM and 1 episode of vomiting this AM. Pt has had chronic abdominal pain for the past 18 months. The pain is diffuse and intermittent. The patient is unsure what triggers the onset. PMHx: CKD, HTN, anemia, chronic diarrhea, norovirus Surgeries: ERCP, thoracentesis, lap cholecystectomy, , AV fistula, kidney transplant in 2009 at [facility] Allergies: none Review of Systems - Review of Systems All systems: reviewed and no additional remarkable complaints except (as per HPI ) Past Patient History - Infectious Disease Hx of Infectious Diseases: None - Past Medical History & Family History Past Medical History?: Yes - Past Social History Smoking Status: Former Smoker - CARDIAC Hx Hypertension: Yes - PULMONARY Hx Bronchitis: Yes - NEUROLOGICAL Hx Migraine: Yes - HEENT Hx HEENT Problems: No - RENAL Hx Chronic Kidney Disease: Yes - ENDOCRINE/METABOLIC Hx Endocrine Disorders: No - HEMATOLOGICAL/ONCOLOGICAL Hx Anemia: Yes - INTEGUMENTARY Hx Dermatological Problems: No - MUSCULOSKELETAL/RHEUMATOLOGICAL Hx Arthritis: Yes - GASTROINTESTINAL Hx Gall Bladder Disease: Yes Hx Pancreatitis: Yes - GENITOURINARY/GYNECOLOGICAL Hx Genitourinary Disorders: No - PSYCHIATRIC Hx Anxiety: Yes Hx Substance Use: No - SURGICAL HISTORY Hx Cholecystectomy: Yes (2002) - ANESTHESIA Hx Anesthesia: Yes Hx Anesthesia Reactions: No Hx Malignant Hyperthermia: No Meds Allergies/Adverse Reactions: Allergies Allergy/AdvReac Type Severity Reaction Status Date / Time No Known Allergies Allergy Verified 07/21/18 16:38 - Medications Medications: Current Medications Amlodipine Besylate (Norvasc) 5 mg PO DAILY BRIAN Famotidine (Pepcid) 20 mg PO DAILY BRIAN Heparin Sodium (Porcine) (Heparin) 5,000 units SC Q12 [facility] Potassium Chloride 40 meq/ (Sodium Chloride) 1,020 mls @ 125 mls/hr IV .[id number] [facility] Potassium Chloride (Potassium Chloride 10 Meq/100 Ml) 10 meq in 100 mls @ 100 mls/hr IVPB Q2 BRIAN Stop: 07/22/18 00:59 Magnesium Oxide (Mag-Ox) 400 mg PO BID [facility] Mycophenolate Sodium (Myfortic Dr) 1 mg PO BID [facility] Prednisone (Prednisone Tab) 5 mg PO DAILY [facility] Tacrolimus (Prograf Cap) 1 mg PO BID [facility] Vitamin B Complex/Vit C/Folic Acid (Nephro-Ron) 1 tab PO DAILY [facility] Physical Exam - Constitutional Appears: Non-toxic, No Acute Distress, Older Than Stated Age, Chronically Ill - Head Exam Head Exam: ATRAUMATIC, NORMAL INSPECTION - Eye Exam Eye Exam: EOMI, Normal appearance - Respiratory Exam Respiratory Exam: NORMAL BREATHING PATTERN. absent: Respiratory Distress - Cardiovascular Exam Cardiovascular Exam: +S1, +S2 - GI/Abdominal Exam GI & Abdominal Exam: Soft. absent: Distended, Firm, Guarding, Rebound, Rigid, Tenderness - Neurological Exam Neurological exam: Alert, CN II-XII Intact, Oriented x3 - Psychiatric Exam Psychiatric exam: Normal Affect, Normal Mood - Skin Skin Exam: Dry, Normal Color, Warm Results - Vital Signs Recent Vital Signs: Last Vital Signs Temp 98.3 F 07/21/18 16:35 Pulse 97 H 07/21/18 22:28 Resp 18 07/21/18 22:28 BP 123/76 07/21/18 22:28 Pulse Ox 97 07/21/18 22:28 - Labs Result Diagrams: 07/21/18 18:29 07/21/18 21:12 Labs: Laboratory Results - last 24 hr 07/21/18 07/21/18 07/21/18 18:29 18:29 18:29 WBC 10.7 RBC 3.44 L Hgb 10.3 L Hct 31.7 L MCV 92.3 D MCH 29.9 MCHC 32.4 L RDW 17.4 H Plt Count 381 D MPV 8.3 Neut % (Auto) 85.7 H Lymph % (Auto) 2.4 L [place] % (Auto) 10.9 H Eos % (Auto) 0.9 Baso % (Auto) 0.1 Neut # (Auto) 9.2 H Lymph # (Auto) 0.3 L [place] # (Auto) 1.2 H Eos # (Auto) 0.1 Baso # (Auto) 0.0 Neutrophils % (Manual) 88 H Lymphocytes % (Manual) 2 L Monocytes % (Manual) 9 Eosinophils % (Manual) 1 Platelet Estimate Normal Hypochromasia (manual) Slight Poikilocytosis (manual Slight Anisocytosis (manual) Slight Zhane Cells Slight Acanthocytes (Spur) Moderate PT 16.7 H INR 1.5 APTT 32 pO2 VBG pH VBG pCO2 VBG HCO3 VBG Total CO2 VBG O2 Sat (Calc) VBG Base Excess VBG Potassium Glucose Lactate Crit Value Called To Crit Value Called By Crit Value Read Back Blood Gas Notified Time Sodium 135 Potassium 3.0 L Chloride 107 Carbon Dioxide 13 L Anion Gap 19 BUN 47 H Creatinine 5.8 H Est GFR ( Amer) 9 Est GFR (Non-Af Amer) 8 Random Glucose 86 Calcium 5.9 L* D Phosphorus Magnesium Total Bilirubin 0.3 AST 10 L D ALT 24 Alkaline Phosphatase 100 Total Protein 5.5 L Albumin 3.2 L D Globulin 2.3 Albumin/Globulin Ratio 1.4 Lipase 98 Venous Blood Potassium 07/21/18 07/21/18 07/21/18 19:16 21:12 21:25 WBC RBC Hgb Hct MCV MCH MCHC RDW Plt Count MPV Neut % (Auto) Lymph % (Auto) [place] % (Auto) Eos % (Auto) Baso % (Auto) Neut # (Auto) Lymph # (Auto) [place] # (Auto) Eos # (Auto) Baso # (Auto) Neutrophils % (Manual) Lymphocytes % (Manual) Monocytes % (Manual) Eosinophils % (Manual) Platelet Estimate Hypochromasia (manual) Poikilocytosis (manual Anisocytosis (manual) [place] Cells Acanthocytes (Spur) PT INR APTT pO2 168 H VBG pH 7.27 L VBG pCO2 18 L* VBG HCO3 12.3 VBG Total CO2 8.9 L VBG O2 Sat (Calc) 98.8 H VBG Base Excess -16.2 L VBG Potassium 1.5 L* Glucose 59 L Lactate 0.6 L Crit Value Called To Er nurse Crit Value Called By Antonieta rt Crit Value Read Back Y Blood Gas Notified Time 2128 Sodium 136 144.0 Potassium 2.7 L Chloride 109 H 120.0 H Carbon Dioxide 12 L Anion Gap 18 BUN 45 H Creatinine 5.8 H Est GFR ( Amer) 9 Est GFR (Non-Af Amer) 8 Random Glucose 90 Calcium 6.3 L Phosphorus 5.6 H Magnesium 1.3 L Total Bilirubin AST ALT Alkaline Phosphatase Total Protein Albumin Globulin Albumin/Globulin Ratio Lipase Venous Blood Potassium 1.5 L* Assessment & Plan - Assessment and Plan (Free Text) Assessment: 47yo F with PMHx of CKD s/p kidney transplant, HTN, anemia, chronic diarrhea, found to have possible pneumatosis on CT. - Afebrile, VSS - Elevated Cr, electrolyte abnormalities - CT: pneumatosis intestinalis associated with ascending colon and cecum, slightly prominent fluid filled loops of small intestine without clear transition point, fluid filled colonic loops without significant dilation - Abdomen benign, completely non tender - Lactate WNL - No acute surgical intervention necessary - Discussed patient with Dr. Ziyad Veras PGY-4
[2018-07-22] MEDS: Potassium Chloride 40 MEQ in Sodium Chloride 0.45% 1,000 ML IV SCH ×3 (00:04→13:45)
[2018-07-22] MEDS ORDERED: Magnesium Sulfate 1 gm in D5W 1 GM/100 ML BAG IVPB ONE (00:34)
[2018-07-22 02:03] LABS: SQUAMOUS EPITHIAL < 1 /hpf (0-5); URINE BACTERIA RARE (<OCC); URINE BILIRUBIN NEGATIVE (NEGATIVE); URINE CLARITY Hazy (Clear); URINE COLOR Yellow (YELLOW); URINE GLUCOSE (UA) NORMAL (Normal); URINE LEUKOCYTE ESTERASE 1+ Leu/uL (Negative); URINE PROTEIN 3+ mg/dL (NEGATIVE); URINE UROBILINOGEN NORMAL mg/dL (0.2-1.0)
[2018-07-22 02:11] LABS: URINE BLOOD TRACE (NEGATIVE)
[2018-07-22] MEDS ORDERED: Oxycodone/Acetaminophen 5/325 mg Tab PO ONE (05:11)
[2018-07-22 07:16] LABS: BASO % 0.5 % (0.0-2.0); EOS # 0.3 K/uL (0.0-0.7); EOS % 2.4 % (0.0-4.0); HEMOGLOBIN 9.7 g/dL (11.0-16.0); LYMPH # 0.3 K/uL (1.0-4.3); LYMPH % 2.6 % (20.0-40.0); MEAN CELL VOLUME 91.4 fL (81.0-99.0); MEAN CORPUSCULAR HGB CONC 32.8 g/dL (33.0-37.0); MEAN PLATELET VOLUME 8.3 fL (7.2-11.7); MONO # 0.9 K/uL (0.0-0.8); NEUT % 85.5 % (50.0-75.0); NRBC % 1.2 % (0.0-2.0); PLATELET COUNT 348 K/uL (130-400); RBC 3.22 Mil/uL (3.80-5.20); RED CELL DISTRIBUTION WIDTH 17.1 % (11.5-14.5); WHITE BLOOD COUNT 10.5 K/uL (4.8-10.8)
[2018-07-22 07:48] LABS: ALB/GLOB RATIO 1.1 (1.0-2.1); ALBUMIN 2.7 g/dL (3.5-5.0); CALCIUM 6.3 mg/dl (8.6-10.4)
[2018-07-22 09:48] LABS: EOSINOPHIL 3 % (0-4); LYMPHOCYTE 2 % (20-40); MONOCYTE 10 % (0-10); NEUTROPHIL 85 % (50-75); NUCLEATED RED BLOOD CELL 1 % (0-0); PLATELET ESTIMATE NORMAL (NORMAL); TOTAL CELLS COUNTED 100
[2018-07-22 09:50] LABS: ACANTHOCYTES MODERATE; ANISOCYTOSIS SLIGHT; BURR CELLS SLIGHT
[2018-07-22 09:51] LABS: LARGE PLATELETS PRESENT
[2018-07-22] MEDS ORDERED: Magnesium Oxide 400 mg Tab UD PO SCH (10:00)
[2018-07-22] MEDS ORDERED: Mycophenolic Acid DR 360 mg Tab PO SCH (10:00)
--- NOTE | 2018-07-22 10:24 | CT ---
Date of service: 07/21/2018 PROCEDURE: CT Abdomen and Pelvis without intravenous contrast HISTORY: flank pain, hx of transplanted kidney COMPARISON: CT scan of the abdomen and pelvis dated 06/07/2018. TECHNIQUE: Contiguous images were obtained from the domes of the diaphragms to the upper thighs without the administration of intravenous contrast. Oral contrast was not administered. Radiation dose: Total exam DLP = 218.1 mGy-cm. This CT exam was performed using one or more of the following dose reduction techniques: Automated exposure control, adjustment of the mA and/or kV according to patient size, and/or use of iterative reconstruction technique. FINDINGS: LOWER THORAX: Cardiomegaly. Small pericardial effusion. No focal consolidation or pleural effusion. LIVER: Small left hepatic lobe cyst. No gross lesion or ductal dilatation. GALLBLADDER AND BILE DUCTS: Prior cholecystectomy with surgical clips in place. Stable dilatation of the CBD measuring 1.4 cm PANCREAS: Unremarkable. No gross lesion or ductal dilatation. SPLEEN: Unremarkable. ADRENALS: Unremarkable. No mass. KIDNEYS AND URETERS: Atrophic [place] kidneys. Transplanted right lower quadrant kidney with punctate nonobstructive lower pole calculus. No hydronephrosis. No solid mass. VASCULATURE: Left renal artery stent. No aortic aneurysm. BOWEL: Extensive pneumatosis involving the cecum a and proximal ascending colon. Surgical clips adjacent to the splenic flexure. No obstruction. No gross mural thickening. APPENDIX: No findings to suggest acute appendicitis. PERITONEUM: Unremarkable. No free fluid. No free air. LYMPH NODES: Unremarkable. No enlarged lymph nodes. BLADDER: Unremarkable. REPRODUCTIVE: Unremarkable. BONES: No acute fracture. OTHER FINDINGS: None. IMPRESSION: Extensive pneumatosis involving the cecum and proximal ascending colon suggestive of ischemic bowel. Additional stable findings as above.
[2018-07-22 12:04] LABS: ALB/GLOB RATIO 1.1 (1.0-2.1); ALBUMIN 2.9 g/dL (3.5-5.0); CALCIUM 6.3 mg/dl (8.6-10.4)
[2018-07-22] MEDS: Multivitamin Vitamin B Complex (Nephro-Vite) Tab PO SCH (12:28)
--- NOTE | 2018-07-22 13:47 | CP.PCM.CON ---
History of Present Illness - History of Present Illness History of Present Illness: PGY-[address] Lackey Patient is seen and examined at bedside. Patient reports no acute events overnight. Patient states feeling tired and having mild abdominal pain. Patient denies having any bowel movements or passing gas. Patient says she was able to urinate today. denies fever or chills. Past Patient History - Infectious Disease Hx of Infectious Diseases: None - Past Medical History & Family History Past Medical History?: Yes - Past Social History Smoking Status: Former Smoker - CARDIAC Hx Hypertension: Yes - PULMONARY Hx Bronchitis: Yes - NEUROLOGICAL Hx Migraine: Yes - HEENT Hx HEENT Problems: No - RENAL Hx Chronic Kidney Disease: Yes - ENDOCRINE/METABOLIC Hx Endocrine Disorders: No - HEMATOLOGICAL/ONCOLOGICAL Hx Anemia: Yes - INTEGUMENTARY Hx Dermatological Problems: No - MUSCULOSKELETAL/RHEUMATOLOGICAL Hx Falls: Yes - GASTROINTESTINAL Hx Gall Bladder Disease: Yes Hx Pancreatitis: Yes - GENITOURINARY/GYNECOLOGICAL Hx Genitourinary Disorders: No - PSYCHIATRIC Hx Anxiety: Yes Hx Substance Use: No - SURGICAL HISTORY Hx Cholecystectomy: Yes (2002) - ANESTHESIA Hx Anesthesia: Yes Hx Anesthesia Reactions: No Hx Malignant Hyperthermia: No Meds Allergies/Adverse Reactions: Allergies Allergy/AdvReac Type Severity Reaction Status Date / Time No Known Allergies Allergy Verified 07/21/18 16:38 - Medications Medications: Current Medications Amlodipine Besylate (Norvasc) 5 mg PO DAILY [facility] Last Admin: 07/22/18 12:13 Dose: 5 mg Famotidine (Pepcid) 20 mg PO DAILY [facility] Last Admin: 07/22/18 12:12 Dose: 20 mg Heparin Sodium (Porcine) (Heparin) 5,000 units SC Q12 [facility] Last Admin: 07/22/18 12:11 Dose: 5,000 units Potassium Chloride 40 meq/ (Sodium Chloride) 1,020 mls @ 125 mls/hr IV .Q8H10M [facility] Last Admin: 07/22/18 06:29 Dose: Not Given Magnesium Oxide (Mag-Ox) 400 mg PO BID [facility] Last Admin: 07/22/18 12:12 Dose: 400 mg Prednisone (Prednisone Tab) 5 mg PO DAILY [facility] Last Admin: 07/22/18 12:12 Dose: 5 mg Sodium Bicarbonate (Sodium Bicarbonate Tab) 1,300 mg PO Q6 [facility] Last Admin: 07/22/18 12:13 Dose: 1,300 mg Tacrolimus (Prograf Cap) 1 mg PO BID [facility] Last Admin: 07/22/18 12:23 Dose: 1 mg Vitamin B Complex/Vit C/Folic Acid (Nephro-Ron) 1 tab PO DAILY [facility] Last Admin: 07/22/18 12:28 Dose: 1 tab Results - Vital Signs Recent Vital Signs: Last Vital Signs Temp 98.1 F 07/22/18 07:05 Pulse 64 07/22/18 07:45 Resp 20 07/22/18 07:05 BP 155/92 H 07/22/18 07:05 Pulse Ox 100 07/22/18 07:05 - Labs Result Diagrams: 07/22/18 07:06 07/22/18 11:42 Labs: Laboratory Results - last 24 hr 07/21/18 07/21/18 07/21/18 18:29 18:29 18:29 WBC 10.7 RBC 3.44 L Hgb 10.3 L Hct 31.7 L MCV 92.3 D MCH 29.9 MCHC 32.4 L RDW 17.4 H Plt Count 381 D MPV 8.3 Neut % (Auto) 85.7 H Lymph % (Auto) 2.4 L [place] % (Auto) 10.9 H Eos % (Auto) 0.9 Baso % (Auto) 0.1 Neut # (Auto) 9.2 H Lymph # (Auto) 0.3 L [place] # (Auto) 1.2 H Eos # (Auto) 0.1 Baso # (Auto) 0.0 Neutrophils % (Manual) 88 H Lymphocytes % (Manual) 2 L Monocytes % (Manual) 9 Eosinophils % (Manual) 1 Nucleated RBC % Platelet Estimate Normal Large Platelets Hypochromasia (manual) Slight Poikilocytosis (manual Slight Anisocytosis (manual) Slight [place] Cells Slight Acanthocytes (Spur) Moderate PT 16.7 H INR 1.5 APTT 32 pO2 VBG pH VBG pCO2 VBG HCO3 VBG Total CO2 VBG O2 Sat (Calc) VBG Base Excess VBG Potassium Glucose Lactate Crit Value Called To Crit Value Called By Crit Value Read Back Blood Gas Notified Time Sodium 135 Potassium 3.0 L Chloride 107 Carbon Dioxide 13 L Anion Gap 19 BUN 47 H Creatinine 5.8 H Est GFR ( Amer) 9 Est GFR (Non-Af Amer) 8 Random Glucose 86 Calcium 5.9 L* D Phosphorus Magnesium Total Bilirubin 0.3 AST 10 L D ALT 24 Alkaline Phosphatase 100 Total Protein 5.5 L Albumin 3.2 L D Globulin 2.3 Albumin/Globulin Ratio 1.4 Lipase 98 Venous Blood Potassium Urine Color Urine Clarity Urine pH Ur Specific [place] Urine Protein Urine Glucose (UA) Urine Ketones Urine Blood Urine Nitrate Urine Bilirubin Urine Urobilinogen Ur Leukocyte Esterase Urine WBC (Auto) Urine RBC (Auto) Ur Squamous Epith Cells Urine Bacteria Urine HCG, Qual 07/21/18 07/21/18 07/21/18 19:16 21:12 21:25 WBC RBC Hgb Hct MCV MCH MCHC RDW Plt Count MPV Neut % (Auto) Lymph % (Auto) [place] % (Auto) Eos % (Auto) Baso % (Auto) Neut # (Auto) Lymph # (Auto) [place] # (Auto) Eos # (Auto) Baso # (Auto) Neutrophils % (Manual) Lymphocytes % (Manual) Monocytes % (Manual) Eosinophils % (Manual) Nucleated RBC % Platelet Estimate Large Platelets Hypochromasia (manual) Poikilocytosis (manual Anisocytosis (manual) [place]ane Cells Acanthocytes (Spur) PT INR APTT pO2 168 H VBG pH 7.27 L VBG pCO2 18 L* VBG HCO3 12.3 VBG Total CO2 8.9 L VBG O2 Sat (Calc) 98.8 H VBG Base Excess -16.2 L VBG Potassium 1.5 L* Glucose 59 L Lactate 0.6 L Crit Value Called To Er nurse Crit Value Called By Antonieta rt Crit Value Read Back Y Blood Gas Notified Time 2128 Sodium 136 144.0 Potassium 2.7 L Chloride 109 H 120.0 H Carbon Dioxide 12 L Anion Gap 18 BUN 45 H Creatinine 5.8 H Est GFR ( Amer) 9 Est GFR (Non-Af Amer) 8 Random Glucose 90 Calcium 6.3 L Phosphorus 5.6 H Magnesium 1.3 L Total Bilirubin AST ALT Alkaline Phosphatase Total Protein Albumin Globulin Albumin/Globulin Ratio Lipase Venous Blood Potassium 1.5 L* Urine Color Urine Clarity Urine pH Ur Specific [place] Urine Protein Urine Glucose (UA) Urine Ketones Urine Blood Urine Nitrate Urine Bilirubin Urine Urobilinogen Ur Leukocyte Esterase Urine WBC (Auto) Urine RBC (Auto) Ur Squamous Epith Cells Urine Bacteria Urine HCG, Qual 07/22/18 07/22/18 07/22/18 01:03 02:11 07:06 WBC 10.5 RBC 3.22 L Hgb 9.7 L Hct 29.5 L MCV 91.4 MCH 30.0 MCHC 32.8 L RDW 17.1 H Plt Count 348 MPV 8.3 Neut % (Auto) 85.5 H Lymph % (Auto) 2.6 L [place] % (Auto) 9.0 Eos % (Auto) 2.4 Baso % (Auto) 0.5 Neut # (Auto) 9.0 H Lymph # (Auto) 0.3 L [place] # (Auto) 0.9 H Eos # (Auto) 0.3 Baso # (Auto) 0.0 Neutrophils % (Manual) 85 H Lymphocytes % (Manual) 2 L Monocytes % (Manual) 10 Eosinophils % (Manual) 3 Nucleated RBC % 1 H Platelet Estimate Normal Large Platelets Present Hypochromasia (manual) Poikilocytosis (manual Anisocytosis (manual) Slight [place] Cells Slight Acanthocytes (Spur) Moderate PT INR APTT pO2 VBG pH VBG pCO2 VBG HCO3 VBG Total CO2 VBG O2 Sat (Calc) VBG Base Excess VBG Potassium Glucose Lactate Crit Value Called To Crit Value Called By Crit Value Read Back Blood Gas Notified Time Sodium Potassium Chloride Carbon Dioxide Anion Gap BUN Creatinine Est GFR ( Amer) Est GFR (Non-Af Amer) Random Glucose Calcium Phosphorus Magnesium Total Bilirubin AST ALT Alkaline Phosphatase Total Protein Albumin Globulin Albumin/Globulin Ratio Lipase Venous Blood Potassium Urine Color Yellow Urine Clarity Hazy Urine pH 5.0 Ur Specific [place] 1.008 Urine Protein 3+ H Urine Glucose (UA) Normal Urine Ketones Negative Urine Blood Trace H Urine Nitrate Negative Urine Bilirubin Negative Urine Urobilinogen Normal Ur Leukocyte Esterase 1+ H Urine WBC (Auto) 29 H Urine RBC (Auto) 1 Ur Squamous Epith Cells < 1 Urine Bacteria Rare Urine HCG, Qual Negative 07/22/18 07/22/18 07/22/18 07:06 07:06 11:42 WBC RBC Hgb Hct MCV MCH MCHC RDW Plt Count MPV Neut % (Auto) Lymph % (Auto) [place] % (Auto) Eos % (Auto) Baso % (Auto) Neut # (Auto) Lymph # (Auto) [place] # (Auto) Eos # (Auto) Baso # (Auto) Neutrophils % (Manual) Lymphocytes % (Manual) Monocytes % (Manual) Eosinophils % (Manual) Nucleated RBC % Platelet Estimate Large Platelets Hypochromasia (manual) Poikilocytosis (manual Anisocytosis (manual) [place] Cells Acanthocytes (Spur) PT INR APTT 47 H D pO2 VBG pH VBG pCO2 VBG HCO3 VBG Total CO2 VBG O2 Sat (Calc) VBG Base Excess VBG Potassium Glucose Lactate Crit Value Called To Crit Value Called By Crit Value Read Back Blood Gas Notified Time Sodium 136 137 Potassium 4.1 4.1 Chloride 110 H 110 H Carbon Dioxide 13 L 12 L Anion Gap 18 19 BUN 44 H 43 H Creatinine 5.4 H 5.5 H Est GFR ( Amer) 10 10 Est GFR (Non-Af Amer) 8 8 Random Glucose 70 66 Calcium 6.3 L 6.3 L Phosphorus 4.5 Magnesium 2.1 Total Bilirubin 0.3 0.3 AST 11 L 11 L ALT 26 25 Alkaline Phosphatase 104 106 Total Protein 5.1 L 5.5 L Albumin 2.7 L 2.9 L Globulin 2.4 2.7 Albumin/Globulin Ratio 1.1 1.1 Lipase Venous Blood Potassium Urine Color Urine Clarity Urine pH Ur Specific [place] Urine Protein Urine Glucose (UA) Urine Ketones Urine Blood Urine Nitrate Urine Bilirubin Urine Urobilinogen Ur Leukocyte Esterase Urine WBC (Auto) Urine RBC (Auto) Ur Squamous Epith Cells Urine Bacteria Urine HCG, Qual
--- NOTE | 2018-07-22 13:52 | CP.PCM.PN ---
Subjective - Date & Time of Evaluation Date of Evaluation: 07/22/18 Time of Evaluation: 06:30 - Subjective Subjective: PGY-[address] Lackey Patient is seen and examined at bedside. Patient reports no acute events overnight. Patient states feeling tired and having mild abdominal pain. Patient denies having any bowel movements or passing gas. Patient says she was able to urinate today. denies fever or chills Objective - Vital Signs/Intake and Output Vital Signs (last 24 hours): Temp Pulse Resp BP Pulse Ox 98.1 F 64 20 155/92 H 100 07/22/18 07:05 07/22/18 07:45 07/22/18 07:05 07/22/18 07:05 07/22/18 07:05 Intake and Output: 07/22/18 07/22/18 06:59 18:59 Intake Total 1000 Output Total 400 Balance 600 - Medications Medications: Current Medications Amlodipine Besylate (Norvasc) 5 mg PO DAILY [facility] Last Admin: 07/22/18 12:13 Dose: 5 mg Famotidine (Pepcid) 20 mg PO DAILY [facility] Last Admin: 07/22/18 12:12 Dose: 20 mg Heparin Sodium (Porcine) (Heparin) 5,000 units SC Q12 [facility] Last Admin: 07/22/18 12:11 Dose: 5,000 units Potassium Chloride 40 meq/ (Sodium Chloride) 1,020 mls @ 125 mls/hr IV .Q8H10M [facility] Last Admin: 07/22/18 13:45 Dose: 125 mls/hr Magnesium Oxide (Mag-Ox) 400 mg PO BID [facility] Last Admin: 07/22/18 12:12 Dose: 400 mg Prednisone (Prednisone Tab) 5 mg PO DAILY [facility] Last Admin: 07/22/18 12:12 Dose: 5 mg Sodium Bicarbonate (Sodium Bicarbonate Tab) 1,300 mg PO Q6 [facility] Last Admin: 07/22/18 12:13 Dose: 1,300 mg Tacrolimus (Prograf Cap) 1 mg PO BID [facility] Last Admin: 07/22/18 12:23 Dose: 1 mg Vitamin B Complex/Vit C/Folic Acid (Nephro-Ron) 1 tab PO DAILY [facility] Last Admin: 07/22/18 12:28 Dose: 1 tab - Labs Labs: 07/22/18 07:06 07/22/18 11:42 PT 16.7 SECONDS (9.7-12.2) H 07/21/18 18:29 INR 1.5 07/21/18 18:29 APTT 47 SECONDS (21-34) H D 07/22/18 07:06 - Constitutional Appears: Non-toxic, No Acute Distress - Head Exam Head Exam: ATRAUMATIC, NORMAL INSPECTION, NORMOCEPHALIC - Eye Exam Eye Exam: EOMI, Normal appearance - ENT Exam ENT Exam: Mucous Membranes Moist - Neck Exam Neck Exam: Normal Inspection - Respiratory Exam Respiratory Exam: NORMAL BREATHING PATTERN. absent: Accessory Muscle Use, Respiratory Distress - GI/Abdominal Exam GI & Abdominal Exam: Soft. absent: Distended, Firm, Guarding, Rigid, Tenderness - Extremities Exam Additional comments: thrombosed left arm AV fistula - Neurological Exam Neurological Exam: Alert, Awake, Oriented x3 - Psychiatric Exam Psychiatric exam: Normal Affect, Normal Mood - Skin Skin Exam: Intact, Warm Assessment and Plan - Assessment and Plan (Free Text) Assessment: 47yo F with PMHx of CKD s/p kidney transplant, HTN, anemia, chronic diarrhea with disfunctional left arm AV fistula . Plan: - left arm restriction ordered - Permacath scheduled for tomorrow 07/23 - continue NPO diet - coag labs 07/21 Pt: 16.7 INR : 1.5 07/22 PTT: 49 - F/U am CBC and BMP and coags discussed plan with Dr Ziyad Vega, PGY-1
--- NOTE | 2018-07-22 14:18 | CP.PCM.CON ---
History of Present Illness - History of Present Illness History of Present Illness: renal consult for management of failing renal transplant 47 yo H female, history of LURT in 2010 with progressive loss of function over the last few months. History of chronic diarrhea, anxiety, smoker, DVT, HTN, underweight. Presents with diarrhea and abdominal pain, decreased u/o, hypokalemia. Labs with creatinine of 5.8. Ct of abdomen reveals pnemotosis. Being seen by surgery. Pt with 400 cc of urine overnight. On IVF. Electrolytes being replaced. No fever. Compliant with transplant medicines. Resumption of dialysis has been discussed. Review of Systems - Constitutional Constitutional: Anorexia, Fatigue - EENT Eyes: absent: Change in Vision, Itchy Eyes Ears: absent: Decreased Hearing, Disequilibrium - Cardiovascular Cardiovascular: absent: Chest Pain, Edema - Respiratory Respiratory: absent: Cough, Stridor - Gastrointestinal Gastrointestinal: Bloating, Diarrhea - Genitourinary Genitourinary: Change in Urinary Stream, Difficulty Urinating - Musculoskeletal Musculoskeletal: Muscle Weakness. absent: Arthralgias - Psychiatric Psychiatric: Anxiety. absent: Confusion Past Patient History - Infectious Disease Hx of Infectious Diseases: None - Past Medical History & Family History Past Medical History?: Yes - Past Social History Smoking Status: Former Smoker - CARDIAC Hx Hypertension: Yes - PULMONARY Hx Bronchitis: Yes - NEUROLOGICAL Hx Migraine: Yes - HEENT Hx HEENT Problems: No - RENAL Hx Chronic Kidney Disease: Yes Hx Renal Failure: Yes - ENDOCRINE/METABOLIC Hx Endocrine Disorders: No - HEMATOLOGICAL/ONCOLOGICAL Hx Anemia: Yes - INTEGUMENTARY Hx Dermatological Problems: No - MUSCULOSKELETAL/RHEUMATOLOGICAL Hx Falls: Yes - GASTROINTESTINAL Hx Diarrhea: Yes Hx Gall Bladder Disease: Yes Hx Pancreatitis: Yes - GENITOURINARY/GYNECOLOGICAL Hx Genitourinary Disorders: No - PSYCHIATRIC Hx Anxiety: Yes Hx Substance Use: No - SURGICAL HISTORY Hx Surgeries: Yes Hx Arteriovenous Shunt: Yes Hx Cholecystectomy: Yes (2002) Hx Kidney Transplant: Yes Hx Splenectomy: Yes - ANESTHESIA Hx Anesthesia: Yes Hx Anesthesia Reactions: No Hx Malignant Hyperthermia: No Meds Allergies/Adverse Reactions: Allergies Allergy/AdvReac Type Severity Reaction Status Date / Time No Known Allergies Allergy Verified 07/21/18 16:38 - Medications Medications: Current Medications Amlodipine Besylate (Norvasc) 5 mg PO DAILY [facility] Last Admin: 07/22/18 12:13 Dose: 5 mg Famotidine (Pepcid) 20 mg PO DAILY [facility] Last Admin: 07/22/18 12:12 Dose: 20 mg Heparin Sodium (Porcine) (Heparin) 5,000 units SC Q12 [facility] Last Admin: 07/22/18 12:11 Dose: 5,000 units Sodium Bicarbonate 75 ml/ (Sodium Chloride) 1,075 mls @ 125 mls/hr IV .Q8H36M [facility] Magnesium Oxide (Mag-Ox) 400 mg PO BID [facility] Last Admin: 07/22/18 12:12 Dose: 400 mg Prednisone (Prednisone Tab) 5 mg PO DAILY [facility] Last Admin: 07/22/18 12:12 Dose: 5 mg Sodium Bicarbonate (Sodium Bicarbonate Tab) 1,300 mg PO Q6 [facility] Last Admin: 07/22/18 12:13 Dose: 1,300 mg Tacrolimus (Prograf Cap) 1 mg PO BID [facility] Last Admin: 07/22/18 12:23 Dose: 1 mg Vitamin B Complex/Vit C/Folic Acid (Nephro-Ron) 1 tab PO DAILY [facility] Last Admin: 07/22/18 12:28 Dose: 1 tab Physical Exam - Constitutional Appears: Cachectic, Chronically Ill - Head Exam Head Exam: ATRAUMATIC, NORMAL INSPECTION - Eye Exam Eye Exam: EOMI, Normal appearance - ENT Exam ENT Exam: Mucous Membranes Moist, Normal Exam - Neck Exam Neck exam: Positive for: Normal Inspection. Negative for: Lymphadenopathy - Respiratory Exam Respiratory Exam: Clear to Auscultation Bilateral - Cardiovascular Exam Cardiovascular Exam: REGULAR RHYTHM. absent: Rubs - GI/Abdominal Exam GI & Abdominal Exam: Distended. absent: Guarding - Neurological Exam Neurological exam: Alert, Oriented x3 - Psychiatric Exam Psychiatric exam: Anxious Results - Vital Signs Recent Vital Signs: Last Vital Signs Temp 98.1 F 07/22/18 07:05 Pulse 64 07/22/18 07:45 Resp 20 07/22/18 07:05 BP 155/92 H 07/22/18 07:05 Pulse Ox 100 07/22/18 07:05 - Labs Result Diagrams: 07/22/18 07:06 07/22/18 11:42 Labs: Laboratory Results - last 24 hr 07/21/18 07/21/18 07/21/18 18:29 18:29 18:29 WBC 10.7 RBC 3.44 L Hgb 10.3 L Hct 31.7 L MCV 92.3 D MCH 29.9 MCHC 32.4 L RDW 17.4 H Plt Count 381 D MPV 8.3 Neut % (Auto) 85.7 H Lymph % (Auto) 2.4 L [place] % (Auto) 10.9 H Eos % (Auto) 0.9 Baso % (Auto) 0.1 Neut # (Auto) 9.2 H Lymph # (Auto) 0.3 L [place] # (Auto) 1.2 H Eos # (Auto) 0.1 Baso # (Auto) 0.0 Neutrophils % (Manual) 88 H Lymphocytes % (Manual) 2 L Monocytes % (Manual) 9 Eosinophils % (Manual) 1 Nucleated RBC % Platelet Estimate Normal Large Platelets Hypochromasia (manual) Slight Poikilocytosis (manual Slight Anisocytosis (manual) Slight [place] Cells Slight Acanthocytes (Spur) Moderate PT 16.7 H INR 1.5 APTT 32 pO2 VBG pH VBG pCO2 VBG HCO3 VBG Total CO2 VBG O2 Sat (Calc) VBG Base Excess VBG Potassium Glucose Lactate Crit Value Called To Crit Value Called By Crit Value Read Back Blood Gas Notified Time Sodium 135 Potassium 3.0 L Chloride 107 Carbon Dioxide 13 L Anion Gap 19 BUN 47 H Creatinine 5.8 H Est GFR ( Amer) 9 Est GFR (Non-Af Amer) 8 Random Glucose 86 Calcium 5.9 L* D Phosphorus Magnesium Total Bilirubin 0.3 AST 10 L D ALT 24 Alkaline Phosphatase 100 Total Protein 5.5 L Albumin 3.2 L D Globulin 2.3 Albumin/Globulin Ratio 1.4 Lipase 98 Venous Blood Potassium Urine Color Urine Clarity Urine pH Ur Specific [place] Urine Protein Urine Glucose (UA) Urine Ketones Urine Blood Urine Nitrate Urine Bilirubin Urine Urobilinogen Ur Leukocyte Esterase Urine WBC (Auto) Urine RBC (Auto) Ur Squamous Epith Cells Urine Bacteria Urine HCG, Qual 07/21/18 07/21/18 07/21/18 19:16 21:12 21:25 WBC RBC Hgb Hct MCV MCH MCHC RDW Plt Count MPV Neut % (Auto) Lymph % (Auto) [place] % (Auto) Eos % (Auto) Baso % (Auto) Neut # (Auto) Lymph # (Auto) [place] # (Auto) Eos # (Auto) Baso # (Auto) Neutrophils % (Manual) Lymphocytes % (Manual) Monocytes % (Manual) Eosinophils % (Manual) Nucleated RBC % Platelet Estimate Large Platelets Hypochromasia (manual) Poikilocytosis (manual Anisocytosis (manual) [place] Cells Acanthocytes (Spur) PT INR APTT pO2 168 H VBG pH 7.27 L VBG pCO2 18 L* VBG HCO3 12.3 VBG Total CO2 8.9 L VBG O2 Sat (Calc) 98.8 H VBG Base Excess -16.2 L VBG Potassium 1.5 L* Glucose 59 L Lactate 0.6 L Crit Value Called To Er nurse Crit Value Called By Antonieta rt Crit Value Read Back Y Blood Gas Notified Time 2128 Sodium 136 144.0 Potassium 2.7 L Chloride 109 H 120.0 H Carbon Dioxide 12 L Anion Gap 18 BUN 45 H Creatinine 5.8 H Est GFR ( Amer) 9 Est GFR (Non-Af Amer) 8 Random Glucose 90 Calcium 6.3 L Phosphorus 5.6 H Magnesium 1.3 L Total Bilirubin AST ALT Alkaline Phosphatase Total Protein Albumin Globulin Albumin/Globulin Ratio Lipase Venous Blood Potassium 1.5 L* Urine Color Urine Clarity Urine pH Ur Specific [place] Urine Protein Urine Glucose (UA) Urine Ketones Urine Blood Urine Nitrate Urine Bilirubin Urine Urobilinogen Ur Leukocyte Esterase Urine WBC (Auto) Urine RBC (Auto) Ur Squamous Epith Cells Urine Bacteria Urine HCG, Qual 07/22/18 07/22/18 07/22/18 01:03 02:11 07:06 WBC 10.5 RBC 3.22 L Hgb 9.7 L Hct 29.5 L MCV 91.4 MCH 30.0 MCHC 32.8 L RDW 17.1 H Plt Count 348 MPV 8.3 Neut % (Auto) 85.5 H Lymph % (Auto) 2.6 L [place] % (Auto) 9.0 Eos % (Auto) 2.4 Baso % (Auto) 0.5 Neut # (Auto) 9.0 H Lymph # (Auto) 0.3 L [place] # (Auto) 0.9 H Eos # (Auto) 0.3 Baso # (Auto) 0.0 Neutrophils % (Manual) 85 H Lymphocytes % (Manual) 2 L Monocytes % (Manual) 10 Eosinophils % (Manual) 3 Nucleated RBC % 1 H Platelet Estimate Normal Large Platelets Present Hypochromasia (manual) Poikilocytosis (manual Anisocytosis (manual) Slight [place] Cells Slight Acanthocytes (Spur) Moderate PT INR APTT pO2 VBG pH VBG pCO2 VBG HCO3 VBG Total CO2 VBG O2 Sat (Calc) VBG Base Excess VBG Potassium Glucose Lactate Crit Value Called To Crit Value Called By Crit Value Read Back Blood Gas Notified Time Sodium Potassium Chloride Carbon Dioxide Anion Gap BUN Creatinine Est GFR ( Amer) Est GFR (Non-Af Amer) Random Glucose Calcium Phosphorus Magnesium Total Bilirubin AST ALT Alkaline Phosphatase Total Protein Albumin Globulin Albumin/Globulin Ratio Lipase Venous Blood Potassium Urine Color Yellow Urine Clarity Hazy Urine pH 5.0 Ur Specific [place] 1.008 Urine Protein 3+ H Urine Glucose (UA) Normal Urine Ketones Negative Urine Blood Trace H Urine Nitrate Negative Urine Bilirubin Negative Urine Urobilinogen Normal Ur Leukocyte Esterase 1+ H Urine WBC (Auto) 29 H Urine RBC (Auto) 1 Ur Squamous Epith Cells < 1 Urine Bacteria Rare Urine HCG, Qual Negative 07/22/18 07/22/18 07/22/18 07:06 07:06 11:42 WBC RBC Hgb Hct MCV MCH MCHC RDW Plt Count MPV Neut % (Auto) Lymph % (Auto) [place] % (Auto) Eos % (Auto) Baso % (Auto) Neut # (Auto) Lymph # (Auto) [place] # (Auto) Eos # (Auto) Baso # (Auto) Neutrophils % (Manual) Lymphocytes % (Manual) Monocytes % (Manual) Eosinophils % (Manual) Nucleated RBC % Platelet Estimate Large Platelets Hypochromasia (manual) Poikilocytosis (manual Anisocytosis (manual) Zhane Cells Acanthocytes (Spur) PT INR APTT 47 H D pO2 VBG pH VBG pCO2 VBG HCO3 VBG Total CO2 VBG O2 Sat (Calc) VBG Base Excess VBG Potassium Glucose Lactate Crit Value Called To Crit Value Called By Crit Value Read Back Blood Gas Notified Time Sodium 136 137 Potassium 4.1 4.1 Chloride 110 H 110 H Carbon Dioxide 13 L 12 L Anion Gap 18 19 BUN 44 H 43 H Creatinine 5.4 H 5.5 H Est GFR ( Amer) 10 10 Est GFR (Non-Af Amer) 8 8 Random Glucose 70 66 Calcium 6.3 L 6.3 L Phosphorus 4.5 Magnesium 2.1 Total Bilirubin 0.3 0.3 AST 11 L 11 L ALT 26 25 Alkaline Phosphatase 104 106 Total Protein 5.1 L 5.5 L Albumin 2.7 L 2.9 L Globulin 2.4 2.7 Albumin/Globulin Ratio 1.1 1.1 Lipase Venous Blood Potassium Urine Color Urine Clarity Urine pH Ur Specific [place] Urine Protein Urine Glucose (UA) Urine Ketones Urine Blood Urine Nitrate Urine Bilirubin Urine Urobilinogen Ur Leukocyte Esterase Urine WBC (Auto) Urine RBC (Auto) Ur Squamous Epith Cells Urine Bacteria Urine HCG, Qual Assessment & Plan - Assessment and Plan (Free Text) Assessment: failing renal trasplant,hold myfortic,continue fk electrolyte abnormalities, for replacement metabolic acidosis, for hco3 drip at present pneumotosis, surgery eval probable need for return to HD consult for permcath in am
[2018-07-22] MEDS ORDERED: Dextrose 50% SYRINGE Inj (50 ml) ONE (16:36)
--- NOTE | 2018-07-22 23:39 | CP.PCM.PN ---
Subjective - Date & Time of Evaluation Date of Evaluation: 07/22/18 Time of Evaluation: 23:35 - Subjective Subjective: pt is still having abd pain on and off and intermittant no nausea no vomiting urine output better but creatinine no improvement on ivf on dextrose still npo for HD cath as per renal she will need hd spoke to pt and her daughters and diarrhea concerning repeat ct scan showing same finding but awating for official report continue hydration prognosis guarded renal function not improving but urine out put better electrolytes improving will f/u Objective - Vital Signs/Intake and Output Vital Signs (last 24 hours): Temp Pulse Resp BP Pulse Ox 97.9 F 70 20 145/79 98 07/22/18 15:00 07/22/18 16:00 07/22/18 15:00 07/22/18 15:00 07/22/18 15:00 - Medications Medications: Current Medications Amlodipine Besylate (Norvasc) 5 mg PO DAILY [facility] Last Admin: 07/22/18 12:13 Dose: 5 mg Famotidine (Pepcid) 20 mg PO DAILY [facility] Last Admin: 07/22/18 12:12 Dose: 20 mg Heparin Sodium (Porcine) (Heparin) 5,000 units SC Q12 [facility] Last Admin: 07/22/18 12:11 Dose: 5,000 units Dextrose (Dextrose 10% In Water) 500 mls @ 30 mls/hr IV .[id number] [facility] Last Admin: 07/22/18 19:14 Dose: 30 mls/hr Sodium Bicarbonate 75 ml/ (Sodium Chloride) 1,075 mls @ 100 mls/hr IV .[id number] [facility] Last Admin: 07/22/18 19:15 Dose: 100 mls/hr Morphine Sulfate (Morphine) 2 mg IVP Q4 PRN PRN Reason: Pain, severe (8-10) Last Admin: 07/22/18 20:33 Dose: 2 mg Prednisone (Prednisone Tab) 5 mg PO DAILY [facility] Last Admin: 07/22/18 12:12 Dose: 5 mg Sodium Bicarbonate (Sodium Bicarbonate Tab) 1,300 mg PO Q6 [facility] Last Admin: 07/22/18 18:59 Dose: 1,300 mg Tacrolimus (Prograf Cap) 1 mg PO BID [facility] Last Admin: 07/22/18 18:59 Dose: 1 mg Vitamin B Complex/Vit C/Folic Acid (Nephro-Ron) 1 tab PO DAILY [facility] Last Admin: 07/22/18 12:28 Dose: 1 tab - Labs Labs: 07/22/18 07:06 07/22/18 11:42 PT 16.7 SECONDS (9.7-12.2) H 07/21/18 18:29 INR 1.5 07/21/18 18:29 APTT 47 SECONDS (21-34) H D 07/22/18 07:06
[2018-07-23 07:49] LABS: BASO % 0.3 % (0.0-2.0); EOS # 0.3 K/uL (0.0-0.7); EOS % 2.8 % (0.0-4.0); HEMOGLOBIN 9.9 g/dL (11.0-16.0); LYMPH # 0.3 K/uL (1.0-4.3); LYMPH % 2.8 % (20.0-40.0); MEAN CELL VOLUME 91.9 fL (81.0-99.0); MEAN CORPUSCULAR HEMOGLOBIN 30.5 pg (27.0-31.0); MEAN CORPUSCULAR HGB CONC 33.2 g/dL (33.0-37.0); MEAN PLATELET VOLUME 8.7 fL (7.2-11.7); MONO # 1.1 K/uL (0.0-0.8); MONO % 12.3 % (0.0-10.0); NEUT # 7.5 K/uL (1.8-7.0); NEUT % 81.8 % (50.0-75.0); NRBC % 1.7 % (0.0-2.0); PLATELET COUNT 362 K/uL (130-400); RBC 3.24 Mil/uL (3.80-5.20); WHITE BLOOD COUNT 9.2 K/uL (4.8-10.8)
[2018-07-23 07:51] LABS: INR 1.5; PROTHROMBIN TIME 16.5 SECONDS (9.7-12.2)
[2018-07-23 07:58] LABS: CALCIUM 6.5 mg/dl (8.6-10.4)
[2018-07-23] MEDS ORDERED: HEPARIN-NS 5,000 UNITS/500 ML 5,000 UNIT/500 ML BAG IV ONE (08:12)
[2018-07-23] MEDS ORDERED: ceFAZolin IV 1 gm in Dextrose 1 GM/50 ML BAG IVPB ONE (08:13)
[2018-07-23] MEDS ORDERED: Lidocaine 2% MPF (5 ml) Inj ONE (08:13)
[2018-07-23 08:32] LABS: URINE CREATININE 35.8 mg/dL
[2018-07-23 09:00] LABS: URINE 24 HOUR TOTAL PROTEIN 3662.3 mg/24hr (42-225)
[2018-07-23 09:09] LABS: ANISOCYTOSIS SLIGHT; EOSINOPHIL 3 % (0-4); HYPOCHROMIC SLIGHT; LYMPHOCYTE 7 % (20-40); MONOCYTE 10 % (0-10); NEUTROPHIL 80 % (50-75); NUCLEATED RED BLOOD CELL 4 % (0-0); PLATELET ESTIMATE NORMAL (NORMAL); POIKILOCYTOSIS SLIGHT; TOTAL CELLS COUNTED 100
--- NOTE | 2018-07-23 09:09 | CP.PCM.PN ---
Subjective - Date & Time of Evaluation Date of Evaluation: 07/23/18 Time of Evaluation: 09:06 - Subjective Subjective: Still with diarrhea On po and IV bicarb for metabolic acidosis For permcath now- will set up for dialysis later Renal failure has been progressive Diarrhea possibly from continued immunosuppression will stop tacrolimus and check CMV titres Recommend GI evaluation as wll Not dyspneic, no nausea or vomiting Has had continued weight loss Objective - Vital Signs/Intake and Output Vital Signs (last 24 hours): Temp Pulse Resp BP Pulse Ox 98.2 F 74 20 187/99 H 100 07/23/18 08:35 07/23/18 08:35 07/23/18 08:35 07/23/18 08:35 07/23/18 08:35 Intake and Output: 07/23/18 07/23/18 06:59 18:59 Intake Total 1240 Balance 1240 - Medications Medications: Current Medications Amlodipine Besylate (Norvasc) 5 mg PO DAILY [facility] Last Admin: 07/22/18 12:13 Dose: 5 mg Famotidine (Pepcid) 20 mg PO DAILY [facility] Last Admin: 07/22/18 12:12 Dose: 20 mg Heparin Sodium (Porcine) (Heparin) 5,000 units SC Q12 [facility] Last Admin: 07/22/18 12:11 Dose: 5,000 units Dextrose (Dextrose 10% In Water) 500 mls @ 30 mls/hr IV .[id number] [facility] Last Admin: 07/22/18 19:14 Dose: 30 mls/hr Sodium Bicarbonate 75 ml/ (Sodium Chloride) 1,075 mls @ 125 mls/hr IV .[id number] [facility] Morphine Sulfate (Morphine) 2 mg IVP Q4 PRN PRN Reason: Pain, severe (8-10) Prednisone (Prednisone Tab) 5 mg PO DAILY [facility] Last Admin: 07/22/18 12:12 Dose: 5 mg Sodium Bicarbonate (Sodium Bicarbonate Tab) 1,300 mg PO Q6 [facility] Last Admin: 07/23/18 05:47 Dose: Not Given Vitamin B Complex/Vit C/Folic Acid (Nephro-Ron) 1 tab PO DAILY [facility] Last Admin: 07/22/18 12:28 Dose: 1 tab - Labs Labs: 07/23/18 07:35 07/23/18 07:35 PT 16.5 SECONDS (9.7-12.2) H 07/23/18 07:35 INR 1.5 07/23/18 07:35 APTT 44 SECONDS (21-34) H 07/23/18 07:35 - Constitutional Appears: Non-toxic, Cachectic, Chronically Ill - Head Exam Head Exam: NORMAL INSPECTION - Eye Exam Eye Exam: EOMI, Normal appearance - Respiratory Exam Respiratory Exam: Clear to Ausculation Bilateral, NORMAL BREATHING PATTERN - Cardiovascular Exam Cardiovascular Exam: REGULAR RHYTHM, +S1 - GI/Abdominal Exam GI & Abdominal Exam: Soft. absent: Tenderness - Extremities Exam Extremities Exam: Normal Inspection. absent: Tenderness - Neurological Exam Neurological Exam: Awake, CN II-XII Intact - Skin Skin Exam: Dry, Warm Assessment and Plan (1) Renal transplant failure and rejection Status: Acute (2) CKD (chronic kidney disease) stage 5, GFR less than 15 ml/min Status: Acute (3) Diarrhea Status: Acute (4) Weight loss, unintentional Status: Acute - Assessment and Plan (Free Text) Plan: permcatrh now dialysis later CMV titres stop tacrolimus GI eval would be helpful Monitor BP
[2018-07-23 09:10] LABS: BURR CELLS SLIGHT; MICROCYTOSIS SLIGHT; SCHISTOCYTES SLIGHT
[2018-07-23 09:11] LABS: GIANT PLATELETS PRESENT; LARGE PLATELETS PRESENT
[2018-07-23] MEDS ORDERED: Midazolam 2 MG/2 ML VIAL ONE (09:51)
[2018-07-23] MEDS ORDERED: Propofol 10 mg/ml Inj (20 ML) ONE (09:51)
[2018-07-23] MEDS ORDERED: HYDROmorphone 0.5 mg/0.5 ml ISec IVP PRN (10:33)
--- NOTE | 2018-07-23 10:33 | PCM.SURG1 ---
Surgeon's Initial Post Op Note - Surgeon's Notes Surgeon: Dr. Lackey Gas Treater: Dr. Clinton PGY3 Type of Anesthesia: IV Sedation Pre-Operative Diagnosis: ESRD Operative Findings: see operative report Post-Operative Diagnosis: see operative report Operation Performed: insertion of permacath- right internal jugular Specimen/Specimens Removed: none Estimated Blood Loss: EBL {In ML}: 10 Blood Products Given: N/A Drains Used: No Drains Post-Op Condition: Good Date of Surgery/Procedure: 07/23/18 Time of Surgery/Procedure: 10:00
--- NOTE | 2018-07-23 10:36 | CT ---
Date of service: 07/22/2018 PROCEDURE: CT Abdomen and Pelvis without intravenous contrast HISTORY: cecal dilatation COMPARISON: CT scan of the abdomen and pelvis dated 07/21/2018. TECHNIQUE: Contiguous images were obtained from the domes of the diaphragms to the upper thighs without the administration of intravenous contrast. Oral contrast was not administered. Radiation dose: Total exam DLP = 208.1 mGy-cm. This CT exam was performed using one or more of the following dose reduction techniques: Automated exposure control, adjustment of the mA and/or kV according to patient size, and/or use of iterative reconstruction technique. FINDINGS: LOWER THORAX: Cardiomegaly. Increased size of small to moderate pericardial effusion. No focal consolidation or pleural effusion. LIVER: Small left hepatic lobe cyst. No gross lesion or ductal dilatation. GALLBLADDER AND BILE DUCTS: Prior cholecystectomy with surgical clips in place. Stable dilatation of the CBD measuring 1.4 cm. PANCREAS: Unremarkable. No gross lesion or ductal dilatation. SPLEEN: Unremarkable. ADRENALS: Unremarkable. No mass. KIDNEYS AND URETERS: Atrophic [place] kidneys. Transplanted right lower quadrant kidney with punctate nonobstructive lower pole calculus. No hydronephrosis. No solid mass. VASCULATURE: Calcific atherosclerosis. Left renal artery stent. No aortic aneurysm. BOWEL: Decreased prominence of pneumatosis involving the cecum and proximal ascending colon. Surgical clips adjacent to splenic flexure. No obstruction. No gross mural thickening. APPENDIX: No findings to suggest acute appendicitis. PERITONEUM: Unremarkable. No free fluid. No free air. LYMPH NODES: Unremarkable. No enlarged lymph nodes. BLADDER: Unremarkable. REPRODUCTIVE: Unremarkable. BONES: No acute fracture. OTHER FINDINGS: None. IMPRESSION: Decreased prominence of pneumatosis involving the cecum and proximal ascending colon. Increased size of now small to moderate pericardial effusion. No other significant interval change.
--- NOTE | 2018-07-23 11:35 | RAD ---
Date of service: 07/23/2018 HISTORY: s/p permacath insertion COMPARISON: Chest radiograph dated 12/13/2017. FINDINGS: LUNGS: No active pulmonary disease. PLEURA: No significant pleural effusion identified, no pneumothorax apparent. CARDIOVASCULAR: Atherosclerotic aortic calcifications. Cardiomediastinal silhouette stably enlarged. OSSEOUS STRUCTURES: Unchanged. VISUALIZED UPPER ABDOMEN: Right upper quadrant surgical clips. Gaseous distention of colon, nonspecific. OTHER FINDINGS: Right internal jugular access tunneled hemodialysis catheter with tips in the right atrium. IMPRESSION: New right internal jugular access tunneled hemodialysis catheter in satisfactory position. No appreciable pneumothorax.
[2018-07-23] MEDS: Multivitamin Vitamin B Complex (Nephro-Vite) Tab PO SCH (12:37)
--- NOTE | 2018-07-23 12:53 | RAD ---
Date of service: 07/23/2018 PROCEDURE: Intraoperative Fluoroscopy. HISTORY: RENAL FAILURE FINDINGS: Fluoroscopic assistance was provided for right-sided PermCath placement. Please refer to the operative report from BALBINA Lou.
[2018-07-23] MEDS: Morphine 4 MG/ML VIAL IVP PRN ×3 (13:23→18:51)
[2018-07-23 18:27] LABS: HEPATITIS B SURFACE AG Negative (NEGATIVE)
[2018-07-23 18:44] LABS: HEPATITIS C ANTIBODY NEGATIVE (NEGATIVE)
--- NOTE | 2018-07-23 20:59 | OP ---
Copied To: Arturo Lackye Jr., MD Attending MD: Arturo Lackey Jr., MD PROCEDURE DATE: 07/23/2018 PREOPERATIVE DIAGNOSIS: Renal failure, failed kidney transplant. PROCEDURE CARRIED OUT: Placement of PermCath right jugular vein with C-arm fluoroscopy, ultrasound-guided puncture, and micropuncture technique. SURGEON: Arturo Lackey Jr., MD [employer] COOK: Dr. Clinton. ANESTHESIOLOGIST: Mr. Peck. INDICATIONS: The patient is a 47-year-old woman with failed kidney transplant, now requires dialysis. OPERATIVE FINDINGS: Catheter was inserted eventually via jugular vein. DESCRIPTION OF PROCEDURE: The patient was given local anesthesia. Using ultrasound guidance and micropuncture technique, the right jugular vein was cannulated. Under fluoroscopic control, the guidewire was advanced centrally. A sheath dilator was passed over this. Catheter was then passed in the right chest wall to the jugular vein down to the superior vena cava. There was excellent return and flow. It was then sutured to the skin, procedure was terminated. Ultrasound image of the neck showed that the vein was widely patent with a diameter of approximately 18 mm and no evidence intraluminal thrombosis. Subsequently, the patient has demonstrated puncturing of the vessel. PROCEDURE CARRIED OUT: Right jugular vein PermCath originating on the right chest wall, going to the jugular vein, and terminating at the superior vena cava. Arturo Lackey Jr., MD
--- NOTE | 2018-07-23 21:58 | CP.PCM.CON ---
History of Present Illness - History of Present Illness History of Present Illness: dictated Past Patient History - Infectious Disease Hx of Infectious Diseases: None - Past Medical History & Family History Past Medical History?: Yes - Past Social History Smoking Status: Former Smoker - CARDIAC Hx Hypertension: Yes - PULMONARY Hx Bronchitis: Yes - NEUROLOGICAL Hx Migraine: Yes - HEENT Hx HEENT Problems: No - RENAL Hx Chronic Kidney Disease: Yes Hx Renal Failure: Yes - ENDOCRINE/METABOLIC Hx Endocrine Disorders: No - HEMATOLOGICAL/ONCOLOGICAL Hx Anemia: Yes - INTEGUMENTARY Hx Dermatological Problems: No - MUSCULOSKELETAL/RHEUMATOLOGICAL Hx Falls: Yes - GASTROINTESTINAL Hx Diarrhea: Yes Hx Gall Bladder Disease: Yes Hx Pancreatitis: Yes - GENITOURINARY/GYNECOLOGICAL Hx Genitourinary Disorders: No - PSYCHIATRIC Hx Anxiety: Yes Hx Substance Use: No - SURGICAL HISTORY Hx Surgeries: Yes Hx Arteriovenous Shunt: Yes Hx Cholecystectomy: Yes (2002) Hx Kidney Transplant: Yes Hx Splenectomy: Yes - ANESTHESIA Hx Anesthesia: Yes Hx Anesthesia Reactions: No Hx Malignant Hyperthermia: No Meds Allergies/Adverse Reactions: Allergies Allergy/AdvReac Type Severity Reaction Status Date / Time No Known Allergies Allergy Verified 07/21/18 16:38 - Medications Medications: Current Medications Amlodipine Besylate (Norvasc) 5 mg PO DAILY [facility] Last Admin: 07/23/18 13:14 Dose: 5 mg Famotidine (Pepcid) 20 mg PO DAILY [facility] Last Admin: 07/23/18 13:14 Dose: 20 mg Heparin Sodium (Porcine) (Heparin) 5,000 units SC Q12 [facility] Last Admin: 07/22/18 12:11 Dose: 5,000 units Sodium Bicarbonate 75 meq/ (Sodium Chloride) 1,075 mls @ 125 mls/hr IV .[id number] [facility] Last Admin: 07/23/18 18:53 Dose: 125 mls/hr Meropenem 500 mg/ Sodium (Chloride) 100 mls @ 100 mls/hr IVPB Q8H [facility] PRN Reason: Protocol Morphine Sulfate (Morphine) 2 mg IVP Q4 PRN PRN Reason: Pain, severe (8-10) Last Admin: 07/23/18 18:51 Dose: 2 mg Prednisone (Prednisone Tab) 5 mg PO DAILY [facility] Last Admin: 07/23/18 13:14 Dose: 5 mg Vitamin B Complex/Vit C/Folic Acid (Nephro-Ron) 1 tab PO DAILY [facility] Last Admin: 07/23/18 12:37 Dose: Not Given Results - Vital Signs Recent Vital Signs: Last Vital Signs Temp 98.2 F 07/23/18 18:29 Pulse 77 07/23/18 18:29 Resp 20 07/23/18 18:29 BP 181/95 H 07/23/18 18:29 Pulse Ox 100 07/23/18 18:29 - Labs Result Diagrams: 07/23/18 07:35 07/23/18 07:35 Labs: Laboratory Results - last 24 hr 07/21/18 07/22/18 07/22/18 21:25 20:51 20:52 WBC RBC Hgb Hct MCV MCH MCHC RDW Plt Count MPV Neut % (Auto) Lymph % (Auto) [place] % (Auto) Eos % (Auto) Baso % (Auto) Neut # (Auto) Lymph # (Auto) [place] # (Auto) Eos # (Auto) Baso # (Auto) Neutrophils % (Manual) Lymphocytes % (Manual) Monocytes % (Manual) Eosinophils % (Manual) Nucleated RBC % Platelet Estimate Large Platelets Giant Platelets Hypochromasia (manual) Poikilocytosis (manual Anisocytosis (manual) Microcytosis (manual) [place] Cells Schistocytes PT INR APTT Sodium Potassium Chloride Carbon Dioxide Anion Gap BUN Creatinine Est GFR ( Amer) Est GFR (Non-Af Amer) POC Glucose (mg/dL) 63 L 64 L Random Glucose Calcium Ionized Calcium 3.5 L Phosphorus Magnesium % Saturation Ferritin Ur Random Potassium Urine Collection Time Urine Total Volume Creatinine Clearance Ur Protein 24 Hr Calc Hep Bs Antigen Hep Bs Antibody Hepatitis C Antibody 07/22/18 07/22/18 07/23/18 21:34 21:53 02:20 WBC RBC Hgb Hct MCV MCH MCHC RDW Plt Count MPV Neut % (Auto) Lymph % (Auto) [place] % (Auto) Eos % (Auto) Baso % (Auto) Neut # (Auto) Lymph # (Auto) [place] # (Auto) Eos # (Auto) Baso # (Auto) Neutrophils % (Manual) Lymphocytes % (Manual) Monocytes % (Manual) Eosinophils % (Manual) Nucleated RBC % Platelet Estimate Large Platelets Giant Platelets Hypochromasia (manual) Poikilocytosis (manual Anisocytosis (manual) Microcytosis (manual) [place] Cells Schistocytes PT INR APTT Sodium Potassium Chloride Carbon Dioxide Anion Gap BUN Creatinine Est GFR ( Amer) Est GFR (Non-Af Amer) POC Glucose (mg/dL) 76 88 Random Glucose Calcium Ionized Calcium Phosphorus Magnesium % Saturation Ferritin Ur Random Potassium 12.2 Urine Collection Time Urine Total Volume Creatinine Clearance Ur Protein 24 Hr Calc Hep Bs Antigen Hep Bs Antibody Hepatitis C Antibody 07/23/18 07/23/18 07/23/18 06:52 07:18 07:35 WBC 9.2 RBC 3.24 L Hgb 9.9 L Hct 29.7 L MCV 91.9 MCH 30.5 MCHC 33.2 RDW 17.0 H Plt Count 362 MPV 8.7 Neut % (Auto) 81.8 H Lymph % (Auto) 2.8 L [place] % (Auto) 12.3 H Eos % (Auto) 2.8 Baso % (Auto) 0.3 Neut # (Auto) 7.5 H Lymph # (Auto) 0.3 L [place] # (Auto) 1.1 H Eos # (Auto) 0.3 Baso # (Auto) 0.0 Neutrophils % (Manual) 80 H Lymphocytes % (Manual) 7 L Monocytes % (Manual) 10 Eosinophils % (Manual) 3 Nucleated RBC % 4 H Platelet Estimate Normal Large Platelets Present Giant Platelets Present Hypochromasia (manual) Slight Poikilocytosis (manual Slight Anisocytosis (manual) Slight Microcytosis (manual) Slight [place] Cells Slight Schistocytes Slight PT INR APTT Sodium Potassium Chloride Carbon Dioxide Anion Gap BUN Creatinine 4.8 H Est GFR ( Amer) Est GFR (Non-Af Amer) POC Glucose (mg/dL) 94 Random Glucose Calcium Ionized Calcium Phosphorus Magnesium % Saturation Ferritin Ur Random Potassium Urine Collection Time 24 Urine Total Volume 1425 Creatinine Clearance 7.0 L Ur Protein 24 Hr Calc 3662.3 H Hep Bs Antigen Hep Bs Antibody Hepatitis C Antibody 07/23/18 07/23/18 07/23/18 07:35 07:35 10:32 WBC RBC Hgb Hct MCV MCH MCHC RDW Plt Count MPV Neut % (Auto) Lymph % (Auto) [place] % (Auto) Eos % (Auto) Baso % (Auto) Neut # (Auto) Lymph # (Auto) [place] # (Auto) Eos # (Auto) Baso # (Auto) Neutrophils % (Manual) Lymphocytes % (Manual) Monocytes % (Manual) Eosinophils % (Manual) Nucleated RBC % Platelet Estimate Large Platelets Giant Platelets Hypochromasia (manual) Poikilocytosis (manual Anisocytosis (manual) Microcytosis (manual) [place] Cells Schistocytes PT 16.5 H INR 1.5 APTT 44 H Sodium 135 Potassium 3.5 L Chloride 106 Carbon Dioxide 15 L Anion Gap 18 BUN 41 H Creatinine 4.8 H Est GFR ( Amer) 12 Est GFR (Non-Af Amer) 10 POC Glucose (mg/dL) 92 Random Glucose 86 Calcium 6.5 L Ionized Calcium Phosphorus Magnesium % Saturation Ferritin Ur Random Potassium Urine Collection Time Urine Total Volume Creatinine Clearance Ur Protein 24 Hr Calc Hep Bs Antigen Hep Bs Antibody Hepatitis C Antibody 07/23/18 07/23/18 07/23/18 12:12 15:10 15:10 WBC RBC Hgb Hct MCV MCH MCHC RDW Plt Count MPV Neut % (Auto) Lymph % (Auto) [place] % (Auto) Eos % (Auto) Baso % (Auto) Neut # (Auto) Lymph # (Auto) [place] # (Auto) Eos # (Auto) Baso # (Auto) Neutrophils % (Manual) Lymphocytes % (Manual) Monocytes % (Manual) Eosinophils % (Manual) Nucleated RBC % Platelet Estimate Large Platelets Giant Platelets Hypochromasia (manual) Poikilocytosis (manual Anisocytosis (manual) Microcytosis (manual) [place] Cells Schistocytes PT INR APTT Sodium Potassium Chloride Carbon Dioxide Anion Gap BUN Creatinine Est GFR ( Amer) Est GFR (Non-Af Amer) POC Glucose (mg/dL) 89 Random Glucose Calcium Ionized Calcium Phosphorus Magnesium % Saturation 21 Ferritin Ur Random Potassium Urine Collection Time Urine Total Volume Creatinine Clearance Ur Protein 24 Hr Calc Hep Bs Antigen Hep Bs Antibody Positive Hepatitis C Antibody 07/23/18 07/23/18 16:38 17:40 WBC RBC Hgb Hct MCV MCH MCHC RDW Plt Count MPV Neut % (Auto) Lymph % (Auto) [place] % (Auto) Eos % (Auto) Baso % (Auto) Neut # (Auto) Lymph # (Auto) [place] # (Auto) Eos # (Auto) Baso # (Auto) Neutrophils % (Manual) Lymphocytes % (Manual) Monocytes % (Manual) Eosinophils % (Manual) Nucleated RBC % Platelet Estimate Large Platelets Giant Platelets Hypochromasia (manual) Poikilocytosis (manual Anisocytosis (manual) Microcytosis (manual) [place] Cells Schistocytes PT INR APTT Sodium Potassium Chloride Carbon Dioxide Anion Gap BUN Creatinine Est GFR ( Amer) Est GFR (Non-Af Amer) POC Glucose (mg/dL) 91 Random Glucose Calcium Ionized Calcium Phosphorus 3.9 Magnesium 1.6 % Saturation Ferritin 91.0 Ur Random Potassium Urine Collection Time Urine Total Volume Creatinine Clearance Ur Protein 24 Hr Calc Hep Bs Antigen Negative Hep Bs Antibody Hepatitis C Antibody Negative
[2018-07-23] MEDS: Meropenem 500 MG in Sodium Chloride 0.9% 100 ML IVPB SCH (22:50)
[2018-07-24] MEDS: Meropenem 500 MG in Sodium Chloride 0.9% 100 ML IVPB SCH (04:59)
--- NOTE | 2018-07-24 08:31 | CP.PCM.PN ---
Subjective - Date & Time of Evaluation Date of Evaluation: 07/24/18 Time of Evaluation: 06:45 - Subjective Subjective: PGY-1 general surgery note for Dr Lackey Patient is seen and examined at bedside. no acute events overnight. Patient is complaining of right arm swelling. Patient denies abdominal pain at this time. Patient states having bowel movements and urinating. Patient denies fever, chills, nausea or vomiting. Objective - Vital Signs/Intake and Output Vital Signs (last 24 hours): Temp Pulse Resp BP Pulse Ox 98.8 F 75 20 177/90 H 98 07/24/18 04:00 07/24/18 07:45 07/24/18 04:00 07/24/18 04:00 07/23/18 23:30 Intake and Output: 07/24/18 07/24/18 06:59 18:59 Intake Total 1120 Output Total 300 Balance 820 - Medications Medications: Current Medications Amlodipine Besylate (Norvasc) 5 mg PO DAILY [facility] Last Admin: 07/23/18 13:14 Dose: 5 mg Famotidine (Pepcid) 20 mg PO DAILY [facility] Last Admin: 07/23/18 13:14 Dose: 20 mg Heparin Sodium (Porcine) (Heparin) 5,000 units SC Q12 [facility] Last Admin: 07/22/18 12:11 Dose: 5,000 units Sodium Bicarbonate 75 meq/ (Sodium Chloride) 1,075 mls @ 125 mls/hr IV .[id number] [facility] Last Admin: 07/24/18 04:59 Dose: 125 mls/hr Meropenem 500 mg/ Sodium (Chloride) 100 mls @ 100 mls/hr IVPB Q8H [facility] PRN Reason: Protocol Last Admin: 07/24/18 04:59 Dose: 100 mls/hr Morphine Sulfate (Morphine) 2 mg IVP Q4H PRN PRN Reason: Pain, severe (8-10) Last Admin: 07/24/18 04:58 Dose: 2 mg Prednisone (Prednisone Tab) 5 mg PO DAILY [facility] Last Admin: 07/23/18 13:14 Dose: 5 mg Vitamin B Complex/Vit C/Folic Acid (Nephro-Ron) 1 tab PO DAILY [facility] Last Admin: 07/23/18 12:37 Dose: Not Given - Labs Labs: 07/23/18 07:35 07/23/18 07:35 PT 16.5 SECONDS (9.7-12.2) H 07/23/18 07:35 INR 1.5 07/23/18 07:35 APTT 44 SECONDS (21-34) H 07/23/18 07:35 - Constitutional Appears: Well, No Acute Distress - Head Exam Head Exam: ATRAUMATIC, NORMAL INSPECTION, NORMOCEPHALIC - Eye Exam Eye Exam: EOMI, Normal appearance - ENT Exam ENT Exam: Normal Exam - Neck Exam Neck Exam: Full ROM Additional comments: permacath right jugular area - Respiratory Exam Respiratory Exam: NORMAL BREATHING PATTERN. absent: Accessory Muscle Use, Respiratory Distress - GI/Abdominal Exam GI & Abdominal Exam: Soft - Extremities Exam Extremities Exam: Full ROM Additional comments: thrombosed left arm AV fistula - Neurological Exam Neurological Exam: Alert, Awake, Oriented x3 - Psychiatric Exam Psychiatric exam: Normal Affect, Normal Mood - Skin Skin Exam: Normal Color, Warm Assessment and Plan - Assessment and Plan (Free Text) Assessment: 47 yo Female with pmhx ESRD, kidney transplant, HTN s/p insertion of permacath- right internal jugular pod#1 Plan: -continue serial abdominal exams -apply warm compresses to affected limb -if edema does not improve, will get upper extremity U/S -management as per primary doctor discussed plan with Dr Ziyad Vega PGY-1
--- NOTE | 2018-07-24 09:26 | CON ---
Copied To: Azra Marrero MD Attending MD: Azra Marrero MD DATE: 07/23/2018 INFECTIOUS DISEASE CONSULT REQUESTED BY: Gretta Villela MD HISTORY OF PRESENT ILLNESS: This patient is a 47-year-old female. Consult was requested for Dr. Cai, but she is away and this patient has a history of renal transplant, she was on immunosuppressive therapy. She says she has been having off and on recurrent diarrhea, but this time she came because her kidney functions are getting worse and she was not feeling well. She denies any diarrhea at this time. She has a chronic pain syndrome. She also has renal insufficiency. She has been on immunosuppressants for transplant kidney, recurrent anemia. She got the kidney in 2009. History of CBD obstruction, status post ERCP and has chronic pain syndrome. She comes in with acute diarrhea, worsening renal failure. At the time, the patient was given IV fluids and antibiotics and one week ago her kidney function started to get worse. She was also having epigastric pain, body pain, nausea and vomiting. She also had four to five times diarrhea and now comes in, but right now she denies any diarrhea. She did go for a catheter placement as she has Renal attending things. The renal transplant is not functioning well. PAST SURGICAL HISTORY: Significant for cholecystectomy, C-sections, renal transplant. PAST MEDICAL HISTORY: Renal insufficiency, hypertension, anemia, osteoporosis, recurrent diarrhea, history of renal transplant. ALLERGIES: SHE IS NOT ALLERGIC TO ANY MEDICINE. PERSONAL HISTORY: Nonsmoker, nonalcoholic. FAMILY HISTORY: Noncontributory. REVIEW OF SYSTEMS: She was having pain when she came in. She also has headache. She is very frail. Denied any chest pain or shortness of breath when I saw her. She was denying diarrhea. She has had diarrhea before, and also has poor appetite. MEDICATIONS: Included amlodipine, famotidine, heparin subcu, morphine for pain. She is also on prednisone, sodium bicarbonate, vitamin B complex, and she is supposed to be on her pain medications. She was on tacrolimus, Prograf, and Renal is following that. REVIEW OF SYSTEMS: She denies much of the complaints. She said her kidney functions were not getting better and she was brought in here and she agreed for the dialysis catheter to be placed and would be getting dialysis. Denied any abdominal pain. No nausea, no vomiting. No diarrhea at that time. PHYSICAL EXAMINATION: VITAL SIGNS: T-max is 98.2, pulse 77, blood pressure is 181/95, respirations are 20. HEENT: Head is atraumatic and normocephalic. NECK: Supple. CHEST: She has a catheter on the left chest wall. LUNGS: Clear. HEART: S1, S2 are regular. ABDOMEN: Soft, nontender. No guarding, no rigidity present. Bowel sounds are present. EXTREMITIES: Have no edema, clubbing, or cyanosis. LABORATORY DATA: Labs are noted. White count is 9.2, hemoglobin 9.9, hematocrit 29.7, platelet count is 362. BUN is 41, creatinine is 4.8, which has increased. She had urine culture which shows Gram-negative rods. ID and sensitivity is pending. She said she used to make lot of urine, but it has decreased in amount recently. She had abdominal and a pelvic CT done, which was done on 07/22/2018 as well as on 07/21/2018 and 07/22/2018 shows decreased prominence of pneumatosis involving the cecum and proximal ascending colon, increased size and now small to moderate pericardial effusion. No other significant interval, also she had some pneumatosis involving the cecum and the proximal ascending colon, which was decreasing, but since she has urinary tract infection, I will put her on Merrem at this time once a day and we will follow. She also has end-stage renal disease and we will follow with you. Azra Marrero MD
[2018-07-24] MEDS: Multivitamin Vitamin B Complex (Nephro-Vite) Tab PO SCH (10:11)
--- NOTE | 2018-07-24 12:45 | CP.PCM.PN ---
Subjective - Date & Time of Evaluation Date of Evaluation: 07/24/18 Time of Evaluation: 12:42 - Subjective Subjective: s/p dialysis 07/23 via permcath- tolerated well Right permcath placed- arm swollen and painful Still with diarrhea. Still with abdominal pains off tacro, on oral prednisone for IS Objective - Vital Signs/Intake and Output Vital Signs (last 24 hours): Temp Pulse Resp BP Pulse Ox 98 F 74 20 167/90 H 98 07/24/18 08:00 07/24/18 08:00 07/24/18 08:00 07/24/18 08:00 07/24/18 08:00 Intake and Output: 07/24/18 07/24/18 06:59 18:59 Intake Total 1120 Output Total 300 Balance 820 - Medications Medications: Current Medications Amlodipine Besylate (Norvasc) 5 mg PO DAILY [facility] Last Admin: 07/24/18 10:11 Dose: 5 mg Famotidine (Pepcid) 20 mg PO DAILY [facility] Last Admin: 07/24/18 10:11 Dose: 20 mg Heparin Sodium (Porcine) (Heparin) 5,000 units SC Q12 [facility] Last Admin: 07/24/18 10:25 Dose: 5,000 units Sodium Bicarbonate 75 meq/ (Sodium Chloride) 1,075 mls @ 125 mls/hr IV .Q8H36M [facility] Last Admin: 07/24/18 04:59 Dose: 125 mls/hr Meropenem 500 mg/ Sodium (Chloride) 100 mls @ 100 mls/hr IVPB Q8H [facility] PRN Reason: Protocol Last Admin: 07/24/18 04:59 Dose: 100 mls/hr Morphine Sulfate (Morphine) 2 mg IVP Q4H PRN PRN Reason: Pain, severe (8-10) Last Admin: 07/24/18 08:53 Dose: 2 mg Prednisone (Prednisone Tab) 5 mg PO DAILY [facility] Last Admin: 07/24/18 10:11 Dose: 5 mg Vitamin B Complex/Vit C/Folic Acid (Nephro-Ron) 1 tab PO DAILY [facility] Last Admin: 07/24/18 10:11 Dose: 1 tab - Labs Labs: 07/23/18 07:35 07/23/18 07:35 PT 16.5 SECONDS (9.7-12.2) H 07/23/18 07:35 INR 1.5 07/23/18 07:35 APTT 44 SECONDS (21-34) H 07/23/18 07:35 - Constitutional Appears: In Acute Distress, Cachectic, Chronically Ill - Head Exam Head Exam: ATRAUMATIC, NORMAL INSPECTION - Eye Exam Eye Exam: EOMI, Normal appearance - Neck Exam Neck Exam: Normal Inspection, Tenderness - Respiratory Exam Respiratory Exam: Clear to Ausculation Bilateral, NORMAL BREATHING PATTERN - Cardiovascular Exam Cardiovascular Exam: REGULAR RHYTHM, +S1 - GI/Abdominal Exam GI & Abdominal Exam: Soft, Tenderness - Extremities Exam Extremities Exam: Normal Inspection. absent: Tenderness - Neurological Exam Neurological Exam: Alert, CN II-XII Intact - Skin Skin Exam: Dry, Warm Assessment and Plan (1) Renal transplant failure and rejection Status: Acute (2) CKD (chronic kidney disease) stage 5, GFR less than 15 ml/min Status: Acute (3) Diarrhea Status: Acute (4) Weight loss, unintentional Status: Acute - Assessment and Plan (Free Text) Plan: check c.diff CMV PCR requested might need colonoscopy Iv bicarb for now- await repeat chemistries repeat HD in AM
--- NOTE | 2018-07-24 13:40 | CP.PCM.PN ---
Subjective - Date & Time of Evaluation Date of Evaluation: 07/24/18 Time of Evaluation: 13:00 - Subjective Subjective: dictated Objective - Vital Signs/Intake and Output Vital Signs (last 24 hours): Temp Pulse Resp BP Pulse Ox 98 F 74 20 167/90 H 98 07/24/18 08:00 07/24/18 08:00 07/24/18 08:00 07/24/18 08:00 07/24/18 08:00 Intake and Output: 07/24/18 07/24/18 06:59 18:59 Intake Total 1120 Output Total 300 Balance 820 - Medications Medications: Current Medications Amlodipine Besylate (Norvasc) 5 mg PO DAILY [facility] Last Admin: 07/24/18 10:11 Dose: 5 mg Famotidine (Pepcid) 20 mg PO DAILY [facility] Last Admin: 07/24/18 10:11 Dose: 20 mg Heparin Sodium (Porcine) (Heparin) 5,000 units SC Q12 [facility] Last Admin: 07/24/18 10:25 Dose: 5,000 units Sodium Bicarbonate 75 meq/ (Sodium Chloride) 1,075 mls @ 125 mls/hr IV .Q8H36M [facility] Last Admin: 07/24/18 04:59 Dose: 125 mls/hr Meropenem 500 mg/ Sodium (Chloride) 100 mls @ 100 mls/hr IVPB Q8H [facility] PRN Reason: Protocol Last Admin: 07/24/18 04:59 Dose: 100 mls/hr Metoprolol Tartrate (Lopressor) 25 mg PO BID [facility] Morphine Sulfate (Morphine) 2 mg IVP Q4H PRN PRN Reason: Pain, severe (8-10) Last Admin: 07/24/18 13:03 Dose: 2 mg Prednisone (Prednisone Tab) 5 mg PO DAILY [facility] Last Admin: 07/24/18 10:11 Dose: 5 mg Vitamin B Complex/Vit C/Folic Acid (Nephro-Ron) 1 tab PO DAILY [facility] Last Admin: 07/24/18 10:11 Dose: 1 tab - Labs Labs: 07/23/18 07:35 07/23/18 07:35 PT 16.5 SECONDS (9.7-12.2) H 07/23/18 07:35 INR 1.5 07/23/18 07:35 APTT 44 SECONDS (21-34) H 07/23/18 07:35
[2018-07-24 14:12] LABS: HEMOGLOBIN 9.3 g/dL (11.0-16.0); MEAN CORPUSCULAR HEMOGLOBIN 30.4 pg (27.0-31.0); MEAN CORPUSCULAR HGB CONC 33.1 g/dL (33.0-37.0); MEAN PLATELET VOLUME 8.5 fL (7.2-11.7); RBC 3.06 Mil/uL (3.80-5.20); RED CELL DISTRIBUTION WIDTH 16.6 % (11.5-14.5); WHITE BLOOD COUNT 11.5 K/uL (4.8-10.8)
[2018-07-24 15:01] LABS: CALCIUM 5.8 mg/dl (8.6-10.4)
[2018-07-24] MEDS: Potassium Chloride 20 mEq ER Tab PO SCH (16:15)
--- NOTE | 2018-07-24 18:55 | PN ---
Copied To: Azra Marrero MD Attending MD: Azra Marrero MD DATE: 07/24/2018 INFECTIOUS DISEASE FOLLOWUP NOTE SUBJECTIVE: The patient was seen yesterday and today she has been on meropenem. She complains of diarrhea and that was one of the complaint she was giving yesterday also, but this then when I asked she said it stopped. It has come back, still with abdominal pain, so we will order a C. diff and other studies, which have already been ordered. She had a dialysis catheter placed yesterday on the right side and is complaining of pain where the PermCath is, complains of diarrhea. She seems to be in pain. PHYSICAL EXAMINATION: VITAL SIGNS: T-max is 98, pulse is 74, blood pressure 167/90, respirations are 20. HEENT: Head is atraumatic, normocephalic. NECK: Supple. LUNGS: Clear. No crackles or rales present. HEART: S1 and S2 is regular. ABDOMEN: Soft, nontender. Bowel sounds are gurgling. EXTREMITIES: Have no edema, clubbing or cyanosis. She had acute renal transplant resection and is with dialysis catheter now and complains of diarrhea. We will rule out C. diff. She also has CKD and CAT scan showed pneumatosis intestinalis and also urine culture has gram-negative rods ID and sensitivity of which is pending, hence I had put her on Merrem a day because she is a dialysis patient at this time and also we will get stool for C. diff and we will follow. She is having of her transplanted kidney and the stool studies have been ordered and she is on Merrem 500 once a day. Azra Marrero MD
[2018-07-25] MEDS: Meropenem 500 MG in Sodium Chloride 0.9% 100 ML IVPB SCH (04:56)
[2018-07-25 06:50] LABS: HEMOGLOBIN 8.7 g/dL (11.0-16.0); MEAN CELL VOLUME 92.6 fL (81.0-99.0); MEAN CORPUSCULAR HEMOGLOBIN 30.5 pg (27.0-31.0); MEAN CORPUSCULAR HGB CONC 32.9 g/dL (33.0-37.0); MEAN PLATELET VOLUME 8.8 fL (7.2-11.7); RBC 2.85 Mil/uL (3.80-5.20); RED CELL DISTRIBUTION WIDTH 17.4 % (11.5-14.5)
[2018-07-25 06:58] LABS: ALB/GLOB RATIO 1.1 (1.0-2.1); ALBUMIN 2.5 g/dL (3.5-5.0); CALCIUM 5.9 mg/dl (8.6-10.4)
--- NOTE | 2018-07-25 08:55 | CP.PCM.PN ---
Subjective - Date & Time of Evaluation Date of Evaluation: 07/25/18 Time of Evaluation: 08:52 - Subjective Subjective: Notes reviewed No diarrhea this am [facility] No overnight events reported No n/v No cp or palp No howell or vision change Ready for hd today ROS negative other than reported above Objective - Vital Signs/Intake and Output Vital Signs (last 24 hours): Temp Pulse Resp BP Pulse Ox 98.3 F 69 20 157/94 H 100 07/25/18 07:48 07/25/18 07:48 07/25/18 07:48 07/25/18 07:48 07/25/18 07:48 Intake and Output: 07/25/18 07/25/18 06:59 18:59 Intake Total 600 Balance 600 - Medications Medications: Current Medications Acetaminophen (Tylenol 325mg Tab) 650 mg PO Q6H PRN PRN Reason: Pain, Mild (1-3) Amlodipine Besylate (Norvasc) 5 mg PO DAILY [facility] Last Admin: 07/24/18 10:11 Dose: 5 mg Calcitriol (Rocaltrol) 0.5 mcg PO DAILY [facility] Calcium Acetate (Phoslo) 1,334 mg PO BIDCC [facility] Last Admin: 07/24/18 17:19 Dose: 1,334 mg Famotidine (Pepcid) 20 mg PO DAILY [facility] Last Admin: 07/24/18 10:11 Dose: 20 mg Heparin Sodium (Porcine) (Heparin) 5,000 units SC Q12 [facility] Last Admin: 07/24/18 22:18 Dose: 5,000 units Sodium Bicarbonate 75 meq/ (Sodium Chloride) 1,075 mls @ 125 mls/hr IV .Q8H36M [facility] Last Admin: 07/24/18 20:29 Dose: Not Given Meropenem 500 mg/ Sodium (Chloride) 100 mls @ 100 mls/hr IVPB 0500 [facility] PRN Reason: Protocol Last Admin: 07/25/18 04:56 Dose: 100 mls/hr Metoprolol Tartrate (Lopressor) 25 mg PO BID [facility] Last Admin: 07/24/18 17:20 Dose: 25 mg Morphine Sulfate (Morphine) 2 mg IVP Q4H PRN PRN Reason: Pain, severe (8-10) Last Admin: 07/25/18 05:52 Dose: 2 mg Potassium Chloride (K-Dur 20 Meq Er Tab) 40 meq PO DAILY [facility] Last Admin: 07/24/18 16:15 Dose: 40 meq Prednisone (Prednisone Tab) 5 mg PO DAILY [facility] Last Admin: 07/24/18 10:11 Dose: 5 mg Vitamin B Complex/Vit C/Folic Acid (Nephro-Ron) 1 tab PO DAILY [facility] Last Admin: 07/24/18 10:11 Dose: 1 tab - Labs Labs: 07/25/18 06:38 07/25/18 06:38 PT 16.5 SECONDS (9.7-12.2) H 07/23/18 07:35 INR 1.5 07/23/18 07:35 APTT 44 SECONDS (21-34) H 07/23/18 07:35 - Constitutional Appears: Cachectic, Chronically Ill - Head Exam Head Exam: ATRAUMATIC, NORMAL INSPECTION - Eye Exam Eye Exam: EOMI, Normal appearance - ENT Exam ENT Exam: Mucous Membranes Moist, Normal Oropharynx - Neck Exam Neck Exam: Normal Inspection. absent: Tenderness - Respiratory Exam Respiratory Exam: Clear to Ausculation Bilateral. absent: Rales, Rhonchi, Wheezes - Cardiovascular Exam Cardiovascular Exam: REGULAR RHYTHM, +S1, +S2 - GI/Abdominal Exam GI & Abdominal Exam: Soft, Normal Bowel Sounds - Extremities Exam Extremities Exam: absent: Pedal Edema, Tenderness - Neurological Exam Neurological Exam: Alert, Awake, Oriented x3 - Psychiatric Exam Psychiatric exam: Normal Affect, Normal Mood - Skin Skin Exam: Dry, Intact Assessment and Plan (1) Dependence on renal dialysis Status: Acute (2) End stage renal disease Status: Acute (3) Diarrhea Status: Acute (4) Hypocalcemia Status: Acute (5) Renal transplant failure and rejection Status: Acute (6) Anemia Status: Acute - Assessment and Plan (Free Text) Assessment: Dialysis scheduled today Bp slowly improving Maintain prednisone CMV studies pending ISMAEL when possible Ca improving with ca supplement and vit d - continue same Encourage oral intake
[2018-07-25] MEDS: Potassium Chloride 20 mEq ER Tab PO SCH (09:12)
[2018-07-25] MEDS: Multivitamin Vitamin B Complex (Nephro-Vite) Tab PO SCH (09:12)
--- NOTE | 2018-07-25 11:31 | CP.PCM.PN ---
Subjective - Date & Time of Evaluation Date of Evaluation: 07/25/18 Time of Evaluation: 11:29 - Subjective Subjective: Surgery Pt getting HD today. Denies abd pain. Having reg BM. TOlerating diet. c/o R arm swelling and pain. Objective - Vital Signs/Intake and Output Vital Signs (last 24 hours): Temp Pulse Resp BP Pulse Ox 98.3 F 69 20 157/94 H 100 07/25/18 07:48 07/25/18 07:48 07/25/18 07:48 07/25/18 07:48 07/25/18 07:48 Intake and Output: 07/25/18 07/25/18 06:59 18:59 Intake Total 600 Balance 600 - Medications Medications: Current Medications Acetaminophen (Tylenol 325mg Tab) 650 mg PO Q6H PRN PRN Reason: Pain, Mild (1-3) Amlodipine Besylate (Norvasc) 5 mg PO DAILY [facility] Last Admin: 07/25/18 09:18 Dose: Not Given Calcitriol (Rocaltrol) 0.5 mcg PO DAILY [facility] Last Admin: 07/25/18 09:19 Dose: Not Given Calcium Acetate (Phoslo) 1,334 mg PO BIDCC [facility] Last Admin: 07/25/18 09:11 Dose: 1,334 mg Famotidine (Pepcid) 20 mg PO DAILY [facility] Last Admin: 07/25/18 09:11 Dose: 20 mg Heparin Sodium (Porcine) (Heparin) 5,000 units SC Q12 [facility] Last Admin: 07/25/18 09:18 Dose: Not Given Sodium Bicarbonate 75 meq/ (Sodium Chloride) 1,075 mls @ 125 mls/hr IV .Q8H36M [facility] Last Admin: 07/24/18 20:29 Dose: Not Given Meropenem 500 mg/ Sodium (Chloride) 100 mls @ 100 mls/hr IVPB 0500 [facility] PRN Reason: Protocol Last Admin: 07/25/18 04:56 Dose: 100 mls/hr Metoprolol Tartrate (Lopressor) 25 mg PO BID [facility] Last Admin: 07/25/18 09:18 Dose: Not Given Morphine Sulfate (Morphine) 2 mg IVP Q4H PRN PRN Reason: Pain, severe (8-10) Last Admin: 07/25/18 05:52 Dose: 2 mg Potassium Chloride (K-Dur 20 Meq Er Tab) 40 meq PO DAILY [facility] Last Admin: 07/25/18 09:12 Dose: 40 meq Prednisone (Prednisone Tab) 5 mg PO DAILY [facility] Last Admin: 07/25/18 09:12 Dose: 5 mg Vitamin B Complex/Vit C/Folic Acid (Nephro-Ron) 1 tab PO DAILY [facility] Last Admin: 07/25/18 09:12 Dose: 1 tab - Labs Labs: 07/25/18 06:38 07/25/18 06:38 PT 16.5 SECONDS (9.7-12.2) H 07/23/18 07:35 INR 1.5 07/23/18 07:35 APTT 44 SECONDS (21-34) H 07/23/18 07:35 - Constitutional Appears: No Acute Distress - Head Exam Head Exam: ATRAUMATIC, NORMAL INSPECTION, NORMOCEPHALIC - Eye Exam Eye Exam: EOMI, Normal appearance, PERRL Pupil Exam: NORMAL ACCOMODATION, PERRL - ENT Exam ENT Exam: Mucous Membranes Moist, Normal Exam - Neck Exam Additional comments: R IJ permacath in place. no bleeding. - Respiratory Exam Respiratory Exam: NORMAL BREATHING PATTERN - Cardiovascular Exam Cardiovascular Exam: REGULAR RHYTHM, +S1, +S2. absent: Murmur - GI/Abdominal Exam GI & Abdominal Exam: Soft. absent: Distended, Tenderness - Extremities Exam Extremities Exam: Full ROM Additional comments: R arm swollen , no eryhtema - Back Exam Back Exam: NORMAL INSPECTION - Neurological Exam Neurological Exam: Alert, Awake, CN II-XII Intact, Normal Gait, Oriented x3 - Psychiatric Exam Psychiatric exam: Normal Affect, Normal Mood - Skin Skin Exam: Dry, Intact, Normal Color, Warm Assessment and Plan - Assessment and Plan (Free Text) Assessment: 47yo F with PMHx of CKD s/p kidney transplant, HTN, anemia, chronic diarrhea with disfunctional left arm AV fistula . s/p R IJ permacath POD 2 Pneumotosis of R colon on CT Plan: -cont HD -f/u US for R arm swelling -No surgical intervention for CT finding. discussed plan with Dr Lackey
[2018-07-26] MEDS: Meropenem 500 MG in Sodium Chloride 0.9% 100 ML IVPB SCH (05:44)
--- NOTE | 2018-07-26 08:15 | CP.PCM.PN ---
Subjective - Date & Time of Evaluation Date of Evaluation: 07/26/18 Time of Evaluation: 08:12 - Subjective Subjective: Surgery Pt seen and examined. no acute events. Got HD yeterday. c/o R arm swelling, pain and dec ROM. Objective - Vital Signs/Intake and Output Vital Signs (last 24 hours): Temp Pulse Resp BP Pulse Ox 98.3 F 59 L 20 145/81 99 07/26/18 07:00 07/26/18 07:00 07/26/18 07:00 07/26/18 07:00 07/26/18 07:00 Intake and Output: 07/26/18 07/26/18 06:59 18:59 Intake Total 640 Output Total 450 Balance 190 - Medications Medications: Current Medications Acetaminophen (Tylenol 325mg Tab) 650 mg PO Q6H PRN PRN Reason: Pain, Mild (1-3) Amlodipine Besylate (Norvasc) 5 mg PO DAILY [facility] Last Admin: 07/25/18 09:18 Dose: Not Given Calcitriol (Rocaltrol) 0.5 mcg PO DAILY [facility] Last Admin: 07/25/18 09:19 Dose: Not Given Calcium Acetate (Phoslo) 1,334 mg PO BIDCC [facility] Last Admin: 07/25/18 18:15 Dose: 1,334 mg Famotidine (Pepcid) 20 mg PO DAILY [facility] Last Admin: 07/25/18 09:11 Dose: 20 mg Heparin Sodium (Porcine) (Heparin) 5,000 units SC Q12 [facility] Last Admin: 07/25/18 22:42 Dose: 5,000 units Meropenem 500 mg/ Sodium (Chloride) 100 mls @ 100 mls/hr IVPB 0500 [facility] PRN Reason: Protocol Last Admin: 07/26/18 05:44 Dose: 100 mls/hr Metoprolol Tartrate (Lopressor) 25 mg PO BID [facility] Last Admin: 07/25/18 18:12 Dose: 25 mg Morphine Sulfate (Morphine) 2 mg IVP Q4H PRN PRN Reason: Pain, severe (8-10) Last Admin: 07/26/18 06:37 Dose: 2 mg Potassium Chloride (K-Dur 20 Meq Er Tab) 40 meq PO DAILY [facility] Last Admin: 07/25/18 09:12 Dose: 40 meq Prednisone (Prednisone Tab) 5 mg PO DAILY [facility] Last Admin: 07/25/18 09:12 Dose: 5 mg Vitamin B Complex/Vit C/Folic Acid (Nephro-Ron) 1 tab PO DAILY [facility] Last Admin: 07/25/18 09:12 Dose: 1 tab - Labs Labs: 07/25/18 06:38 07/25/18 06:38 PT 16.5 SECONDS (9.7-12.2) H 07/23/18 07:35 INR 1.5 07/23/18 07:35 APTT 44 SECONDS (21-34) H 07/23/18 07:35 - Constitutional Appears: No Acute Distress - Head Exam Head Exam: ATRAUMATIC, NORMAL INSPECTION, NORMOCEPHALIC - Eye Exam Eye Exam: EOMI, Normal appearance, PERRL Pupil Exam: NORMAL ACCOMODATION, PERRL - ENT Exam ENT Exam: Mucous Membranes Moist, Normal Exam Additional comments: R permacath in place. TTP - Neck Exam Neck Exam: Full ROM, Normal Inspection. absent: Lymphadenopathy - Respiratory Exam Respiratory Exam: NORMAL BREATHING PATTERN - Cardiovascular Exam Cardiovascular Exam: REGULAR RHYTHM, +S1, +S2. absent: Murmur - GI/Abdominal Exam GI & Abdominal Exam: Soft. absent: Distended, Tenderness - Extremities Exam Extremities Exam: Tenderness. absent: Full ROM, Joint Swelling, Normal Inspection, Pedal Edema Additional comments: R arm edema, dec ROM. - Back Exam Back Exam: NORMAL INSPECTION - Neurological Exam Neurological Exam: Alert, Awake, CN II-XII Intact, Normal Gait, Oriented x3 - Psychiatric Exam Psychiatric exam: Normal Affect, Normal Mood - Skin Skin Exam: Dry, Intact, Normal Color, Warm Assessment and Plan - Assessment and Plan (Free Text) Assessment: 47yo F with PMHx of CKD s/p kidney transplant, HTN, anemia, chronic diarrhea with disfunctional left arm AV fistula . s/p R IJ permacath POD 3 Pneumotosis of R colon on CT Plan: -cont HD -f/u US for R arm swelling -No surgical intervention for CT finding. discussed plan with Dr Lackey
[2018-07-26] MEDS: Potassium Chloride 20 mEq ER Tab PO SCH (09:48)
[2018-07-26] MEDS: Multivitamin Vitamin B Complex (Nephro-Vite) Tab PO SCH (09:48)
--- NOTE | 2018-07-26 10:33 | PCM.PSYCH ---
Initial Psychiatric Evaluation - Initial Psychiatric Evaluation Type of Admission: Voluntary Legal Status: Capacity Chief Complaint (in patient's own words): "I'm confused and frustrat History of Present Illness and Precipitating Events: The patient is seen, chart reviewed and case discussed. Consultation was requested for patient's anxiety This is a 47-year-old female, with 2 daughters aged 24 and 27. She lives alone and she is unemployed. She says she had a kidney transplant 8 years ago but this year her kidneys started to act up again and she now has to do hemodialysis. Because of that she had been depressed and very anxious. Here, she is frustrated because she doesn' t know where she will go for dialysis next week. She denies suicidal or homicidal ideation and no psychotic or manic symptoms elicited. She doesn't fulfill criteria for depression but she is anxious. Past psych history: Denies Family psych history: Denies Medical history: High blood pressure was to praises and ESRD Current Medications: Active Medications Generic Name Dose Route Start Last Admin Trade Name Freq PRN Reason Stop Dose Admin Acetaminophen 650 mg 07/24/18 19:02 Tylenol 325mg Tab PO Q6H PRN Pain, Mild (1-3) Amlodipine Besylate 5 mg 07/22/18 10:00 07/26/18 09:49 Norvasc PO 5 mg DAILY [facility] Administration Calcitriol 0.5 mcg 07/25/18 10:00 07/26/18 09:49 Rocaltrol PO 0.5 mcg DAILY [facility] Administration Calcium Acetate 1,334 mg 07/24/18 17:00 07/26/18 08:32 Phoslo PO 1,334 mg BIDCC [facility] Administration Famotidine 20 mg 07/22/18 10:00 07/26/18 09:48 Pepcid PO 20 mg DAILY [facility] Administration Heparin Sodium (Porcine) 5,000 units 07/21/18 22:00 07/26/18 09:49 Heparin SC 5,000 units Q12 [facility] Administration Meropenem 500 mg/ Sodium 100 mls @ 100 mls/hr 07/25/18 05:00 07/26/18 05:44 Chloride IVPB 100 mls/hr 0500 [facility] Administration Protocol Metoprolol Tartrate 25 mg 07/24/18 18:00 07/26/18 09:49 Lopressor PO 25 mg BID [facility] Administration Morphine Sulfate 2 mg 07/23/18 23:00 07/26/18 06:37 Morphine IVP 2 mg Q4H PRN Administration Pain, severe (8-10) Potassium Chloride 40 meq 07/24/18 15:45 07/26/18 09:48 K-Dur 20 Meq Er Tab PO 40 meq DAILY [facility] Administration Prednisone 5 mg 07/22/18 10:00 07/26/18 09:48 Prednisone Tab PO 5 mg DAILY [facility] Administration Vitamin B Complex/Vit C/Folic Acid 1 tab 07/22/18 10:00 07/26/18 09:48 Nephro-Ron PO 1 tab DAILY [facility] Administration Past Psychiatric History - Past Psychiatric History Previous Treatment History: None Pertinent Medical Hx (Current Medical&Sleep Prob, Allergies): Allergies Allergy/AdvReac Type Severity Reaction Status Date / Time No Known Allergies Allergy Verified 07/21/18 16:38 Famotidine 40 mg PO DAILY 03/13/16 Mycophenolate Sodium [Mycophenolic Acid] 1 cap PO BID 03/13/16 Prednisone 5 mg PO DAILY 03/13/16 Tacrolimus 1 mg PO BID 03/13/16 Magnesium Oxide [Mag-Ox] 400 mg PO BID 12/27/17 Oxycodone HCl/Acetaminophen [Percocet 7.5-325 mg Tablet] 1 each PO TID 12/27/17 Vit B Comp No.3/Folic/C/Biotin [Vol-Care Rx Tablet] 1 tab PO DAILY 12/27/17 Bacillus Coagulans [Probiotic] 1 each PO DAILY #14 capsule. 06/09/18 Review of Systems - Neurological Neurological: UNREMARKABLE - Psychiatric Psychiatric: Abnormal Sleep Pattern, Anxiety, Difficulty Concentrating, Irritability. absent: Depression, Hallucinations, Homicidal Ideation, Paranoia , Suicidal Ideation Mental Status Examination - Personal Presentation Personal Presentation: Looks stated age - Affect Affect: Constricted - Motor Activity Motor Activity: Calm - Reliability in Providing Information Reliability in Providing Information: Good - Speech Speech: Organized - Mood Mood: Depressed, Anxious - Formal Thought Process Formal Thought Process: No Impairment - Cognitive Functions Orientation: Person, Place, Situation, Time Sensorium: Alert Attention/Concentration: Attentive Estimate of Intelligence: Average Judgement: Intact, as evidence by: Insight regarding need for hospitalization Memory: Recent intact, as evidence by: Ability to recall events of the day, Remote intact, as evidenced by: Abilit to recall sig. life events - Risk Risk: Diminished functioning - Strength & Assets Inventory Strength & Assets Inventory: Family support, Cooperative - Limitations Limitations: Living alone DSM 5 DX - DSM 5 DSM 5 Diagnosis: Adjustment disorder with mixed anxiety and depression - Recommended/Plan of Treatment Treatment Recommendations and Plan of Treatment: No standing medications needed Trazodone as needed for insomnia Klonopin as needed for anxiety Support and psychoeducation Please have the older adult social work specialist see her and arrange aftercare for hemodialysis, which is her main stressor at this point Psych will sign off 32 minutes
--- NOTE | 2018-07-26 15:14 | VASCLAB ---
Date of service: 07/26/2018 PROCEDURE: Right Upper Extremity Venous Duplex Exam HISTORY: Swelling of right arm, pain in limb, recent dialysis catheter placed. PRIORS: None. TECHNIQUE: Right upper extremity, internal jugular, subclavian, axillary, brachial, ulnar, radial, basilic and upper cephalic veins were evaluated. Flow was assessed with color Doppler, compressibility, assessment of phasic flow and augmentation response. Report prepared by TEOODRA Cervantes FINDINGS: RIGHT: 1. Internal Jugular: 1.1. Compressibility - Fully compressible: Thrombus - None : Flow - Phasic: Augmentation -Normal: Reflux - None. 2. Subclavian: 2.1. Compressibility - Fully compressible: Thrombus - None : Flow - Phasic: Augmentation -Normal: Reflux - None. 3. Axillary: 3.1. Compressibility - Fully compressible: Thrombus - None : Flow - Phasic: Augmentation -Normal: Reflux - None. 4. Brachial: 4.1. Compressibility - Fully compressible: Thrombus - None: Flow - Phasic: Augmentation -Normal: Reflux - None. 5. Ulnar: 5.1. Compressibility - Fully compressible: Thrombus - None: Flow - Phasic: Augmentation -Normal: Reflux - None. 6. Radial: 6.1. Compressibility - Fully compressible: Thrombus - None: Flow - Phasic: Augmentation - Normal: Reflux - None. 7. Cephalic: 7.1. Compressibility - Partial: Thrombus - Subacute: Flow - Absent 8. Basilic: 8.1. Compressibility - Fully compressible: Thrombus - None: Flow - Phasic: Augmentation -Normal: Reflux - None. OTHER FINDINGS: Normal venous flow noted in the LEFT internal jugular and left subclavian veins. IMPRESSION: Right: 1. No evidence of deep vein thrombosis of the right upper extremity. 2. Superficial phlebitis of the right cephalic vein, at upper arm and proximal forearm. Findings were provided to Mendez oGmez at 11:03 a.m.
--- NOTE | 2018-07-26 19:09 | CP.PCM.PN ---
Subjective - Date & Time of Evaluation Date of Evaluation: 07/26/18 Time of Evaluation: 19:09 - Subjective Subjective: Patient is feeling somewhat depressed. Weak and tired. Patient is seen by psychiatrist. Antidepressant started. Vital signs. Stable Right thumb swelling slightly better. Poor venous access noted. Patient has a AV fistula on the left arm. Hemodialysis catheter on the right side internal jugular vein having very poor venous access at this time. On pain management also currently receiving morphine and Percocet. Diarrhea better. Objective - Vital Signs/Intake and Output Vital Signs (last 24 hours): Temp Pulse Resp BP Pulse Ox 97.7 F 74 20 120/70 98 07/26/18 15:00 07/26/18 15:00 07/26/18 15:00 07/26/18 17:25 07/26/18 15:00 Intake and Output: 07/26/18 07/27/18 18:59 06:59 Intake Total 200 Balance 200 - Medications Medications: Current Medications Acetaminophen (Tylenol 325mg Tab) 650 mg PO Q6H PRN PRN Reason: Pain, Mild (1-3) Amlodipine Besylate (Norvasc) 5 mg PO DAILY [facility] Last Admin: 07/26/18 09:49 Dose: 5 mg Calcitriol (Rocaltrol) 0.5 mcg PO DAILY [facility] Last Admin: 07/26/18 09:49 Dose: 0.5 mcg Calcium Acetate (Phoslo) 1,334 mg PO BIDCC [facility] Last Admin: 07/26/18 17:25 Dose: 1,334 mg Famotidine (Pepcid) 20 mg PO DAILY [facility] Last Admin: 07/26/18 09:48 Dose: 20 mg Heparin Sodium (Porcine) (Heparin) 5,000 units SC Q12 [facility] Last Admin: 07/26/18 09:49 Dose: 5,000 units Meropenem 500 mg/ Sodium (Chloride) 100 mls @ 100 mls/hr IVPB 0500 [facility] PRN Reason: Protocol Last Admin: 07/26/18 05:44 Dose: 100 mls/hr Lorazepam (Ativan) 0.5 mg PO Q6H PRN PRN Reason: Anxiety Metoprolol Tartrate (Lopressor) 25 mg PO BID [facility] Last Admin: 07/26/18 17:25 Dose: 25 mg Morphine Sulfate (Morphine) 2 mg IVP Q4H PRN PRN Reason: Pain, severe (8-10) Last Admin: 07/26/18 16:26 Dose: 2 mg Potassium Chloride (K-Dur 20 Meq Er Tab) 40 meq PO DAILY [facility] Last Admin: 07/26/18 09:48 Dose: 40 meq Prednisone (Prednisone Tab) 5 mg PO DAILY [facility] Last Admin: 07/26/18 09:48 Dose: 5 mg Trazodone HCl (Desyrel) 50 mg PO [facility] Vitamin B Complex/Vit C/Folic Acid (Nephro-Ron) 1 tab PO DAILY [facility] Last Admin: 07/26/18 09:48 Dose: 1 tab - Labs Labs: 07/25/18 06:38 07/25/18 06:38 PT 16.5 SECONDS (9.7-12.2) H 07/23/18 07:35 INR 1.5 07/23/18 07:35 APTT 44 SECONDS (21-34) H 07/23/18 07:35
--- NOTE | 2018-07-26 22:50 | CP.PCM.PN ---
Subjective - Date & Time of Evaluation Date of Evaluation: 07/26/18 Time of Evaluation: 12:00 - Subjective Subjective: dictated Objective - Vital Signs/Intake and Output Vital Signs (last 24 hours): Temp Pulse Resp BP Pulse Ox 97.7 F 70 20 120/70 98 07/26/18 15:00 07/26/18 18:00 07/26/18 15:00 07/26/18 17:25 07/26/18 15:00 Intake and Output: 07/26/18 07/27/18 18:59 06:59 Intake Total 200 Balance 200 - Medications Medications: Current Medications Acetaminophen (Tylenol 325mg Tab) 650 mg PO Q6H PRN PRN Reason: Pain, Mild (1-3) Amlodipine Besylate (Norvasc) 5 mg PO DAILY [facility] Last Admin: 07/26/18 09:49 Dose: 5 mg Calcitriol (Rocaltrol) 0.5 mcg PO DAILY [facility] Last Admin: 07/26/18 09:49 Dose: 0.5 mcg [facility] ([facility]) [facility] Last Admin: 07/26/18 17:25 Dose: 1,334 mg Famotidine (Pepcid) 20 mg PO DAILY [facility] Last Admin: 07/26/18 09:48 Dose: 20 mg Heparin Sodium (Porcine) (Heparin) 5,000 units SC Q12 [facility] Last Admin: 07/26/18 21:05 Dose: 5,000 units Meropenem 500 mg/ Sodium (Chloride) 100 mls @ 100 mls/hr IVPB 0500 [facility] PRN Reason: Protocol Last Admin: 07/26/18 05:44 Dose: 100 mls/hr Lorazepam (Ativan) 0.5 mg PO Q6H PRN PRN Reason: Anxiety Metoprolol Tartrate (Lopressor) 25 mg PO BID [facility] Last Admin: 07/26/18 17:25 Dose: 25 mg Morphine Sulfate (Morphine) 2 mg IVP Q4H PRN PRN Reason: Pain, severe (8-10) Last Admin: 07/26/18 21:05 Dose: 2 mg Potassium Chloride (K-Dur 20 Meq Er Tab) 40 meq PO DAILY [facility] Last Admin: 07/26/18 09:48 Dose: 40 meq Prednisone (Prednisone Tab) 5 mg PO DAILY [facility] Last Admin: 09/02/18 09:48 Dose: 5 mg Trazodone HCl (Desyrel) 50 mg PO [facility] Last Admin: 07/26/18 21:05 Dose: 50 mg Vitamin B Complex/Vit C/Folic Acid (Nephro-Ron) 1 tab PO DAILY [facility] Last Admin: 07/26/18 09:48 Dose: 1 tab - Labs Labs: 07/25/18 06:38 07/25/18 06:38 PT 16.5 SECONDS (9.7-12.2) H 07/23/18 07:35 INR 1.5 07/23/18 07:35 APTT 44 SECONDS (21-34) H 07/23/18 07:35
[2018-07-27] MEDS: Meropenem 500 MG in Sodium Chloride 0.9% 100 ML IVPB SCH (04:32)
[2018-07-27 08:32] LABS: SQUAMOUS EPITHIAL 3 /hpf (0-5); URINE BILIRUBIN NEGATIVE (NEGATIVE); URINE BLOOD NEGATIVE (NEGATIVE); URINE CLARITY Hazy (Clear); URINE COLOR Yellow (YELLOW); URINE GLUCOSE (UA) 1+ mg/dL (Normal); URINE LEUKOCYTE ESTERASE NEG Leu/uL (Negative); URINE PROTEIN 3+ mg/dL (NEGATIVE); URINE UROBILINOGEN NORMAL mg/dL (0.2-1.0)
[2018-07-27] MEDS: Multivitamin Vitamin B Complex (Nephro-Vite) Tab PO SCH (10:15)
[2018-07-27] MEDS: Potassium Chloride 20 mEq ER Tab PO SCH (10:16)
--- NOTE | 2018-07-27 10:16 | CP.PCM.PN ---
Subjective - Date & Time of Evaluation Date of Evaluation: 07/27/18 Time of Evaluation: 10:14 - Subjective Subjective: Feels better Dialysis well tolerated PTH high, ca low- calcitriol started less diarrhea, afebrile not SOB Objective - Vital Signs/Intake and Output Vital Signs (last 24 hours): Temp Pulse Resp BP Pulse Ox 98.5 F 65 18 131/79 99 07/27/18 07:30 07/27/18 07:30 07/27/18 07:30 07/27/18 07:30 07/27/18 07:30 - Medications Medications: Current Medications Acetaminophen (Tylenol 325mg Tab) 650 mg PO Q6H PRN PRN Reason: Pain, Mild (1-3) Amlodipine Besylate (Norvasc) 5 mg PO DAILY [facility] Last Admin: 07/26/18 09:49 Dose: 5 mg Calcitriol (Rocaltrol) 0.5 mcg PO DAILY [facility] Last Admin: 07/26/18 09:49 Dose: 0.5 mcg [facility] Last Admin: 07/27/18 08:38 Dose: 1,334 mg Famotidine (Pepcid) 20 mg PO DAILY [facility] Last Admin: 07/26/18 09:48 Dose: 20 mg Heparin Sodium (Porcine) (Heparin) 5,000 units SC Q12 [facility] Last Admin: 07/26/18 21:05 Dose: 5,000 units Meropenem 500 mg/ Sodium (Chloride) 100 mls @ 100 mls/hr IVPB 0500 [facility] PRN Reason: Protocol Last Admin: 07/27/18 04:32 Dose: 100 mls/hr Lorazepam (Ativan) 0.5 mg PO Q6H PRN PRN Reason: Anxiety Metoprolol Tartrate (Lopressor) 25 mg PO BID [facility] Last Admin: 07/26/18 17:25 Dose: 25 mg Morphine Sulfate (Morphine) 2 mg IVP Q4H PRN PRN Reason: Pain, severe (8-10) Last Admin: 07/27/18 04:28 Dose: 2 mg Potassium Chloride (K-Dur 20 Meq Er Tab) 40 meq PO DAILY [facility] Last Admin: 07/26/18 09:48 Dose: 40 meq Prednisone (Prednisone Tab) 5 mg PO DAILY [facility] Last Admin: 07/26/18 09:48 Dose: 5 mg Trazodone HCl (Desyrel) 50 mg PO [facility] Last Admin: 07/26/18 21:05 Dose: 50 mg Vitamin B Complex/Vit C/Folic Acid (Nephro-Ron) 1 tab PO DAILY [facility] Last Admin: 07/26/18 09:48 Dose: 1 tab - Labs Labs: 07/25/18 06:38 07/25/18 06:38 PT 16.5 SECONDS (9.7-12.2) H 07/23/18 07:35 INR 1.5 07/23/18 07:35 APTT 44 SECONDS (21-34) H 07/23/18 07:35 - Constitutional Appears: No Acute Distress, Chronically Ill - Head Exam Head Exam: ATRAUMATIC, NORMAL INSPECTION - Eye Exam Eye Exam: EOMI, Normal appearance - Neck Exam Neck Exam: Normal Inspection. absent: Tenderness - Respiratory Exam Respiratory Exam: Clear to Ausculation Bilateral, NORMAL BREATHING PATTERN - Cardiovascular Exam Cardiovascular Exam: REGULAR RHYTHM, +S1 - GI/Abdominal Exam GI & Abdominal Exam: Soft, Tenderness - Extremities Exam Extremities Exam: Tenderness. 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
[2018-07-27] MEDS: Magnesium Sulfate 1 gm in D5W 1 GM/100 ML BAG IVPB SCH ×2 (10:30→11:22)
[2018-07-27] MEDS ORDERED: Ferric Sodium Gluconat Complex 62.5 mg/5 ml Vial IVPB SCH (10:30)
[2018-07-27] MEDS: Ferric Sodium Gluconat Complex 125 MG in Sodium Chloride 0.9% 100 ML IVPB SCH (11:20)
--- NOTE | 2018-07-27 13:46 | CP.PCM.PN ---
Subjective - Date & Time of Evaluation Date of Evaluation: 07/27/18 Time of Evaluation: 13:42 - Subjective Subjective: Surgery Pt seen and examined. R arm pain, swelling improved. Getting HD w permacath w/o issues. Had US of R arm. Denies nausea. Objective - Vital Signs/Intake and Output Vital Signs (last 24 hours): Temp Pulse Resp BP Pulse Ox 98.5 F 65 18 123/73 99 07/27/18 07:30 07/27/18 07:30 07/27/18 07:30 07/27/18 10:15 07/27/18 07:30 - Medications Medications: Current Medications Acetaminophen (Tylenol 325mg Tab) 650 mg PO Q6H PRN PRN Reason: Pain, Mild (1-3) Amlodipine Besylate (Norvasc) 5 mg PO DAILY [facility] Last Admin: 07/27/18 10:15 Dose: 5 mg Calcitriol (Rocaltrol) 0.5 mcg PO DAILY [facility] Last Admin: 07/27/18 10:16 Dose: 0.5 mcg Calcium Acetate (Phoslo) 1,334 mg PO TID [facility] Last Admin: 07/27/18 13:10 Dose: 1,334 mg Epoetin Sergio (Procrit) 10,000 unit IV TTS [facility] Famotidine (Pepcid) 20 mg PO DAILY [facility] Last Admin: 07/27/18 10:15 Dose: 20 mg Heparin Sodium (Porcine) (Heparin) 5,000 units SC Q12 [facility] Last Admin: 07/27/18 10:15 Dose: 5,000 units Meropenem 500 mg/ Sodium (Chloride) 100 mls @ 100 mls/hr IVPB 0500 [facility] PRN Reason: Protocol Last Admin: 07/27/18 04:32 Dose: 100 mls/hr Ferric Sodium Gluconate Complex 125 mg/ Sodium Chloride 110 mls @ 110 mls/hr IVPB DAILY [facility] Stop: 08/04/18 10:01 Last Admin: 07/27/18 11:20 Dose: 110 mls/hr Lorazepam (Ativan) 0.5 mg PO Q6H PRN PRN Reason: Anxiety Metoprolol Tartrate (Lopressor) 25 mg PO BID [facility] Last Admin: 07/27/18 10:15 Dose: 25 mg Morphine Sulfate (Morphine) 2 mg IVP Q4H PRN PRN Reason: Pain, severe (8-10) Last Admin: 07/27/18 10:13 Dose: 2 mg Potassium Chloride (K-Dur 20 Meq Er Tab) 40 meq PO DAILY [facility] Last Admin: 07/27/18 10:16 Dose: 40 meq Prednisone (Prednisone Tab) 5 mg PO DAILY [facility] Last Admin: 07/27/18 10:15 Dose: 5 mg Trazodone HCl (Desyrel) 50 mg PO HS [facility] Last Admin: 07/26/18 21:05 Dose: 50 mg Vitamin B Complex/Vit C/Folic Acid (Nephro-Ron) 1 tab PO DAILY [facility] Last Admin: 07/27/18 10:15 Dose: 1 tab - Labs Labs: 07/25/18 06:38 07/25/18 06:38 PT 16.5 SECONDS (9.7-12.2) H 07/23/18 07:35 INR 1.5 07/23/18 07:35 APTT 44 SECONDS (21-34) H 07/23/18 07:35 - Constitutional Appears: No Acute Distress - Head Exam Head Exam: ATRAUMATIC, NORMAL INSPECTION, NORMOCEPHALIC - Eye Exam Eye Exam: EOMI, Normal appearance, PERRL Pupil Exam: NORMAL ACCOMODATION, PERRL - ENT Exam ENT Exam: Mucous Membranes Moist, Normal Exam - Neck Exam Neck Exam: Full ROM. absent: Lymphadenopathy Additional comments: R permacath in place. no signs of infection - Respiratory Exam Respiratory Exam: NORMAL BREATHING PATTERN - Cardiovascular Exam Cardiovascular Exam: REGULAR RHYTHM - GI/Abdominal Exam GI & Abdominal Exam: Soft, Normal Bowel Sounds. absent: Tenderness - Extremities Exam Extremities Exam: Normal Capillary Refill. absent: Full ROM, Joint Swelling, Normal Inspection, Pedal Edema Additional comments: L arm thrombosed AVF. R arm edema. Dec ROM - Back Exam Back Exam: NORMAL INSPECTION - Neurological Exam Neurological Exam: Alert, Awake, CN II-XII Intact, Normal Gait, Oriented x3 - Psychiatric Exam Psychiatric exam: Normal Affect, Normal Mood - Skin Skin Exam: Dry, Intact, Normal Color, Warm. absent: Erythema Assessment and Plan - Assessment and Plan (Free Text) Assessment: 47yo F with PMHx of CKD s/p kidney transplant, HTN, anemia, chronic diarrhea with disfunctional left arm AV fistula . s/p R IJ permacath POD 4 Pneumotosis of R colon on CT US: R cephalic superficial thrombophlebitis, no DVT, No central vein stenosis Plan: -cont HD -Regular diet -f/u vein bill to plan for AVF discussed plan with Dr Lackey
--- NOTE | 2018-07-27 20:01 | CP.PCM.PN ---
Subjective - Date & Time of Evaluation Date of Evaluation: 07/27/18 Time of Evaluation: 13:15 - Subjective Subjective: dictated Objective - Vital Signs/Intake and Output Vital Signs (last 24 hours): Temp Pulse Resp BP Pulse Ox 98.6 F 72 20 133/77 99 07/27/18 15:00 07/27/18 16:08 07/27/18 15:00 07/27/18 17:31 07/27/18 15:00 - Medications Medications: Current Medications Acetaminophen (Tylenol 325mg Tab) 650 mg PO Q6H PRN PRN Reason: Pain, Mild (1-3) Amlodipine Besylate (Norvasc) 5 mg PO DAILY [facility] Last Admin: 07/27/18 10:15 Dose: 5 mg Calcitriol (Rocaltrol) 0.5 mcg PO DAILY [facility] Last Admin: 07/27/18 10:16 Dose: 0.5 mcg Calcium Acetate (Phoslo) 1,334 mg PO TID [facility] Last Admin: 07/27/18 17:31 Dose: 1,334 mg Epoetin Sergio (Procrit) 10,000 unit IV TTS [facility] Famotidine (Pepcid) 20 mg PO DAILY [facility] Last Admin: 07/27/18 10:15 Dose: 20 mg Heparin Sodium (Porcine) (Heparin) 5,000 units SC Q12 [facility] Last Admin: 07/27/18 10:15 Dose: 5,000 units Meropenem 500 mg/ Sodium (Chloride) 100 mls @ 100 mls/hr IVPB 0500 [facility] PRN Reason: Protocol Last Admin: 07/27/18 04:32 Dose: 100 mls/hr Ferric Sodium Gluconate Complex 125 mg/ Sodium Chloride 110 mls @ 110 mls/hr IVPB DAILY [facility] Stop: 08/04/18 10:01 Last Admin: 07/27/18 11:20 Dose: 110 mls/hr Lorazepam (Ativan) 0.5 mg PO Q6H PRN PRN Reason: Anxiety Metoprolol Tartrate (Lopressor) 25 mg PO BID [facility] Last Admin: 07/27/18 17:31 Dose: 25 mg Morphine Sulfate (Morphine) 2 mg IVP Q4H PRN PRN Reason: Pain, severe (8-10) Last Admin: 07/27/18 18:56 Dose: 2 mg Potassium Chloride (K-Dur 20 Meq Er Tab) 40 meq PO DAILY [facility] Last Admin: 07/27/18 10:16 Dose: 40 meq Prednisone (Prednisone Tab) 5 mg PO DAILY [facility] Last Admin: 07/27/18 10:15 Dose: 5 mg Trazodone HCl (Desyrel) 50 mg PO HS [facility] Last Admin: 07/26/18 21:05 Dose: 50 mg Vitamin B Complex/Vit C/Folic Acid (Nephro-Ron) 1 tab PO DAILY [facility] Last Admin: 07/27/18 10:15 Dose: 1 tab - Labs Labs: 07/25/18 06:38 07/25/18 06:38 PT 16.5 SECONDS (9.7-12.2) H 07/23/18 07:35 INR 1.5 07/23/18 07:35 APTT 44 SECONDS (21-34) H 07/23/18 07:35
--- NOTE | 2018-07-28 00:29 | PN ---
Copied To: Azra Marrero MD Attending MD: Azra Marrero MD DATE: 07/27/2018 SUBJECTIVE: The patient was seen today. She was feeling little better. However, she said her right arm was again swollen. She had the IV in the right arm but the site looked unremarkable, but the swelling was increasing. I told her to follow up with the nurse because it did not look that it was the cause. She has failed her transplant kidney, and now, he is on dialysis and is tolerating well. I had asked for a urine culture as her culture was gram-negative rods on 07/22 and that culture was less than 10,000 species. I am not sure if she gave another urine. She gave today urine. She denies any other complaints. OBJECTIVE: VITAL SIGNS: Her T-max is 98.6, pulse 68, blood pressure 133/77, respirations are 20. HEENT: Head is atraumatic, normocephalic. NECK: Supple. LUNGS: Clear. HEART: S1, S2 regular. ABDOMEN: Soft, nontender. No guarding, no rigidity present. EXTREMITIES: Have no edema. Her repeat urine shows only seven 7 wbc's, 3+ protein. She is a dialysis patient and just had failed kidney right now; and her chemistry, glucose was 111, white count is 8, hemoglobin 8.7, hematocrit 26.4, platelet count is 215, so we will follow and probably we will discontinue meropenem if the urine culture is negative. We will follow with the renal team, and the patient, however, has just been placed on dialysis as her transplant kidney has failed. Azra Marrero MD
[2018-07-28] MEDS: Meropenem 500 MG in Sodium Chloride 0.9% 100 ML IVPB SCH (04:15)
[2018-07-28 07:44] LABS: BASO % 0.3 % (0.0-2.0); EOS # 0.1 K/uL (0.0-0.7); EOS % 1.7 % (0.0-4.0); HEMOGLOBIN 8.2 g/dL (11.0-16.0); LYMPH # 1.1 K/uL (1.0-4.3); LYMPH % 12.9 % (20.0-40.0); MEAN CELL VOLUME 94.4 fL (81.0-99.0); MEAN CORPUSCULAR HEMOGLOBIN 30.6 pg (27.0-31.0); MEAN CORPUSCULAR HGB CONC 32.4 g/dL (33.0-37.0); MEAN PLATELET VOLUME 9.2 fL (7.2-11.7); MONO % 12.2 % (0.0-10.0); NEUT % 72.9 % (50.0-75.0); NRBC % 0.3 % (0.0-2.0); RBC 2.7 Mil/uL (3.80-5.20); RED CELL DISTRIBUTION WIDTH 16.7 % (11.5-14.5); WHITE BLOOD COUNT 8.3 K/uL (4.8-10.8)
--- NOTE | 2018-07-28 07:46 | CP.PCM.PN ---
Subjective - Date & Time of Evaluation Date of Evaluation: 07/28/18 Time of Evaluation: 07:33 - Subjective Subjective: PGY-1 vascular surgery note for Dr Lackey Patient is seen and examined at bedside. Patient complains of swelling, pain and stiffness in right arm. Patient denies any acute events overnight. Patient denies nausea/vomiting. Patient will be going for Hemodialysis today Objective - Vital Signs/Intake and Output Vital Signs (last 24 hours): Temp Pulse Resp BP Pulse Ox 98.5 F 60 20 133/79 99 07/28/18 00:02 07/28/18 04:26 07/27/18 23:25 07/28/18 04:26 07/27/18 23:25 Intake and Output: 07/28/18 07/28/18 06:59 18:59 Intake Total 100 Output Total 350 Balance -250 - Medications Medications: Current Medications Acetaminophen (Tylenol 325mg Tab) 650 mg PO Q6H PRN PRN Reason: Pain, Mild (1-3) Amlodipine Besylate (Norvasc) 5 mg PO DAILY [facility] Last Admin: 07/27/18 10:15 Dose: 5 mg Calcitriol (Rocaltrol) 0.5 mcg PO DAILY [facility] Last Admin: 07/27/18 10:16 Dose: 0.5 mcg Calcium Acetate (Phoslo) 1,334 mg PO TID [facility] Last Admin: 07/27/18 17:31 Dose: 1,334 mg Epoetin Sergio (Procrit) 10,000 unit IV TTS [facility] Famotidine (Pepcid) 20 mg PO DAILY [facility] Last Admin: 07/27/18 10:15 Dose: 20 mg Heparin Sodium (Porcine) (Heparin) 5,000 units SC Q12 [facility] Last Admin: 07/27/18 21:35 Dose: 5,000 units Meropenem 500 mg/ Sodium (Chloride) 100 mls @ 100 mls/hr IVPB 0500 BRIAN PRN Reason: Protocol Last Admin: 07/28/18 04:15 Dose: 100 mls/hr Ferric Sodium Gluconate Complex 125 mg/ Sodium Chloride 110 mls @ 110 mls/hr IVPB DAILY [facility] Stop: 08/04/18 10:01 Last Admin: 07/27/18 11:20 Dose: 110 mls/hr Lorazepam (Ativan) 0.5 mg PO Q6H PRN PRN Reason: Anxiety Metoprolol Tartrate (Lopressor) 25 mg PO BID [facility] Last Admin: 07/27/18 17:31 Dose: 25 mg Morphine Sulfate (Morphine) 2 mg IVP Q4H PRN PRN Reason: Pain, severe (8-10) Last Admin: 07/28/18 04:29 Dose: 2 mg Potassium Chloride (K-Dur 20 Meq Er Tab) 40 meq PO DAILY [facility] Last Admin: 07/27/18 10:16 Dose: 40 meq Prednisone (Prednisone Tab) 5 mg PO DAILY [facility] Last Admin: 07/27/18 10:15 Dose: 5 mg Trazodone HCl (Desyrel) 50 mg PO HS [facility] Last Admin: 07/27/18 21:35 Dose: 50 mg Vitamin B Complex/Vit C/Folic Acid (Nephro-Ron) 1 tab PO DAILY [facility] Last Admin: 07/27/18 10:15 Dose: 1 tab - Labs Labs: 07/25/18 06:38 07/25/18 06:38 PT 16.5 SECONDS (9.7-12.2) H 07/23/18 07:35 INR 1.5 07/23/18 07:35 APTT 44 SECONDS (21-34) H 07/23/18 07:35 - Constitutional Appears: No Acute Distress - Head Exam Head Exam: ATRAUMATIC, NORMAL INSPECTION, NORMOCEPHALIC - Eye Exam Eye Exam: EOMI, Normal appearance - ENT Exam ENT Exam: Mucous Membranes Moist, Normal Exam - Neck Exam Neck Exam: Full ROM Additional comments: Right permacath in place, clean and dry, non tender to palpation - Respiratory Exam Respiratory Exam: NORMAL BREATHING PATTERN. absent: Accessory Muscle Use, Respiratory Distress - GI/Abdominal Exam GI & Abdominal Exam: Soft. absent: Tenderness - Extremities Exam Additional comments: Left arm thrombosed AVF Right arm edema, nontender to palpation. - Neurological Exam Neurological Exam: Alert, Awake, Oriented x3 - Psychiatric Exam Psychiatric exam: Normal Affect, Normal Mood - Skin Skin Exam: Intact, Normal Color, Warm Assessment and Plan - Assessment and Plan (Free Text) Assessment: 47yo F with PMHx of CKD s/p kidney transplant, HTN, anemia, chronic diarrhea with disfunctional left arm AV fistula s/p R IJ permacath POD 5 Plan: - f/u vein mapping - plan for new AVF creation after mapping results - will likely be done outpatient - apply warm compresses every 4 hours on right arm for swelling and pain. Plan discussed with Dr Ziyad Vega, PGY-1
[2018-07-28 08:11] LABS: ALB/GLOB RATIO 0.9 (1.0-2.1); ALBUMIN 2.3 g/dL (3.5-5.0); CALCIUM 7.8 mg/dl (8.6-10.4)
--- NOTE | 2018-07-28 09:07 | PN ---
Copied To: Azra Marrero MD Attending MD: Azra Marrero MD DATE: 07/26/2018 SUBJECTIVE: Patient was seen today. Yesterday, she was complaining a lot of pain in the right arm after the dialysis and swelling, but today the swelling is subsiding. She states she also had a test, which did not show much. She denies any diarrhea. No abdominal pain. No urinary symptoms. She has acute rejection of her transplant kidney and she is on dialysis and has the new catheter at this time. PHYSICAL EXAMINATION: GENERAL: She is frail. VITAL SIGNS: T-max is 97.7, pulse 74, blood pressure 115/77, respirations are 20. HEENT: Head is atraumatic and normocephalic. NECK: Supple. LUNGS: Clear. HEART: S1 and S2 regular. ABDOMEN: Soft and nontender. No guarding, no rigidity present. EXTREMITIES: Have no edema, clubbing, or cyanosis. Right upper arm swelling has gone. She has a catheter in the right side, hemodialysis catheter. LABORATORY DATA: White count is 8, hemoglobin 8.7, hematocrit 26.7, platelet count is 215. Sodium is 139, potassium 3.5, chlorides 105, BUN is 17, creatinine 3.5 right now and she did have urine culture, which had Gram-negative rods, so we will order a culture and she is being treated, but it was less than 10,000. We will again repeat the culture. PLAN: She is on antibiotic, meropenem, and she is being on it since the 30, today is the 4th day. We will check the urine culture again and discontinue the antibiotic in 1 to 2 days. We will follow and she is also being followed by Renal attending. Azra Marrero MD
[2018-07-28] MEDS ORDERED: EPOETIN ALFA 10,000 UNIT/ML ML IV SCH (10:00)
--- NOTE | 2018-07-28 10:51 | CP.PCM.PN ---
Subjective - Date & Time of Evaluation Date of Evaluation: 07/28/18 Time of Evaluation: 10:50 - Subjective Subjective: seen and examined on hd uf 300cc no diarrhea nausea vomiting dizziness cp lue avf non functional hd today Objective - Vital Signs/Intake and Output Vital Signs (last 24 hours): Temp Pulse Resp BP Pulse Ox 97.8 F 64 16 123/80 97 07/28/18 09:20 07/28/18 09:20 07/28/18 09:20 07/28/18 09:20 07/28/18 09:20 Intake and Output: 07/28/18 07/28/18 06:59 18:59 Intake Total 100 Output Total 350 Balance -250 - Medications Medications: Current Medications Acetaminophen (Tylenol 325mg Tab) 650 mg PO Q6H PRN PRN Reason: Pain, Mild (1-3) Amlodipine Besylate (Norvasc) 5 mg PO DAILY [facility] Last Admin: 07/27/18 10:15 Dose: 5 mg Calcitriol (Rocaltrol) 0.5 mcg PO DAILY [facility] Last Admin: 07/27/18 10:16 Dose: 0.5 mcg Calcium Acetate (Phoslo) 1,334 mg PO TID [facility] Last Admin: 07/27/18 17:31 Dose: 1,334 mg Epoetin Sergio (Procrit) 10,000 unit IV TTS [facility] Famotidine (Pepcid) 20 mg PO DAILY [facility] Last Admin: 07/27/18 10:15 Dose: 20 mg Heparin Sodium (Porcine) (Heparin) 5,000 units SC Q12 [facility] Last Admin: 07/27/18 21:35 Dose: 5,000 units Meropenem 500 mg/ Sodium (Chloride) 100 mls @ 100 mls/hr IVPB 0500 BRIAN PRN Reason: Protocol Last Admin: 07/28/18 04:15 Dose: 100 mls/hr Ferric Sodium Gluconate Complex 125 mg/ Sodium Chloride 110 mls @ 110 mls/hr IVPB DAILY [facility] Stop: 08/04/18 10:01 Last Admin: 07/27/18 11:20 Dose: 110 mls/hr Lorazepam (Ativan) 0.5 mg PO Q6H PRN PRN Reason: Anxiety Metoprolol Tartrate (Lopressor) 25 mg PO BID [facility] Last Admin: 07/27/18 17:31 Dose: 25 mg Morphine Sulfate (Morphine) 2 mg IVP Q4H PRN PRN Reason: Pain, severe (8-10) Last Admin: 07/28/18 08:55 Dose: 2 mg Potassium Chloride (K-Dur 20 Meq Er Tab) 40 meq PO DAILY [facility] Last Admin: 07/27/18 10:16 Dose: 40 meq Prednisone (Prednisone Tab) 5 mg PO DAILY [facility] Last Admin: 07/27/18 10:15 Dose: 5 mg Trazodone HCl (Desyrel) 50 mg PO HS [facility] Last Admin: 07/27/18 21:35 Dose: 50 mg Vitamin B Complex/Vit C/Folic Acid (Nephro-Ron) 1 tab PO DAILY [facility] Last Admin: 07/27/18 10:15 Dose: 1 tab - Labs Labs: 07/28/18 07:09 07/28/18 07:09 PT 16.5 SECONDS (9.7-12.2) H 07/23/18 07:35 INR 1.5 07/23/18 07:35 APTT 44 SECONDS (21-34) H 07/23/18 07:35 - Constitutional Appears: Non-toxic, No Acute Distress, Cachectic, Chronically Ill - Head Exam Head Exam: NORMAL INSPECTION, NORMOCEPHALIC - Eye Exam Eye Exam: Normal appearance, PERRL - ENT Exam ENT Exam: Mucous Membranes Moist, Normal Exam - Neck Exam Neck Exam: Full ROM, Normal Inspection - Respiratory Exam Respiratory Exam: Clear to Ausculation Bilateral, NORMAL BREATHING PATTERN - Cardiovascular Exam Cardiovascular Exam: REGULAR RHYTHM, RRR - GI/Abdominal Exam GI & Abdominal Exam: Soft, Normal Bowel Sounds - Extremities Exam Extremities Exam: Full ROM (lue avf no thrill), Normal Inspection Assessment and Plan (1) Diarrhea Status: Acute (2) End stage renal disease Status: Acute (3) Hypocalcemia Status: Acute (4) Renal transplant failure and rejection Status: Acute (5) Anemia Status: Acute - Assessment and Plan (Free Text) Assessment: maintain hd tts ton w/ hd off immunosuppression, taper prednisone slowly needs new av access, vascular onboard. RUE arm precautions
[2018-07-28] MEDS: Ferric Sodium Gluconat Complex 125 MG in Sodium Chloride 0.9% 100 ML IVPB SCH ×2 (11:29→12:00)
[2018-07-28] MEDS: Potassium Chloride 20 mEq ER Tab PO SCH ×2 (11:30→14:01)
[2018-07-28] MEDS: Multivitamin Vitamin B Complex (Nephro-Vite) Tab PO SCH ×2 (11:31→14:01)
[2018-07-28] MEDS: Epoetin Alfa 10,000 unit/ml Dialysis IV SCH (12:06)
--- NOTE | 2018-07-28 17:45 | CP.PCM.CON ---
History of Present Illness - History of Present Illness History of Present Illness: This is a 47 year old woman, well known to me from the office and from previous admissions, who is admitted for abdominal pain and diarrhea. Patient was originally seen 06/06/15 for a one year history of diarrhea and abdominal pain. All stool studies were negative. Colonoscopy on 06/28/15 showed essentially normal mucosa, and biopsies showed no significant findings. EGD on 07/03/15 also showed no significant findings. She was admitted 09/23/15 for abdominal pain and elevated liver enzymes. The LFTs peaked at AST 655, ALT 705 and ALKP 472, with normal values of the bilirubin. Imaging studies showed that the bile duct, which was 8 mm on had enlarged to 19 mm on sonogram and 17 mm on MRCP, without filling defects. Because of the possibility of biliary obstruction due to stricture or tumor, an ERCP with sphincterotomy and biopsy was performed on 09/29/15. Again, no stones were seen, and biopsies of the duodenal mucosa were unrevealing; specifically, the biopsies did not show evidence of an opportunistic infection. Patient states that there was some improvement in the pain and diarrhea at about the same time. However, patient reports that diarrhea recurred, watery, three times a day, without blood, shortly thereafter. She also complains of diffuse abdominal pain described as rumbling and a gas pain. She had nausea and vomiting (two episodes) on the day of admission. Her appetite is good, but she has lost an additional five pounds in the past few months. She experienced difficulty swallowing on admission which has since resolved spontaneously. She continues to complain of heartburn, which occurs daily. CT scan on admission showed extensive pneumatosis of the right colon which improved on a repeat scan done 07/22/2018. Review of Systems - Review of Systems All systems: reviewed and no additional remarkable complaints except - Constitutional Constitutional: Weight Loss. absent: Chills, Fever - Cardiovascular Cardiovascular: absent: Chest Pain - Respiratory Respiratory: absent: Dyspnea - Gastrointestinal Gastrointestinal: Abdominal Pain, Diarrhea, Dysphagia, Heartburn, Nausea, Vomiting. absent: Constipation, Hematemesis - Genitourinary Genitourinary: Dysuria - Musculoskeletal Musculoskeletal: Myalgias - Neurological Neurological: absent: Numbness, Weakness Past Patient History - Infectious Disease Hx of Infectious Diseases: None - Past Medical History & Family History Past Medical History?: Yes - Past Social History Smoking Status: Former Smoker - CARDIAC Hx Hypertension: Yes - PULMONARY Hx Bronchitis: Yes - NEUROLOGICAL Hx Migraine: Yes - HEENT Hx HEENT Problems: No - RENAL Hx Chronic Kidney Disease: Yes Hx Renal Failure: Yes - ENDOCRINE/METABOLIC Hx Endocrine Disorders: No - HEMATOLOGICAL/ONCOLOGICAL Hx Anemia: Yes - INTEGUMENTARY Hx Dermatological Problems: No - MUSCULOSKELETAL/RHEUMATOLOGICAL Hx Arthritis: Yes - GASTROINTESTINAL Hx Diarrhea: Yes Hx Gall Bladder Disease: Yes Hx Pancreatitis: Yes - GENITOURINARY/GYNECOLOGICAL Hx Genitourinary Disorders: No - PSYCHIATRIC Hx Anxiety: Yes Hx Substance Use: No - SURGICAL HISTORY Hx Surgeries: Yes Hx Arteriovenous Shunt: Yes Hx Cholecystectomy: Yes (2002) Hx Kidney Transplant: Yes Hx Splenectomy: Yes - ANESTHESIA Hx Anesthesia: Yes Hx Anesthesia Reactions: No Hx Malignant Hyperthermia: No Meds Allergies/Adverse Reactions: Allergies Allergy/AdvReac Type Severity Reaction Status Date / Time No Known Allergies Allergy Verified 07/21/18 16:38 - Medications Medications: Current Medications Acetaminophen (Tylenol 325mg Tab) 650 mg PO Q6H PRN PRN Reason: Pain, Mild (1-3) Amlodipine Besylate (Norvasc) 5 mg PO DAILY [facility] Last Admin: 07/28/18 14:01 Dose: 5 mg Calcitriol (Rocaltrol) 0.5 mcg PO DAILY [facility] Last Admin: 07/28/18 14:01 Dose: 0.5 mcg Calcium Acetate (Phoslo) 1,334 mg PO TID [facility] Last Admin: 07/28/18 14:00 Dose: 1,334 mg Epoetin Sergio (Procrit) 10,000 unit IV TTS [facility] Last Admin: 07/28/18 12:06 Dose: 10,000 unit Famotidine (Pepcid) 20 mg PO DAILY [facility] Last Admin: 07/28/18 14:01 Dose: 20 mg Heparin Sodium (Porcine) (Heparin) 5,000 units SC Q12 [facility] Last Admin: 07/28/18 11:29 Dose: Not Given Ferric Sodium Gluconate Complex 125 mg/ Sodium Chloride 110 mls @ 110 mls/hr IVPB DAILY [facility] Stop: 08/04/18 10:01 Last Admin: 07/28/18 12:00 Dose: 110 mls/hr Lorazepam (Ativan) 0.5 mg PO Q6H PRN PRN Reason: Anxiety Metoprolol Tartrate (Lopressor) 25 mg PO BID [facility] Last Admin: 07/28/18 11:30 Dose: Not Given Morphine Sulfate (Morphine) 2 mg IVP Q4H PRN PRN Reason: Pain, severe (8-10) Last Admin: 07/28/18 14:00 Dose: 2 mg Potassium Chloride (K-Dur 20 Meq Er Tab) 40 meq PO DAILY [facility] Last Admin: 07/28/18 14:01 Dose: 40 meq Prednisone (Prednisone Tab) 5 mg PO DAILY [facility] Last Admin: 07/28/18 14:01 Dose: 5 mg Trazodone HCl (Desyrel) 50 mg PO HS [facility] Last Admin: 07/27/18 21:35 Dose: 50 mg Vitamin B Complex/Vit C/Folic Acid (Nephro-Ron) 1 tab PO DAILY [facility] Last Admin: 07/28/18 14:01 Dose: 1 tab Physical Exam - Constitutional Appears: Cachectic - Head Exam Head Exam: ATRAUMATIC, NORMOCEPHALIC - Eye Exam Eye Exam: EOMI, Normal appearance - Neck Exam Neck exam: Negative for: Lymphadenopathy, Thyromegaly - Respiratory Exam Respiratory Exam: NORMAL BREATHING PATTERN. absent: Rales, Rhonchi, Wheezes - Cardiovascular Exam Cardiovascular Exam: REGULAR RHYTHM, +S1, +S2. absent: Gallop, Rubs, Systolic Murmur - GI/Abdominal Exam GI & Abdominal Exam: Normal Bowel Sounds, Soft. absent: Mass, Organomegaly, Tenderness - Rectal Exam Rectal Exam: Deferred - Extremities Exam Extremities exam: Negative for: calf tenderness, pedal edema Results - Vital Signs Recent Vital Signs: Last Vital Signs Temp 99.1 F 07/28/18 16:07 Pulse 71 07/28/18 16:07 Resp 20 07/28/18 16:07 BP 136/80 07/28/18 16:07 Pulse Ox 98 07/28/18 16:07 - Labs Result Diagrams: 07/28/18 07:09 07/28/18 07:09 Labs: Laboratory Results - last 24 hr 07/27/18 07/28/18 07/28/18 20:40 06:21 07:09 WBC 8.3 RBC 2.70 L Hgb 8.2 L Hct 25.4 L MCV 94.4 MCH 30.6 MCHC 32.4 L RDW 16.7 H Plt Count 182 MPV 9.2 Neut % (Auto) 72.9 Lymph % (Auto) 12.9 L [place] % (Auto) 12.2 H Eos % (Auto) 1.7 Baso % (Auto) 0.3 Neut # (Auto) 6.0 Lymph # (Auto) 1.1 [place] # (Auto) 1.0 H Eos # (Auto) 0.1 Baso # (Auto) 0.0 Sodium Potassium Chloride Carbon Dioxide Anion Gap BUN Creatinine Est GFR ( Amer) Est GFR (Non-Af Amer) POC Glucose (mg/dL) 111 H 85 Random Glucose Calcium Phosphorus Total Bilirubin AST ALT Alkaline Phosphatase Total Protein Albumin Globulin Albumin/Globulin Ratio 07/28/18 07/28/18 07/28/18 07:09 11:09 16:47 WBC RBC Hgb Hct MCV MCH MCHC RDW Plt Count MPV Neut % (Auto) Lymph % (Auto) [place] % (Auto) Eos % (Auto) Baso % (Auto) Neut # (Auto) Lymph # (Auto) [place] # (Auto) Eos # (Auto) Baso # (Auto) Sodium 134 Potassium 4.3 Chloride 105 Carbon Dioxide 20 L Anion Gap 13 BUN 18 H Creatinine 4.3 H Est GFR ( Amer) 13 Est GFR (Non-Af Amer) 11 POC Glucose (mg/dL) 89 91 Random Glucose 93 Calcium 7.8 L Phosphorus 3.1 Total Bilirubin 0.2 AST 15 ALT 25 Alkaline Phosphatase 87 Total Protein 4.7 L Albumin 2.3 L Globulin 2.4 Albumin/Globulin Ratio 0.9 L Assessment & Plan (1) Diarrhea Assessment and Plan: Patient has recurrent diarrhea, last worked up with colonoscopy in 2014. Will repeat stool cultures and plan for repeat colonoscopy prior to discharge. Status: Acute
--- NOTE | 2018-07-28 19:53 | CP.PCM.PN ---
Subjective - Date & Time of Evaluation Date of Evaluation: 07/28/18 Time of Evaluation: 19:53 - Subjective Subjective: Patient is morning was complaining of right arm pain. Also swelling noted. Patient is still frustrated, complaining of not improving. But diarrhea is better. 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 Able to eat better. Vital signs stable. Chest good air entry bilaterally Regular heart sound noted. Abdominal tenderness negative Labs reviewed Hemoglobin is on the low side Patient is still taking prednisone 5 mg daily But other anti-rejection medication is on hold now. Assessment: 47-year-old female history of end-stage renal disease status post transplant. Patient now failed transplant. On hemodialysis Admitted with acute intestinal problem including pneumatosis, diarrhea. Improving at this time. Severe dehydration. Worsening renal failure Right now receiving hemodialysis through right hemolysis catheter. Patient will need AV shunt. Seen by GI Plan for colonoscopy as recommended. Continue to monitor. We will repeat the Doppler of the right upper extremity venous to rule out DVT. Objective - Vital Signs/Intake and Output Vital Signs (last 24 hours): Temp Pulse Resp BP Pulse Ox 99.1 F 71 20 133/70 98 07/28/18 16:07 07/28/18 16:07 07/28/18 16:07 07/28/18 18:12 07/28/18 16:07 - Medications Medications: Current Medications Acetaminophen (Tylenol 325mg Tab) 650 mg PO Q6H PRN PRN Reason: Pain, Mild (1-3) Amlodipine Besylate (Norvasc) 5 mg PO DAILY [facility] Last Admin: 07/28/18 14:01 Dose: 5 mg Calcitriol (Rocaltrol) 0.5 mcg PO DAILY [facility] Last Admin: 07/28/18 14:01 Dose: 0.5 mcg Calcium Acetate (Phoslo) 1,334 mg PO TID [facility] Last Admin: 07/28/18 18:14 Dose: 1,334 mg Epoetin Serigo (Procrit) 10,000 unit IV TTS [facility] Last Admin: 07/28/18 12:06 Dose: 10,000 unit Famotidine (Pepcid) 20 mg PO DAILY [facility] Last Admin: 07/28/18 14:01 Dose: 20 mg Heparin Sodium (Porcine) (Heparin) 5,000 units SC Q12 [facility] Last Admin: 07/28/18 11:29 Dose: Not Given Ferric Sodium Gluconate Complex 125 mg/ Sodium Chloride 110 mls @ 110 mls/hr IVPB DAILY [facility] Stop: 08/04/18 10:01 Last Admin: 07/28/18 12:00 Dose: 110 mls/hr Lorazepam (Ativan) 0.5 mg PO Q6H PRN PRN Reason: Anxiety Metoprolol Tartrate (Lopressor) 25 mg PO BID [facility] Last Admin: 07/28/18 18:12 Dose: 25 mg Morphine Sulfate (Morphine) 2 mg IVP Q4H PRN PRN Reason: Pain, severe (8-10) Last Admin: 07/28/18 18:14 Dose: 2 mg Potassium Chloride (K-Dur 20 Meq Er Tab) 40 meq PO DAILY [facility] Last Admin: 07/28/18 14:01 Dose: 40 meq Prednisone (Prednisone Tab) 5 mg PO DAILY [facility] Last Admin: 07/28/18 14:01 Dose: 5 mg Trazodone HCl (Desyrel) 50 mg PO HS [facility] Last Admin: 07/27/18 21:35 Dose: 50 mg Vitamin B Complex/Vit C/Folic Acid (Nephro-Ron) 1 tab PO DAILY [facility] Last Admin: 07/28/18 14:01 Dose: 1 tab - Labs Labs: 07/28/18 07:09 07/28/18 07:09 PT 16.5 SECONDS (9.7-12.2) H 07/23/18 07:35 INR 1.5 07/23/18 07:35 APTT 44 SECONDS (21-34) H 07/23/18 07:35
--- NOTE | 2018-07-28 23:09 | CP.PCM.PN ---
Subjective - Date & Time of Evaluation Date of Evaluation: 07/28/18 Time of Evaluation: 13:00 - Subjective Subjective: dictated Objective - Vital Signs/Intake and Output Vital Signs (last 24 hours): Temp Pulse Resp BP Pulse Ox 99.1 F 83 20 133/70 98 07/28/18 16:07 07/28/18 20:01 07/28/18 16:07 07/28/18 18:12 07/28/18 16:07 - Medications Medications: Current Medications Acetaminophen (Tylenol 325mg Tab) 650 mg PO Q6H PRN PRN Reason: Pain, Mild (1-3) Amlodipine Besylate (Norvasc) 5 mg PO DAILY [facility] Last Admin: 07/28/18 14:01 Dose: 5 mg Calcitriol (Rocaltrol) 0.5 mcg PO DAILY [facility] Last Admin: 07/28/18 14:01 Dose: 0.5 mcg Calcium Acetate (Phoslo) 1,334 mg PO TID [facility] Last Admin: 07/28/18 18:14 Dose: 1,334 mg Epoetin Sergio (Procrit) 10,000 unit IV TTS [facility] Last Admin: 07/28/18 12:06 Dose: 10,000 unit Famotidine (Pepcid) 20 mg PO DAILY [facility] Last Admin: 07/28/18 14:01 Dose: 20 mg Heparin Sodium (Porcine) (Heparin) 5,000 units SC Q12 [facility] Last Admin: 07/28/18 22:04 Dose: 5,000 units Ferric Sodium Gluconate Complex 125 mg/ Sodium Chloride 110 mls @ 110 mls/hr IVPB DAILY [facility] Stop: 08/04/18 10:01 Last Admin: 07/28/18 12:00 Dose: 110 mls/hr Lorazepam (Ativan) 0.5 mg PO Q6H PRN PRN Reason: Anxiety Metoprolol Tartrate (Lopressor) 25 mg PO BID [facility] Last Admin: 07/28/18 18:12 Dose: 25 mg Morphine Sulfate (Morphine) 2 mg IVP Q4H PRN PRN Reason: Pain, severe (8-10) Last Admin: 07/28/18 22:03 Dose: 2 mg Potassium Chloride (K-Dur 20 Meq Er Tab) 40 meq PO DAILY [facility] Last Admin: 07/28/18 14:01 Dose: 40 meq Prednisone (Prednisone Tab) 5 mg PO DAILY [facility] Last Admin: 07/28/18 14:01 Dose: 5 mg Trazodone HCl (Desyrel) 50 mg PO HS [facility] Last Admin: 07/28/18 22:04 Dose: 50 mg Vitamin B Complex/Vit C/Folic Acid (Nephro-Ron) 1 tab PO DAILY [facility] Last Admin: 07/28/18 14:01 Dose: 1 tab - Labs Labs: 07/28/18 07:09 07/28/18 07:09 PT 16.5 SECONDS (9.7-12.2) H 07/23/18 07:35 INR 1.5 07/23/18 07:35 APTT 44 SECONDS (21-34) H 07/23/18 07:35
--- NOTE | 2018-07-29 04:42 | PN ---
Copied To: Azra Marrero MD Attending MD: Azra Marrero MD DATE: 07/28/2018 SUBJECTIVE: The patient remains afebrile, but she had right arm which was swollen. She still says her diarrhea is there, but it is a little better. C. diff was negative. Her right arm remains swollen. Left arm has a nonfunctional AV fistula. She had a urine test done again, which was repeated as there were some Gram-negatives in the urine and repeat culture is negative. She has been on meropenem for several days covering for abdominal pain, diarrhea, as well as for UTI at this time. She has been on it since 07/23/2018, and so planning to discontinue the antibiotics soon as it will be 7 days. The patient is looking forward to get a new fistula for the dialysis as she had a recent rejection by the transplant kidney. PHYSICAL EXAMINATION: VITAL SIGNS: T-max is 99.1, pulse is 71, blood pressure 136/80, respirations are 20. HEENT: Head is atraumatic, normocephalic. NECK: Supple. LUNGS: Clear. HEART: S1, S2 are regular. ABDOMEN: Soft, nontender. EXTREMITIES: Right arm remains with the swelling, left arm has a fistula. Extremities have no edema. ASSESSMENT AND PLAN: Dr. Forrester came by and he ordered these cultures for Cyclospora Cryptosporidium, Cytomegalovirus, Clostridium difficile, Giardia again, and we will follow those and at this time I will discontinue the Merrem as it is not needed and look into the treatment of diarrhea, which remains has a chronic issue with this patient and she does say she suffers from irritable bowel syndrome also, so we will leave it for Gastroenterology. I will discontinue the meropenem. We will follow as needed and Gastroenterology is working on the infectious etiology of diarrhea at this time. Azra Marrero MD
[2018-07-29] MEDS: Potassium Chloride 20 mEq ER Tab PO SCH (09:37)
[2018-07-29] MEDS: Multivitamin Vitamin B Complex (Nephro-Vite) Tab PO SCH (09:37)
[2018-07-29] MEDS: Ferric Sodium Gluconat Complex 125 MG in Sodium Chloride 0.9% 100 ML IVPB SCH (12:16)
--- NOTE | 2018-07-29 13:05 | VASCLAB ---
Date of service: 07/29/2018 PROCEDURE: Upper Extremity Venous Mapping HISTORY: Renal Failure, vein mapping, pre-op av fistula. PRIORS: Prior exam on 07/26/2018. TECHNIQUE: Bilateral upper extremity, internal jugular, subclavian, axillary, brachial, ulnar, radial, basilic and upper cephalic veins were evaluated. Flow was assessed with color Doppler, compressibility, assessment of phasic flow and augmentation response. Report prepared by TEODORA Cervantes FINDINGS: RIGHT: 1. Internal Jugular Vein: Compressibility - Fully compressible: Thrombus - None : Flow - Phasic 2. Subclavian Vein:Compressibility - Fully compressible: Thrombus - None : Flow - Phasic 3. Axillary Vein: Compressibility - Fully compressible: Thrombus - None 4. Brachial Vein: Compressibility - Fully compressible: Thrombus - None 5. Ulnar Vein:Compressibility - Fully compressible: Thrombus - None 6. Radial Vein:Compressibility - Fully compressible: Thrombus - None 7. Cephalic Vein: Compressibility - Partial: Thrombus - subacute (distal upper arm) 7.1. Upper Arm: Proximal Diameter: 0.29cm. Mid Diameter: 0.23cm. Distal Diameter: 0.21cm. 7.2. Forearm: Proximal Diameter: n/acm. Mid Diameter:0.15cm. Distal Diameter: 0.11cm 8. Basilic Vein:Compressibility - Fully compressible: thrombus - None 8.1. Upper Arm:Proximal Diameter: 0.49cm. Mid Diameter: 0.40cm. Distal Diameter: 0.10cm. 8.2. Forearm: Diminutive size. LEFT: 1. Internal Jugular Vein: Compressibility - Fully compressible: Thrombus - None : Flow - Phasic 2. Subclavian Vein:Compressibility - Fully compressible: Thrombus - None : Flow - Phasic 3. Axillary Vein: Compressibility - Fully compressible: Thrombus - None 4. Brachial Vein: Compressibility - Fully compressible: Thrombus - None 5. Ulnar Vein:Compressibility - Fully compressible: Thrombus - None 6. Radial Vein:Compressibility - Fully compressible: Thrombus - None 7. Cephalic Vein: Compressibility - Fully compressible: thrombus - None 7.1. Upper Arm: Proximal Diameter: 0.36cm. Mid Diameter: 0.47cm. Distal Diameter: 0.35cm. 7.2. Forearm: Proximal Diameter: 0.30cm. Mid Diameter: 0.26 cm. Distal Diameter: 0.09cm 8. Basilic Vein: Not visualized. OTHER FINDINGS: 1. Superficial phlebitis of the right cephalic vein, at the distal upper arm. Right cephalic vein is compressible at the remaining segments. 2. There was no evidence of deep vein thrombosis in bilateral upper extremities. IMPRESSION: Please refer to the above listed measurements for vein sizes.
--- NOTE | 2018-07-29 13:22 | CP.PCM.PN ---
Subjective - Date & Time of Evaluation Date of Evaluation: 07/29/18 Time of Evaluation: 13:20 - Subjective Subjective: Feels much better Less diarrhea, no fevers, chills, SOB, CPs, n, v, HAs CMV pending vein mapping done await AV access await colonoscopy this week remains on prednisone on dialysis TTS- well tolerated so far will need dialysis placement Objective - Vital Signs/Intake and Output Vital Signs (last 24 hours): Temp Pulse Resp BP Pulse Ox 98.8 F 65 20 151/80 H 97 07/29/18 08:48 07/29/18 08:48 07/29/18 08:48 07/29/18 09:38 07/29/18 08:48 - Medications Medications: Current Medications Acetaminophen (Tylenol 325mg Tab) 650 mg PO Q6H PRN PRN Reason: Pain, Mild (1-3) Amlodipine Besylate (Norvasc) 5 mg PO DAILY [facility] Last Admin: 07/29/18 09:37 Dose: 5 mg Calcitriol (Rocaltrol) 0.5 mcg PO DAILY [facility] Last Admin: 07/29/18 09:38 Dose: 0.5 mcg Calcium Acetate (Phoslo) 1,334 mg PO TID [facility] Last Admin: 07/29/18 09:36 Dose: 1,334 mg Epoetin Sergio (Procrit) 10,000 unit IV TTS [facility] Last Admin: 07/28/18 12:06 Dose: 10,000 unit Famotidine (Pepcid) 20 mg PO DAILY [facility] Last Admin: 07/29/18 09:37 Dose: 20 mg Ferric Sodium Gluconate Complex 125 mg/ Sodium Chloride 110 mls @ 110 mls/hr IVPB DAILY [facility] Stop: 08/04/18 10:01 Last Admin: 07/29/18 12:16 Dose: 110 mls/hr Lorazepam (Ativan) 0.5 mg PO Q6H PRN PRN Reason: Anxiety Metoprolol Tartrate (Lopressor) 25 mg PO BID [facility] Last Admin: 07/29/18 09:38 Dose: 25 mg Morphine Sulfate (Morphine) 2 mg IVP Q4H PRN PRN Reason: Pain, severe (8-10) Last Admin: 07/29/18 11:13 Dose: 2 mg Potassium Chloride (K-Dur 20 Meq Er Tab) 40 meq PO DAILY [facility] Last Admin: 07/29/18 09:37 Dose: 40 meq Prednisone (Prednisone Tab) 5 mg PO DAILY [facility] Last Admin: 07/29/18 09:37 Dose: 5 mg Trazodone HCl (Desyrel) 50 mg PO HS [facility] Last Admin: 07/28/18 22:04 Dose: 50 mg Vitamin B Complex/Vit C/Folic Acid (Nephro-Ron) 1 tab PO DAILY [facility] Last Admin: 07/29/18 09:37 Dose: 1 tab - Labs Labs: 07/28/18 07:09 07/28/18 07:09 PT 16.5 SECONDS (9.7-12.2) H 07/23/18 07:35 INR 1.5 07/23/18 07:35 APTT 44 SECONDS (21-34) H 07/23/18 07:35 - Constitutional Appears: No Acute Distress, Cachectic, Chronically Ill - Head Exam Head Exam: ATRAUMATIC, NORMAL INSPECTION - Eye Exam Eye Exam: EOMI, Normal appearance - Neck Exam Neck Exam: Normal Inspection. absent: Tenderness - Respiratory Exam Respiratory Exam: Clear to Ausculation Bilateral, NORMAL BREATHING PATTERN - Cardiovascular Exam Cardiovascular Exam: REGULAR RHYTHM, +S1 - GI/Abdominal Exam GI & Abdominal Exam: Soft. absent: Tenderness - Extremities Exam Extremities Exam: Normal Inspection. absent: Tenderness - Neurological Exam Neurological Exam: Alert, CN II-XII Intact - Skin Skin Exam: Dry, Warm Assessment and Plan (1) Renal transplant failure and rejection Status: Acute (2) CKD (chronic kidney disease) stage 5, GFR less than 15 ml/min Status: Acute (3) Diarrhea Status: Acute (4) Weight loss, unintentional Status: Acute - Assessment and Plan (Free Text) Plan: Dialysis TTS Dialysis placement check CMV PCR colonoscopy pending needs AV access continue ESAs/IV Fe for anemia
--- NOTE | 2018-07-29 17:02 | CP.PCM.PN ---
Subjective - Date & Time of Evaluation Date of Evaluation: 07/29/18 Time of Evaluation: 16:59 - Subjective Subjective: Patient continues to complain of an uncomfortable "rumbling" sensation in the abdomen. She denies having nausea and vomiting. She had one formed stool today. Objective - Vital Signs/Intake and Output Vital Signs (last 24 hours): Temp Pulse Resp BP Pulse Ox 98.6 F 78 20 109/72 98 07/29/18 15:00 07/29/18 16:00 07/29/18 15:00 07/29/18 15:00 07/29/18 15:00 - Medications Medications: Current Medications Acetaminophen (Tylenol 325mg Tab) 650 mg PO Q6H PRN PRN Reason: Pain, Mild (1-3) Amlodipine Besylate (Norvasc) 5 mg PO DAILY [facility] Last Admin: 07/29/18 09:37 Dose: 5 mg Calcitriol (Rocaltrol) 0.5 mcg PO DAILY [facility] Last Admin: 07/29/18 09:38 Dose: 0.5 mcg Calcium Acetate (Phoslo) 1,334 mg PO TID [facility] Last Admin: 07/29/18 14:08 Dose: 1,334 mg Epoetin Sergio (Procrit) 10,000 unit IV TTS [facility] Last Admin: 07/28/18 12:06 Dose: 10,000 unit Famotidine (Pepcid) 20 mg PO DAILY [facility] Last Admin: 07/29/18 09:37 Dose: 20 mg Ferric Sodium Gluconate Complex 125 mg/ Sodium Chloride 110 mls @ 110 mls/hr IVPB DAILY [facility] Stop: 08/04/18 10:01 Last Admin: 07/29/18 12:16 Dose: 110 mls/hr Lorazepam (Ativan) 0.5 mg PO Q6H PRN PRN Reason: Anxiety Metoprolol Tartrate (Lopressor) 25 mg PO BID [facility] Last Admin: 07/29/18 09:38 Dose: 25 mg Morphine Sulfate (Morphine) 2 mg IVP Q4H PRN PRN Reason: Pain, severe (8-10) Last Admin: 07/29/18 16:25 Dose: 2 mg Potassium Chloride (K-Dur 20 Meq Er Tab) 40 meq PO DAILY [facility] Last Admin: 07/29/18 09:37 Dose: 40 meq Prednisone (Prednisone Tab) 5 mg PO DAILY [facility] Last Admin: 07/29/18 09:37 Dose: 5 mg Trazodone HCl (Desyrel) 50 mg PO HS [facility] Last Admin: 07/28/18 22:04 Dose: 50 mg Vitamin B Complex/Vit C/Folic Acid (Nephro-Ron) 1 tab PO DAILY [facility] Last Admin: 07/29/18 09:37 Dose: 1 tab - Labs Labs: 07/28/18 07:09 07/28/18 07:09 PT 16.5 SECONDS (9.7-12.2) H 07/23/18 07:35 INR 1.5 07/23/18 07:35 APTT 44 SECONDS (21-34) H 07/23/18 07:35 - Constitutional Appears: No Acute Distress - Head Exam Head Exam: ATRAUMATIC, NORMOCEPHALIC - Eye Exam Eye Exam: EOMI, PERRL - Neck Exam Neck Exam: absent: Lymphadenopathy, Thyromegaly - Respiratory Exam Respiratory Exam: NORMAL BREATHING PATTERN. absent: Rales, Rhonchi, Wheezes - Cardiovascular Exam Cardiovascular Exam: REGULAR RHYTHM, +S1, +S2. absent: Rubs, Murmur - GI/Abdominal Exam GI & Abdominal Exam: Distended, Soft, Normal Bowel Sounds. absent: Tenderness, Mass, Organomegaly - Rectal Exam Rectal Exam: Deferred - Extremities Exam Extremities Exam: absent: Calf Tenderness, Pedal Edema Assessment and Plan (1) Diarrhea Assessment & Plan: Diarrhea improved overnight. The tests for leukocytes and C difficile toxin were negative. Consider repeat colonoscopy. Status: Acute
--- NOTE | 2018-07-29 23:08 | CP.PCM.PN ---
Subjective - Date & Time of Evaluation Date of Evaluation: 07/29/18 Time of Evaluation: 23:08 - Subjective Subjective: Patient is currently feeling slightly better. Diarrhea negative. But concerned about going to the hemodialysis, also concerned about AV fistula. Seen by surgical team. Right upper extremity swelling again noted. Patient tolerating the hemodialysis. Chest good air entry regular heart sound nontender abdomen Edema negative Patient with end-stage renal disease on dialysis Failure renal transplant Currently off tacrolimus. Hemoglobin is on the low side. We'll continue to monitor. Transfusion if needed. Objective - Vital Signs/Intake and Output Vital Signs (last 24 hours): Temp Pulse Resp BP Pulse Ox 98.6 F 78 20 106/71 98 07/29/18 15:00 07/29/18 16:00 07/29/18 15:00 07/29/18 17:58 07/29/18 15:00 Intake and Output: 07/29/18 07/30/18 18:59 06:59 Intake Total 320 Output Total 250 Balance 70 - Medications Medications: Current Medications Acetaminophen (Tylenol 325mg Tab) 650 mg PO Q6H PRN PRN Reason: Pain, Mild (1-3) Amlodipine Besylate (Norvasc) 5 mg PO DAILY [facility] Last Admin: 07/29/18 09:37 Dose: 5 mg Calcitriol (Rocaltrol) 0.5 mcg PO DAILY [facility] Last Admin: 07/29/18 09:38 Dose: 0.5 mcg Calcium Acetate (Phoslo) 1,334 mg PO TID [facility] Last Admin: 07/29/18 17:58 Dose: 1,334 mg Epoetin Sergio (Procrit) 10,000 unit IV TTS [facility] Last Admin: 07/28/18 12:06 Dose: 10,000 unit Famotidine (Pepcid) 20 mg PO DAILY [facility] Last Admin: 07/29/18 09:37 Dose: 20 mg Ferric Sodium Gluconate Complex 125 mg/ Sodium Chloride 110 mls @ 110 mls/hr IVPB DAILY [facility] Stop: 08/04/18 10:01 Last Admin: 07/29/18 12:16 Dose: 110 mls/hr Lorazepam (Ativan) 0.5 mg PO Q6H PRN PRN Reason: Anxiety Metoprolol Tartrate (Lopressor) 25 mg PO BID [facility] Last Admin: 07/29/18 17:58 Dose: 25 mg Morphine Sulfate (Morphine) 2 mg IVP Q4H PRN PRN Reason: Pain, severe (8-10) Last Admin: 07/29/18 20:52 Dose: 2 mg Potassium Chloride (K-Dur 20 Meq Er Tab) 40 meq PO DAILY [facility] Last Admin: 07/29/18 09:37 Dose: 40 meq Prednisone (Prednisone Tab) 5 mg PO DAILY [facility] Last Admin: 07/29/18 09:37 Dose: 5 mg Trazodone HCl (Desyrel) 50 mg PO HS [facility] Last Admin: 07/29/18 21:01 Dose: 50 mg Vitamin B Complex/Vit C/Folic Acid (Nephro-Ron) 1 tab PO DAILY [facility] Last Admin: 07/29/18 09:37 Dose: 1 tab - Labs Labs: 07/28/18 07:09 07/28/18 07:09 PT 16.5 SECONDS (9.7-12.2) H 07/23/18 07:35 INR 1.5 07/23/18 07:35 APTT 44 SECONDS (21-34) H 07/23/18 07:35
--- NOTE | 2018-07-30 09:32 | CP.PCM.PN ---
Subjective - Date & Time of Evaluation Date of Evaluation: 07/30/18 Time of Evaluation: 09:30 - Subjective Subjective: On dialysis now Minimal UF BP lower now No diarrhea Possible colonoscopy being considered Overall feeling much better Objective - Vital Signs/Intake and Output Vital Signs (last 24 hours): Temp Pulse Resp BP Pulse Ox 98.3 F 59 L 18 131/75 98 07/30/18 07:00 07/30/18 07:00 07/30/18 07:00 07/30/18 07:00 07/30/18 07:00 Intake and Output: 07/30/18 07/30/18 06:59 18:59 Intake Total 320 Output Total 250 Balance 70 - Medications Medications: Current Medications Acetaminophen (Tylenol 325mg Tab) 650 mg PO Q6H PRN PRN Reason: Pain, Mild (1-3) Amlodipine Besylate (Norvasc) 5 mg PO DAILY [facility] Last Admin: 07/29/18 09:37 Dose: 5 mg Calcitriol (Rocaltrol) 0.5 mcg PO DAILY [facility] Last Admin: 07/29/18 09:38 Dose: 0.5 mcg Calcium Acetate (Phoslo) 1,334 mg PO TID [facility] Last Admin: 07/29/18 17:58 Dose: 1,334 mg Epoetin Sergio (Procrit) 10,000 unit IV TTS [facility] Last Admin: 07/28/18 12:06 Dose: 10,000 unit Famotidine (Pepcid) 20 mg PO DAILY [facility] Last Admin: 07/29/18 09:37 Dose: 20 mg Ferric Sodium Gluconate Complex 125 mg/ Sodium Chloride 110 mls @ 110 mls/hr IVPB DAILY [facility] Stop: 08/04/18 10:01 Last Admin: 07/29/18 12:16 Dose: 110 mls/hr Lorazepam (Ativan) 0.5 mg PO Q6H PRN PRN Reason: Anxiety Metoprolol Tartrate (Lopressor) 25 mg PO BID [facility] Last Admin: 07/29/18 17:58 Dose: 25 mg Morphine Sulfate (Morphine) 2 mg IVP Q4H PRN PRN Reason: Pain, severe (8-10) Last Admin: 07/30/18 06:09 Dose: 2 mg Potassium Chloride (K-Dur 20 Meq Er Tab) 40 meq PO DAILY [facility] Last Admin: 09/05/18 09:37 Dose: 40 meq Prednisone (Prednisone Tab) 5 mg PO DAILY [facility] Last Admin: 07/29/18 09:37 Dose: 5 mg Trazodone HCl (Desyrel) 50 mg PO [facility] Last Admin: 07/29/18 21:01 Dose: 50 mg Vitamin B Complex/Vit C/Folic Acid (Nephro-Ron) 1 tab PO DAILY [facility] Last Admin: 07/29/18 09:37 Dose: 1 tab - Labs Labs: 07/28/18 07:09 07/28/18 07:09 PT 16.5 SECONDS (9.7-12.2) H 07/23/18 07:35 INR 1.5 07/23/18 07:35 APTT 44 SECONDS (21-34) H 07/23/18 07:35 - Constitutional Appears: No Acute Distress, Chronically Ill - Head Exam Head Exam: ATRAUMATIC, NORMAL INSPECTION - Eye Exam Eye Exam: EOMI, Normal appearance - Neck Exam Neck Exam: Normal Inspection. absent: Tenderness - Respiratory Exam Respiratory Exam: Clear to Ausculation Bilateral, NORMAL BREATHING PATTERN - Cardiovascular Exam Cardiovascular Exam: REGULAR RHYTHM, +S1 - GI/Abdominal Exam GI & Abdominal Exam: Soft. absent: Tenderness - Extremities Exam Extremities Exam: Normal Inspection. absent: Tenderness - Neurological Exam Neurological Exam: Awake, CN II-XII Intact - Skin Skin Exam: Dry, Warm Assessment and Plan (1) Renal transplant failure and rejection Status: Acute (2) CKD (chronic kidney disease) stage 5, GFR less than 15 ml/min Status: Acute (3) Diarrhea Status: Acute (4) Weight loss, unintentional Status: Acute (5) ESRD (end stage renal disease) Status: Acute - Assessment and Plan (Free Text) Plan: same dialysis TTS monitor BP- might decrease dosage of meds will need dialysis placement await AV access
[2018-07-30] MEDS ORDERED: Ferric Sodium Gluconat Complex 62.5 mg/5 ml Vial ONE (10:13)
[2018-07-30] MEDS: Potassium Chloride 20 mEq ER Tab PO SCH ×2 (10:22→12:57)
[2018-07-30] MEDS: Ferric Sodium Gluconat Complex 125 MG in Sodium Chloride 0.9% 100 ML IVPB SCH ×2 (10:22→11:27)
[2018-07-30] MEDS: Multivitamin Vitamin B Complex (Nephro-Vite) Tab PO SCH ×2 (10:23→13:04)
[2018-07-30 10:29] LABS: RBC 2.57 Mil/uL (3.80-5.20); WHITE BLOOD COUNT 4.2 K/uL (4.8-10.8)
[2018-07-30 10:34] LABS: MEAN CELL VOLUME 96.8 fL (81.0-99.0)
[2018-07-30 10:59] LABS: ALBUMIN 2.2 g/dL (3.5-5.0); CALCIUM 7.8 mg/dl (8.6-10.4)
[2018-07-30] MEDS: Epoetin Alfa 10,000 unit/ml Dialysis IV SCH (12:08)
--- NOTE | 2018-07-30 15:52 | CP.PCM.PN ---
Subjective - Date & Time of Evaluation Date of Evaluation: 07/30/18 Time of Evaluation: 15:50 - Subjective Subjective: Patient states that she has not had any bowel movements today. She denies having nausea and vomiting. She continues to complain of intermittent stomach rumbling. Objective - Vital Signs/Intake and Output Vital Signs (last 24 hours): Temp Pulse Resp BP Pulse Ox 98.6 F 63 20 115/65 96 07/30/18 13:00 07/30/18 13:00 07/30/18 13:00 07/30/18 13:00 07/30/18 13:00 Intake and Output: 07/30/18 07/30/18 06:59 18:59 Intake Total 320 Output Total 250 Balance 70 - Medications Medications: Current Medications Acetaminophen (Tylenol 325mg Tab) 650 mg PO Q6H PRN PRN Reason: Pain, Mild (1-3) Amlodipine Besylate (Norvasc) 5 mg PO DAILY [facility] Last Admin: 07/30/18 10:23 Dose: Not Given Calcitriol (Rocaltrol) 0.5 mcg PO DAILY [facility] Last Admin: 07/30/18 12:56 Dose: 0.5 mcg Calcium Acetate (Phoslo) 1,334 mg PO TID [facility] Last Admin: 07/30/18 13:05 Dose: 1,334 mg Epoetin Sergio (Procrit) 10,000 unit IV TTS [facility] Last Admin: 07/30/18 12:08 Dose: 10,000 unit Famotidine (Pepcid) 20 mg PO DAILY [facility] Last Admin: 07/30/18 12:57 Dose: 20 mg Ferric Sodium Gluconate Complex 125 mg/ Sodium Chloride 110 mls @ 110 mls/hr IVPB DAILY [facility] Stop: 08/04/18 10:01 Last Admin: 07/30/18 11:27 Dose: 110 mls/hr Lorazepam (Ativan) 0.5 mg PO Q6H PRN PRN Reason: Anxiety Metoprolol Tartrate (Lopressor) 25 mg PO BID [facility] Last Admin: 07/30/18 10:22 Dose: Not Given Morphine Sulfate (Morphine) 2 mg IVP Q4H PRN PRN Reason: Pain, severe (8-10) Last Admin: 07/30/18 13:06 Dose: 2 mg Potassium Chloride (K-Dur 20 Meq Er Tab) 40 meq PO DAILY [facility] Last Admin: 07/30/18 12:57 Dose: 40 meq Prednisone (Prednisone Tab) 5 mg PO DAILY [facility] Last Admin: 07/30/18 12:57 Dose: 5 mg Trazodone HCl (Desyrel) 50 mg PO HS [facility] Last Admin: 07/29/18 21:01 Dose: 50 mg Vitamin B Complex/Vit C/Folic Acid (Nephro-Ron) 1 tab PO DAILY [facility] Last Admin: 07/30/18 13:04 Dose: 1 tab - Labs Labs: 07/30/18 10:24 07/30/18 10:24 PT 16.5 SECONDS (9.7-12.2) H 07/23/18 07:35 INR 1.5 07/23/18 07:35 APTT 44 SECONDS (21-34) H 07/23/18 07:35 - Constitutional Appears: No Acute Distress - Head Exam Head Exam: ATRAUMATIC, NORMOCEPHALIC - Eye Exam Eye Exam: EOMI, PERRL - Neck Exam Neck Exam: absent: Lymphadenopathy, Thyromegaly - Respiratory Exam Respiratory Exam: NORMAL BREATHING PATTERN. absent: Rales, Rhonchi, Wheezes - Cardiovascular Exam Cardiovascular Exam: REGULAR RHYTHM, +S1, +S2. absent: Gallop, Rubs, Murmur - GI/Abdominal Exam GI & Abdominal Exam: Soft, Normal Bowel Sounds. absent: Tenderness, Mass, Organomegaly - Rectal Exam Rectal Exam: Deferred - Extremities Exam Extremities Exam: absent: Calf Tenderness, Pedal Edema Assessment and Plan (1) Diarrhea Assessment & Plan: Diarrhea is improving. No other results from the stool cultures are available. Will follow. Status: Acute
--- NOTE | 2018-07-31 08:09 | CP.PCM.PN ---
Subjective - Date & Time of Evaluation Date of Evaluation: 07/31/18 Time of Evaluation: 08:06 - Subjective Subjective: Patient continues to complain of rumbling in the stomach. She denies having nausea and vomiting. She had one soft bowel movement overnight. Objective - Vital Signs/Intake and Output Vital Signs (last 24 hours): Temp Pulse Resp BP Pulse Ox 98.4 F 60 20 152/82 H 98 07/31/18 08:04 07/31/18 08:04 07/31/18 08:04 07/31/18 08:04 07/31/18 08:04 Intake and Output: 07/31/18 07/31/18 06:59 18:59 Intake Total 200 Balance 200 - Medications Medications: Current Medications Acetaminophen (Tylenol 325mg Tab) 650 mg PO Q6H PRN PRN Reason: Pain, Mild (1-3) Amlodipine Besylate (Norvasc) 5 mg PO DAILY [facility] Last Admin: 07/30/18 10:23 Dose: Not Given Calcitriol (Rocaltrol) 0.5 mcg PO DAILY [facility] Last Admin: 07/30/18 12:56 Dose: 0.5 mcg Calcium Acetate (Phoslo) 1,334 mg PO TID [facility] Last Admin: 07/30/18 18:12 Dose: 1,334 mg Epoetin Sergio (Procrit) 10,000 unit IV TTS [facility] Last Admin: 07/30/18 12:08 Dose: 10,000 unit Famotidine (Pepcid) 20 mg PO DAILY [facility] Last Admin: 07/30/18 12:57 Dose: 20 mg Ferric Sodium Gluconate Complex 125 mg/ Sodium Chloride 110 mls @ 110 mls/hr IVPB DAILY [facility] Stop: 08/04/18 10:01 Last Admin: 07/30/18 11:27 Dose: 110 mls/hr Lorazepam (Ativan) 0.5 mg PO Q6H PRN PRN Reason: Anxiety Metoprolol Tartrate (Lopressor) 25 mg PO BID [facility] Last Admin: 07/30/18 18:13 Dose: 25 mg Morphine Sulfate (Morphine) 2 mg IVP Q4H PRN PRN Reason: Pain, severe (8-10) Last Admin: 07/31/18 05:41 Dose: 2 mg Potassium Chloride (K-Dur 20 Meq Er Tab) 40 meq PO DAILY [facility] Last Admin: 07/30/18 12:57 Dose: 40 meq Prednisone (Prednisone Tab) 5 mg PO DAILY [facility] Last Admin: 07/30/18 12:57 Dose: 5 mg Trazodone HCl (Desyrel) 50 mg PO HS [facility] Last Admin: 07/30/18 22:33 Dose: 50 mg Vitamin B Complex/Vit C/Folic Acid (Nephro-Ron) 1 tab PO DAILY [facility] Last Admin: 07/30/18 13:04 Dose: 1 tab - Labs Labs: 07/30/18 10:24 07/30/18 10:24 PT 16.5 SECONDS (9.7-12.2) H 07/23/18 07:35 INR 1.5 07/23/18 07:35 APTT 44 SECONDS (21-34) H 07/23/18 07:35 - Constitutional Appears: No Acute Distress - Head Exam Head Exam: ATRAUMATIC, NORMOCEPHALIC - Eye Exam Eye Exam: EOMI, PERRL - Neck Exam Neck Exam: absent: Lymphadenopathy, Thyromegaly - Respiratory Exam Respiratory Exam: NORMAL BREATHING PATTERN. absent: Rales, Rhonchi, Wheezes - Cardiovascular Exam Cardiovascular Exam: REGULAR RHYTHM, +S1, +S2. absent: Gallop, Rubs, Murmur - GI/Abdominal Exam GI & Abdominal Exam: Soft, Normal Bowel Sounds. absent: Tenderness, Mass, Organomegaly - Rectal Exam Rectal Exam: Deferred - Extremities Exam Extremities Exam: absent: Calf Tenderness, Pedal Edema Assessment and Plan (1) Diarrhea Assessment & Plan: Diarrhea has improved. Culture, O+P, C difficile toxin and leukocytes were negative. Plan is for colonoscopy which can be done as an outpatient. Status: Acute
[2018-07-31] MEDS: Multivitamin Vitamin B Complex (Nephro-Vite) Tab PO SCH (12:24)
[2018-07-31] MEDS: Potassium Chloride 20 mEq ER Tab PO SCH (12:30)
--- NOTE | 2018-07-31 12:37 | CP.PCM.PN ---
Subjective - Date & Time of Evaluation Date of Evaluation: 07/31/18 Time of Evaluation: 12:34 - Subjective Subjective: had chest pain and sent for stress test now Hg decreased to 8.0- despite EPO, IV Fe no more diarrhea overall had been feeling better Objective - Vital Signs/Intake and Output Vital Signs (last 24 hours): Temp Pulse Resp BP Pulse Ox 98.4 F 58 L 20 156/86 H 98 07/31/18 08:04 07/31/18 08:51 07/31/18 08:04 07/31/18 12:22 07/31/18 08:04 Intake and Output: 07/31/18 07/31/18 06:59 18:59 Intake Total 200 Balance 200 - Medications Medications: Current Medications Acetaminophen (Tylenol 325mg Tab) 650 mg PO Q6H PRN PRN Reason: Pain, Mild (1-3) Amlodipine Besylate (Norvasc) 5 mg PO DAILY [facility] Last Admin: 07/31/18 12:23 Dose: 5 mg Calcitriol (Rocaltrol) 0.5 mcg PO DAILY [facility] Last Admin: 07/31/18 12:24 Dose: 0.5 mcg Calcium Acetate (Phoslo) 1,334 mg PO TID [facility] Last Admin: 07/31/18 12:31 Dose: Not Given Epoetin Sergio (Procrit) 10,000 unit IV TTS [facility] Last Admin: 07/30/18 12:08 Dose: 10,000 unit Famotidine (Pepcid) 20 mg PO DAILY [facility] Last Admin: 07/31/18 12:21 Dose: 20 mg Ferric Sodium Gluconate Complex 125 mg/ Sodium Chloride 110 mls @ 110 mls/hr IVPB DAILY [facility] Stop: 08/04/18 10:01 Last Admin: 07/30/18 11:27 Dose: 110 mls/hr Lorazepam (Ativan) 0.5 mg PO Q6H PRN PRN Reason: Anxiety Metoprolol Tartrate (Lopressor) 25 mg PO BID [facility] Last Admin: 07/31/18 12:22 Dose: 25 mg Morphine Sulfate (Morphine) 2 mg IVP Q4H PRN PRN Reason: Pain, severe (8-10) Last Admin: 07/31/18 12:18 Dose: 2 mg Potassium Chloride (K-Dur 20 Meq Er Tab) 40 meq PO DAILY [facility] Last Admin: 07/31/18 12:30 Dose: 40 meq Prednisone (Prednisone Tab) 5 mg PO DAILY [facility] Last Admin: 07/31/18 12:22 Dose: 5 mg Trazodone HCl (Desyrel) 50 mg PO [facility] Last Admin: 07/30/18 22:33 Dose: 50 mg Vitamin B Complex/Vit C/Folic Acid (Nephro-Ron) 1 tab PO DAILY [facility] Last Admin: 07/31/18 12:24 Dose: 1 tab - Labs Labs: 07/30/18 10:24 07/30/18 10:24 PT 16.5 SECONDS (9.7-12.2) H 07/23/18 07:35 INR 1.5 07/23/18 07:35 APTT 44 SECONDS (21-34) H 07/23/18 07:35 - Constitutional Appears: No Acute Distress, Chronically Ill - Head Exam Head Exam: ATRAUMATIC, NORMAL INSPECTION - Eye Exam Eye Exam: EOMI, Normal appearance - Neck Exam Neck Exam: Normal Inspection. absent: Tenderness - Cardiovascular Exam Cardiovascular Exam: REGULAR RHYTHM, +S1 - GI/Abdominal Exam GI & Abdominal Exam: Soft. absent: Tenderness - Extremities Exam Extremities Exam: Normal Inspection. absent: Tenderness - Neurological Exam Neurological Exam: Alert, CN II-XII Intact - Skin Skin Exam: Dry, Warm Assessment and Plan (1) Renal transplant failure and rejection Status: Acute (2) CKD (chronic kidney disease) stage 5, GFR less than 15 ml/min Status: Acute (3) Diarrhea Status: Acute (4) Weight loss, unintentional Status: Acute (5) ESRD (end stage renal disease) Status: Acute - Assessment and Plan (Free Text) Plan: EST now dialysis MWF check CMV PCR transfuse 1 u prbcs in AM at dialysis needs dialysis palcement
[2018-07-31] MEDS: Ferric Sodium Gluconat Complex 125 MG in Sodium Chloride 0.9% 100 ML IVPB SCH (14:25)
[2018-07-31 16:59] LABS: SOURCE STOOL
--- NOTE | 2018-07-31 18:01 | CARD ---
APPROVED REPORT Date of service: 07/31/2018 Protocol: PHARMACOLOGICAL STRESS Test Type: LEXISCAN Test Indications: CHEST PAIN Medications: LIST SCAN Medical History: CHEST PAIN Target HR: 172 bpm Resting ECG: normal Resting Heart Rate: 61 bpm Resting Blood Pressure: 124/80mmHg submaximum (85%): 146 bpm TEST SUMMARY [id number]. INFUSIONDOSE 100:300.00.01.061/.0. [id number]/70.0. PROCEDURE Pharmacologic stress testing was performed using 0.4mg per 5ml of regadenoson given intravenously over 7-10 seconds. POST EXERCISE Reason for Termination: Protocol Completed Target HR: No Max HR: 61 bpm 52% of Maximum Predicted HR: 172 bpm Exercise duration: 00:30 min:sec, 0 Stage Exercise capacity: 1.0METs Max Blood Pressure: 148/68mmHg Blood Pressure response to exercise: normal resting BP - appropriate response Heart Rate response to exercise: appropriate Chest Pain: No, none Angina index: 0 Arrhythmia: No, none ST Change: No, none Deviation: 0 mm INTERPRETATION Stress EKG Conclusion: NUCLEAR REPORT TO FOLLOW EXAM: Myocardial Perfusion REST/STRESS Imaging Protocol The imaging protocol used to acquire images was Rest Tc-99m/stress Tc-99m 1 day Rest Spect myocardial perfusion imaging was performed in supine position 47 minutes following the injection of 13 mCi of Tc-99 Myoview. Gated Stress Spect was performed 40 minutes after intravenous 30.7 mCi Tc-99 Myoview injection. The images were gated to evaluate regional wall motion and calculate ventricular ejection fraction.Images were reconstructed using backfilter projection method in short horizontal and verticle long axis. Spect slices were generated. RESTING DATA EDV83.85hrDA2.10L/min ESV22.00mlMyocardial Zniy627.00g Av. Heart Rate68.00bpm EF73.00% STRESS DATA EDV92.95udZK2.20L/min ESV27.00mlMyocardial Ecrv037.00g EF71.00% Regional WT score at stress:0.00 Regional WM score at stress:0.00 Summed WT score at stress:3.00 Av. Heart Rate65.00bpmSummed WM score at stress:0.00 LV Perf. Quant 17 Seg. SSS1.00 17 Seg. SRS0.00 17 Seg. SDS1.00 Stress Defect Extent (% LAD)0.00Rest Defect Extent (% LAD)0.00Rev. Defect Extent (% LAD)0.00 Stress Defect Extent (% LCX)0.00Rest Defect Extent (% LCX)0.00Rev. Defect Extent (% LCX)0.00 Stress Defect Extent (% RCA)0.00Rest Defect Extent (% RCA)0.00Rev. Defect Extent (% RCA)0.00 Stress Defect Extent (% NEETU)0.00Rest Defect Extent (% ENETU)0.00Rev. Defect Extent (% NEETU)0.00 Other Information Quality:Good IMPRESSION Normal Myocardial Perfusion exercise stress study Left Ventricle LV Function:Left ventricle systolic function is normal. The Ejection Fraction is >55%. Metabolism/Perfusion There are no perfusion/metabolism defects. Conclusion 1. Normal Lexiscan Nuclear Stress test. Normal EF
--- NOTE | 2018-08-01 09:02 | CP.PCM.PN ---
Subjective - Date & Time of Evaluation Date of Evaluation: 08/01/18 Time of Evaluation: 08:58 - Subjective Subjective: Covering Dr Pacheco f/u diarrhea Large fecal fat, all other fecal tests WNL Diarrhea has resolved, still notes abdominal pain and borborygmi Objective - Vital Signs/Intake and Output Vital Signs (last 24 hours): Temp Pulse Resp BP Pulse Ox 98.4 F 60 20 136/78 98 07/31/18 23:40 08/01/18 03:23 07/31/18 23:40 08/01/18 03:23 07/31/18 23:40 - Medications Medications: Current Medications Acetaminophen (Tylenol 325mg Tab) 650 mg PO Q6H PRN PRN Reason: Pain, Mild (1-3) Last Admin: 07/31/18 20:07 Dose: 650 mg Amlodipine Besylate (Norvasc) 5 mg PO DAILY [facility] Last Admin: 07/31/18 12:23 Dose: 5 mg Calcitriol (Rocaltrol) 0.5 mcg PO DAILY [facility] Last Admin: 07/31/18 12:24 Dose: 0.5 mcg Calcium Acetate (Phoslo) 1,334 mg PO TID [facility] Last Admin: 07/31/18 17:38 Dose: 1,334 mg Epoetin Sergio (Procrit) 10,000 unit IV TTS [facility] Last Admin: 07/30/18 12:08 Dose: 10,000 unit Famotidine (Pepcid) 20 mg PO DAILY [facility] Last Admin: 07/31/18 12:21 Dose: 20 mg Ferric Sodium Gluconate Complex 125 mg/ Sodium Chloride 110 mls @ 110 mls/hr IVPB DAILY [facility] Stop: 08/04/18 10:01 Last Admin: 07/31/18 14:25 Dose: 110 mls/hr Lorazepam (Ativan) 0.5 mg PO Q6H PRN PRN Reason: Anxiety Last Admin: 07/31/18 20:07 Dose: 0.5 mg Metoprolol Tartrate (Lopressor) 25 mg PO BID [facility] Last Admin: 07/31/18 17:37 Dose: 25 mg Morphine Sulfate (Morphine) 2 mg IVP Q4H PRN PRN Reason: Pain, severe (8-10) Last Admin: 08/01/18 08:35 Dose: 2 mg Oxycodone/Acetaminophen (Percocet 5/325 Mg Tab) 1 tab PO Q6H PRN PRN Reason: Pain, severe (8-10) Stop: 08/03/18 20:24 Potassium Chloride (K-Dur 20 Meq Er Tab) 40 meq PO DAILY [facility] Last Admin: 07/31/18 12:30 Dose: 40 meq Prednisone (Prednisone Tab) 5 mg PO DAILY [facility] Last Admin: 07/31/18 12:22 Dose: 5 mg Trazodone HCl (Desyrel) 50 mg PO HS [facility] Last Admin: 07/31/18 22:23 Dose: 50 mg Vitamin B Complex/Vit C/Folic Acid (Nephro-Ron) 1 tab PO DAILY [facility] Last Admin: 07/31/18 12:24 Dose: 1 tab - Labs Labs: 07/30/18 10:24 07/30/18 10:24 PT 16.5 SECONDS (9.7-12.2) H 07/23/18 07:35 INR 1.5 07/23/18 07:35 APTT 44 SECONDS (21-34) H 07/23/18 07:35 - Constitutional Appears: Chronically Ill - Head Exam Head Exam: NORMOCEPHALIC - Respiratory Exam Respiratory Exam: NORMAL BREATHING PATTERN - Cardiovascular Exam Cardiovascular Exam: REGULAR RHYTHM - GI/Abdominal Exam GI & Abdominal Exam: Soft. absent: Tenderness, Mass Assessment and Plan (1) CKD (chronic kidney disease) Assessment & Plan: S/P transplant managed with dialysis Per renal Status: Acute (2) Diarrhea Assessment & Plan: now resolved Fecal fat/ cholecystectomy raises suspicion of bacterial overgrowth or insufficient bile salt. Consider checking B12 (was low in January) and Folate . Consider Cholestyramine if diarrhea recurs. Microscopic colitis less likely. Status: Acute (3) Anemia Assessment & Plan: chronic anemia, normal MCV. Outpt colonoscopy per Dr Pacheco Status: Acute (4) Chronic abdominal pain Assessment & Plan: Seems functional. No source of pain on recent CT. Consider trial of Bentyl. Status: Acute
--- NOTE | 2018-08-01 09:49 | CP.PCM.PN ---
Subjective - Date & Time of Evaluation Date of Evaluation: 08/01/18 Time of Evaluation: 09:46 - Subjective Subjective: Feels better s/p stress teat- reportedly negative per pt For dialysis today AV access pending no more diarrhea Right arm swollen- can consider removing IV if pain meds can be given orally Objective - Vital Signs/Intake and Output Vital Signs (last 24 hours): Temp Pulse Resp BP Pulse Ox 98.4 F 60 20 136/78 98 07/31/18 23:40 08/01/18 03:23 07/31/18 23:40 08/01/18 03:23 07/31/18 23:40 - Medications Medications: Current Medications Acetaminophen (Tylenol 325mg Tab) 650 mg PO Q6H PRN PRN Reason: Pain, Mild (1-3) Last Admin: 07/31/18 20:07 Dose: 650 mg Amlodipine Besylate (Norvasc) 5 mg PO DAILY [facility] Last Admin: 07/31/18 12:23 Dose: 5 mg Calcitriol (Rocaltrol) 0.5 mcg PO DAILY [facility] Last Admin: 07/31/18 12:24 Dose: 0.5 mcg Calcium Acetate (Phoslo) 1,334 mg PO TID [facility] Last Admin: 07/31/18 17:38 Dose: 1,334 mg Epoetin Sergio (Procrit) 10,000 unit IV TTS [facility] Last Admin: 07/30/18 12:08 Dose: 10,000 unit Famotidine (Pepcid) 20 mg PO DAILY [facility] Last Admin: 07/31/18 12:21 Dose: 20 mg Ferric Sodium Gluconate Complex 125 mg/ Sodium Chloride 110 mls @ 110 mls/hr IVPB DAILY [facility] Stop: 08/04/18 10:01 Last Admin: 07/31/18 14:25 Dose: 110 mls/hr Lorazepam (Ativan) 0.5 mg PO Q6H PRN PRN Reason: Anxiety Last Admin: 07/31/18 20:07 Dose: 0.5 mg Metoprolol Tartrate (Lopressor) 25 mg PO BID [facility] Last Admin: 07/31/18 17:37 Dose: 25 mg Morphine Sulfate (Morphine) 2 mg IVP Q4H PRN PRN Reason: Pain, severe (8-10) Last Admin: 08/01/18 08:35 Dose: 2 mg Oxycodone/Acetaminophen (Percocet 5/325 Mg Tab) 1 tab PO Q6H PRN PRN Reason: Pain, severe (8-10) Stop: 08/03/18 20:24 Potassium Chloride (K-Dur 20 Meq Er Tab) 40 meq PO DAILY [facility] Last Admin: 07/31/18 12:30 Dose: 40 meq Prednisone (Prednisone Tab) 5 mg PO DAILY [facility] Last Admin: 07/31/18 12:22 Dose: 5 mg Trazodone HCl (Desyrel) 50 mg PO HS [facility] Last Admin: 07/31/18 22:23 Dose: 50 mg Vitamin B Complex/Vit C/Folic Acid (Nephro-Ron) 1 tab PO DAILY [facility] Last Admin: 07/31/18 12:24 Dose: 1 tab - Labs Labs: 07/30/18 10:24 07/30/18 10:24 PT 16.5 SECONDS (9.7-12.2) H 07/23/18 07:35 INR 1.5 07/23/18 07:35 APTT 44 SECONDS (21-34) H 07/23/18 07:35 - Constitutional Appears: In Acute Distress, Chronically Ill - Head Exam Head Exam: ATRAUMATIC, NORMAL INSPECTION - Eye Exam Eye Exam: EOMI, Normal appearance - Neck Exam Neck Exam: Normal Inspection. absent: Tenderness - Respiratory Exam Respiratory Exam: Clear to Ausculation Bilateral, NORMAL BREATHING PATTERN - Cardiovascular Exam Cardiovascular Exam: REGULAR RHYTHM, +S1 - GI/Abdominal Exam GI & Abdominal Exam: Soft. absent: Tenderness - Extremities Exam Extremities Exam: Normal Inspection. absent: Tenderness - Neurological Exam Neurological Exam: Awake, CN II-XII Intact - Skin Skin Exam: Dry, Warm Assessment and Plan (1) Renal transplant failure and rejection Status: Acute (2) CKD (chronic kidney disease) stage 5, GFR less than 15 ml/min Status: Acute (3) Diarrhea Status: Acute (4) Weight loss, unintentional Status: Acute (5) ESRD (end stage renal disease) Status: Acute - Assessment and Plan (Free Text) Plan: dialysis TTS outpt dialysis schedule await AV access consider removing IV- ferrlecit can be given with HD
[2018-08-01] MEDS: Ferric Sodium Gluconat Complex 125 MG in Sodium Chloride 0.9% 100 ML IVPB SCH (10:00)
[2018-08-01] MEDS: Epoetin Alfa 10,000 unit/ml Dialysis IV SCH (11:24)
[2018-08-01] MEDS: Potassium Chloride 20 mEq ER Tab PO SCH (13:49)
[2018-08-01] MEDS: Multivitamin Vitamin B Complex (Nephro-Vite) Tab PO SCH (13:54)
[2018-08-01] MEDS: Oxycodone/Acetaminophen 5/325 mg Tab PO PRN ×2 (15:37→21:57)
--- NOTE | 2018-08-01 17:36 | CP.PCM.PN ---
Subjective - Date & Time of Evaluation Date of Evaluation: 08/01/18 Time of Evaluation: 20:40 - Subjective Subjective: Patient is morning received a hemodialysis. Also given blood transfusion. But no labs done today. Patient is feeling well. But he again in the evening nurse called me, patient started having increasing pain in the right-sided neck. Also swelling was noted. I spoke to the surgical team. Currently pending to have the sonogram and a venous Doppler of the right internal jugular vein and the right side of the neck. Possibility of the DVT cannot be ruled out. Right arm swelling still persistently noted. Will continue the warm compression. Anticoagulation probably needs to be started again. Will follow-up the patient Objective - Vital Signs/Intake and Output Vital Signs (last 24 hours): Temp Pulse Resp BP Pulse Ox 99.0 F 94 H 20 161/94 H 96 08/01/18 15:10 08/01/18 15:10 08/01/18 15:10 08/01/18 15:10 08/01/18 15:10 Intake and Output: 08/01/18 08/01/18 06:59 18:59 Intake Total 288 Balance 288 - Medications Medications: Current Medications Acetaminophen (Tylenol 325mg Tab) 650 mg PO Q6H PRN PRN Reason: Pain, Mild (1-3) Last Admin: 07/31/18 20:07 Dose: 650 mg Amlodipine Besylate (Norvasc) 5 mg PO DAILY [facility] Last Admin: 08/01/18 13:51 Dose: 5 mg Calcitriol (Rocaltrol) 0.5 mcg PO DAILY [facility] Last Admin: 08/01/18 13:52 Dose: 0.5 mcg Calcium Acetate (Phoslo) 1,334 mg PO TID [facility] Last Admin: 08/01/18 14:02 Dose: 1,334 mg Epoetin Sergio (Procrit) 10,000 unit IV TTS [facility] Last Admin: 08/01/18 11:24 Dose: 10,000 unit Famotidine (Pepcid) 20 mg PO DAILY [facility] Last Admin: 08/01/18 13:52 Dose: 20 mg Ferric Sodium Gluconate Complex 125 mg/ Sodium Chloride 110 mls @ 110 mls/hr IVPB DAILY [facility] Stop: 08/04/18 10:01 Last Admin: 08/01/18 10:00 Dose: Not Given Lorazepam (Ativan) 0.5 mg PO Q6H PRN PRN Reason: Anxiety Last Admin: 07/31/18 20:07 Dose: 0.5 mg Metoprolol Tartrate (Lopressor) 25 mg PO BID [facility] Last Admin: 08/01/18 13:51 Dose: 25 mg Morphine Sulfate (Morphine) 2 mg IVP Q4H PRN PRN Reason: Pain, severe (8-10) Last Admin: 08/01/18 13:55 Dose: 2 mg Oxycodone/Acetaminophen (Percocet 5/325 Mg Tab) 1 tab PO Q6H PRN PRN Reason: Pain, severe (8-10) Stop: 08/03/18 20:24 Last Admin: 08/01/18 15:37 Dose: 1 tab Potassium Chloride (K-Dur 20 Meq Er Tab) 40 meq PO DAILY [facility] Last Admin: 08/01/18 13:49 Dose: 40 meq Prednisone (Prednisone Tab) 5 mg PO DAILY [facility] Last Admin: 08/01/18 13:51 Dose: 5 mg Trazodone HCl (Desyrel) 50 mg PO HS [facility] Last Admin: 07/31/18 22:23 Dose: 50 mg Vitamin B Complex/Vit C/Folic Acid (Nephro-Ron) 1 tab PO DAILY [facility] Last Admin: 08/01/18 13:54 Dose: 1 tab - Labs Labs: 07/30/18 10:24 07/30/18 10:24 PT 16.5 SECONDS (9.7-12.2) H 07/23/18 07:35 INR 1.5 07/23/18 07:35 APTT 44 SECONDS (21-34) H 07/23/18 07:35
--- NOTE | 2018-08-02 00:19 | CP.PCM.PN ---
Subjective - Date & Time of Evaluation Date of Evaluation: 08/01/18 Time of Evaluation: 16:25 - Subjective Subjective: Patient seen and evaluated No cardiac events noted Right neck swelling ? DVT denies chest pain and dyspnea Objective - Vital Signs/Intake and Output Vital Signs (last 24 hours): Temp Pulse Resp BP Pulse Ox 99.0 F 81 20 161/94 H 96 08/01/18 15:10 08/01/18 17:30 08/01/18 15:10 08/01/18 17:35 08/01/18 15:10 Intake and Output: 08/01/18 08/02/18 18:59 06:59 Intake Total 288 Balance 288 - Medications Medications: Current Medications Acetaminophen (Tylenol 325mg Tab) 650 mg PO Q6H PRN PRN Reason: Pain, Mild (1-3) Last Admin: 07/31/18 20:07 Dose: 650 mg Amlodipine Besylate (Norvasc) 5 mg PO DAILY [facility] Last Admin: 08/01/18 13:51 Dose: 5 mg Calcitriol (Rocaltrol) 0.5 mcg PO DAILY [facility] Last Admin: 08/01/18 13:52 Dose: 0.5 mcg Calcium Acetate (Phoslo) 1,334 mg PO TID [facility] Last Admin: 08/01/18 17:36 Dose: 1,334 mg Epoetin Sergio (Procrit) 10,000 unit IV TTS [facility] Last Admin: 08/01/18 11:24 Dose: 10,000 unit Famotidine (Pepcid) 20 mg PO DAILY [facility] Last Admin: 08/01/18 13:52 Dose: 20 mg Ferric Sodium Gluconate Complex 125 mg/ Sodium Chloride 110 mls @ 110 mls/hr IVPB DAILY [facility] Stop: 08/04/18 10:01 Last Admin: 08/01/18 10:00 Dose: Not Given Lorazepam (Ativan) 0.5 mg PO Q6H PRN PRN Reason: Anxiety Last Admin: 07/31/18 20:07 Dose: 0.5 mg Metoprolol Tartrate (Lopressor) 25 mg PO BID [facility] Last Admin: 08/01/18 17:35 Dose: 25 mg Morphine Sulfate (Morphine) 2 mg IVP Q4H PRN PRN Reason: Pain, severe (8-10) Last Admin: 08/01/18 23:03 Dose: 2 mg Oxycodone/Acetaminophen (Percocet 5/325 Mg Tab) 1 tab PO Q6H PRN PRN Reason: Pain, severe (8-10) Stop: 08/03/18 20:24 Last Admin: 08/01/18 21:57 Dose: 1 tab Prednisone (Prednisone) 2.5 mg PO DAILY [facility] Trazodone HCl (Desyrel) 50 mg PO HS [facility] Last Admin: 08/01/18 21:56 Dose: 50 mg Vitamin B Complex/Vit C/Folic Acid (Nephro-Ron) 1 tab PO DAILY [facility] Last Admin: 08/01/18 13:54 Dose: 1 tab - Labs Labs: 07/30/18 10:24 07/30/18 10:24 PT 16.5 SECONDS (9.7-12.2) H 07/23/18 07:35 INR 1.5 07/23/18 07:35 APTT 44 SECONDS (21-34) H 07/23/18 07:35 - Head Exam Head Exam: ATRAUMATIC - Eye Exam Eye Exam: EOMI, PERRL Pupil Exam: NORMAL ACCOMODATION - ENT Exam ENT Exam: Mucous Membranes Moist - Neck Exam Neck Exam: Full ROM - Respiratory Exam Respiratory Exam: NORMAL BREATHING PATTERN - Cardiovascular Exam Cardiovascular Exam: REGULAR RHYTHM, +S1, +S2 - GI/Abdominal Exam GI & Abdominal Exam: Soft, Normal Bowel Sounds - Extremities Exam Extremities Exam: Full ROM - Neurological Exam Neurological Exam: Alert, Oriented x3 - Psychiatric Exam Psychiatric exam: Normal Mood - Skin Skin Exam: Dry, Warm Assessment and Plan - Assessment and Plan (Free Text) Assessment: CKD HTN Stress test normal Right neck swelling Mgt as per PMD
--- NOTE | 2018-08-02 08:12 | RAD ---
Chest x-ray single frontal view History: Chest pain. Comparison: 07/23/2018 Findings: Small left pleural effusion with adjacent left basilar consolidative changes. Mild blunting of the right costophrenic angle. Diffuse increased interstitial lung markings. Right infrahilar consolidative changes. Lines and tubes stable position. Calcification at the aortic knob. Degenerative changes in the spine and shoulders. Patchy increased markings at the left lung base. Radiopaque calcifications project over the left elbow, clinical correlation. Few distended loops of bowel in the upper abdomen. Impression: Small left pleural effusion with adjacent left basilar consolidative changes. Mild blunting of the right costophrenic angle. Diffuse increased interstitial lung markings. Right infrahilar consolidative changes. Lines and tubes stable position. Calcification at the aortic knob. Degenerative changes in the spine and shoulders. Patchy increased markings at the left lung base. Radiopaque calcifications project over the left elbow, clinical correlation. Few distended loops of bowel in the upper abdomen.
[2018-08-02] MEDS: Multivitamin Vitamin B Complex (Nephro-Vite) Tab PO SCH (09:03)
[2018-08-02] MEDS: Ferric Sodium Gluconat Complex 125 MG in Sodium Chloride 0.9% 100 ML IVPB SCH (10:34)
--- NOTE | 2018-08-02 15:18 | CP.PCM.PN ---
Subjective - Date & Time of Evaluation Date of Evaluation: 08/02/18 Time of Evaluation: 15:15 - Subjective Subjective: Covering Dr Tara klein c/o is painful swelling of right arm and neck. Being addressed by Dr Villela. Denies diarrhea. Objective - Vital Signs/Intake and Output Vital Signs (last 24 hours): Temp Pulse Resp BP Pulse Ox 99.3 F 77 20 194/94 H 98 08/02/18 09:10 08/02/18 09:10 08/02/18 09:10 08/02/18 09:10 08/02/18 09:10 - Medications Medications: Current Medications Acetaminophen (Tylenol 325mg Tab) 650 mg PO Q6H PRN PRN Reason: Pain, Mild (1-3) Last Admin: 08/02/18 09:00 Dose: 650 mg Amlodipine Besylate (Norvasc) 5 mg PO DAILY [facility] Last Admin: 08/02/18 08:59 Dose: 5 mg Calcitriol (Rocaltrol) 0.5 mcg PO DAILY [facility] Last Admin: 08/02/18 09:03 Dose: 0.5 mcg Calcium Acetate (Phoslo) 1,334 mg PO TID [facility] Last Admin: 08/02/18 14:40 Dose: 1,334 mg Epoetin Sergio (Procrit) 10,000 unit IV TTS [facility] Last Admin: 08/01/18 11:24 Dose: 10,000 unit Famotidine (Pepcid) 20 mg PO DAILY [facility] Last Admin: 08/02/18 09:03 Dose: 20 mg Ferric Sodium Gluconate Complex 125 mg/ Sodium Chloride 110 mls @ 110 mls/hr IVPB DAILY [facility] Stop: 08/04/18 10:01 Last Admin: 08/02/18 10:34 Dose: Not Given Lorazepam (Ativan) 0.5 mg PO Q6H PRN PRN Reason: Anxiety Last Admin: 08/02/18 08:57 Dose: 0.5 mg Metoprolol Tartrate (Lopressor) 25 mg PO BID [facility] Last Admin: 08/02/18 09:02 Dose: 25 mg Morphine Sulfate (Morphine) 2 mg IVP Q4H PRN PRN Reason: Pain, severe (8-10) Last Admin: 08/02/18 11:35 Dose: 2 mg Oxycodone/Acetaminophen (Percocet 5/325 Mg Tab) 1 tab PO Q6H PRN PRN Reason: Pain, severe (8-10) Stop: 08/03/18 20:24 Last Admin: 08/01/18 21:57 Dose: 1 tab Prednisone (Prednisone) 2.5 mg PO DAILY [facility] Last Admin: 08/02/18 09:03 Dose: 2.5 mg Trazodone HCl (Desyrel) 50 mg PO HS [facility] Last Admin: 08/01/18 21:56 Dose: 50 mg Vitamin B Complex/Vit C/Folic Acid (Nephro-Ron) 1 tab PO DAILY [facility] Last Admin: 08/02/18 09:03 Dose: 1 tab - Labs Labs: 07/30/18 10:24 07/30/18 10:24 PT 16.5 SECONDS (9.7-12.2) H 07/23/18 07:35 INR 1.5 07/23/18 07:35 APTT 44 SECONDS (21-34) H 07/23/18 07:35 - Constitutional Appears: In Acute Distress, Chronically Ill - Head Exam Head Exam: NORMOCEPHALIC - Eye Exam Eye Exam: absent: Scleral icterus - Respiratory Exam Respiratory Exam: NORMAL BREATHING PATTERN - Cardiovascular Exam Cardiovascular Exam: REGULAR RHYTHM - GI/Abdominal Exam GI & Abdominal Exam: Soft. absent: Tenderness, Organomegaly (Right arm swollen and tender) Assessment and Plan (1) CKD (chronic kidney disease) Status: Acute (2) Diarrhea Assessment & Plan: resolved Check B12 and Folate. Possible Bacterial overgrowth (fecal fat present). R/O biliary diarrhea- if diarrhea recurs consider Cholestyramine Status: Acute (3) Anemia Assessment & Plan: see 08/01 Status: Acute (4) Chronic abdominal pain Assessment & Plan: likely functional Status: Acute
[2018-08-02] MEDS: Oxycodone/Acetaminophen 5/325 mg Tab PO PRN (16:17)
[2018-08-02] MEDS ORDERED: Enoxaparin 30 mg Syringe SC SCH (20:09)
[2018-08-02] MEDS ORDERED: Heparin25000 units/250ml 1/2NS 25,000 UNITS/250 ML BAG IV PRN (20:23)
--- NOTE | 2018-08-02 20:37 | CP.PCM.PN ---
Subjective - Date & Time of Evaluation Date of Evaluation: 07/30/18 Time of Evaluation: 20:37 - Subjective Subjective: Patient is having more swelling in the right upper extremity. But no neck pain no nausea no vomiting. Diarrhea negative. Tolerating feeding Received a hemodialysis yesterday. We'll continue to monitor. Monitor the hemoglobin. Objective - Vital Signs/Intake and Output Vital Signs (last 24 hours): Temp Pulse Resp BP Pulse Ox 99.0 F 62 20 155/90 H 97 08/02/18 15:00 08/02/18 15:00 08/02/18 15:00 08/02/18 18:42 08/02/18 15:00 - Medications Medications: Current Medications Acetaminophen (Tylenol 325mg Tab) 650 mg PO Q6H PRN PRN Reason: Pain, Mild (1-3) Last Admin: 08/02/18 09:00 Dose: 650 mg Amlodipine Besylate (Norvasc) 5 mg PO DAILY [facility] Last Admin: 08/02/18 08:59 Dose: 5 mg Calcitriol (Rocaltrol) 0.5 mcg PO DAILY [facility] Last Admin: 08/02/18 09:03 Dose: 0.5 mcg Calcium Acetate (Phoslo) 1,334 mg PO TID [facility] Last Admin: 08/02/18 18:42 Dose: 1,334 mg Epoetin Sergio (Procrit) 10,000 unit IV TTS [facility] Last Admin: 08/01/18 11:24 Dose: 10,000 unit Famotidine (Pepcid) 20 mg PO DAILY [facility] Last Admin: 08/02/18 09:03 Dose: 20 mg Ferric Sodium Gluconate Complex 125 mg/ Sodium Chloride 110 mls @ 110 mls/hr IVPB DAILY [facility] Stop: 08/04/18 10:01 Last Admin: 08/02/18 10:34 Dose: Not Given Heparin Sodium/Sodium Chloride (Heparin 87513 Units/250ml 1/2 Normal Saline) 25 ,000 units in 250 mls @ 1.415 mls/hr IV .Q24H PRN; Protocol; 4 UNITS/KG/HR PRN Reason: PROTOCOL Lorazepam (Ativan) 0.5 mg PO Q6H PRN PRN Reason: Anxiety Last Admin: 08/02/18 08:57 Dose: 0.5 mg Metoprolol Tartrate (Lopressor) 25 mg PO BID [facility] Last Admin: 08/02/18 18:42 Dose: 25 mg Morphine Sulfate (Morphine) 2 mg IVP Q4H PRN PRN Reason: Pain, severe (8-10) Last Admin: 08/02/18 20:25 Dose: 2 mg Oxycodone/Acetaminophen (Percocet 5/325 Mg Tab) 1 tab PO Q6H PRN PRN Reason: Pain, severe (8-10) Stop: 08/03/18 20:24 Last Admin: 08/02/18 16:17 Dose: 1 tab Prednisone (Prednisone) 2.5 mg PO DAILY [facility] Last Admin: 08/02/18 09:03 Dose: 2.5 mg Trazodone HCl (Desyrel) 50 mg PO HS [facility] Last Admin: 08/01/18 21:56 Dose: 50 mg Vitamin B Complex/Vit C/Folic Acid (Nephro-Ron) 1 tab PO DAILY [facility] Last Admin: 08/02/18 09:03 Dose: 1 tab - Labs Labs: 07/30/18 10:24 07/30/18 10:24 PT 16.5 SECONDS (9.7-12.2) H 07/23/18 07:35 INR 1.5 07/23/18 07:35 APTT 44 SECONDS (21-34) H 07/23/18 07:35
--- NOTE | 2018-08-02 20:39 | CP.PCM.PN ---
Subjective - Date & Time of Evaluation Date of Evaluation: 07/31/18 Time of Evaluation: 20:38 - Subjective Subjective: Patient today feeling slightly better. No pain noted. Pain is tolerable. Poor venous access again noted. Right-sided hemodialysis catheter in the internal jugular vein noted, minimal swelling in the neck region noted. Clinical examination is unremarkable otherwise. Continue the current treatment. For hemodialysis tomorrow Objective - Vital Signs/Intake and Output Vital Signs (last 24 hours): Temp Pulse Resp BP Pulse Ox 99.0 F 62 20 155/90 H 97 08/02/18 15:00 08/02/18 15:00 08/02/18 15:00 08/02/18 18:42 08/02/18 15:00 - Medications Medications: Current Medications Acetaminophen (Tylenol 325mg Tab) 650 mg PO Q6H PRN PRN Reason: Pain, Mild (1-3) Last Admin: 08/02/18 09:00 Dose: 650 mg Amlodipine Besylate (Norvasc) 5 mg PO DAILY [facility] Last Admin: 08/02/18 08:59 Dose: 5 mg Calcitriol (Rocaltrol) 0.5 mcg PO DAILY [facility] Last Admin: 08/02/18 09:03 Dose: 0.5 mcg Calcium Acetate (Phoslo) 1,334 mg PO TID [facility] Last Admin: 08/02/18 18:42 Dose: 1,334 mg Epoetin Sergio (Procrit) 10,000 unit IV TTS [facility] Last Admin: 08/01/18 11:24 Dose: 10,000 unit Famotidine (Pepcid) 20 mg PO DAILY [facility] Last Admin: 08/02/18 09:03 Dose: 20 mg Ferric Sodium Gluconate Complex 125 mg/ Sodium Chloride 110 mls @ 110 mls/hr IVPB DAILY [facility] Stop: 08/04/18 10:01 Last Admin: 08/02/18 10:34 Dose: Not Given Heparin Sodium/Sodium Chloride (Heparin 07138 Units/250ml 1/2 Normal Saline) 25 ,000 units in 250 mls @ 1.415 mls/hr IV .Q24H PRN; Protocol; 4 UNITS/KG/HR PRN Reason: PROTOCOL Lorazepam (Ativan) 0.5 mg PO Q6H PRN PRN Reason: Anxiety Last Admin: 08/02/18 08:57 Dose: 0.5 mg Metoprolol Tartrate (Lopressor) 25 mg PO BID [facility] Last Admin: 08/02/18 18:42 Dose: 25 mg Morphine Sulfate (Morphine) 2 mg IVP Q4H PRN PRN Reason: Pain, severe (8-10) Last Admin: 08/02/18 20:25 Dose: 2 mg Oxycodone/Acetaminophen (Percocet 5/325 Mg Tab) 1 tab PO Q6H PRN PRN Reason: Pain, severe (8-10) Stop: 08/03/18 20:24 Last Admin: 08/02/18 16:17 Dose: 1 tab Prednisone (Prednisone) 2.5 mg PO DAILY [facility] Last Admin: 08/02/18 09:03 Dose: 2.5 mg Trazodone HCl (Desyrel) 50 mg PO HS [facility] Last Admin: 08/01/18 21:56 Dose: 50 mg Vitamin B Complex/Vit C/Folic Acid (Nephro-Ron) 1 tab PO DAILY [facility] Last Admin: 08/02/18 09:03 Dose: 1 tab - Labs Labs: 07/30/18 10:24 07/30/18 10:24 PT 16.5 SECONDS (9.7-12.2) H 07/23/18 07:35 INR 1.5 07/23/18 07:35 APTT 44 SECONDS (21-34) H 07/23/18 07:35
--- NOTE | 2018-08-02 20:42 | CP.PCM.PN ---
Subjective - Date & Time of Evaluation Date of Evaluation: 08/02/18 Time of Evaluation: 20:40 - Subjective Subjective: Patient is still having some swelling in the right side of the neck, some redness also noted. The right arm swelling noted. Patient is also having pain upon turning the head on the right side. Venous Doppler pending right now But portable venous Doppler which I brought it from the emergency room, after examination there was some clots noted in the right internal jugular vein to stable the catheter site. Most likely suggestive of the internal jugular vein clot with a possible extension into the right subclavian and associated with the right arm swelling. As the patient is very thin built, also having difficult time in venous access, in my opinion patient will need heparin drip. Will use the hemodialysis catheter for now. Tomorrow will arrange for getting a venous access. Vascular surgical evaluation and follow-up. Continue the pain management. Spoke to the patient in detail. We will repeat the vascular Doppler tomorrow Objective - Vital Signs/Intake and Output Vital Signs (last 24 hours): Temp Pulse Resp BP Pulse Ox 99.0 F 62 20 155/90 H 97 08/02/18 15:00 08/02/18 15:00 08/02/18 15:00 08/02/18 18:42 08/02/18 15:00 - Medications Medications: Current Medications Acetaminophen (Tylenol 325mg Tab) 650 mg PO Q6H PRN PRN Reason: Pain, Mild (1-3) Last Admin: 08/02/18 09:00 Dose: 650 mg Amlodipine Besylate (Norvasc) 5 mg PO DAILY [facility] Last Admin: 08/02/18 08:59 Dose: 5 mg Calcitriol (Rocaltrol) 0.5 mcg PO DAILY [facility] Last Admin: 08/02/18 09:03 Dose: 0.5 mcg Calcium Acetate (Phoslo) 1,334 mg PO TID [facility] Last Admin: 08/02/18 18:42 Dose: 1,334 mg Epoetin Sergio (Procrit) 10,000 unit IV TTS [facility] Last Admin: 08/01/18 11:24 Dose: 10,000 unit Famotidine (Pepcid) 20 mg PO DAILY [facility] Last Admin: 08/02/18 09:03 Dose: 20 mg Ferric Sodium Gluconate Complex 125 mg/ Sodium Chloride 110 mls @ 110 mls/hr IVPB DAILY [facility] Stop: 08/04/18 10:01 Last Admin: 08/02/18 10:34 Dose: Not Given Heparin Sodium/Sodium Chloride (Heparin 54736 Units/250ml 1/2 Normal Saline) 25 ,000 units in 250 mls @ 1.415 mls/hr IV .Q24H PRN; Protocol; 4 UNITS/KG/HR PRN Reason: PROTOCOL Lorazepam (Ativan) 0.5 mg PO Q6H PRN PRN Reason: Anxiety Last Admin: 08/02/18 08:57 Dose: 0.5 mg Metoprolol Tartrate (Lopressor) 25 mg PO BID [facility] Last Admin: 08/02/18 18:42 Dose: 25 mg Morphine Sulfate (Morphine) 2 mg IVP Q4H PRN PRN Reason: Pain, severe (8-10) Last Admin: 08/02/18 20:25 Dose: 2 mg Oxycodone/Acetaminophen (Percocet 5/325 Mg Tab) 1 tab PO Q6H PRN PRN Reason: Pain, severe (8-10) Stop: 08/03/18 20:24 Last Admin: 08/02/18 16:17 Dose: 1 tab Prednisone (Prednisone) 2.5 mg PO DAILY [facility] Last Admin: 08/02/18 09:03 Dose: 2.5 mg Trazodone HCl (Desyrel) 50 mg PO HS [facility] Last Admin: 08/01/18 21:56 Dose: 50 mg Vitamin B Complex/Vit C/Folic Acid (Nephro-Ron) 1 tab PO DAILY [facility] Last Admin: 08/02/18 09:03 Dose: 1 tab - Labs Labs: 07/30/18 10:24 07/30/18 10:24 PT 16.5 SECONDS (9.7-12.2) H 07/23/18 07:35 INR 1.5 07/23/18 07:35 APTT 44 SECONDS (21-34) H 07/23/18 07:35
--- NOTE | 2018-08-02 21:18 | CP.PCM.PN ---
Subjective - Date & Time of Evaluation Date of Evaluation: 08/02/18 Time of Evaluation: 21:18 - Subjective Subjective: Possible RUE DVT management as per PMD On IV Heparin Objective - Vital Signs/Intake and Output Vital Signs (last 24 hours): Temp Pulse Resp BP Pulse Ox 99.0 F 62 20 155/90 H 97 08/02/18 15:00 08/02/18 15:00 08/02/18 15:00 08/02/18 18:42 08/02/18 15:00 - Medications Medications: Current Medications Acetaminophen (Tylenol 325mg Tab) 650 mg PO Q6H PRN PRN Reason: Pain, Mild (1-3) Last Admin: 08/02/18 09:00 Dose: 650 mg Amlodipine Besylate (Norvasc) 5 mg PO DAILY [facility] Last Admin: 08/02/18 08:59 Dose: 5 mg Calcitriol (Rocaltrol) 0.5 mcg PO DAILY [facility] Last Admin: 08/02/18 09:03 Dose: 0.5 mcg Calcium Acetate (Phoslo) 1,334 mg PO TID [facility] Last Admin: 08/02/18 18:42 Dose: 1,334 mg Epoetin Sergio (Procrit) 10,000 unit IV TTS [facility] Last Admin: 08/01/18 11:24 Dose: 10,000 unit Famotidine (Pepcid) 20 mg PO DAILY [facility] Last Admin: 08/02/18 09:03 Dose: 20 mg Ferric Sodium Gluconate Complex 125 mg/ Sodium Chloride 110 mls @ 110 mls/hr IVPB DAILY [facility] Stop: 08/04/18 10:01 Last Admin: 08/02/18 10:34 Dose: Not Given Heparin Sodium/Sodium Chloride (Heparin 65860 Units/250ml 1/2 Normal Saline) 25 ,000 units in 250 mls @ 1.415 mls/hr IV .Q24H PRN; Protocol; 4 UNITS/KG/HR PRN Reason: PROTOCOL Lorazepam (Ativan) 0.5 mg PO Q6H PRN PRN Reason: Anxiety Last Admin: 08/02/18 08:57 Dose: 0.5 mg Metoprolol Tartrate (Lopressor) 25 mg PO BID [facility] Last Admin: 08/02/18 18:42 Dose: 25 mg Morphine Sulfate (Morphine) 2 mg IVP Q4H PRN PRN Reason: Pain, severe (8-10) Last Admin: 08/02/18 20:25 Dose: 2 mg Oxycodone/Acetaminophen (Percocet 5/325 Mg Tab) 1 tab PO Q6H PRN PRN Reason: Pain, severe (8-10) Stop: 08/03/18 20:24 Last Admin: 08/02/18 16:17 Dose: 1 tab Prednisone (Prednisone) 2.5 mg PO DAILY [facility] Last Admin: 08/02/18 09:03 Dose: 2.5 mg Trazodone HCl (Desyrel) 50 mg PO HS [facility] Last Admin: 08/01/18 21:56 Dose: 50 mg Vitamin B Complex/Vit C/Folic Acid (Nephro-Ron) 1 tab PO DAILY [facility] Last Admin: 08/02/18 09:03 Dose: 1 tab - Labs Labs: 07/30/18 10:24 07/30/18 10:24 PT 16.5 SECONDS (9.7-12.2) H 07/23/18 07:35 INR 1.5 07/23/18 07:35 APTT 44 SECONDS (21-34) H 07/23/18 07:35 - Head Exam Head Exam: ATRAUMATIC, NORMAL INSPECTION - Eye Exam Eye Exam: EOMI, PERRL Pupil Exam: NORMAL ACCOMODATION - ENT Exam ENT Exam: Mucous Membranes Moist - Neck Exam Neck Exam: Full ROM Additional comments: Swelling - Respiratory Exam Respiratory Exam: Clear to Ausculation Bilateral, NORMAL BREATHING PATTERN - Cardiovascular Exam Cardiovascular Exam: REGULAR RHYTHM, +S1, +S2 - GI/Abdominal Exam GI & Abdominal Exam: Soft, Normal Bowel Sounds - Extremities Exam Extremities Exam: Full ROM - Neurological Exam Neurological Exam: Alert, Oriented x3 - Psychiatric Exam Psychiatric exam: Normal Mood - Skin Skin Exam: Warm Assessment and Plan - Assessment and Plan (Free Text) Assessment: CKD HTN Stress test normal Right neck swelling Mgt as per PMD On IV Heparin
[2018-08-02] MEDS ORDERED: Enoxaparin 30 mg Syringe SC ONE (21:40)
--- NOTE | 2018-08-03 01:47 | PN ---
DATE: 07/23/2018 SUBJECTIVE: The patient was seen by me 8:30 p.m. Today, the patient underwent insertion of the right internal jugular vein PermCath and also received hemodialysis. The patient is currently doing well, complaining of abdominal pain and diarrhea. The patient was also seen by Infectious Disease specialist. She has no chest pain, no shortness of breath, but diffuse abdominal pain and diarrhea noted. The patient is currently off immunosuppressive agent except prednisone, we will slowly taper this down. PHYSICAL EXAMINATION: VITAL SIGNS: Stable. Mild elevation of the blood pressure noted. CHEST: Good air entry. HEART: Regular heart tone. ABDOMEN: Nontender. LABORATORY DATA: Reviewed. INR is 1.5 noted. ASSESSMENT AND PLAN: The patient will get hemodialysis today. CMV titers are currently pending. Tacrolimus is off. We will continue to monitor. Gretta Villela MD
--- NOTE | 2018-08-03 01:54 | PN ---
DATE: 07/24/2018 SUBJECTIVE: The patient was seen by me at 8:30 p.m. The patient is currently comfortable. She is complaining of ongoing abdominal discomfort, the patient is very frustrated with receiving hemodialysis. I spoke to the patient and family in details about the overall situation. The patient got hemodialysis yesterday. PHYSICAL EXAMINATION: VITAL SIGNS: Today the vital signs are stable. Temperature 98, pulse 74, blood pressure 167/90. Clinical examination was unremarkable. MEDICATIONS: The patient is currently receiving subcu heparin, bicarbonate tablet, meropenem, Lopressor, morphine, prednisone, amlodipine and Pepcid. ASSESSMENT AND PLAN: The patient will need possibly of arteriovenous fistula, also we have to arrange for hemodialysis as an outpatient. Discussed with the patient and we will follow up the patient. Gretta Villela MD
--- NOTE | 2018-08-03 02:03 | PN ---
DATE: 07/25/2018 SUBJECTIVE: The patient was seen by me at 7:30 p.m. Today, the patient was seen by slag motor operator. Clinical examination was unremarkable. The patient is still somewhat upset. The patient had a hemodialysis, but feeling weak, but eating is better. MEDICATIONS: Currently the patient is on subcu heparin, meropenem, metoprolol, potassium being supplemented, on prednisone slowly we will taper it down. LABORATORY DATA: Labs otherwise nonspecific. ASSESSMENT AND PLAN: The patient is feeling well. We will continue with her current treatment. Gretta Villela MD
--- NOTE | 2018-08-03 02:05 | PN ---
DATE: 07/27/2018 SUBJECTIVE: The patient was seen by me around 8:30 p.m. The patient is currently feeling well. She really wanted to go home and need to be at home. She is also very frustrated, seen by psychiatrist yesterday feeling somewhat depressed. There is a swelling noted, which was improving at this time on the right side. The patient had a hemodialysis, Mondays, Wednesdays and Fridays. PLAN: We will continue to monitor and we will follow up with the patient. We will also get GI evaluation possibly. Gretta Villela MD
--- NOTE | 2018-08-03 08:54 | CP.PCM.PN ---
Subjective - Date & Time of Evaluation Date of Evaluation: 08/03/18 Time of Evaluation: 08:52 - Subjective Subjective: Events noted Severe pains right arm On heparin for possible DVT last 08/01 Objective - Vital Signs/Intake and Output Vital Signs (last 24 hours): Temp Pulse Resp BP Pulse Ox 98.8 F 62 20 144/82 96 08/03/18 07:00 08/03/18 07:40 08/03/18 07:00 08/03/18 07:00 08/03/18 07:00 - Medications Medications: Current Medications Acetaminophen (Tylenol 325mg Tab) 650 mg PO Q6H PRN PRN Reason: Pain, Mild (1-3) Last Admin: 08/02/18 09:00 Dose: 650 mg Amlodipine Besylate (Norvasc) 5 mg PO DAILY [facility] Last Admin: 08/02/18 08:59 Dose: 5 mg Calcitriol (Rocaltrol) 0.5 mcg PO DAILY [facility] Last Admin: 08/02/18 09:03 Dose: 0.5 mcg Calcium Acetate (Phoslo) 1,334 mg PO TID [facility] Last Admin: 08/02/18 18:42 Dose: 1,334 mg Epoetin Sergio (Procrit) 10,000 unit IV TTS [facility] Last Admin: 08/01/18 11:24 Dose: 10,000 unit Famotidine (Pepcid) 20 mg PO DAILY [facility] Last Admin: 08/02/18 09:03 Dose: 20 mg Ferric Sodium Gluconate Complex 125 mg/ Sodium Chloride 110 mls @ 110 mls/hr IVPB DAILY [facility] Stop: 08/04/18 10:01 Last Admin: 08/02/18 10:34 Dose: Not Given Heparin Sodium/Sodium Chloride (Heparin 26290 Units/250ml 1/2 Normal Saline) 25 ,000 units in 250 mls @ 1.415 mls/hr IV .Q24H PRN; Protocol; 4 UNITS/KG/HR PRN Reason: PROTOCOL Lorazepam (Ativan) 0.5 mg PO Q6H PRN PRN Reason: Anxiety Last Admin: 08/03/18 01:14 Dose: 0.5 mg Metoprolol Tartrate (Lopressor) 25 mg PO BID [facility] Last Admin: 08/02/18 18:42 Dose: 25 mg Morphine Sulfate (Morphine) 2 mg IVP Q4H PRN PRN Reason: Pain, severe (8-10) Last Admin: 08/03/18 06:21 Dose: 2 mg Oxycodone/Acetaminophen (Percocet 5/325 Mg Tab) 1 tab PO Q6H PRN PRN Reason: Pain, severe (8-10) Stop: 08/03/18 20:24 Last Admin: 08/02/18 16:17 Dose: 1 tab Prednisone (Prednisone) 2.5 mg PO DAILY [facility] Last Admin: 08/02/18 09:03 Dose: 2.5 mg Trazodone HCl (Desyrel) 50 mg PO HS [facility] Last Admin: 08/02/18 22:06 Dose: 50 mg Vitamin B Complex/Vit C/Folic Acid (Nephro-Ron) 1 tab PO DAILY [facility] Last Admin: 08/02/18 09:03 Dose: 1 tab - Labs Labs: 07/30/18 10:24 07/30/18 10:24 PT 16.5 SECONDS (9.7-12.2) H 07/23/18 07:35 INR 1.5 07/23/18 07:35 APTT 44 SECONDS (21-34) H 07/23/18 07:35 - Constitutional Appears: In Acute Distress, Chronically Ill - Head Exam Head Exam: ATRAUMATIC, NORMAL INSPECTION - Eye Exam Eye Exam: EOMI, Normal appearance - Neck Exam Neck Exam: Normal Inspection. absent: Tenderness - Respiratory Exam Respiratory Exam: Clear to Ausculation Bilateral, NORMAL BREATHING PATTERN - Cardiovascular Exam Cardiovascular Exam: REGULAR RHYTHM, +S1 - GI/Abdominal Exam GI & Abdominal Exam: Soft. absent: Tenderness - Extremities Exam Extremities Exam: Normal Inspection, Tenderness - Neurological Exam Neurological Exam: Alert, CN II-XII Intact - Skin Skin Exam: Dry, Warm Assessment and Plan (1) Renal transplant failure and rejection Status: Acute (2) CKD (chronic kidney disease) stage 5, GFR less than 15 ml/min Status: Acute (3) Diarrhea Status: Acute (4) Weight loss, unintentional Status: Acute (5) ESRD (end stage renal disease) Status: Acute - Assessment and Plan (Free Text) Plan: Agree with heparin gtt Will need new HD access Dialysis in AM
[2018-08-03] MEDS: Multivitamin Vitamin B Complex (Nephro-Vite) Tab PO SCH (10:00)
--- NOTE | 2018-08-03 10:21 | US ---
Date of service: 08/03/2018 HISTORY: Right side pain COMPARISON: Multiple prior ultrasounds, CT scans, MRCP and HIDA scan from 09/25/2015. TECHNIQUE: Grayscale imaging was performed. FINDINGS: LIVER: Measures 17.9 cm in length. Normal echogenicity of the liver parenchyma. There is 1.2 x 0.9 x 0.8 cm simple cyst in the left hepatic lobe. No intrahepatic bile duct dilatation. GALLBLADDER: Surgically absent. COMMON BILE DUCT: Measures 1.8 cm. No stones. Stable persistent dilatation. PANCREAS: Normal in size. No mass. No ductal dilatation. RIGHT KIDNEY: Atrophic echogenic kidney. There is a right lower quadrant renal transplant. Measures 11.1 x 5.4 x 5.6 cm. There is mild hydronephrosis. There is a 3 mm nonobstructing stone in the lower pole. There is a 7 x 7 x 8 mm simple cyst in the interpolar region. AORTA: No aneurysmal dilatation. IVC: Unremarkable. OTHER FINDINGS: Small right pleural effusion. IMPRESSION: Status post cholecystectomy, persistent moderate dilatation of the common bile duct which measures 1.8 cm. 3 mm nonobstructing stone in the right lower quadrant renal transplant and mild right hydronephrosis.
[2018-08-03] MEDS: Ferric Sodium Gluconat Complex 125 MG in Sodium Chloride 0.9% 100 ML IVPB SCH (10:30)
[2018-08-03] MEDS ORDERED: Midazolam 2 MG/2 ML VIAL ONE (15:40)
[2018-08-03] MEDS ORDERED: Lidocaine 2% MPF (5 ml) Inj ONE (15:42)
[2018-08-03] MEDS ORDERED: ceFAZolin 1 gm in NS 1 GM/100 ML BAG IVPB ONE (16:05)
--- NOTE | 2018-08-03 17:09 | CP.PCM.PN ---
<Elizabeth Shelton E - Last Filed: 08/03/18 17:06> Subjective - Date & Time of Evaluation Date of Evaluation: 08/03/18 Time of Evaluation: 10:55 - Subjective Subjective: Cardiology progress note ( Dr. Rowland's service) Patient was seen and examined at bedside. Patient was resting comfortably in bed. Patient denies any acute complaints or issues. Objective - Vital Signs/Intake and Output Vital Signs (last 24 hours): Temp Pulse Resp BP Pulse Ox 99 F 84 18 167/86 H 100 08/03/18 16:15 08/03/18 17:00 08/03/18 17:00 08/03/18 17:00 08/03/18 17:00 Intake and Output: 08/03/18 08/03/18 06:59 18:59 Intake Total 150 Balance 150 - Medications Medications: Current Medications Acetaminophen (Tylenol 325mg Tab) 650 mg PO Q6H PRN PRN Reason: Pain, Mild (1-3) Last Admin: 08/02/18 09:00 Dose: 650 mg Amlodipine Besylate (Norvasc) 5 mg PO DAILY [facility] Last Admin: 08/03/18 10:00 Dose: Not Given Calcitriol (Rocaltrol) 0.5 mcg PO DAILY [facility] Last Admin: 08/03/18 10:00 Dose: Not Given Calcium Acetate (Phoslo) 1,334 mg PO TID [facility] Last Admin: 08/03/18 14:05 Dose: Not Given Epoetin Sergio (Procrit) 10,000 unit IV TTS [facility] Last Admin: 08/01/18 11:24 Dose: 10,000 unit Famotidine (Pepcid) 20 mg PO DAILY [facility] Last Admin: 08/03/18 10:00 Dose: Not Given Ferric Sodium Gluconate Complex 125 mg/ Sodium Chloride 110 mls @ 110 mls/hr IVPB DAILY [facility] Stop: 08/04/18 10:01 Last Admin: 08/03/18 10:30 Dose: Not Given Heparin Sodium/Sodium Chloride (Heparin 76934 Units/250ml 1/2 Normal Saline) 25 ,000 units in 250 mls @ 1.415 mls/hr IV .Q24H PRN; Protocol; 4 UNITS/KG/HR PRN Reason: PROTOCOL Lorazepam (Ativan) 0.5 mg PO Q6H PRN PRN Reason: Anxiety Last Admin: 08/03/18 01:14 Dose: 0.5 mg Metoprolol Tartrate (Lopressor) 25 mg PO BID [facility] Last Admin: 08/03/18 10:00 Dose: Not Given Morphine Sulfate (Morphine) 2 mg IVP Q4H PRN PRN Reason: Pain, severe (8-10) Last Admin: 08/03/18 11:16 Dose: 2 mg Morphine Sulfate (Morphine) 1 mg IVP Q10M PRN PRN Reason: Pain, moderate (4-7) Stop: 08/03/18 18:16 Oxycodone/Acetaminophen (Percocet 5/325 Mg Tab) 1 tab PO Q6H PRN PRN Reason: Pain, severe (8-10) Stop: 08/03/18 20:24 Last Admin: 08/02/18 16:17 Dose: 1 tab Prednisone (Prednisone) 2.5 mg PO DAILY [facility] Last Admin: 08/03/18 10:00 Dose: Not Given Trazodone HCl (Desyrel) 50 mg PO [facility] Last Admin: 08/02/18 22:06 Dose: 50 mg Vitamin B Complex/Vit C/Folic Acid (Nephro-Ron) 1 tab PO DAILY [facility] Last Admin: 08/03/18 10:00 Dose: Not Given - Labs Labs: 07/30/18 10:24 07/30/18 10:24 PT 16.5 SECONDS (9.7-12.2) H 07/23/18 07:35 INR 1.5 07/23/18 07:35 APTT 44 SECONDS (21-34) H 07/23/18 07:35 - Constitutional Appears: Other (Quite lethargic ) - Head Exam Head Exam: ATRAUMATIC - Eye Exam Eye Exam: EOMI - Neck Exam Additional comments: right internal jugular ( Permacath) - Respiratory Exam Respiratory Exam: NORMAL BREATHING PATTERN - Cardiovascular Exam Cardiovascular Exam: REGULAR RHYTHM, +S1, +S2, Murmur - GI/Abdominal Exam GI & Abdominal Exam: Soft, Normal Bowel Sounds - Extremities Exam Extremities Exam: absent: Calf Tenderness, Pedal Edema - Neurological Exam Neurological Exam: Alert, Awake, Oriented x3 - Psychiatric Exam Psychiatric exam: Flat Affect Assessment and Plan - Assessment and Plan (Free Text) Assessment: Patient is a 47 year old female with past medical history CKD ( failed renal transplant) on HD and hypertension, cardiology consult for abnormla EKG: Plan: Normal stress test No noted cardiac event No further cardiac work-up at this time All plans and management discussed with Dr. Rowland <Jaret Rowland - Last Filed: 08/03/18 22:00> Objective - Vital Signs/Intake and Output Vital Signs (last 24 hours): Temp Pulse Resp BP Pulse Ox 98.9 F 83 13 181/101 H 99 08/03/18 17:15 08/03/18 19:00 08/03/18 17:15 08/03/18 19:30 08/03/18 17:15 Intake and Output: 08/03/18 08/04/18 18:59 06:59 Intake Total 150 Balance 150 - Medications Medications: Current Medications Amlodipine Besylate (Norvasc) 5 mg PO DAILY [facility] Last Admin: 08/03/18 10:00 Dose: Not Given Calcitriol (Rocaltrol) 0.5 mcg PO DAILY [facility] Last Admin: 08/03/18 10:00 Dose: Not Given Calcium Acetate (Phoslo) 1,334 mg PO TID [facility] Last Admin: 08/03/18 19:30 Dose: 1,334 mg Epoetin Sergio (Procrit) 10,000 unit IV TTS [facility] Last Admin: 08/01/18 11:24 Dose: 10,000 unit Famotidine (Pepcid) 20 mg PO DAILY [facility] Last Admin: 08/03/18 10:00 Dose: Not Given Ferric Sodium Gluconate Complex 125 mg/ Sodium Chloride 110 mls @ 110 mls/hr IVPB DAILY [facility] Stop: 08/04/18 10:01 Last Admin: 08/03/18 10:30 Dose: Not Given Heparin Sodium/Sodium Chloride (Heparin 11343 Units/250ml 1/2 Normal Saline) 25 ,000 units in 250 mls @ 1.415 mls/hr IV .Q24H PRN; Protocol; 4 UNITS/KG/HR PRN Reason: PROTOCOL Lorazepam (Ativan) 0.5 mg PO Q6H PRN PRN Reason: Anxiety Last Admin: 08/03/18 01:14 Dose: 0.5 mg Metoprolol Tartrate (Lopressor) 25 mg PO BID [facility] Last Admin: 08/03/18 19:30 Dose: 25 mg Oxycodone/Acetaminophen (Percocet 5/325 Mg Tab) 1 tab PO Q6H PRN PRN Reason: Pain, moderate (4-7) Stop: 08/06/18 21:09 Prednisone (Prednisone) 2.5 mg PO DAILY [facility] Last Admin: 08/03/18 10:00 Dose: Not Given Trazodone HCl (Desyrel) 50 mg PO HS [facility] Last Admin: 08/03/18 21:48 Dose: 50 mg Vitamin B Complex/Vit C/Folic Acid (Nephro-Ron) 1 tab PO DAILY [facility] Last Admin: 08/03/18 10:00 Dose: Not Given - Labs Labs: 07/30/18 10:24 07/30/18 10:24 PT 16.5 SECONDS (9.7-12.2) H 07/23/18 07:35 INR 1.5 07/23/18 07:35 APTT 44 SECONDS (21-34) H 07/23/18 07:35 Assessment and Plan - Assessment and Plan (Free Text) Plan: Patient seen and evaluated personally by me Plan of care d/w the resident and as documented
--- NOTE | 2018-08-03 17:37 | CP.PCM.PN ---
Subjective - Date & Time of Evaluation Date of Evaluation: 08/03/18 Time of Evaluation: 15:00 - Subjective Subjective: discussed with patient possibility of preganancy. She denies sexual relations while in hospital and possibility of previous test 07/23 was negative. NO ADDITIONAL TEST WILL BE DONE Objective - Vital Signs/Intake and Output Vital Signs (last 24 hours): Temp Pulse Resp BP Pulse Ox 99 F 84 18 167/86 H 100 08/03/18 16:15 08/03/18 17:00 08/03/18 17:00 08/03/18 17:00 08/03/18 17:00 Intake and Output: 08/03/18 08/03/18 06:59 18:59 Intake Total 150 Balance 150 - Medications Medications: Current Medications Acetaminophen (Tylenol 325mg Tab) 650 mg PO Q6H PRN PRN Reason: Pain, Mild (1-3) Last Admin: 08/02/18 09:00 Dose: 650 mg Amlodipine Besylate (Norvasc) 5 mg PO DAILY [facility] Last Admin: 08/03/18 10:00 Dose: Not Given Calcitriol (Rocaltrol) 0.5 mcg PO DAILY [facility] Last Admin: 08/03/18 10:00 Dose: Not Given Calcium Acetate (Phoslo) 1,334 mg PO TID [facility] Last Admin: 08/03/18 14:05 Dose: Not Given Epoetin Sergio (Procrit) 10,000 unit IV TTS [facility] Last Admin: 08/01/18 11:24 Dose: 10,000 unit Famotidine (Pepcid) 20 mg PO DAILY [facility] Last Admin: 08/03/18 10:00 Dose: Not Given Ferric Sodium Gluconate Complex 125 mg/ Sodium Chloride 110 mls @ 110 mls/hr IVPB DAILY [facility] Stop: 08/04/18 10:01 Last Admin: 08/03/18 10:30 Dose: Not Given Heparin Sodium/Sodium Chloride (Heparin 05384 Units/250ml 1/2 Normal Saline) 25 ,000 units in 250 mls @ 1.415 mls/hr IV .Q24H PRN; Protocol; 4 UNITS/KG/HR PRN Reason: PROTOCOL Lorazepam (Ativan) 0.5 mg PO Q6H PRN PRN Reason: Anxiety Last Admin: 08/03/18 01:14 Dose: 0.5 mg Metoprolol Tartrate (Lopressor) 25 mg PO BID [facility] Last Admin: 08/03/18 10:00 Dose: Not Given Morphine Sulfate (Morphine) 2 mg IVP Q4H PRN PRN Reason: Pain, severe (8-10) Last Admin: 08/03/18 11:16 Dose: 2 mg Morphine Sulfate (Morphine) 1 mg IVP Q10M PRN PRN Reason: Pain, moderate (4-7) Stop: 08/03/18 18:16 Oxycodone/Acetaminophen (Percocet 5/325 Mg Tab) 1 tab PO Q6H PRN PRN Reason: Pain, severe (8-10) Stop: 08/03/18 20:24 Last Admin: 08/02/18 16:17 Dose: 1 tab Prednisone (Prednisone) 2.5 mg PO DAILY [facility] Last Admin: 08/03/18 10:00 Dose: Not Given Trazodone HCl (Desyrel) [address] [facility] Last Admin: 08/02/18 22:06 Dose: 50 mg Vitamin B Complex/Vit C/Folic Acid (Nephro-Ron) 1 tab PO DAILY [facility] Last Admin: 08/03/18 10:00 Dose: Not Given - Labs Labs: 07/30/18 10:24 07/30/18 10:24 PT 16.5 SECONDS (9.7-12.2) H 07/23/18 07:35 INR 1.5 07/23/18 07:35 APTT 44 SECONDS (21-34) H 07/23/18 07:35
--- NOTE | 2018-08-03 17:46 | CP.PCM.PN ---
Subjective - Date & Time of Evaluation Date of Evaluation: 08/03/18 Time of Evaluation: 15:00 - Subjective Subjective: Patient seen and examined prior to permacath placement. Patient denies sexual relations while in hospital and denies possibility of . Last Urine hcg done on 07/23 was negative. Will proceed with procedure. No additional test will be done. D/w Dr. Ziyad Wilde PGY3 Objective - Vital Signs/Intake and Output Vital Signs (last 24 hours): Temp Pulse Resp BP Pulse Ox 99 F 84 18 167/86 H 100 08/03/18 16:15 08/03/18 17:00 08/03/18 17:00 08/03/18 17:00 08/03/18 17:00 Intake and Output: 08/03/18 08/03/18 06:59 18:59 Intake Total 150 Balance 150 - Medications Medications: Current Medications Acetaminophen (Tylenol 325mg Tab) 650 mg PO Q6H PRN PRN Reason: Pain, Mild (1-3) Last Admin: 08/02/18 09:00 Dose: 650 mg Amlodipine Besylate (Norvasc) 5 mg PO DAILY [facility] Last Admin: 08/03/18 10:00 Dose: Not Given Calcitriol (Rocaltrol) 0.5 mcg PO DAILY [facility] Last Admin: 08/03/18 10:00 Dose: Not Given Calcium Acetate (Phoslo) 1,334 mg PO TID [facility] Last Admin: 08/03/18 14:05 Dose: Not Given Epoetin Sergio (Procrit) 10,000 unit IV TTS [facility] Last Admin: 08/01/18 11:24 Dose: 10,000 unit Famotidine (Pepcid) 20 mg PO DAILY [facility] Last Admin: 08/03/18 10:00 Dose: Not Given Ferric Sodium Gluconate Complex 125 mg/ Sodium Chloride 110 mls @ 110 mls/hr IVPB DAILY [facility] Stop: 08/04/18 10:01 Last Admin: 08/03/18 10:30 Dose: Not Given Heparin Sodium/Sodium Chloride (Heparin 68869 Units/250ml 1/2 Normal Saline) 25 ,000 units in 250 mls @ 1.415 mls/hr IV .Q24H PRN; Protocol; 4 UNITS/KG/HR PRN Reason: PROTOCOL Lorazepam (Ativan) 0.5 mg PO Q6H PRN PRN Reason: Anxiety Last Admin: 08/03/18 01:14 Dose: 0.5 mg Metoprolol Tartrate (Lopressor) 25 mg PO BID [facility] Last Admin: 08/03/18 10:00 Dose: Not Given Morphine Sulfate (Morphine) 2 mg IVP Q4H PRN PRN Reason: Pain, severe (8-10) Last Admin: 08/03/18 11:16 Dose: 2 mg Morphine Sulfate (Morphine) 1 mg IVP Q10M PRN PRN Reason: Pain, moderate (4-7) Stop: 08/03/18 18:16 Oxycodone/Acetaminophen (Percocet 5/325 Mg Tab) 1 tab PO Q6H PRN PRN Reason: Pain, severe (8-10) Stop: 08/03/18 20:24 Last Admin: 08/02/18 16:17 Dose: 1 tab Prednisone (Prednisone) 2.5 mg PO DAILY [facility] Last Admin: 08/03/18 10:00 Dose: Not Given Trazodone HCl (Desyrel) 50 mg PO HS [facility] Last Admin: 08/02/18 22:06 Dose: 50 mg Vitamin B Complex/Vit C/Folic Acid (Nephro-Ron) 1 tab PO DAILY [facility] Last Admin: 08/03/18 10:00 Dose: Not Given - Labs Labs: 07/30/18 10:24 07/30/18 10:24 PT 16.5 SECONDS (9.7-12.2) H 07/23/18 07:35 INR 1.5 07/23/18 07:35 APTT 44 SECONDS (21-34) H 07/23/18 07:35
[2018-08-04] MEDS: Oxycodone/Acetaminophen 5/325 mg Tab PO PRN ×2 (00:28→05:44)
--- NOTE | 2018-08-04 03:12 | OP ---
PROCEDURE DATE: 08/03/2018 PREOPERATIVE DIAGNOSIS: Renal failure, possible catheter thrombosis. PROCEDURES: 1. Placement of left femoral dialysis catheter with ultrasound guidance and fluoroscopy. 2. Removal of right jugular Permacath. SURGEON: Arturo Lackey Jr., MD. WELLNESS AMBASSADOR: Dr. Clinton. ANESTHESIOLOGIST: Dr. Cheryl Pascual CRNA. INDICATIONS: The patient is a young woman with renal insufficiency failing transplant started on dialysis by means of a jugular vein catheter, as she has such pain in the area, the catheter will be removed. OPERATIVE FINDINGS: Using ultrasound guidance and micropuncture technique, we punctured the left arm and femoral vein. Under fluoroscopic control, we advanced a Arrow catheter centrally. Once this was in the inferior vena cava, we then flushed it with heparinized saline, it appropriately and it then was brought down on the left thigh. So it started on the left thigh went through the left femoral vein in the inferior vena cava. There was excellent flow. Catheter was secured to the skin. After this was done, the right jugular vein catheter was removed uneventfully. Blood loss for the above the procedure was less than 25 mL. Operation carried out is placement of left femoral vein Arrow catheter, which is a tunneled catheter via left groin and removal of right jugular catheter. Ultrasound image of the groin showed the vein was approximately 12 mm in diameter with normal compressibility and no intraluminal thrombosis. Arturo Lackey Jr., MD
--- NOTE | 2018-08-04 09:12 | CP.PCM.PN ---
Subjective - Date & Time of Evaluation Date of Evaluation: 08/04/18 Time of Evaluation: 09:09 - Subjective Subjective: Events noted; s/p removal right IJ cath; had IJ thrombosis Requesting pain meds for HD today Discussed PD as option for patient Poor appetite still, No SOB, CPs Objective - Vital Signs/Intake and Output Vital Signs (last 24 hours): Temp Pulse Resp BP Pulse Ox 98.4 F 59 L 20 137/75 95 08/04/18 07:00 08/04/18 07:00 08/04/18 07:00 08/04/18 07:00 08/04/18 07:00 Intake and Output: 08/04/18 08/04/18 06:59 18:59 Intake Total 150 Balance 150 - Medications Medications: Current Medications Amlodipine Besylate (Norvasc) 5 mg PO DAILY [facility] Last Admin: 08/03/18 10:00 Dose: Not Given Apixaban (Eliquis) 2.5 mg PO BID [facility] Calcitriol (Rocaltrol) 0.5 mcg PO DAILY [facility] Last Admin: 08/03/18 10:00 Dose: Not Given Calcium Acetate (Phoslo) 1,334 mg PO TID [facility] Last Admin: 08/03/18 19:30 Dose: 1,334 mg Epoetin Sergio (Procrit) 10,000 unit IV TTS [facility] Last Admin: 08/01/18 11:24 Dose: 10,000 unit Famotidine (Pepcid) 20 mg PO DAILY [facility] Last Admin: 08/03/18 10:00 Dose: Not Given Ferric Sodium Gluconate Complex 125 mg/ Sodium Chloride 110 mls @ 110 mls/hr IVPB DAILY [facility] Stop: 08/04/18 10:01 Last Admin: 08/03/18 10:30 Dose: Not Given Heparin Sodium/Sodium Chloride (Heparin 21181 Units/250ml 1/2 Normal Saline) 25 ,000 units in 250 mls @ 1.415 mls/hr IV .Q24H PRN; Protocol; 4 UNITS/KG/HR PRN Reason: PROTOCOL Lorazepam (Ativan) 0.5 mg PO Q6H PRN PRN Reason: Anxiety Last Admin: 08/04/18 00:35 Dose: 0.5 mg Metoprolol Tartrate (Lopressor) 25 mg PO BID [facility] Last Admin: 08/03/18 19:30 Dose: 25 mg Oxycodone/Acetaminophen (Percocet 5/325 Mg Tab) 1 tab PO Q6H PRN PRN Reason: Pain, moderate (4-7) Stop: 08/06/18 21:09 Last Admin: 08/04/18 05:44 Dose: 1 tab Prednisone (Prednisone) 2.5 mg PO DAILY [facility] Last Admin: 08/03/18 10:00 Dose: Not Given Trazodone HCl (Desyrel) 50 mg PO HS [facility] Last Admin: 08/03/18 21:48 Dose: 50 mg Vitamin B Complex/Vit C/Folic Acid (Nephro-Ron) 1 tab PO DAILY [facility] Last Admin: 08/03/18 10:00 Dose: Not Given - Labs Labs: 07/30/18 10:24 07/30/18 10:24 PT 16.5 SECONDS (9.7-12.2) H 07/23/18 07:35 INR 1.5 07/23/18 07:35 APTT 44 SECONDS (21-34) H 07/23/18 07:35 - Constitutional Appears: No Acute Distress, Confused, Chronically Ill - Head Exam Head Exam: ATRAUMATIC, NORMAL INSPECTION - Eye Exam Eye Exam: EOMI, Normal appearance - Neck Exam Neck Exam: Normal Inspection. absent: Tenderness - Respiratory Exam Respiratory Exam: Clear to Ausculation Bilateral, NORMAL BREATHING PATTERN - Cardiovascular Exam Cardiovascular Exam: REGULAR RHYTHM, +S1 - GI/Abdominal Exam GI & Abdominal Exam: Soft. absent: Tenderness - Extremities Exam Extremities Exam: Normal Inspection, Tenderness - Neurological Exam Neurological Exam: Awake, CN II-XII Intact - Skin Skin Exam: Dry, Warm Assessment and Plan (1) Renal transplant failure and rejection Status: Acute (2) CKD (chronic kidney disease) stage 5, GFR less than 15 ml/min Status: Acute (3) Diarrhea Status: Acute (4) Weight loss, unintentional Status: Acute (5) ESRD (end stage renal disease) Status: Acute - Assessment and Plan (Free Text) Plan: Dialysis TTS Anticoagulation Consider PD cath and PD
--- NOTE | 2018-08-04 09:26 | RAD ---
PROCEDURE: HISTORY: As Above COMPARISON: None TECHNIQUE: Total fluoroscopic time utilized during the procedure: 6.1 seconds. Total dose 0.56 mGy cm squared FINDINGS: Submitted images from the current procedure: 2 Please refer to the physician's notes performing the procedure. IMPRESSION: Less than 1 hour fluoroscopic time utilized during performance of the procedure
[2018-08-04] MEDS: Ferric Sodium Gluconat Complex 125 MG in Sodium Chloride 0.9% 100 ML IVPB SCH ×2 (09:29→10:35)
[2018-08-04] MEDS: Multivitamin Vitamin B Complex (Nephro-Vite) Tab PO SCH (09:29)
[2018-08-04 10:23] LABS: BASO # 0.1 K/uL (0.0-0.2); BASO % 0.5 % (0.0-2.0); EOS # 0.1 K/uL (0.0-0.7); EOS % 0.4 % (0.0-4.0); HEMOGLOBIN 8.9 g/dL (11.0-16.0); LYMPH # 2.4 K/uL (1.0-4.3); LYMPH % 15.3 % (20.0-40.0); MEAN CELL VOLUME 97.1 fL (81.0-99.0); MEAN CORPUSCULAR HEMOGLOBIN 30.8 pg (27.0-31.0); MEAN CORPUSCULAR HGB CONC 31.8 g/dL (33.0-37.0); MEAN PLATELET VOLUME 9.2 fL (7.2-11.7); MONO # 1.9 K/uL (0.0-0.8); MONO % 12.3 % (0.0-10.0); NEUT # 11.3 K/uL (1.8-7.0); NEUT % 71.5 % (50.0-75.0); NRBC % 1.4 % (0.0-2.0); RBC 2.88 Mil/uL (3.80-5.20); RED CELL DISTRIBUTION WIDTH 18.5 % (11.5-14.5); WHITE BLOOD COUNT 15.8 K/uL (4.8-10.8)
[2018-08-04 10:27] LABS: INR 1.1; PROTHROMBIN TIME 12.4 SECONDS (9.7-12.2)
--- NOTE | 2018-08-04 10:56 | CP.PCM.CON ---
<JoseRaymond - Last Filed: 08/04/18 16:15> History of Present Illness - History of Present Illness History of Present Illness: Raymond Garcia DO PGY-1, [employer] Manager Consult Note for Hematology/Oncology for Dr. Uribe's Service This is a 47 y o female with PMHx renal transplant on immunosuppressive tx, HTN , renal insufficiency, recurrent anemia, hx CBD obstruction s/p ERCP, ampullectomy, and chronic pain syndrome, who presented on admission on 07/21/18 with body pain, malaise, abd pain, epigastric pain, episode of n/v, several episodes of watery diarrhea, and oliguria. Reason for consult was for R arm DVT. Per Dr. Villela's note, he did bedside venous Doppler of R upper extremity and neck that showed clots in R internal jugular vein with possible extension into R subclavian vein. Patient examined at bedside while receiving hemodialysis this am. Stated that she noticed the R upper extremity swelling and pain start 4-5 days ago. Describes pain as "shooting" from her R hand up to her R shoulder and neck. Admits to associated numbness/tingling in affected extremity. Pt is s/p insertion of new Permacath on L femoral vein and removal of old dialysis catheter on R internal jugular vein POD#1 performed by vascular surgery. Pt denied headache, fever, chills, chest pain, shortness of breath, abd pain, urinary complaints or other symptoms. Pt has been receiving hemodialysis since admission on //Fri regimen. PMhx: S/p renal transplant on immunosuppressive tx, HTN, renal insufficiency, recurrent anemia, CBD obstruction s/p ERCP, chronic pain syndrome PSurgHx: Cholecystectomy, Splenectomy, R renal transplant Allergies: NKDA Current meds: reviewed in chart Soc hx: Denies smoking, alcohol or illicit drug use Review of Systems - Constitutional Constitutional: Fatigue, Malaise, Weakness. absent: Chills, Fever - Cardiovascular Cardiovascular: absent: Chest Pain, Dyspnea, Palpitations - Respiratory Respiratory: absent: Cough, Dyspnea on Exertion, Wheezing, Pain on Inspiration - Gastrointestinal Gastrointestinal: Nausea. absent: Abdominal Pain, Constipation, Diarrhea, Vomiting - Hematologic/Lymphatic Hematologic: absent: Easy Bleeding, Easy Bruising, Lymphadenopathy Past Patient History - Infectious Disease Hx of Infectious Diseases: None - Past Medical History & Family History Past Medical History?: Yes - Past Social History Smoking Status: Former Smoker - CARDIAC Hx Hypertension: Yes - PULMONARY Hx Bronchitis: Yes - NEUROLOGICAL Hx Migraine: Yes - HEENT Hx HEENT Problems: No - RENAL Hx Chronic Kidney Disease: Yes Hx Renal Failure: Yes - ENDOCRINE/METABOLIC Hx Endocrine Disorders: No - HEMATOLOGICAL/ONCOLOGICAL Hx Anemia: Yes - INTEGUMENTARY Hx Dermatological Problems: No - MUSCULOSKELETAL/RHEUMATOLOGICAL Hx Arthritis: Yes - GASTROINTESTINAL Hx Diarrhea: Yes Hx Gall Bladder Disease: Yes Hx Pancreatitis: Yes - GENITOURINARY/GYNECOLOGICAL Hx Genitourinary Disorders: No - PSYCHIATRIC Hx Anxiety: Yes Hx Substance Use: No - SURGICAL HISTORY Hx Surgeries: Yes Hx Arteriovenous Shunt: Yes Hx Cholecystectomy: Yes (2002) Hx Kidney Transplant: Yes Hx Splenectomy: Yes - ANESTHESIA Hx Anesthesia: Yes Hx Anesthesia Reactions: No Hx Malignant Hyperthermia: No Meds Allergies/Adverse Reactions: Allergies Allergy/AdvReac Type Severity Reaction Status Date / Time No Known Allergies Allergy Verified 07/21/18 16:38 - Medications Medications: Current Medications Amlodipine Besylate (Norvasc) 5 mg PO DAILY [facility] Last Admin: 08/04/18 09:29 Dose: Not Given Apixaban (Eliquis) 2.5 mg PO BID [facility] Last Admin: 08/04/18 09:29 Dose: Not Given Calcitriol (Rocaltrol) 0.5 mcg PO DAILY [facility] Last Admin: 08/04/18 09:30 Dose: Not Given Calcium Acetate (Phoslo) 1,334 mg PO TID [facility] Last Admin: 08/04/18 09:30 Dose: Not Given Epoetin Sergio (Procrit) 10,000 unit IV TTS [facility] Last Admin: 08/01/18 11:24 Dose: 10,000 unit Famotidine (Pepcid) 20 mg PO DAILY [facility] Last Admin: 08/04/18 09:29 Dose: Not Given Heparin Sodium/Sodium Chloride (Heparin 54894 Units/250ml 1/2 Normal Saline) 25 ,000 units in 250 mls @ 1.415 mls/hr IV .Q24H PRN; Protocol; 4 UNITS/KG/HR PRN Reason: PROTOCOL Lorazepam (Ativan) 0.5 mg PO Q6H PRN PRN Reason: Anxiety Last Admin: 08/04/18 00:35 Dose: 0.5 mg Metoprolol Tartrate (Lopressor) 25 mg PO BID [facility] Last Admin: 08/04/18 09:29 Dose: Not Given Oxycodone/Acetaminophen (Percocet 5/325 Mg Tab) 1 tab PO Q6H PRN PRN Reason: Pain, moderate (4-7) Stop: 08/06/18 21:09 Last Admin: 08/04/18 05:44 Dose: 1 tab Prednisone (Prednisone) 2.5 mg PO DAILY [facility] Last Admin: 08/04/18 09:30 Dose: Not Given Trazodone HCl (Desyrel) 50 mg PO HS [facility] Last Admin: 08/03/18 21:48 Dose: 50 mg Vitamin B Complex/Vit C/Folic Acid (Nephro-Ron) 1 tab PO DAILY [facility] Last Admin: 08/04/18 09:29 Dose: Not Given Physical Exam - Constitutional Appears: Non-toxic, No Acute Distress, Chronically Ill - Head Exam Head Exam: ATRAUMATIC, NORMAL INSPECTION - Eye Exam Eye Exam: EOMI, Normal appearance, PERRL - ENT Exam ENT Exam: Mucous Membranes Moist - Neck Exam Neck exam: Positive for: Normal Inspection Additional comments: Pain with rotation of head to the right - Respiratory Exam Respiratory Exam: Clear to Auscultation Bilateral, NORMAL BREATHING PATTERN - Cardiovascular Exam Cardiovascular Exam: REGULAR RHYTHM, +S1, +S2. absent: Gallop, Rubs, Systolic Murmur - GI/Abdominal Exam GI & Abdominal Exam: Normal Bowel Sounds, Soft. absent: Distended, Firm, Guarding, Rebound, Tenderness - Extremities Exam Extremities exam: Positive for: full ROM, normal capillary refill, normal inspection, pedal pulses present Additional comments: R arm swollen on exam, able to palpate radial and ulnar pulses in R arm - Neurological Exam Neurological exam: Alert, CN II-XII Intact, Oriented x3 - Skin Skin Exam: Dry, Intact, Warm Additional comments: L femoral vein Permacath in place, no abnormal drainage observed at site Results - Vital Signs Recent Vital Signs: Last Vital Signs Temp 97.5 F L 08/04/18 09:40 Pulse 60 08/04/18 10:30 Resp 16 08/04/18 10:30 BP 121/70 08/04/18 10:30 Pulse Ox 95 08/04/18 10:30 - Labs Result Diagrams: 08/04/18 10:00 08/04/18 10:00 Labs: Laboratory Results - last 24 hr 08/03/18 08/04/18 08/04/18 11:13 06:38 10:00 WBC 15.8 H D RBC 2.88 L Hgb 8.9 L Hct 28.0 L MCV 97.1 MCH 30.8 MCHC 31.8 L RDW 18.5 H Plt Count 219 MPV 9.2 Neut % (Auto) 71.5 Lymph % (Auto) 15.3 L [place] % (Auto) 12.3 H Eos % (Auto) 0.4 Baso % (Auto) 0.5 Neut # (Auto) 11.3 H Lymph # (Auto) 2.4 [place] # (Auto) 1.9 H Eos # (Auto) 0.1 Baso # (Auto) 0.1 PT INR APTT POC Glucose (mg/dL) 100 98 08/04/18 10:00 WBC RBC Hgb Hct MCV MCH MCHC RDW Plt Count MPV Neut % (Auto) Lymph % (Auto) [place] % (Auto) Eos % (Auto) Baso % (Auto) Neut # (Auto) Lymph # (Auto) [place] # (Auto) Eos # (Auto) Baso # (Auto) PT 12.4 H INR 1.1 APTT 34 POC Glucose (mg/dL) Assessment & Plan - Assessment and Plan (Free Text) Assessment: This is a 47 y o female with PMHx renal transplant on immunosuppressive tx, HTN , renal insufficiency, recurrent anemia, hx CBD obstruction s/p ERCP, ampullectomy, and chronic pain syndrome, who presented on admission on 07/21/18 with fatigue, malaise, and decreased urine output. Reason for consult was for R arm DVT. Pending official Doppler of R upper extremity. Anemia likely 2/2 to chronic disease. Plan: R arm DVT -Pending official Doppler report of clots in R internal jugular vein and R subclavian vein (as per bedside sono performed by Dr. Villela) -Likely 2/2 to placement of R internal jugular vein catheter, removed yesterday by vascular surgery, pt has L femoral vein Permacath that was placed yesterday -Will likely need anticoagulation for at least 3 mos Anemia of chronic disease -C/w hemodialysis Tu//Fri, further recs as per nephrology and primary team -Continue to trend bloodwork Further recs as per Dr. Uribe, attending. <Ramón Uribe - Last Filed: 08/06/18 23:39> Meds - Medications Medications: Current Medications Amlodipine Besylate (Norvasc) 5 mg PO DAILY [facility] Last Admin: 08/06/18 09:44 Dose: Not Given Apixaban (Eliquis) 2.5 mg PO BID [facility] Last Admin: 08/05/18 17:53 Dose: 2.5 mg Calcitriol (Rocaltrol) 0.5 mcg PO DAILY [facility] Last Admin: 08/06/18 09:45 Dose: Not Given Calcium Acetate (Phoslo) 1,334 mg PO TID [facility] Last Admin: 08/06/18 17:47 Dose: Not Given Cephalexin Monohydrate (Keflex) 500 mg PO Q8 [facility] PRN Reason: Protocol Stop: 08/11/18 22:01 Last Admin: 08/06/18 22:09 Dose: 500 mg Epoetin Sergio (Procrit) 10,000 unit IV TTS [facility] Last Admin: 08/06/18 16:15 Dose: 10,000 unit Famotidine (Pepcid) 20 mg PO DAILY [facility] Last Admin: 08/06/18 09:45 Dose: Not Given Lorazepam (Ativan) 0.5 mg PO Q6H PRN PRN Reason: Anxiety Last Admin: 08/04/18 00:35 Dose: 0.5 mg Metoprolol Tartrate (Lopressor) 25 mg PO BID [facility] Last Admin: 08/06/18 17:45 Dose: 25 mg Morphine Sulfate (Morphine) 2 mg IM Q4 PRN PRN Reason: Pain, severe (8-10) Last Admin: 08/06/18 22:09 Dose: 2 mg Oxycodone/Acetaminophen (Percocet 5/325 Mg Tab) 2 tab PO Q4H PRN PRN Reason: Pain, moderate (4-7) Stop: 08/09/18 11:49 Last Admin: 08/06/18 19:58 Dose: 2 tab Prednisone (Prednisone) 2.5 mg PO DAILY [facility] Last Admin: 08/06/18 09:45 Dose: Not Given Trazodone HCl (Desyrel) 50 mg PO HS [facility] Last Admin: 08/06/18 22:09 Dose: 50 mg Vitamin B Complex/Vit C/Folic Acid (Nephro-Ron) 1 tab PO DAILY [facility] Last Admin: 08/06/18 09:44 Dose: Not Given Results - Vital Signs Recent Vital Signs: Last Vital Signs Temp 97.5 F L 08/06/18 17:00 Pulse 67 08/06/18 17:00 Resp 16 08/06/18 17:00 BP 175/83 H 08/06/18 17:45 Pulse Ox 98 08/06/18 17:00 - Labs Result Diagrams: 08/06/18 08:30 08/06/18 08:30 Labs: Laboratory Results - last 24 hr 08/06/18 08/06/18 08/06/18 06:23 08:30 08:30 WBC 11.2 H RBC 2.50 L Hgb 7.7 L Hct 24.2 L MCV 97.0 MCH 31.0 MCHC 32.0 L RDW 17.9 H Plt Count 304 MPV 9.1 Neut % (Auto) 61.5 Lymph % (Auto) 22.3 [place] % (Auto) 14.5 H Eos % (Auto) 1.0 Baso % (Auto) 0.7 Neut # (Auto) 6.9 Lymph # (Auto) 2.5 [place] # (Auto) 1.6 H Eos # (Auto) 0.1 Baso # (Auto) 0.1 PT 12.4 H INR 1.1 APTT 41 H D Sodium Potassium Chloride Carbon Dioxide Anion Gap BUN Creatinine Est GFR ( Amer) Est GFR (Non-Af Amer) POC Glucose (mg/dL) 111 H Random Glucose Calcium Total Bilirubin AST ALT Alkaline Phosphatase Total Protein Albumin Globulin Albumin/Globulin Ratio Beta HCG, Quant Blood Type Antibody Screen 08/06/18 08/06/18 08/06/18 08:30 13:34 21:05 WBC RBC Hgb Hct MCV MCH MCHC RDW Plt Count MPV Neut % (Auto) Lymph % (Auto) [place] % (Auto) Eos % (Auto) Baso % (Auto) Neut # (Auto) Lymph # (Auto) [place] # (Auto) Eos # (Auto) Baso # (Auto) PT INR APTT Sodium 135 Potassium 4.8 Chloride 101 Carbon Dioxide 26 Anion Gap 13 BUN 32 H Creatinine 4.2 H Est GFR ( Amer) 14 Est GFR (Non-Af Amer) 11 POC Glucose (mg/dL) 117 H Random Glucose 104 Calcium 8.4 L Total Bilirubin 0.2 AST 9 L D ALT 20 Alkaline Phosphatase 82 Total Protein 5.2 L Albumin 2.5 L Globulin 2.7 Albumin/Globulin Ratio 0.9 L Beta HCG, Quant 4.60 Blood Type O POSITIVE Antibody Screen Negative Assessment & Plan - Assessment and Plan (Free Text) Plan: Pt seen and examined, agree with Dr. Garcia's consult. 47 year old female female with a history of renal transplant, chronic anemia, admitted with progressive renal failure requiring dialysis, with suspicion for right internal jugular DVT after dialysis access placed on anticoagulation. F/u official venous duplex results. Empiric anticoagulation. Anemia of CKD on iron and NINO. Thank you for this interesting consult.
[2018-08-04] MEDS: Epoetin Alfa 10,000 unit/ml Dialysis IV SCH (11:47)
[2018-08-04 12:10] LABS: ALB/GLOB RATIO 0.9 (1.0-2.1); ALBUMIN 2.4 g/dL (3.5-5.0); CALCIUM 7.7 mg/dl (8.6-10.4)
--- NOTE | 2018-08-04 14:04 | VASCLAB ---
Date of service: 08/03/2018 PROCEDURE: Right Lower Extremity Venous Duplex Exam. HISTORY: Leg pain PRIORS: None. TECHNIQUE: Right common femoral, femoral, popliteal and posterior tibial, peroneal and great saphenous veins were evaluated. Flow was assessed with color Doppler, compressibility, assessment of phasic flow and augmentation response. Report prepared by ROEL Marcum, RVT FINDINGS: RIGHT: 1. Common Femoral Vein: 1.1. Compressibility - Fully compressible: Thrombus - None: Flow - Phasic: Augmentation -Normal: Reflux - None. 2. Femoral Vein: 2.1. Compressibility - Fully compressible: Thrombus - None: Flow - Phasic: Augmentation -Normal: Reflux - None. 3. Popliteal Vein: 3.1. Compressibility - Fully compressible: Thrombus - None: Flow - Phasic: Augmentation -Normal: Reflux - None. 4. Posterior Tibial Vein: 4.1. Compressibility - Fully compressible: Thrombus - None: Flow - Phasic: Augmentation -Normal: Reflux - None. 5. Peroneal Vein: 5.1. Compressibility - Fully compressible: Thrombus - None: Flow - Phasic: Augmentation -Normal: Reflux - None. 6. Great Saphenous Vein: 6.1. Compressibility - Fully compressible: Thrombus -None: Flow - Phasic: Augmentation - Normal: Reflux - None. OTHER FINDINGS: IMPRESSION: No evidence of deep or superficial vein thrombosis of the right lower extremity with excellent venous flow. Normal valve function noted of the right side. Normal venous flow noted in the left common femoral vein.
--- NOTE | 2018-08-04 16:48 | CP.PCM.PN ---
Subjective - Date & Time of Evaluation Date of Evaluation: 08/04/18 Time of Evaluation: 16:45 - Subjective Subjective: Patient complains of pain post catheter placement. She denies having nausea and vomiting. She has not had any diarrhea today. Objective - Vital Signs/Intake and Output Vital Signs (last 24 hours): Temp Pulse Resp BP Pulse Ox 98.3 F 75 20 161/85 H 94 L 08/04/18 15:00 08/04/18 15:00 08/04/18 15:00 08/04/18 15:00 08/04/18 15:00 Intake and Output: 08/04/18 08/04/18 06:59 18:59 Intake Total 150 Balance 150 - Medications Medications: Current Medications Amlodipine Besylate (Norvasc) 5 mg PO DAILY [facility] Last Admin: 08/04/18 09:29 Dose: Not Given Apixaban (Eliquis) 2.5 mg PO BID [facility] Last Admin: 08/04/18 09:29 Dose: Not Given Calcitriol (Rocaltrol) 0.5 mcg PO DAILY [facility] Last Admin: 08/04/18 09:30 Dose: Not Given Calcium Acetate (Phoslo) 1,334 mg PO TID [facility] Last Admin: 08/04/18 14:19 Dose: 1,334 mg Epoetin Sergio (Procrit) 10,000 unit IV TTS [facility] Last Admin: 08/04/18 11:47 Dose: 10,000 unit Famotidine (Pepcid) 20 mg PO DAILY [facility] Last Admin: 08/04/18 09:29 Dose: Not Given Heparin Sodium/Sodium Chloride (Heparin 27009 Units/250ml 1/2 Normal Saline) 25 ,000 units in 250 mls @ 1.415 mls/hr IV .Q24H PRN; Protocol; 4 UNITS/KG/HR PRN Reason: PROTOCOL Lorazepam (Ativan) 0.5 mg PO Q6H PRN PRN Reason: Anxiety Last Admin: 08/04/18 00:35 Dose: 0.5 mg Metoprolol Tartrate (Lopressor) 25 mg PO BID [facility] Last Admin: 08/04/18 09:29 Dose: Not Given Morphine Sulfate (Morphine) 2 mg IM Q4 PRN PRN Reason: Pain, severe (8-10) Last Admin: 08/04/18 14:15 Dose: 2 mg Oxycodone/Acetaminophen (Percocet 5/325 Mg Tab) 1 tab PO Q6H PRN PRN Reason: Pain, moderate (4-7) Stop: 08/06/18 21:09 Last Admin: 08/04/18 05:44 Dose: 1 tab Prednisone (Prednisone) 2.5 mg PO DAILY [facility] Last Admin: 08/04/18 09:30 Dose: Not Given Trazodone HCl (Desyrel) 50 mg PO HS [facility] Last Admin: 08/03/18 21:48 Dose: 50 mg Vitamin B Complex/Vit C/Folic Acid (Nephro-Ron) 1 tab PO DAILY [facility] Last Admin: 08/04/18 09:29 Dose: Not Given - Labs Labs: 08/04/18 10:00 08/04/18 10:00 PT 12.4 SECONDS (9.7-12.2) H 08/04/18 10:00 INR 1.1 08/04/18 10:00 APTT 34 SECONDS (21-34) 08/04/18 10:00 - Constitutional Appears: No Acute Distress - Head Exam Head Exam: ATRAUMATIC, NORMOCEPHALIC - Eye Exam Eye Exam: EOMI, PERRL - Neck Exam Neck Exam: absent: Lymphadenopathy, Thyromegaly - Respiratory Exam Respiratory Exam: NORMAL BREATHING PATTERN. absent: Rales, Rhonchi, Wheezes - Cardiovascular Exam Cardiovascular Exam: REGULAR RHYTHM, +S1, +S2. absent: Gallop, Rubs, Murmur - GI/Abdominal Exam GI & Abdominal Exam: Soft, Normal Bowel Sounds. absent: Tenderness, Mass, Organomegaly - Rectal Exam Rectal Exam: Deferred - Extremities Exam Extremities Exam: absent: Calf Tenderness, Pedal Edema Assessment and Plan (1) Diarrhea Assessment & Plan: Diarrhea has resolved. The stool fat qualitative showed an excessive amount of fat, and we are awaiting 72 hour quantitative fecal fat. Status: Acute
--- NOTE | 2018-08-04 21:41 | CP.PCM.PN ---
Subjective - Date & Time of Evaluation Date of Evaluation: 08/04/18 Time of Evaluation: 21:39 - Subjective Subjective: Patient having some improvement in the right upper extremity swelling. There is redness, tenderness in the right neck region. The dialysis catheter is in the right internal jugular vein was removed Patient has a left femoral venous hemodialysis catheter noted. Received hemodialysis this morning. She is feeling well. But continues to have a pain Low-grade fever noted. Elevated WBC noted today. Suspected thrombophlebitis with infection likely. We will start the patient on p.o. antibiotic, as the poor venous access. Will add vancomycin as needed via hemodialysis if needed. ID follow-up. Discussed with sliver chopper. I start the patient on Eliquis 2.5 mg twice a day renal dose, given the renal dysfunction. Also having hard time in getting the venous access, heparin not able to be given. Lovenox not possible given the high risk of bleeding. Coumadin at this time unable to start and monitor the INR. We will continue to monitor and will follow the patient Objective - Vital Signs/Intake and Output Vital Signs (last 24 hours): Temp Pulse Resp BP Pulse Ox 98.3 F 75 20 161/85 H 94 L 08/04/18 15:00 08/04/18 15:00 08/04/18 15:00 08/04/18 17:44 08/04/18 15:00 - Medications Medications: Current Medications Amlodipine Besylate (Norvasc) 5 mg PO DAILY [facility] Last Admin: 08/04/18 09:29 Dose: Not Given Apixaban (Eliquis) 2.5 mg PO BID [facility] Last Admin: 08/04/18 18:49 Dose: 2.5 mg Calcitriol (Rocaltrol) 0.5 mcg PO DAILY [facility] Last Admin: 08/04/18 09:30 Dose: Not Given Calcium Acetate (Phoslo) 1,334 mg PO TID [facility] Last Admin: 08/04/18 17:45 Dose: 1,334 mg Epoetin Sergio (Procrit) 10,000 unit IV TTS [facility] Last Admin: 08/04/18 11:47 Dose: 10,000 unit Famotidine (Pepcid) 20 mg PO DAILY [facility] Last Admin: 08/04/18 09:29 Dose: Not Given Lorazepam (Ativan) 0.5 mg PO Q6H PRN PRN Reason: Anxiety Last Admin: 08/04/18 00:35 Dose: 0.5 mg Metoprolol Tartrate (Lopressor) 25 mg PO BID [facility] Last Admin: 08/04/18 17:44 Dose: 25 mg Morphine Sulfate (Morphine) 2 mg IM Q4 PRN PRN Reason: Pain, severe (8-10) Last Admin: 08/04/18 18:54 Dose: 2 mg Oxycodone/Acetaminophen (Percocet 5/325 Mg Tab) 1 tab PO Q6H PRN PRN Reason: Pain, moderate (4-7) Stop: 08/06/18 21:09 Last Admin: 08/04/18 05:44 Dose: 1 tab Prednisone (Prednisone) 2.5 mg PO DAILY [facility] Last Admin: 08/04/18 09:30 Dose: Not Given Trazodone HCl (Desyrel) 50 mg PO HS [facility] Last Admin: 08/03/18 21:48 Dose: 50 mg Vitamin B Complex/Vit C/Folic Acid (Nephro-Ron) 1 tab PO DAILY [facility] Last Admin: 08/04/18 09:29 Dose: Not Given - Labs Labs: 08/04/18 10:00 08/04/18 10:00 PT 12.4 SECONDS (9.7-12.2) H 08/04/18 10:00 INR 1.1 08/04/18 10:00 APTT 34 SECONDS (21-34) 08/04/18 10:00
[2018-08-05] MEDS: Multivitamin Vitamin B Complex (Nephro-Vite) Tab PO SCH (09:18)
--- NOTE | 2018-08-05 14:49 | CP.PCM.PN ---
Subjective - Date & Time of Evaluation Date of Evaluation: 08/05/18 Time of Evaluation: 14:47 - Subjective Subjective: chronic pain pain everywhere right arm better does not want PD cath better intake chronic anxiety decreased u/o no diarrhea no fever no chills no cough decreased ROM in right arm no palpitations Objective - Vital Signs/Intake and Output Vital Signs (last 24 hours): Temp Pulse Resp BP Pulse Ox 98.3 F 72 20 133/79 97 08/05/18 07:00 08/05/18 14:07 08/05/18 07:00 08/05/18 14:07 08/05/18 07:00 Intake and Output: 08/05/18 08/05/18 06:59 18:59 Intake Total 100 400 Output Total 2 Balance 100 398 - Medications Medications: Current Medications Amlodipine Besylate (Norvasc) 5 mg PO DAILY [facility] Last Admin: 08/05/18 09:18 Dose: 5 mg Apixaban (Eliquis) 2.5 mg PO BID [facility] Last Admin: 08/05/18 09:19 Dose: 2.5 mg Calcitriol (Rocaltrol) 0.5 mcg PO DAILY [facility] Last Admin: 08/05/18 09:18 Dose: 0.5 mcg Calcium Acetate (Phoslo) 1,334 mg PO TID [facility] Last Admin: 08/05/18 14:07 Dose: 1,334 mg Cephalexin Monohydrate (Keflex) 500 mg PO Q8 [facility] PRN Reason: Protocol Stop: 08/11/18 22:01 Last Admin: 08/05/18 14:08 Dose: 500 mg Epoetin Sergio (Procrit) 10,000 unit IV TTS [facility] Last Admin: 08/04/18 11:47 Dose: 10,000 unit Famotidine (Pepcid) 20 mg PO DAILY [facility] Last Admin: 08/05/18 09:18 Dose: 20 mg Lorazepam (Ativan) 0.5 mg PO Q6H PRN PRN Reason: Anxiety Last Admin: 08/04/18 00:35 Dose: 0.5 mg Metoprolol Tartrate (Lopressor) 25 mg PO BID [facility] Last Admin: 08/05/18 09:18 Dose: 25 mg Morphine Sulfate (Morphine) 2 mg IM Q4 PRN PRN Reason: Pain, severe (8-10) Last Admin: 08/05/18 14:08 Dose: 2 mg Oxycodone/Acetaminophen (Percocet 5/325 Mg Tab) 1 tab PO Q6H PRN PRN Reason: Pain, moderate (4-7) Stop: 08/06/18 21:09 Last Admin: 08/04/18 05:44 Dose: 1 tab Prednisone (Prednisone) 2.5 mg PO DAILY [facility] Last Admin: 08/05/18 09:19 Dose: 2.5 mg Trazodone HCl (Desyrel) 50 mg PO HS [facility] Last Admin: 08/04/18 22:55 Dose: 50 mg Vitamin B Complex/Vit C/Folic Acid (Nephro-Ron) 1 tab PO DAILY [facility] Last Admin: 08/05/18 09:18 Dose: 1 tab - Labs Labs: 08/04/18 10:00 08/04/18 10:00 PT 12.4 SECONDS (9.7-12.2) H 08/04/18 10:00 INR 1.1 08/04/18 10:00 APTT 34 SECONDS (21-34) 08/04/18 10:00 - Constitutional Appears: Cachectic, Chronically Ill - Head Exam Head Exam: NORMOCEPHALIC - Eye Exam Eye Exam: EOMI - Neck Exam Neck Exam: Full ROM. absent: Lymphadenopathy - Respiratory Exam Respiratory Exam: absent: Accessory Muscle Use - GI/Abdominal Exam GI & Abdominal Exam: Tenderness. absent: Guarding - Extremities Exam Extremities Exam: absent: Pedal Edema Additional comments: right arm swelling - Neurological Exam Neurological Exam: Alert, Awake Assessment and Plan - Assessment and Plan (Free Text) Assessment: new ESRD limited access options transplant failure chronic pain syndrome cachectic diarrhea HTN smoker right IJ clot assess access possibilities anticoagulation HD in am
--- NOTE | 2018-08-05 18:22 | CP.PCM.PN ---
Subjective - Date & Time of Evaluation Date of Evaluation: 08/05/18 Time of Evaluation: 18:19 - Subjective Subjective: vascular surgery progress note for Dr. Omar Barragan, PGY-2 Pt S & E at bedside at 1610 Pt reports RUE swelling improved, now had Left fem HD catheter inserted. Understands she is for AVF creation tomorrow. Objective - Vital Signs/Intake and Output Vital Signs (last 24 hours): Temp Pulse Resp BP Pulse Ox 99 F 78 20 134/77 99 08/05/18 15:50 08/05/18 15:50 08/05/18 15:50 08/05/18 17:53 08/05/18 15:50 Intake and Output: 08/05/18 08/05/18 06:59 18:59 Intake Total 100 400 Output Total 2 Balance 100 398 - Medications Medications: Current Medications Amlodipine Besylate (Norvasc) 5 mg PO DAILY [facility] Last Admin: 08/05/18 09:18 Dose: 5 mg Apixaban (Eliquis) 2.5 mg PO BID [facility] Last Admin: 08/05/18 17:53 Dose: 2.5 mg Calcitriol (Rocaltrol) 0.5 mcg PO DAILY [facility] Last Admin: 08/05/18 09:18 Dose: 0.5 mcg Calcium Acetate (Phoslo) 1,334 mg PO TID [facility] Last Admin: 08/05/18 17:54 Dose: 1,334 mg Cephalexin Monohydrate (Keflex) 500 mg PO Q8 [facility] PRN Reason: Protocol Stop: 08/11/18 22:01 Last Admin: 08/05/18 14:08 Dose: 500 mg Epoetin Sergio (Procrit) 10,000 unit IV TTS [facility] Last Admin: 08/04/18 11:47 Dose: 10,000 unit Famotidine (Pepcid) 20 mg PO DAILY [facility] Last Admin: 08/05/18 09:18 Dose: 20 mg Lorazepam (Ativan) 0.5 mg PO Q6H PRN PRN Reason: Anxiety Last Admin: 08/04/18 00:35 Dose: 0.5 mg Metoprolol Tartrate (Lopressor) 25 mg PO BID [facility] Last Admin: 08/05/18 17:53 Dose: 25 mg Morphine Sulfate (Morphine) 2 mg IM Q4 PRN PRN Reason: Pain, severe (8-10) Last Admin: 08/05/18 14:08 Dose: 2 mg Oxycodone/Acetaminophen (Percocet 5/325 Mg Tab) 1 tab PO Q6H PRN PRN Reason: Pain, moderate (4-7) Stop: 08/06/18 21:09 Last Admin: 08/04/18 05:44 Dose: 1 tab Prednisone (Prednisone) 2.5 mg PO DAILY [facility] Last Admin: 08/05/18 09:19 Dose: 2.5 mg Trazodone HCl (Desyrel) 50 mg PO HS [facility] Last Admin: 08/04/18 22:55 Dose: 50 mg Vitamin B Complex/Vit C/Folic Acid (Nephro-Ron) 1 tab PO DAILY [facility] Last Admin: 08/05/18 09:18 Dose: 1 tab - Labs Labs: 08/04/18 10:00 08/04/18 10:00 PT 12.4 SECONDS (9.7-12.2) H 08/04/18 10:00 INR 1.1 08/04/18 10:00 APTT 34 SECONDS (21-34) 08/04/18 10:00 - Constitutional Appears: Non-toxic, No Acute Distress - Head Exam Head Exam: ATRAUMATIC, NORMAL INSPECTION, NORMOCEPHALIC - Eye Exam Eye Exam: EOMI, Normal appearance - ENT Exam ENT Exam: Mucous Membranes Moist, Normal Exam - Neck Exam Neck Exam: Full ROM, Normal Inspection - Respiratory Exam Respiratory Exam: NORMAL BREATHING PATTERN - Cardiovascular Exam Cardiovascular Exam: REGULAR RHYTHM, +S1, +S2 - GI/Abdominal Exam GI & Abdominal Exam: Soft. absent: Tenderness - Extremities Exam Extremities Exam: absent: Normal Inspection Additional comments: RUE swollen LUE AVF- no palpable thrill LLE with femoral HD catheter inserted - Neurological Exam Neurological Exam: Alert, Awake, CN II-XII Intact, Oriented x3 - Psychiatric Exam Psychiatric exam: Normal Affect, Normal Mood - Skin Skin Exam: Dry, Intact, Normal Color, Warm Additional comments: Right chest wall with dressing in place- clean/dry/intact Assessment and Plan - Assessment and Plan (Free Text) Assessment: 47F with ESRD requiring HD access with non functional LUE AVF Plan: NPO pMN Consent in chart Will DW Dr. Ziyad Barragan, PGY-2
[2018-08-06] MEDS ORDERED: HEPARIN-NS 5,000 UNITS/500 ML 5,000 UNIT/500 ML BAG IV ONE (06:55)
[2018-08-06] MEDS ORDERED: ceFAZolin IV 1 gm in Dextrose 2 GM/100 ML BAG IVPB ONE (08:07)
[2018-08-06 08:35] LABS: BASO # 0.1 K/uL (0.0-0.2); BASO % 0.7 % (0.0-2.0); EOS # 0.1 K/uL (0.0-0.7); HEMOGLOBIN 7.7 g/dL (11.0-16.0); LYMPH # 2.5 K/uL (1.0-4.3); LYMPH % 22.3 % (20.0-40.0); MEAN PLATELET VOLUME 9.1 fL (7.2-11.7); MONO # 1.6 K/uL (0.0-0.8); MONO % 14.5 % (0.0-10.0); NEUT # 6.9 K/uL (1.8-7.0); NEUT % 61.5 % (50.0-75.0); NRBC % 1.2 % (0.0-2.0); RBC 2.5 Mil/uL (3.80-5.20); RED CELL DISTRIBUTION WIDTH 17.9 % (11.5-14.5); WHITE BLOOD COUNT 11.2 K/uL (4.8-10.8)
[2018-08-06 08:43] LABS: INR 1.1; PROTHROMBIN TIME 12.4 SECONDS (9.7-12.2)
[2018-08-06 08:56] LABS: ALB/GLOB RATIO 0.9 (1.0-2.1); ALBUMIN 2.5 g/dL (3.5-5.0); CALCIUM 8.4 mg/dl (8.6-10.4)
[2018-08-06] MEDS: Multivitamin Vitamin B Complex (Nephro-Vite) Tab PO SCH (09:44)
[2018-08-06] MEDS ORDERED: Midazolam 2 MG/2 ML VIAL ONE (10:04)
[2018-08-06] MEDS ORDERED: Propofol 10 mg/ml Inj (20 ML) ONE (10:04)
[2018-08-06] MEDS ORDERED: Lidocaine Hydrochloride 0 ML INJ ONE (10:14)
--- NOTE | 2018-08-06 10:29 | CP.PCM.PN ---
Subjective - Date & Time of Evaluation Date of Evaluation: 08/06/18 Time of Evaluation: 10:26 - Subjective Subjective: For AV F creation today Had been on eliquis for anticoagulation Hg low- will need blood transfusions For HD today Will arrange for eventual outpt HD placement Objective - Vital Signs/Intake and Output Vital Signs (last 24 hours): Temp Pulse Resp BP Pulse Ox 98.3 F 62 20 138/75 98 08/06/18 07:52 08/06/18 07:52 08/06/18 07:52 08/06/18 07:52 08/06/18 07:52 - Medications Medications: Current Medications Amlodipine Besylate (Norvasc) 5 mg PO DAILY [facility] Last Admin: 08/06/18 09:44 Dose: Not Given Apixaban (Eliquis) 2.5 mg PO BID [facility] Last Admin: 08/05/18 17:53 Dose: 2.5 mg Calcitriol (Rocaltrol) 0.5 mcg PO DAILY [facility] Last Admin: 08/06/18 09:45 Dose: Not Given Calcium Acetate (Phoslo) 1,334 mg PO TID [facility] Last Admin: 08/06/18 09:45 Dose: Not Given Cephalexin Monohydrate (Keflex) 500 mg PO Q8 [facility] PRN Reason: Protocol Stop: 08/11/18 22:01 Last Admin: 08/06/18 05:39 Dose: 500 mg Epoetin Sergio (Procrit) 10,000 unit IV TTS [facility] Last Admin: 08/04/18 11:47 Dose: 10,000 unit Famotidine (Pepcid) 20 mg PO DAILY [facility] Last Admin: 08/06/18 09:45 Dose: Not Given Lorazepam (Ativan) 0.5 mg PO Q6H PRN PRN Reason: Anxiety Last Admin: 08/04/18 00:35 Dose: 0.5 mg Metoprolol Tartrate (Lopressor) 25 mg PO BID [facility] Last Admin: 08/06/18 09:43 Dose: Not Given Morphine Sulfate (Morphine) 2 mg IM Q4 PRN PRN Reason: Pain, severe (8-10) Last Admin: 08/06/18 02:35 Dose: 2 mg Oxycodone/Acetaminophen (Percocet 5/325 Mg Tab) 1 tab PO Q6H PRN PRN Reason: Pain, moderate (4-7) Stop: 08/06/18 21:09 Last Admin: 08/04/18 05:44 Dose: 1 tab Prednisone (Prednisone) 2.5 mg PO DAILY [facility] Last Admin: 08/06/18 09:45 Dose: Not Given Trazodone HCl (Desyrel) 50 mg PO HS [facility] Last Admin: 08/05/18 21:59 Dose: 50 mg Vitamin B Complex/Vit C/Folic Acid (Nephro-Ron) 1 tab PO DAILY [facility] Last Admin: 08/06/18 09:44 Dose: Not Given - Labs Labs: 08/06/18 08:30 08/06/18 08:30 PT 12.4 SECONDS (9.7-12.2) H 08/06/18 08:30 INR 1.1 08/06/18 08:30 APTT 41 SECONDS (21-34) H D 08/06/18 08:30 - Constitutional Appears: No Acute Distress, Chronically Ill - Head Exam Head Exam: ATRAUMATIC, NORMAL INSPECTION - Eye Exam Eye Exam: EOMI, Normal appearance - Neck Exam Neck Exam: Normal Inspection. absent: Tenderness - Respiratory Exam Respiratory Exam: Clear to Ausculation Bilateral, NORMAL BREATHING PATTERN - Cardiovascular Exam Cardiovascular Exam: REGULAR RHYTHM, +S1 - GI/Abdominal Exam GI & Abdominal Exam: Soft. absent: Tenderness - Extremities Exam Extremities Exam: Normal Inspection. absent: Tenderness - Neurological Exam Neurological Exam: Awake, CN II-XII Intact - Skin Skin Exam: Dry, Warm Assessment and Plan (1) Renal transplant failure and rejection Status: Acute (2) CKD (chronic kidney disease) stage 5, GFR less than 15 ml/min Status: Acute (3) Diarrhea Status: Acute (4) Weight loss, unintentional Status: Acute (5) ESRD (end stage renal disease) Status: Acute - Assessment and Plan (Free Text) Plan: AV F now HD now - TTS outpt HD placement Blood transfusions
[2018-08-06] MEDS ORDERED: ePHEDrine 50 mg/ml Inj ONE (11:26)
[2018-08-06] MEDS ORDERED: HYDROmorphone 0.5 mg/0.5 ml ISec IVP PRN (11:49)
--- NOTE | 2018-08-06 11:52 | PCM.SURG1 ---
Surgeon's Initial Post Op Note - Surgeon's Notes Surgeon: Dr. Lackey Blasting Entry Specialist: Mita Levi PGY3 Type of Anesthesia: General LMA Anesthesia Administered By: Dr Yoon Pre-Operative Diagnosis: ESRD needing AVF for HD Operative Findings: thrombosed L excisting AVF, good L cephalic vein Post-Operative Diagnosis: Same Operation Performed: L arm AVF creation Brachio- cephalic anastomosis Specimen/Specimens Removed: None Estimated Blood Loss: EBL {In ML}: 10 Blood Products Given: N/A Drains Used: No Drains Post-Op Condition: Good Date of Surgery/Procedure: 08/06/18 Time of Surgery/Procedure: 11:52
[2018-08-06] MEDS: Epoetin Alfa 10,000 unit/ml Dialysis IV SCH (16:15)
[2018-08-06] MEDS: Oxycodone/Acetaminophen 5/325 mg Tab PO PRN ×2 (19:53→19:58)
--- NOTE | 2018-08-06 20:27 | CP.PCM.PN ---
Subjective - Date & Time of Evaluation Date of Evaluation: 08/06/18 Time of Evaluation: 20:27 - Subjective Subjective: The right arm swelling is still noted. Attempted venous puncture on the right arm making it worse. She is feeling well. Received hemodialysis. AV fistula was done on the left forearm today Assessment patient is a 47-year-old female with a failed renal transplant acute renal insufficiency now having hemodialysis. We will continue to monitor Also patient has a acute thrombosis involving the right internal jugular vein with a possible thrombophlebitis on antibiotic and also on anticoagulation Objective - Vital Signs/Intake and Output Vital Signs (last 24 hours): Temp Pulse Resp BP Pulse Ox 97.5 F L 67 16 175/83 H 98 08/06/18 17:00 08/06/18 17:00 08/06/18 17:00 08/06/18 17:45 08/06/18 17:00 Intake and Output: 08/06/18 08/07/18 18:59 06:59 Intake Total 1129 Balance 1129 - Medications Medications: Current Medications Amlodipine Besylate (Norvasc) 5 mg PO DAILY [facility] Last Admin: 08/06/18 09:44 Dose: Not Given Apixaban (Eliquis) 2.5 mg PO BID [facility] Last Admin: 08/05/18 17:53 Dose: 2.5 mg Calcitriol (Rocaltrol) 0.5 mcg PO DAILY [facility] Last Admin: 08/06/18 09:45 Dose: Not Given Calcium Acetate (Phoslo) 1,334 mg PO TID [facility] Last Admin: 08/06/18 17:47 Dose: Not Given Cephalexin Monohydrate (Keflex) 500 mg PO Q8 [facility] PRN Reason: Protocol Stop: 08/11/18 22:01 Last Admin: 08/06/18 14:26 Dose: Not Given Epoetin Sergio (Procrit) 10,000 unit IV TTS [facility] Last Admin: 08/06/18 16:15 Dose: 10,000 unit Famotidine (Pepcid) 20 mg PO DAILY [facility] Last Admin: 08/06/18 09:45 Dose: Not Given Lorazepam (Ativan) 0.5 mg PO Q6H PRN PRN Reason: Anxiety Last Admin: 08/04/18 00:35 Dose: 0.5 mg Metoprolol Tartrate (Lopressor) 25 mg PO BID [facility] Last Admin: 08/06/18 17:45 Dose: 25 mg Morphine Sulfate (Morphine) 2 mg IM Q4 PRN PRN Reason: Pain, severe (8-10) Last Admin: 08/06/18 17:39 Dose: 2 mg Oxycodone/Acetaminophen (Percocet 5/325 Mg Tab) 1 tab PO Q6H PRN PRN Reason: Pain, moderate (4-7) Stop: 08/06/18 21:09 Last Admin: 08/04/18 05:44 Dose: 1 tab Oxycodone/Acetaminophen (Percocet 5/325 Mg Tab) 2 tab PO Q4H PRN PRN Reason: Pain, moderate (4-7) Stop: 08/09/18 11:49 Last Admin: 08/06/18 19:58 Dose: 2 tab Prednisone (Prednisone) 2.5 mg PO DAILY [facility] Last Admin: 08/06/18 09:45 Dose: Not Given Trazodone HCl (Desyrel) 50 mg PO HS [facility] Last Admin: 08/05/18 21:59 Dose: 50 mg Vitamin B Complex/Vit C/Folic Acid (Nephro-Ron) 1 tab PO DAILY [facility] Last Admin: 08/06/18 09:44 Dose: Not Given - Labs Labs: 08/06/18 08:30 08/06/18 08:30 PT 12.4 SECONDS (9.7-12.2) H 08/06/18 08:30 INR 1.1 08/06/18 08:30 APTT 41 SECONDS (21-34) H D 08/06/18 08:30
--- NOTE | 2018-08-06 22:43 | OP ---
PROCEDURE DATE: 08/06/2018 PREOPERATIVE DIAGNOSIS: Renal failure. POSTOPERATIVE DIAGNOSIS: Renal failure. PROCEDURE CARRIED OUT: Brachiocephalic fistula, left elbow. SURGEON: Arturo Lackey Jr., MD [employer] AGENT: Dr. Bee ANESTHESIOLOGIST: OPERATIVE FINDINGS: The vein was of adequate caliber and size, is measured on a C-arm ultrasound. An end-to-side fistula was carried out using loupe magnification and heparin anticoagulation. At the end of the procedure, there was palpable pulse at the wrist, and there was good flow to the fistula. Blood loss for the procedure was 10 mL. INDICATIONS: The patient is a 47-year-old woman with renal insufficiency, recently failed transplant. Presently dialyzes with the use of a left femoral catheter. The patient has a clot in the right jugular vein. DESCRIPTION OF PROCEDURE: The patient was given general anesthesia and intravenous antibiotics. The veins had been marked. The adjacent artery was marked. It was mobilized, dissected free, and then anastomosed in an end-to-side spatulated fashion. After completion of the anastomosis, hemostasis was obtained, the wound was closed. Pulse present at the wrist and good flow to the fistula. BLOOD LOSS: 10 mL. OPERATION CARRIED OUT: Brachiocephalic fistula, left elbow. Arturo Lackey Jr., MD cc: 1. Darrick Clark MD 2. Gretta Villela MD
--- NOTE | 2018-08-06 23:46 | CP.PCM.PN ---
Subjective - Date & Time of Evaluation Date of Evaluation: 08/06/18 Time of Evaluation: 18:00 - Subjective Subjective: Has pain and swelling Objective - Vital Signs/Intake and Output Vital Signs (last 24 hours): Temp Pulse Resp BP Pulse Ox 97.5 F L 67 16 175/83 H 98 08/06/18 17:00 08/06/18 17:00 08/06/18 17:00 08/06/18 17:45 08/06/18 17:00 Intake and Output: 08/06/18 08/07/18 18:59 06:59 Intake Total 1129 Balance 1129 - Medications Medications: Current Medications Amlodipine Besylate (Norvasc) 5 mg PO DAILY [facility] Last Admin: 08/06/18 09:44 Dose: Not Given Apixaban (Eliquis) 2.5 mg PO BID [facility] Last Admin: 08/05/18 17:53 Dose: 2.5 mg Calcitriol (Rocaltrol) 0.5 mcg PO DAILY [facility] Last Admin: 08/06/18 09:45 Dose: Not Given Calcium Acetate (Phoslo) 1,334 mg PO TID [facility] Last Admin: 08/06/18 17:47 Dose: Not Given Cephalexin Monohydrate (Keflex) 500 mg PO Q8 [facility] PRN Reason: Protocol Stop: 08/11/18 22:01 Last Admin: 08/06/18 22:09 Dose: 500 mg Epoetin Sergio (Procrit) 10,000 unit IV TTS [facility] Last Admin: 08/06/18 16:15 Dose: 10,000 unit Famotidine (Pepcid) 20 mg PO DAILY [facility] Last Admin: 08/06/18 09:45 Dose: Not Given Lorazepam (Ativan) 0.5 mg PO Q6H PRN PRN Reason: Anxiety Last Admin: 08/04/18 00:35 Dose: 0.5 mg Metoprolol Tartrate (Lopressor) 25 mg PO BID [facility] Last Admin: 08/06/18 17:45 Dose: 25 mg Morphine Sulfate (Morphine) 2 mg IM Q4 PRN PRN Reason: Pain, severe (8-10) Last Admin: 08/06/18 22:09 Dose: 2 mg Oxycodone/Acetaminophen (Percocet 5/325 Mg Tab) 2 tab PO Q4H PRN PRN Reason: Pain, moderate (4-7) Stop: 08/09/18 11:49 Last Admin: 08/06/18 19:58 Dose: 2 tab Prednisone (Prednisone) 2.5 mg PO DAILY [facility] Last Admin: 08/06/18 09:45 Dose: Not Given Trazodone HCl (Desyrel) 50 mg PO HS [facility] Last Admin: 08/06/18 22:09 Dose: 50 mg Vitamin B Complex/Vit C/Folic Acid (Nephro-Ron) 1 tab PO DAILY [facility] Last Admin: 08/06/18 09:44 Dose: Not Given - Labs Labs: 08/06/18 08:30 08/06/18 08:30 PT 12.4 SECONDS (9.7-12.2) H 08/06/18 08:30 INR 1.1 08/06/18 08:30 APTT 41 SECONDS (21-34) H D 08/06/18 08:30 - Head Exam Head Exam: ATRAUMATIC - Eye Exam Eye Exam: Normal appearance - ENT Exam ENT Exam: Mucous Membranes Dry - Respiratory Exam Respiratory Exam: NORMAL BREATHING PATTERN - Cardiovascular Exam Cardiovascular Exam: +S1, +S2 - GI/Abdominal Exam GI & Abdominal Exam: Normal Bowel Sounds - Extremities Exam Extremities Exam: Pedal Edema Assessment and Plan (1) Thrombophlebitis Assessment & Plan: unable to get IV access for IV heparin does not wish to be on coumadin on Eliquis 2.5mg BID; monitor for bleeding anticoagulating as high risk for DVT Status: Acute (2) Anemia Assessment & Plan: anemia of chronic disease and renal disease on Iron and Procrit transfusion support PRN Status: Acute
--- NOTE | 2018-08-06 23:46 | CP.PCM.PN ---
Subjective - Date & Time of Evaluation Date of Evaluation: 08/05/18 Time of Evaluation: 14:00 - Subjective Subjective: Feels weak Objective - Vital Signs/Intake and Output Vital Signs (last 24 hours): Temp Pulse Resp BP Pulse Ox 97.5 F L 67 16 175/83 H 98 08/06/18 17:00 08/06/18 17:00 08/06/18 17:00 08/06/18 17:45 08/06/18 17:00 Intake and Output: 08/06/18 08/07/18 18:59 06:59 Intake Total 1129 Balance 1129 - Medications Medications: Current Medications Amlodipine Besylate (Norvasc) 5 mg PO DAILY [facility] Last Admin: 08/06/18 09:44 Dose: Not Given Apixaban (Eliquis) 2.5 mg PO BID [facility] Last Admin: 08/05/18 17:53 Dose: 2.5 mg Calcitriol (Rocaltrol) 0.5 mcg PO DAILY [facility] Last Admin: 08/06/18 09:45 Dose: Not Given Calcium Acetate (Phoslo) 1,334 mg PO TID [facility] Last Admin: 08/06/18 17:47 Dose: Not Given Cephalexin Monohydrate (Keflex) 500 mg PO Q8 [facility] PRN Reason: Protocol Stop: 08/11/18 22:01 Last Admin: 08/06/18 22:09 Dose: 500 mg Epoetin Sergio (Procrit) 10,000 unit IV TTS [facility] Last Admin: 08/06/18 16:15 Dose: 10,000 unit Famotidine (Pepcid) 20 mg PO DAILY [facility] Last Admin: 08/06/18 09:45 Dose: Not Given Lorazepam (Ativan) 0.5 mg PO Q6H PRN PRN Reason: Anxiety Last Admin: 08/04/18 00:35 Dose: 0.5 mg Metoprolol Tartrate (Lopressor) 25 mg PO BID [facility] Last Admin: 08/06/18 17:45 Dose: 25 mg Morphine Sulfate (Morphine) 2 mg IM Q4 PRN PRN Reason: Pain, severe (8-10) Last Admin: 08/06/18 22:09 Dose: 2 mg Oxycodone/Acetaminophen (Percocet 5/325 Mg Tab) 2 tab PO Q4H PRN PRN Reason: Pain, moderate (4-7) Stop: 08/09/18 11:49 Last Admin: 08/06/18 19:58 Dose: 2 tab Prednisone (Prednisone) 2.5 mg PO DAILY [facility] Last Admin: 08/06/18 09:45 Dose: Not Given Trazodone HCl (Desyrel) 50 mg PO HS [facility] Last Admin: 08/06/18 22:09 Dose: 50 mg Vitamin B Complex/Vit C/Folic Acid (Nephro-Ron) 1 tab PO DAILY [facility] Last Admin: 08/06/18 09:44 Dose: Not Given - Labs Labs: 08/06/18 08:30 08/06/18 08:30 PT 12.4 SECONDS (9.7-12.2) H 08/06/18 08:30 INR 1.1 08/06/18 08:30 APTT 41 SECONDS (21-34) H D 08/06/18 08:30 - Head Exam Head Exam: ATRAUMATIC - Eye Exam Eye Exam: Normal appearance - ENT Exam ENT Exam: Mucous Membranes Dry - Respiratory Exam Respiratory Exam: NORMAL BREATHING PATTERN - Cardiovascular Exam Cardiovascular Exam: +S1, +S2 - GI/Abdominal Exam GI & Abdominal Exam: Normal Bowel Sounds Assessment and Plan (1) Thrombophlebitis Assessment & Plan: unable to get IV access for IV heparin does not wish to be on coumadin on Eliquis 2.5mg BID; monitor for bleeding anticoagulating as high risk for DVT Status: Acute (2) Anemia Assessment & Plan: anemia of chronic disease and renal disease on Iron and Procrit transfusion support PRN Status: Acute
[2018-08-07] MEDS: Oxycodone/Acetaminophen 5/325 mg Tab PO PRN ×2 (05:27→14:38)
--- NOTE | 2018-08-07 09:20 | CP.PCM.PN ---
Subjective - Date & Time of Evaluation Date of Evaluation: 08/07/18 Time of Evaluation: : - Subjective Subjective: Vasc Sx: Dr Lackey Pt S&E. [place]. PT POD#1 s/p AVF. Palpable pulses, good thrill, no distal hand numbness or pain. Objective - Vital Signs/Intake and Output Vital Signs (last 24 hours): Temp Pulse Resp BP Pulse Ox 98.4 F 69 20 149/78 95 08/07/18 07:00 08/07/18 07:00 08/07/18 07:00 08/07/18 07:00 08/07/18 07:00 - Medications Medications: Current Medications Amlodipine Besylate (Norvasc) 5 mg PO DAILY [facility] Last Admin: 08/06/18 09:44 Dose: Not Given Apixaban (Eliquis) 2.5 mg PO BID [facility] Last Admin: 08/05/18 17:53 Dose: 2.5 mg Calcitriol (Rocaltrol) 0.5 mcg PO DAILY [facility] Last Admin: 08/06/18 09:45 Dose: Not Given Calcium Acetate (Phoslo) 1,334 mg PO TID [facility] Last Admin: 08/06/18 17:47 Dose: Not Given Cephalexin Monohydrate (Keflex) 500 mg PO Q8 [facility] PRN Reason: Protocol Stop: 08/11/18 22:01 Last Admin: 08/07/18 05:27 Dose: 500 mg Epoetin Sergio (Procrit) 10,000 unit IV TTS [facility] Last Admin: 08/06/18 16:15 Dose: 10,000 unit Famotidine (Pepcid) 20 mg PO DAILY [facility] Last Admin: 08/06/18 09:45 Dose: Not Given Lorazepam (Ativan) 0.5 mg PO Q6H PRN PRN Reason: Anxiety Last Admin: 08/04/18 00:35 Dose: 0.5 mg Metoprolol Tartrate (Lopressor) 25 mg PO BID [facility] Last Admin: 08/06/18 17:45 Dose: 25 mg Morphine Sulfate (Morphine) 2 mg IM Q4 PRN PRN Reason: Pain, severe (8-10) Last Admin: 08/07/18 03:05 Dose: 2 mg Oxycodone/Acetaminophen (Percocet 5/325 Mg Tab) 2 tab PO Q4H PRN PRN Reason: Pain, moderate (4-7) Stop: 08/09/18 11:49 Last Admin: 08/07/18 05:27 Dose: 2 tab Prednisone (Prednisone) 2.5 mg PO DAILY [facility] Last Admin: 08/06/18 09:45 Dose: Not Given Trazodone HCl (Desyrel) 50 mg PO HS [facility] Last Admin: 08/06/18 22:09 Dose: 50 mg Vitamin B Complex/Vit C/Folic Acid (Nephro-Ron) 1 tab PO DAILY [facility] Last Admin: 08/06/18 09:44 Dose: Not Given - Labs Labs: 08/06/18 08:30 08/06/18 08:30 PT 12.4 SECONDS (9.7-12.2) H 08/06/18 08:30 INR 1.1 08/06/18 08:30 APTT 41 SECONDS (21-34) H D 08/06/18 08:30 - Constitutional Appears: Chronically Ill - ENT Exam ENT Exam: Mucous Membranes Dry - Respiratory Exam Respiratory Exam: absent: Respiratory Distress - Cardiovascular Exam Cardiovascular Exam: REGULAR RHYTHM - GI/Abdominal Exam GI & Abdominal Exam: Soft. absent: Distended - Extremities Exam Extremities Exam: Full ROM. absent: Pedal Edema, Tenderness Additional comments: palpable pulses in left wrist Assessment and Plan - Assessment and Plan (Free Text) Assessment: 47F s/p AVF Plan: cont dialysis via permacath for next 6 weeks f/u in office in 1 week for fistula evaluation no further surgical intervention planned Juanpablo Palacios, PGY4
--- NOTE | 2018-08-07 10:18 | CP.PCM.PN ---
Subjective - Date & Time of Evaluation Date of Evaluation: 08/07/18 Time of Evaluation: 10:18 - Subjective Subjective: Patient this morning feeling well. The right arm swelling is much improved. She has no chest pain or shortness of breath. Still feeling weak Clinical examination is unremarkable. Blood pressure was noted to be elevated. Chest good air entry. 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 Left femoral hemodialysis catheter. Right arm AV fistula recently done. Continue the current treatment. Patient will be possibly plan for discharge tomorrow awaiting for outpatient hemodialysis placement. Physical therapy Objective - Vital Signs/Intake and Output Vital Signs (last 24 hours): Temp Pulse Resp BP Pulse Ox 98.4 F 69 20 149/78 95 08/07/18 07:00 08/07/18 07:00 08/07/18 07:00 08/07/18 07:00 08/07/18 07:00 - Medications Medications: Current Medications Amlodipine Besylate (Norvasc) 5 mg PO DAILY [facility] Last Admin: 08/06/18 09:44 Dose: Not Given Apixaban (Eliquis) 2.5 mg PO BID [facility] Last Admin: 08/05/18 17:53 Dose: 2.5 mg Calcitriol (Rocaltrol) 0.5 mcg PO DAILY [facility] Last Admin: 08/06/18 09:45 Dose: Not Given Calcium Acetate (Phoslo) 1,334 mg PO TID [facility] Last Admin: 08/06/18 17:47 Dose: Not Given Cephalexin Monohydrate (Keflex) 500 mg PO Q8 [facility] PRN Reason: Protocol Stop: 08/11/18 22:01 Last Admin: 08/07/18 05:27 Dose: 500 mg Epoetin Sergio (Procrit) 10,000 unit IV TTS [facility] Last Admin: 08/06/18 16:15 Dose: 10,000 unit Famotidine (Pepcid) 20 mg PO DAILY [facility] Last Admin: 08/06/18 09:45 Dose: Not Given Lorazepam (Ativan) 0.5 mg PO Q6H PRN PRN Reason: Anxiety Last Admin: 08/04/18 00:35 Dose: 0.5 mg Metoprolol Tartrate (Lopressor) 25 mg PO BID [facility] Last Admin: 08/06/18 17:45 Dose: 25 mg Morphine Sulfate (Morphine) 2 mg IM Q4 PRN PRN Reason: Pain, severe (8-10) Last Admin: 08/07/18 03:05 Dose: 2 mg Oxycodone/Acetaminophen (Percocet 5/325 Mg Tab) 2 tab PO Q4H PRN PRN Reason: Pain, moderate (4-7) Stop: 08/09/18 11:49 Last Admin: 08/07/18 05:27 Dose: 2 tab Prednisone (Prednisone) 2.5 mg PO DAILY [facility] Last Admin: 08/06/18 09:45 Dose: Not Given Trazodone HCl (Desyrel) 50 mg PO HS [facility] Last Admin: 08/06/18 22:09 Dose: 50 mg Vitamin B Complex/Vit C/Folic Acid (Nephro-Ron) 1 tab PO DAILY [facility] Last Admin: 08/06/18 09:44 Dose: Not Given - Labs Labs: 08/06/18 08:30 08/06/18 08:30 PT 12.4 SECONDS (9.7-12.2) H 08/06/18 08:30 INR 1.1 08/06/18 08:30 APTT 41 SECONDS (21-34) H D 08/06/18 08:30
--- NOTE | 2018-08-07 10:19 | CP.PCM.PN ---
Subjective - Date & Time of Evaluation Date of Evaluation: 07/25/18 Time of Evaluation: 10:19 - Subjective Subjective: Patient is feeling somewhat depressed and anxious. Complaining of a lot of pain. No other major active systemic symptoms except the pain. Vital signs stable. 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 Swelling and pain over the right side neck where the permacath site. We will closely monitor. Right arm swelling also present. The underlying DVT cannot be ruled out Objective - Vital Signs/Intake and Output Vital Signs (last 24 hours): Temp Pulse Resp BP Pulse Ox 98.4 F 69 20 149/78 95 08/07/18 07:00 08/07/18 07:00 08/07/18 07:00 08/07/18 07:00 08/07/18 07:00 - Medications Medications: Current Medications Amlodipine Besylate (Norvasc) 5 mg PO DAILY [facility] Last Admin: 08/06/18 09:44 Dose: Not Given Apixaban (Eliquis) 2.5 mg PO BID [facility] Last Admin: 08/05/18 17:53 Dose: 2.5 mg Calcitriol (Rocaltrol) 0.5 mcg PO DAILY [facility] Last Admin: 08/06/18 09:45 Dose: Not Given Calcium Acetate (Phoslo) 1,334 mg PO TID [facility] Last Admin: 08/06/18 17:47 Dose: Not Given Cephalexin Monohydrate (Keflex) 500 mg PO Q8 [facility] PRN Reason: Protocol Stop: 08/11/18 22:01 Last Admin: 08/07/18 05:27 Dose: 500 mg Epoetin Sergio (Procrit) 10,000 unit IV TTS [facility] Last Admin: 08/06/18 16:15 Dose: 10,000 unit Famotidine (Pepcid) 20 mg PO DAILY [facility] Last Admin: 08/06/18 09:45 Dose: Not Given Lorazepam (Ativan) 0.5 mg PO Q6H PRN PRN Reason: Anxiety Last Admin: 08/04/18 00:35 Dose: 0.5 mg Metoprolol Tartrate (Lopressor) 25 mg PO BID [facility] Last Admin: 08/06/18 17:45 Dose: 25 mg Morphine Sulfate (Morphine) 2 mg IM Q4 PRN PRN Reason: Pain, severe (8-10) Last Admin: 08/07/18 03:05 Dose: 2 mg Oxycodone/Acetaminophen (Percocet 5/325 Mg Tab) 2 tab PO Q4H PRN PRN Reason: Pain, moderate (4-7) Stop: 08/09/18 11:49 Last Admin: 08/07/18 05:27 Dose: 2 tab Prednisone (Prednisone) 2.5 mg PO DAILY [facility] Last Admin: 08/06/18 09:45 Dose: Not Given Trazodone HCl (Desyrel) 50 mg PO [facility] Last Admin: 08/06/18 22:09 Dose: 50 mg Vitamin B Complex/Vit C/Folic Acid (Nephro-Ron) 1 tab PO DAILY [facility] Last Admin: 08/06/18 09:44 Dose: Not Given - Labs Labs: 08/06/18 08:30 08/06/18 08:30 PT 12.4 SECONDS (9.7-12.2) H 08/06/18 08:30 INR 1.1 08/06/18 08:30 APTT 41 SECONDS (21-34) H D 08/06/18 08:30
--- NOTE | 2018-08-07 10:19 | CP.PCM.PN ---
Subjective - Date & Time of Evaluation Date of Evaluation: 07/23/18 Time of Evaluation: 10:19 - Subjective Subjective: Patient feeling slightly better. No chest pain or shortness of breath. Currently vital signs stable. Chest good air entry Diarrhea present but better Continue the current treatment. Patient will be needing hemodialysis and will follow the patient Objective - Vital Signs/Intake and Output Vital Signs (last 24 hours): Temp Pulse Resp BP Pulse Ox 98.4 F 69 20 149/78 95 08/07/18 07:00 08/07/18 07:00 08/07/18 07:00 08/07/18 07:00 08/07/18 07:00 - Medications Medications: Current Medications Amlodipine Besylate (Norvasc) 5 mg PO DAILY [facility] Last Admin: 08/06/18 09:44 Dose: Not Given Apixaban (Eliquis) 2.5 mg PO BID [facility] Last Admin: 08/05/18 17:53 Dose: 2.5 mg Calcitriol (Rocaltrol) 0.5 mcg PO DAILY [facility] Last Admin: 08/06/18 09:45 Dose: Not Given Calcium Acetate (Phoslo) 1,334 mg PO TID [facility] Last Admin: 08/06/18 17:47 Dose: Not Given Cephalexin Monohydrate (Keflex) 500 mg PO Q8 [facility] PRN Reason: Protocol Stop: 08/11/18 22:01 Last Admin: 08/07/18 05:27 Dose: 500 mg Epoetin Sergio (Procrit) 10,000 unit IV TTS [facility] Last Admin: 08/06/18 16:15 Dose: 10,000 unit Famotidine (Pepcid) 20 mg PO DAILY [facility] Last Admin: 08/06/18 09:45 Dose: Not Given Lorazepam (Ativan) 0.5 mg PO Q6H PRN PRN Reason: Anxiety Last Admin: 08/04/18 00:35 Dose: 0.5 mg Metoprolol Tartrate (Lopressor) 25 mg PO BID [facility] Last Admin: 08/06/18 17:45 Dose: 25 mg Morphine Sulfate (Morphine) 2 mg IM Q4 PRN PRN Reason: Pain, severe (8-10) Last Admin: 08/07/18 03:05 Dose: 2 mg Oxycodone/Acetaminophen (Percocet 5/325 Mg Tab) 2 tab PO Q4H PRN PRN Reason: Pain, moderate (4-7) Stop: 08/09/18 11:49 Last Admin: 08/07/18 05:27 Dose: 2 tab Prednisone (Prednisone) 2.5 mg PO DAILY [facility] Last Admin: 08/06/18 09:45 Dose: Not Given Trazodone HCl (Desyrel) 50 mg PO [facility] Last Admin: 08/06/18 22:09 Dose: 50 mg Vitamin B Complex/Vit C/Folic Acid (Nephro-Ron) 1 tab PO DAILY [facility] Last Admin: 08/06/18 09:44 Dose: Not Given - Labs Labs: 08/06/18 08:30 08/06/18 08:30 PT 12.4 SECONDS (9.7-12.2) H 08/06/18 08:30 INR 1.1 08/06/18 08:30 APTT 41 SECONDS (21-34) H D 08/06/18 08:30
--- NOTE | 2018-08-07 10:19 | CP.PCM.PN ---
Subjective - Date & Time of Evaluation Date of Evaluation: 07/24/18 Time of Evaluation: 10:19 - Subjective Subjective: Patient is feeling well. No chest pain or shortness of breath noted. Patient underwent insertion of the permacath yesterday. Having some swelling and pain in the right side. Assessment. 47-year-old female with a history of hypertension end-stage renal disease status post transplant failed transplant. For hemodialysis. We will continue the current treatment Objective - Vital Signs/Intake and Output Vital Signs (last 24 hours): Temp Pulse Resp BP Pulse Ox 98.4 F 69 20 149/78 95 08/07/18 07:00 08/07/18 07:00 08/07/18 07:00 08/07/18 07:00 08/07/18 07:00 - Medications Medications: Current Medications Amlodipine Besylate (Norvasc) 5 mg PO DAILY [facility] Last Admin: 08/06/18 09:44 Dose: Not Given Apixaban (Eliquis) 2.5 mg PO BID [facility] Last Admin: 08/05/18 17:53 Dose: 2.5 mg Calcitriol (Rocaltrol) 0.5 mcg PO DAILY [facility] Last Admin: 08/06/18 09:45 Dose: Not Given Calcium Acetate (Phoslo) 1,334 mg PO TID [facility] Last Admin: 08/06/18 17:47 Dose: Not Given Cephalexin Monohydrate (Keflex) 500 mg PO Q8 [facility] PRN Reason: Protocol Stop: 08/11/18 22:01 Last Admin: 08/07/18 05:27 Dose: 500 mg Epoetin Sergio (Procrit) 10,000 unit IV TTS [facility] Last Admin: 08/06/18 16:15 Dose: 10,000 unit Famotidine (Pepcid) 20 mg PO DAILY [facility] Last Admin: 08/06/18 09:45 Dose: Not Given Lorazepam (Ativan) 0.5 mg PO Q6H PRN PRN Reason: Anxiety Last Admin: 08/04/18 00:35 Dose: 0.5 mg Metoprolol Tartrate (Lopressor) 25 mg PO BID [facility] Last Admin: 08/06/18 17:45 Dose: 25 mg Morphine Sulfate (Morphine) 2 mg IM Q4 PRN PRN Reason: Pain, severe (8-10) Last Admin: 08/07/18 03:05 Dose: 2 mg Oxycodone/Acetaminophen (Percocet 5/325 Mg Tab) 2 tab PO Q4H PRN PRN Reason: Pain, moderate (4-7) Stop: 08/09/18 11:49 Last Admin: 08/07/18 05:27 Dose: 2 tab Prednisone (Prednisone) 2.5 mg PO DAILY [facility] Last Admin: 08/06/18 09:45 Dose: Not Given Trazodone HCl (Desyrel) 50 mg PO [facility] Last Admin: 08/06/18 22:09 Dose: 50 mg Vitamin B Complex/Vit C/Folic Acid (Nephro-Ron) 1 tab PO DAILY [facility] Last Admin: 08/06/18 09:44 Dose: Not Given - Labs Labs: 08/06/18 08:30 08/06/18 08:30 PT 12.4 SECONDS (9.7-12.2) H 08/06/18 08:30 INR 1.1 08/06/18 08:30 APTT 41 SECONDS (21-34) H D 08/06/18 08:30
--- NOTE | 2018-08-07 10:20 | CP.PCM.PN ---
Subjective - Date & Time of Evaluation Date of Evaluation: 07/27/18 Time of Evaluation: 10:19 - Subjective Subjective: Patient tolerated the dialysis today well. Feeling better. Less diarrhea and no fever Currently off immunosuppressive treatment. We will taper the prednisone. Continue the current treatment. Objective - Vital Signs/Intake and Output Vital Signs (last 24 hours): Temp Pulse Resp BP Pulse Ox 98.4 F 69 20 149/78 95 08/07/18 07:00 08/07/18 07:00 08/07/18 07:00 08/07/18 07:00 08/07/18 07:00 - Medications Medications: Current Medications Amlodipine Besylate (Norvasc) 5 mg PO DAILY [facility] Last Admin: 08/06/18 09:44 Dose: Not Given Apixaban (Eliquis) 2.5 mg PO BID [facility] Last Admin: 08/05/18 17:53 Dose: 2.5 mg Calcitriol (Rocaltrol) 0.5 mcg PO DAILY [facility] Last Admin: 08/06/18 09:45 Dose: Not Given Calcium Acetate (Phoslo) 1,334 mg PO TID [facility] Last Admin: 08/06/18 17:47 Dose: Not Given Cephalexin Monohydrate (Keflex) 500 mg PO Q8 [facility] PRN Reason: Protocol Stop: 08/11/18 22:01 Last Admin: 08/07/18 05:27 Dose: 500 mg Epoetin Sergio (Procrit) 10,000 unit IV TTS [facility] Last Admin: 08/06/18 16:15 Dose: 10,000 unit Famotidine (Pepcid) 20 mg PO DAILY [facility] Last Admin: 08/06/18 09:45 Dose: Not Given Lorazepam (Ativan) 0.5 mg PO Q6H PRN PRN Reason: Anxiety Last Admin: 08/04/18 00:35 Dose: 0.5 mg Metoprolol Tartrate (Lopressor) 25 mg PO BID [facility] Last Admin: 08/06/18 17:45 Dose: 25 mg Morphine Sulfate (Morphine) 2 mg IM Q4 PRN PRN Reason: Pain, severe (8-10) Last Admin: 08/07/18 03:05 Dose: 2 mg Oxycodone/Acetaminophen (Percocet 5/325 Mg Tab) 2 tab PO Q4H PRN PRN Reason: Pain, moderate (4-7) Stop: 08/09/18 11:49 Last Admin: 08/07/18 05:27 Dose: 2 tab Prednisone (Prednisone) 2.5 mg PO DAILY [facility] Last Admin: 08/06/18 09:45 Dose: Not Given Trazodone HCl (Desyrel) 50 mg PO [facility] Last Admin: 08/06/18 22:09 Dose: 50 mg Vitamin B Complex/Vit C/Folic Acid (Nephro-Ron) 1 tab PO DAILY [facility] Last Admin: 08/06/18 09:44 Dose: Not Given - Labs Labs: 08/06/18 08:30 08/06/18 08:30 PT 12.4 SECONDS (9.7-12.2) H 08/06/18 08:30 INR 1.1 08/06/18 08:30 APTT 41 SECONDS (21-34) H D 08/06/18 08:30
--- NOTE | 2018-08-07 10:20 | CP.PCM.PN ---
Subjective - Date & Time of Evaluation Date of Evaluation: 08/03/18 Time of Evaluation: 10:20 - Subjective Subjective: Patient is a day hemodialysis. Feeling slightly better. But still having pain over the right side and is swelling noted. We will continue to monitor Possibly patient has a right internal jugular vein, right arm DVT. Heparin drip. If possible otherwise we will start the patient on oral anticoagulant after discussion with the oncologist and neckties painter Objective - Vital Signs/Intake and Output Vital Signs (last 24 hours): Temp Pulse Resp BP Pulse Ox 98.4 F 69 20 149/78 95 08/07/18 07:00 08/07/18 07:00 08/07/18 07:00 08/07/18 07:00 08/07/18 07:00 - Medications Medications: Current Medications Amlodipine Besylate (Norvasc) 5 mg PO DAILY [facility] Last Admin: 08/06/18 09:44 Dose: Not Given Apixaban (Eliquis) 2.5 mg PO BID [facility] Last Admin: 08/05/18 17:53 Dose: 2.5 mg Calcitriol (Rocaltrol) 0.5 mcg PO DAILY [facility] Last Admin: 08/06/18 09:45 Dose: Not Given Calcium Acetate (Phoslo) 1,334 mg PO TID [facility] Last Admin: 08/06/18 17:47 Dose: Not Given Cephalexin Monohydrate (Keflex) 500 mg PO Q8 [facility] PRN Reason: Protocol Stop: 08/11/18 22:01 Last Admin: 08/07/18 05:27 Dose: 500 mg Epoetin Sergio (Procrit) 10,000 unit IV TTS [facility] Last Admin: 08/06/18 16:15 Dose: 10,000 unit Famotidine (Pepcid) 20 mg PO DAILY [facility] Last Admin: 08/06/18 09:45 Dose: Not Given Lorazepam (Ativan) 0.5 mg PO Q6H PRN PRN Reason: Anxiety Last Admin: 08/04/18 00:35 Dose: 0.5 mg Metoprolol Tartrate (Lopressor) 25 mg PO BID [facility] Last Admin: 08/06/18 17:45 Dose: 25 mg Morphine Sulfate (Morphine) 2 mg IM Q4 PRN PRN Reason: Pain, severe (8-10) Last Admin: 08/07/18 03:05 Dose: 2 mg Oxycodone/Acetaminophen (Percocet 5/325 Mg Tab) 2 tab PO Q4H PRN PRN Reason: Pain, moderate (4-7) Stop: 08/09/18 11:49 Last Admin: 08/07/18 05:27 Dose: 2 tab Prednisone (Prednisone) 2.5 mg PO DAILY [facility] Last Admin: 08/06/18 09:45 Dose: Not Given Trazodone HCl (Desyrel) 50 mg PO [facility] Last Admin: 08/06/18 22:09 Dose: 50 mg Vitamin B Complex/Vit C/Folic Acid (Nephro-Ron) 1 tab PO DAILY [facility] Last Admin: 08/06/18 09:44 Dose: Not Given - Labs Labs: 08/06/18 08:30 08/06/18 08:30 PT 12.4 SECONDS (9.7-12.2) H 08/06/18 08:30 INR 1.1 08/06/18 08:30 APTT 41 SECONDS (21-34) H D 08/06/18 08:30
--- NOTE | 2018-08-07 10:20 | CP.PCM.PN ---
Subjective - Date & Time of Evaluation Date of Evaluation: 08/05/18 Time of Evaluation: 10:20 - Subjective Subjective: Patient is still having pain generalized. More pain in the right shoulder. Right arm swelling Chest good air entry Regular heart sound Spoke to the vascular surgery. Possible plan for AV fistula. Will follow the patient Objective - Vital Signs/Intake and Output Vital Signs (last 24 hours): Temp Pulse Resp BP Pulse Ox 98.4 F 69 20 149/78 95 08/07/18 07:00 08/07/18 07:00 08/07/18 07:00 08/07/18 07:00 08/07/18 07:00 - Medications Medications: Current Medications Amlodipine Besylate (Norvasc) 5 mg PO DAILY [facility] Last Admin: 08/06/18 09:44 Dose: Not Given Apixaban (Eliquis) 2.5 mg PO BID [facility] Last Admin: 08/05/18 17:53 Dose: 2.5 mg Calcitriol (Rocaltrol) 0.5 mcg PO DAILY [facility] Last Admin: 08/06/18 09:45 Dose: Not Given Calcium Acetate (Phoslo) 1,334 mg PO TID [facility] Last Admin: 08/06/18 17:47 Dose: Not Given Cephalexin Monohydrate (Keflex) 500 mg PO Q8 [facility] PRN Reason: Protocol Stop: 08/11/18 22:01 Last Admin: 08/07/18 05:27 Dose: 500 mg Epoetin Sergio (Procrit) 10,000 unit IV TTS [facility] Last Admin: 08/06/18 16:15 Dose: 10,000 unit Famotidine (Pepcid) 20 mg PO DAILY [facility] Last Admin: 08/06/18 09:45 Dose: Not Given Lorazepam (Ativan) 0.5 mg PO Q6H PRN PRN Reason: Anxiety Last Admin: 08/04/18 00:35 Dose: 0.5 mg Metoprolol Tartrate (Lopressor) 25 mg PO BID [facility] Last Admin: 08/06/18 17:45 Dose: 25 mg Morphine Sulfate (Morphine) 2 mg IM Q4 PRN PRN Reason: Pain, severe (8-10) Last Admin: 08/07/18 03:05 Dose: 2 mg Oxycodone/Acetaminophen (Percocet 5/325 Mg Tab) 2 tab PO Q4H PRN PRN Reason: Pain, moderate (4-7) Stop: 08/09/18 11:49 Last Admin: 08/07/18 05:27 Dose: 2 tab Prednisone (Prednisone) 2.5 mg PO DAILY [facility] Last Admin: 08/06/18 09:45 Dose: Not Given Trazodone HCl (Desyrel) 50 mg PO [facility] Last Admin: 08/06/18 22:09 Dose: 50 mg Vitamin B Complex/Vit C/Folic Acid (Nephro-Ron) 1 tab PO DAILY [facility] Last Admin: 08/06/18 09:44 Dose: Not Given - Labs Labs: 08/06/18 08:30 08/06/18 08:30 PT 12.4 SECONDS (9.7-12.2) H 08/06/18 08:30 INR 1.1 08/06/18 08:30 APTT 41 SECONDS (21-34) H D 08/06/18 08:30
[2018-08-07] MEDS: Multivitamin Vitamin B Complex (Nephro-Vite) Tab PO SCH (10:51)
--- NOTE | 2018-08-07 11:45 | CP.PCM.PN ---
<Raymond Garcia - Last Filed: 08/07/18 22:38> Subjective - Date & Time of Evaluation Date of Evaluation: 08/07/18 Time of Evaluation: 10:15 - Subjective Subjective: Pt seen and examined at bedside this am. States her R am swelling is improving, states she was placed on anbx to help with possible infection 2/2 RIJ catheter for dialysis that was recently removed by vascular surgery. Denies fever, chills , chest pain, sob, n/v/d/c, abd pain, urinary complaints, or other symptoms. S/ p L arm AV fistula creation POD#1, states she has achiness in L arm but pain is well controlled. Objective - Vital Signs/Intake and Output Vital Signs (last 24 hours): Temp Pulse Resp BP Pulse Ox 98.4 F 69 20 145/78 95 08/07/18 07:00 08/07/18 07:00 08/07/18 07:00 08/07/18 10:52 08/07/18 07:00 - Medications Medications: Current Medications Amlodipine Besylate (Norvasc) 5 mg PO DAILY [facility] Last Admin: 08/07/18 10:52 Dose: 5 mg Apixaban (Eliquis) 2.5 mg PO BID [facility] Last Admin: 08/07/18 10:52 Dose: 2.5 mg Calcitriol (Rocaltrol) 0.5 mcg PO DAILY [facility] Last Admin: 08/07/18 10:52 Dose: 0.5 mcg Calcium Acetate (Phoslo) 1,334 mg PO TID [facility] Last Admin: 08/07/18 10:52 Dose: 1,334 mg Cephalexin Monohydrate (Keflex) 500 mg PO Q8 [facility] PRN Reason: Protocol Stop: 08/11/18 22:01 Last Admin: 08/07/18 05:27 Dose: 500 mg Epoetin Sergio (Procrit) 10,000 unit IV TTS [facility] Last Admin: 08/06/18 16:15 Dose: 10,000 unit Famotidine (Pepcid) 20 mg PO DAILY [facility] Last Admin: 08/07/18 10:52 Dose: 20 mg Lorazepam (Ativan) 0.5 mg PO Q6H PRN PRN Reason: Anxiety Last Admin: 08/04/18 00:35 Dose: 0.5 mg Metoprolol Tartrate (Lopressor) 25 mg PO BID [facility] Last Admin: 08/07/18 10:52 Dose: 25 mg Morphine Sulfate (Morphine) 2 mg IM Q4 PRN PRN Reason: Pain, severe (8-10) Last Admin: 08/07/18 10:51 Dose: 2 mg Oxycodone/Acetaminophen (Percocet 5/325 Mg Tab) 2 tab PO Q4H PRN PRN Reason: Pain, moderate (4-7) Stop: 08/09/18 11:49 Last Admin: 08/07/18 05:27 Dose: 2 tab Prednisone (Prednisone) 2.5 mg PO DAILY [facility] Last Admin: 08/07/18 10:52 Dose: 2.5 mg Trazodone HCl (Desyrel) 50 mg PO [facility] Last Admin: 08/06/18 22:09 Dose: 50 mg Vitamin B Complex/Vit C/Folic Acid (Nephro-Ron) 1 tab PO DAILY [facility] Last Admin: 08/07/18 10:51 Dose: 1 tab - Labs Labs: 08/06/18 08:30 08/06/18 08:30 PT 12.4 SECONDS (9.7-12.2) H 08/06/18 08:30 INR 1.1 08/06/18 08:30 APTT 41 SECONDS (21-34) H D 08/06/18 08:30 - Constitutional Appears: No Acute Distress, Chronically Ill - Head Exam Head Exam: ATRAUMATIC, NORMAL INSPECTION - Eye Exam Eye Exam: EOMI, Normal appearance, PERRL - ENT Exam ENT Exam: Mucous Membranes Moist - Respiratory Exam Respiratory Exam: Clear to Ausculation Bilateral, NORMAL BREATHING PATTERN - Cardiovascular Exam Cardiovascular Exam: REGULAR RHYTHM, +S1, +S2 - GI/Abdominal Exam GI & Abdominal Exam: Soft, Normal Bowel Sounds. absent: Tenderness - Extremities Exam Additional comments: L femoral catheter in place, surgical site of L AV fistula covered with dressing , dry, intact, warm; decreased swelling noted in R upper extremity, no erythema , mild tenderness to palpation - Neurological Exam Neurological Exam: Alert, Awake, CN II-XII Intact, Oriented x3 - Skin Skin Exam: Dry, Intact, Warm Assessment and Plan - Assessment and Plan (Free Text) Assessment: 47F PMHx renal transplantation s/p immunosuppressive tx, recurrent anemia, chronic pain syndrome, with thrombophlebitis and anemia of chronic disease. Plan: Thrombophlebitis C/w keflex as per primary team Unable to get access for IV heparin, pt does not wish to be on coumadin at this time Eliquis 2.5 mg bid, monitor for bleeding Anticoagulated due to high risk for DVT Anemia of chronic disease On Procrit and Iron Transfusion support prn Further recommendations as per Dr. Uribe, attending Raymond Garcia, PGY-1 <Ramón Uribe - Last Filed: 08/09/18 19:45> Objective - Vital Signs/Intake and Output Vital Signs (last 24 hours): Temp Pulse Resp BP Pulse Ox 98.1 F 66 16 171/83 H 98 08/08/18 12:55 08/08/18 12:55 08/08/18 12:55 08/08/18 12:55 08/08/18 12:55 - Labs Labs: 08/08/18 10:00 08/08/18 10:00 PT 12.4 SECONDS (9.7-12.2) H 08/06/18 08:30 INR 1.1 08/06/18 08:30 APTT 41 SECONDS (21-34) H D 08/06/18 08:30 Assessment and Plan (1) Thrombophlebitis Status: Acute (2) Anemia Status: Acute - Assessment and Plan (Free Text) Plan: Pt seen and examined, agree with residents note.
--- NOTE | 2018-08-07 14:58 | CP.PCM.PN ---
Subjective - Date & Time of Evaluation Date of Evaluation: 08/07/18 Time of Evaluation: 14:55 - Subjective Subjective: s/p AV fistula left UE- has good thrill s/p 2 units prbcs blood transfusion with HD on 08/06 feels better Right arm less swollen and less painful Feels better; though still rather debilitated outpt dialysis arrangements made Objective - Vital Signs/Intake and Output Vital Signs (last 24 hours): Temp Pulse Resp BP Pulse Ox 98.4 F 69 20 145/78 95 08/07/18 07:00 08/07/18 07:00 08/07/18 07:00 08/07/18 10:52 08/07/18 07:00 - Medications Medications: Current Medications Amlodipine Besylate (Norvasc) 5 mg PO DAILY [facility] Last Admin: 08/07/18 10:52 Dose: 5 mg Apixaban (Eliquis) 2.5 mg PO BID [facility] Last Admin: 08/07/18 10:52 Dose: 2.5 mg Calcitriol (Rocaltrol) 0.5 mcg PO DAILY [facility] Last Admin: 08/07/18 10:52 Dose: 0.5 mcg Calcium Acetate (Phoslo) 1,334 mg PO TID [facility] Last Admin: 08/07/18 14:33 Dose: 1,334 mg Cephalexin Monohydrate (Keflex) 500 mg PO Q8 [facility] PRN Reason: Protocol Stop: 08/11/18 22:01 Last Admin: 08/07/18 14:33 Dose: 500 mg Epoetin Sergio (Procrit) 10,000 unit IV TTS [facility] Last Admin: 08/06/18 16:15 Dose: 10,000 unit Famotidine (Pepcid) 20 mg PO DAILY [facility] Last Admin: 08/07/18 10:52 Dose: 20 mg Lorazepam (Ativan) 0.5 mg PO Q6H PRN PRN Reason: Anxiety Last Admin: 08/04/18 00:35 Dose: 0.5 mg Metoprolol Tartrate (Lopressor) 25 mg PO BID [facility] Last Admin: 08/07/18 10:52 Dose: 25 mg Morphine Sulfate (Morphine) 2 mg IM Q4 PRN PRN Reason: Pain, severe (8-10) Last Admin: 08/07/18 10:51 Dose: 2 mg Oxycodone/Acetaminophen (Percocet 5/325 Mg Tab) 2 tab PO Q4H PRN PRN Reason: Pain, moderate (4-7) Stop: 08/09/18 11:49 Last Admin: 08/07/18 05:27 Dose: 2 tab Prednisone (Prednisone) 2.5 mg PO DAILY [facility] Last Admin: 08/07/18 10:52 Dose: 2.5 mg Trazodone HCl (Desyrel) 50 mg PO HS [facility] Last Admin: 08/06/18 22:09 Dose: 50 mg Vitamin B Complex/Vit C/Folic Acid (Nephro-Ron) 1 tab PO DAILY [facility] Last Admin: 08/07/18 10:51 Dose: 1 tab - Labs Labs: 08/06/18 08:30 08/06/18 08:30 PT 12.4 SECONDS (9.7-12.2) H 08/06/18 08:30 INR 1.1 08/06/18 08:30 APTT 41 SECONDS (21-34) H D 08/06/18 08:30 - Constitutional Appears: No Acute Distress, Cachectic, Chronically Ill - Head Exam Head Exam: ATRAUMATIC, NORMAL INSPECTION - Eye Exam Eye Exam: EOMI, Normal appearance - Neck Exam Neck Exam: Normal Inspection. absent: Tenderness - Respiratory Exam Respiratory Exam: Clear to Ausculation Bilateral, NORMAL BREATHING PATTERN - Cardiovascular Exam Cardiovascular Exam: REGULAR RHYTHM, +S1 - GI/Abdominal Exam GI & Abdominal Exam: Soft. absent: Tenderness - Extremities Exam Extremities Exam: Normal Inspection. absent: Tenderness - Neurological Exam Neurological Exam: Awake, CN II-XII Intact - Skin Skin Exam: Dry, Warm Assessment and Plan (1) Renal transplant failure and rejection Status: Acute (2) CKD (chronic kidney disease) stage 5, GFR less than 15 ml/min Status: Acute (3) Diarrhea Status: Acute (4) Weight loss, unintentional Status: Acute (5) ESRD (end stage renal disease) Status: Acute - Assessment and Plan (Free Text) Plan: Dialysis in AM Possible discharge soon Monitor for AV F maturation oral eliquis as per medicine will follow up at outpt HD unit upon discharge
[2018-08-08 10:12] LABS: MEAN CORPUSCULAR HEMOGLOBIN 31.1 pg (27.0-31.0); MEAN CORPUSCULAR HGB CONC 32.8 g/dL (33.0-37.0); MEAN PLATELET VOLUME 9.2 fL (7.2-11.7); RBC 3.26 Mil/uL (3.80-5.20); RED CELL DISTRIBUTION WIDTH 16.7 % (11.5-14.5); WHITE BLOOD COUNT 7.6 K/uL (4.8-10.8)
[2018-08-08 10:19] LABS: HEMOGLOBIN 10.2 g/dL (11.0-16.0); MEAN CELL VOLUME 94.9 fL (81.0-99.0)
[2018-08-08 10:29] LABS: ALB/GLOB RATIO 0.9 (1.0-2.1); ALBUMIN 2.5 g/dL (3.5-5.0); CALCIUM 8.7 mg/dl (8.6-10.4)
[2018-08-08 10:32] VITALS: TEMP 98.1
[2018-08-08 10:36] VITALS: O2SAT 98
--- NOTE | 2018-08-08 11:25 | CP.PCM.PN ---
Subjective - Date & Time of Evaluation Date of Evaluation: 08/08/18 Time of Evaluation: 11:23 - Subjective Subjective: on HD 1 kg uf looks better good bruit over left ISMAEL some contact dermatitis over right neck no chest pain no sob no diarrhea continued u/o no headache chronic anxiety Objective - Vital Signs/Intake and Output Vital Signs (last 24 hours): Temp Pulse Resp BP Pulse Ox 98.1 F 70 17 136/73 98 08/08/18 09:55 08/08/18 09:55 08/08/18 09:55 08/08/18 10:10 08/08/18 09:55 - Medications Medications: Current Medications Amlodipine Besylate (Norvasc) 5 mg PO DAILY [facility] Last Admin: 08/08/18 09:24 Dose: Not Given Apixaban (Eliquis) 2.5 mg PO BID [facility] Last Admin: 08/08/18 09:22 Dose: 2.5 mg Calcitriol (Rocaltrol) 0.5 mcg PO DAILY [facility] Last Admin: 08/08/18 09:22 Dose: 0.5 mcg Calcium Acetate (Phoslo) 1,334 mg PO TID [facility] Last Admin: 08/07/18 17:01 Dose: 1,334 mg Cephalexin Monohydrate (Keflex) 500 mg PO Q8 [facility] PRN Reason: Protocol Stop: 08/11/18 22:01 Last Admin: 08/08/18 05:27 Dose: 500 mg Epoetin Sergio (Procrit) 10,000 unit IV TTS [facility] Last Admin: 08/06/18 16:15 Dose: 10,000 unit Famotidine (Pepcid) 20 mg PO DAILY [facility] Last Admin: 08/08/18 09:23 Dose: 20 mg Lorazepam (Ativan) 0.5 mg PO Q6H PRN PRN Reason: Anxiety Last Admin: 08/04/18 00:35 Dose: 0.5 mg Metoprolol Tartrate (Lopressor) 25 mg PO BID [facility] Last Admin: 08/08/18 09:24 Dose: Not Given Morphine Sulfate (Morphine) 2 mg IM Q4 PRN PRN Reason: Pain, severe (8-10) Last Admin: 08/08/18 05:27 Dose: 2 mg Oxycodone/Acetaminophen (Percocet 5/325 Mg Tab) 2 tab PO Q4H PRN PRN Reason: Pain, moderate (4-7) Stop: 08/09/18 11:49 Last Admin: 08/07/18 05:27 Dose: 2 tab Prednisone (Prednisone) 2.5 mg PO DAILY [facility] Last Admin: 08/08/18 09:23 Dose: 2.5 mg Trazodone HCl (Desyrel) 50 mg PO [facility] Last Admin: 08/06/18 22:09 Dose: 50 mg Vitamin B Complex/Vit C/Folic Acid (Nephro-Ron) 1 tab PO DAILY [facility] Last Admin: 08/07/18 10:51 Dose: 1 tab - Labs Labs: 08/08/18 10:00 08/08/18 10:00 PT 12.4 SECONDS (9.7-12.2) H 08/06/18 08:30 INR 1.1 08/06/18 08:30 APTT 41 SECONDS (21-34) H D 08/06/18 08:30 - Constitutional Appears: Cachectic, Chronically Ill - Head Exam Head Exam: ATRAUMATIC, NORMAL INSPECTION - Eye Exam Eye Exam: EOMI - ENT Exam ENT Exam: Mucous Membranes Moist - Neck Exam Neck Exam: Full ROM Additional comments: mildly erythematous over right neck - Respiratory Exam Respiratory Exam: NORMAL BREATHING PATTERN. absent: Accessory Muscle Use - Cardiovascular Exam Cardiovascular Exam: REGULAR RHYTHM. absent: Rubs - GI/Abdominal Exam GI & Abdominal Exam: Distended, Soft. absent: Tenderness - Extremities Exam Extremities Exam: absent: Pedal Edema - Neurological Exam Neurological Exam: Alert, Awake, Oriented x3 Assessment and Plan - Assessment and Plan (Free Text) Assessment: tolerating HD left ismael maturing stable from renal
[2018-08-08] MEDS: Epoetin Alfa 10,000 unit/ml Dialysis IV SCH (11:38)
[2018-08-08 13:11] VITALS: BP 171/83; PULSE 66; RESP 16
[2018-08-08] MEDS: Multivitamin Vitamin B Complex (Nephro-Vite) Tab PO SCH (13:21)
--- NOTE | 2018-08-08 15:09 | CP.PCM.PN ---
Subjective - Date & Time of Evaluation Date of Evaluation: 08/08/18 Time of Evaluation: 15:00 - Subjective Subjective: Patient seen today after HD denies any chest pain, sob, dizziness, abdominal pain, N/V VSS- stable Objective - Vital Signs/Intake and Output Vital Signs (last 24 hours): Temp Pulse Resp BP Pulse Ox 98.1 F 66 16 171/83 H 98 08/08/18 12:55 08/08/18 12:55 08/08/18 12:55 08/08/18 12:55 08/08/18 12:55 - Medications Medications: Current Medications Amlodipine Besylate (Norvasc) 5 mg PO DAILY [facility] Last Admin: 08/08/18 09:24 Dose: Not Given Apixaban (Eliquis) 2.5 mg PO BID [facility] Last Admin: 08/08/18 09:22 Dose: 2.5 mg Calcitriol (Rocaltrol) 0.5 mcg PO DAILY [facility] Last Admin: 08/08/18 09:22 Dose: 0.5 mcg Calcium Acetate (Phoslo) 1,334 mg PO TID [facility] Last Admin: 08/08/18 13:22 Dose: 1,334 mg Cephalexin Monohydrate (Keflex) 500 mg PO Q8 [facility] PRN Reason: Protocol Stop: 08/11/18 22:01 Last Admin: 08/08/18 13:23 Dose: 500 mg Epoetin Sergio (Procrit) 10,000 unit IV TTS [facility] Last Admin: 08/08/18 11:38 Dose: 10,000 unit Famotidine (Pepcid) 20 mg PO DAILY [facility] Last Admin: 08/08/18 09:23 Dose: 20 mg Lorazepam (Ativan) 0.5 mg PO Q6H PRN PRN Reason: Anxiety Last Admin: 08/04/18 00:35 Dose: 0.5 mg Metoprolol Tartrate (Lopressor) 25 mg PO BID [facility] Last Admin: 08/08/18 09:24 Dose: Not Given Morphine Sulfate (Morphine) 2 mg IM Q4 PRN PRN Reason: Pain, severe (8-10) Last Admin: 08/08/18 13:52 Dose: 2 mg Oxycodone/Acetaminophen (Percocet 5/325 Mg Tab) 2 tab PO Q4H PRN PRN Reason: Pain, moderate (4-7) Stop: 08/09/18 11:49 Last Admin: 08/07/18 05:27 Dose: 2 tab Prednisone (Prednisone) 2.5 mg PO DAILY [facility] Last Admin: 08/08/18 09:23 Dose: 2.5 mg Trazodone HCl (Desyrel) 50 mg PO HS [facility] Last Admin: 08/06/18 22:09 Dose: 50 mg Vitamin B Complex/Vit C/Folic Acid (Nephro-Ron) 1 tab PO DAILY [facility] Last Admin: 08/08/18 13:21 Dose: 1 tab - Labs Labs: 08/08/18 10:00 08/08/18 10:00 PT 12.4 SECONDS (9.7-12.2) H 08/06/18 08:30 INR 1.1 08/06/18 08:30 APTT 41 SECONDS (21-34) H D 08/06/18 08:30 Assessment and Plan - Assessment and Plan (Free Text) Assessment: A/P 47yo F with PMHx of CKD s/p kidney transplant, HTN, anemia, admitted with incr. bun/cr s/p R IJ permacath and started on HD s/p AV fistula Patient has a spot available for out patient HD at [facility] an dcan start HD on Friday with schedule of MWF( all set it up by SW ) D/W Dr. Villela, cleared for discharge home today after HD and continue HD as scheduled Discharge plan discussed with patient who understands and agrees with plan
--- NOTE | 2018-08-09 19:47 | CP.PCM.PN ---
Subjective - Date & Time of Evaluation Date of Evaluation: 08/08/18 Time of Evaluation: 12:00 - Subjective Subjective: Has joint pain. Objective - Vital Signs/Intake and Output Vital Signs (last 24 hours): Temp Pulse Resp BP Pulse Ox 98.1 F 66 16 171/83 H 98 08/08/18 12:55 08/08/18 12:55 08/08/18 12:55 08/08/18 12:55 08/08/18 12:55 - Labs Labs: 08/08/18 10:00 08/08/18 10:00 PT 12.4 SECONDS (9.7-12.2) H 08/06/18 08:30 INR 1.1 08/06/18 08:30 APTT 41 SECONDS (21-34) H D 08/06/18 08:30 - Head Exam Head Exam: ATRAUMATIC - Eye Exam Eye Exam: Normal appearance - ENT Exam ENT Exam: Mucous Membranes Dry - Respiratory Exam Respiratory Exam: NORMAL BREATHING PATTERN - Cardiovascular Exam Cardiovascular Exam: +S1, +S2 - GI/Abdominal Exam GI & Abdominal Exam: Normal Bowel Sounds Assessment and Plan (1) Thrombophlebitis Assessment & Plan: unable to get IV access for IV heparin does not wish to be on coumadin on Eliquis 2.5mg BID; monitor for bleeding anticoagulating as high risk for DVT Status: Acute (2) Anemia Assessment & Plan: anemia of chronic disease and renal disease on Iron and Procrit transfusion support PRN Status: Acute
== END 2018-08-08 15:39 | disposition home or self-care (01) | DRG 315 ==
LOC: C.ER 16:28 → C.9E 19:58 → C.6T 21:08
PROVIDERS: ADMIT Internal Medicine; ATTEND Internal Medicine
PROC: 0JH60XZ Insertion of Tunneled Vascular Access Device into Chest Subcutaneous Tissue and Fascia, Open Approach (ICD-10-PCS; 2018-07-23)
PROC: 02HV33Z Insertion of Infusion Device into Superior Vena Cava, Percutaneous Approach (ICD-10-PCS; 2018-07-23)
PROC: 5A1D70Z Performance of Urinary Filtration, Intermittent, Less than 6 Hours Per Day (ICD-10-PCS; 2018-07-23)
PROC: B518ZZA Fluoroscopy of Superior Vena Cava, Guidance (ICD-10-PCS; 2018-07-23)
PROC: B543ZZA Ultrasonography of Right Jugular Veins, Guidance (ICD-10-PCS; 2018-07-23)
PROC: 5A1D70Z Performance of Urinary Filtration, Intermittent, Less than 6 Hours Per Day (ICD-10-PCS; 2018-07-25)
PROC: 5A1D70Z Performance of Urinary Filtration, Intermittent, Less than 6 Hours Per Day (ICD-10-PCS; 2018-07-28)
PROC: 5A1D70Z Performance of Urinary Filtration, Intermittent, Less than 6 Hours Per Day (ICD-10-PCS; 2018-07-30)
PROC: 05PYX3Z Removal of Infusion Device from Upper Vein, External Approach (ICD-10-PCS; 2018-08-03)
PROC: 06H033Z Insertion of Infusion Device into Inferior Vena Cava, Percutaneous Approach (ICD-10-PCS; 2018-08-03)
PROC: 06HN33Z Insertion of Infusion Device into Left Femoral Vein, Percutaneous Approach (ICD-10-PCS; 2018-08-03)
PROC: B54CZZA Ultrasonography of Left Lower Extremity Veins, Guidance (ICD-10-PCS; 2018-08-03)
PROC: 5A1D70Z Performance of Urinary Filtration, Intermittent, Less than 6 Hours Per Day (ICD-10-PCS; 2018-08-04)
PROC: 5A1D70Z Performance of Urinary Filtration, Intermittent, Less than 6 Hours Per Day (ICD-10-PCS; 2018-08-06)
PROC: 03180ZD Bypass Left Brachial Artery to Upper Arm Vein, Open Approach (ICD-10-PCS; principal; 2018-08-06 09:00)
PROC: 5A1D70Z Performance of Urinary Filtration, Intermittent, Less than 6 Hours Per Day (ICD-10-PCS; 2018-08-08)
DX: T86.11 Kidney transplant rejection (principal); T86.12 Kidney transplant failure; N18.6 End stage renal disease; E86.0 Dehydration; R64 Cachexia; I82.621 Acute embolism and thrombosis of deep veins of right upper extremity; I80.8 Phlebitis and thrombophlebitis of other sites; I12.0 Hypertensive chronic kidney disease with stage 5 chronic kidney disease or end stage renal disease; E87.6 Hypokalemia; E87.2 Acidosis; N39.0 Urinary tract infection, site not specified; N28.9 Disorder of kidney and ureter, unspecified; K58.0 Irritable bowel syndrome with diarrhea; K63.89 Other specified diseases of intestine; D63.1 Anemia in chronic kidney disease; B96.89 Other specified bacterial agents as the cause of diseases classified elsewhere; E83.51 Hypocalcemia; F43.23 Adjustment disorder with mixed anxiety and depressed mood; G89.4 Chronic pain syndrome; M79.7 Fibromyalgia; K52.89 Other specified noninfective gastroenteritis and colitis; M81.0 Age-related osteoporosis without current pathological fracture; L25.9 Unspecified contact dermatitis, unspecified cause; Y83.0 Surgical operation with transplant of whole organ as the cause of abnormal reaction of the patient, or of later complication, without mention of misadventure at the time of the procedure; Z68.1 Body mass index [BMI] 19.9 or less, adult; Z90.81 Acquired absence of spleen; Z86.718 Personal history of other venous thrombosis and embolism; Z90.49 Acquired absence of other specified parts of digestive tract; Z87.891 Personal history of nicotine dependence

== ENCOUNTER 2018-08-18 10:33 | Emergency (ER) | payer OTHER ==
[2018-08-18 11:04] VITALS: O2SAT 100
--- NOTE | 2018-08-18 13:05 | C.PDOC ---
History Of Present Illness 47 y/o female, w/PMhx of chronic kidney disease, presents to the ER complaining of dialysis catheter dysfunction. Patient states that she had dialysis yesterday. However, patient reports that she was having issues with her catheter and the dialysis center staff manipulated her catheter in order to finish the dialysis. She notes that she went to and he advised her to visit the ER. Denies having dysuria and hematuria. Time Seen by Provider: 08/18/18 11:37 Chief Complaint (Nursing): Medical Clearance History Per: Patient History/Exam Limitations: no limitations Past Medical History Reviewed: Historical Data, Nursing Documentation, Vital Signs Vital Signs: Last Vital Signs Temp 98.4 F 08/18/18 10:42 Pulse 80 08/18/18 10:42 Resp 18 08/18/18 10:42 BP 155/89 H 08/18/18 10:42 Pulse Ox 100 08/18/18 14:04 - Medical History PMH: Anemia, Anxiety, Arthritis, Bronchitis, Fibromyalgia, Gall Bladder Disease, HTN, Migraine, Pancreatitis, Chronic Kidney Disease Surgical History: Cholecystectomy (2002), - [facility] (07/21/18) BYPASS LEFT BRACHIAL ARTERY TO UPPER ARM VEIN, OPEN APPROACH (07/21/18) DILATION OF COMMON BILE DUCT, ENDO (09/23/15) DILATION OF LEFT HEPATIC DUCT, ENDO (09/23/15) DRAINAGE OF RIGHT PLEURAL CAVITY, PERC APPROACH, DIAGN (09/23/15) ENDOSCOPIC EXCIS OR DESTRUCT OF LESION OF DUODENUM (07/01/15) ESOPHAGOGASTRODUODENOSCOPY [EGD] W/CLOSED BIOPSY (07/01/15) EXCISION OF DUODENUM, ENDO, DIAGN (03/13/16) EXCISION OF MIDDLE ESOPHAGUS, ENDO, DIAGN (03/13/16) EXCISION OF STOMACH, ENDO, DIAGN (03/13/16) FLUOROSCOPY OF SUPERIOR VENA CAVA, GUIDANCE (07/21/18) INSERTION OF INFUSION DEV INTO INF VENA CAVA, PERC APPROACH (07/21/18) INSERTION OF INFUSION DEV INTO L FEMOR VEIN, PERC APPROACH (07/21/18) INSERTION OF INFUSION DEV INTO SUP VENA CAVA, PERC APPROACH (07/21/18) INSERTION OF VAD INTO CHEST SUBCU/FASCIA, OPEN APPROACH (07/21/18) REMOVAL OF INFUSION DEVICE FROM UPPER VEIN, FOOD AND BEVERAGE ATTENDANT APPROACH (07/21/18) ULTRASONOGRAPHY OF LEFT LOWER EXTREMITY VEINS, GUIDANCE (07/21/18) ULTRASONOGRAPHY OF RIGHT JUGULAR VEINS, GUIDANCE (07/21/18) Family History: States: No Known Family Hx - Social History Hx Alcohol Use: No Hx Substance Use: No - Immunization History Hx Tetanus Toxoid Vaccination: Yes Hx Influenza Vaccination: Yes Hx Pneumococcal Vaccination: No Review Of Systems Except As Marked, All Systems Reviewed And Found Negative. Constitutional: Negative for: Fever, Chills Genitourinary: Negative for: Dysuria, Hematuria Physical Exam - Physical Exam Appears: Non-toxic, No Acute Distress Skin: Normal Color, Warm, Dry Head: Atraumatic, Normacephalic Eye(s): bilateral: Normal Inspection Nose: Normal Oral Mucosa: Moist Neck: Supple Chest: Symmetrical Cardiovascular: Rhythm Regular Respiratory: Normal Breath Sounds, No Rales, No Rhonchi, No Wheezing Gastrointestinal/Abdominal: Soft, No Tenderness, No Guarding, No Rebound Extremity: Normal ROM, No Tenderness, No Swelling, Other (dialysis catheter to anterior aspect of left thigh, no gross cellulitic process) Pulses: Left Dorsalis Pedis: Normal (DP/PT), Right Dorsalis Pedis: Normal (DP/PT) Neurological/Psych: Oriented x3, Normal Speech ED Course And Treatment O2 Sat by Pulse Oximetry: 100 (RA) Pulse Ox Interpretation: Normal Medical Decision Making Medical Decision Making: Assessment: Dysfunctional Dialysis Catheter Progress: Case discussed with medical or surgical instrument maker. residential carpenter evaluated patient and unclogged catheter. Patient has been discharged and instructed to follow up with PMD in 2 days. Disposition - Disposition Disposition: HOME/ ROUTINE Disposition Time: 13:48 Condition: STABLE Additional Instructions: follow up with your doctor within 2 days call to make an appointment continue your home medications return to ER if symptoms worsens or progress Instructions: Peripherally-Inserted Central Catheter Forms: [facility] (Telugu), General Discharge Instructions - Clinical Impression Clinical Impression: Dialysis catheter clot or failure - Scribe Statement The provider has reviewed the documentation as recorded by the Libanibe Dalton Quintana Provider Attestation: All medical record entries made by the Scribe were at my direction and personally dictated by me. I have reviewed the chart and agree that the record accurately reflects my personal performance of the history, physical exam, medical decision making, and the department course for this patient. I have also personally directed, reviewed, and agree with the discharge instructions and disposition.
[2018-08-18 15:15] VITALS: BP 150/85; PULSE 81; RESP 17; TEMP 98.5
== END 2018-08-18 15:14 | disposition home or self-care (01) ==
LOC: C.ER 10:33
DX: T82.49XA Other complication of vascular dialysis catheter, initial encounter (principal); Y84.9 Medical procedure, unspecified as the cause of abnormal reaction of the patient, or of later complication, without mention of misadventure at the time of the procedure

== ENCOUNTER 2018-10-27 10:12 | Day surgery (SDC) | payer MEDICARE, OTHER ==
[2018-10-22 10:03] VITALS: BMI 17.6
[2018-10-27] MEDS ORDERED: Lidocaine Hydrochloride 0 ML INJ ONE (12:02)
[2018-10-27] MEDS ORDERED: ceFAZolin IV 1 gm in Dextrose 0 GM/0 ML BAG IVPB ONE (12:02)
[2018-10-27] MEDS ORDERED: HEPARIN-NS 5,000 UNITS/500 ML 0 UNIT/0 ML BAG IV ONE (12:03)
[2018-10-27] MEDS ORDERED: Midazolam 2 MG/2 ML VIAL ONE (12:08)
[2018-10-27] MEDS ORDERED: Propofol 10 mg/ml Inj (20 ML) ONE (12:11)
[2018-10-27] MEDS ORDERED: Lactated Ringer's 1,000 ML IV ONE (12:18)
[2018-10-27] MEDS ORDERED: HYDROmorphone 0.5 mg/0.5 ml ISec IVP PRN (12:21)
--- NOTE | 2018-10-27 12:22 | PCM.SURG1 ---
Surgeon's Initial Post Op Note - Surgeon's Notes Surgeon: Dr. Lackey Forepart Rounder: Catia PGY2 Type of Anesthesia: IV Sedation Anesthesia Administered By: Cheryl Pascual Pre-Operative Diagnosis: End Stage Renal Disease; Unnecessary intravascular device Operative Findings: Left femoral vein permacath removed without any immediate complications Post-Operative Diagnosis: End stage renal disease Operation Performed: Left Femoral Permacath removal Specimen/Specimens Removed: Catheter Estimated Blood Loss: EBL {In ML}: 2 Blood Products Given: N/A Drains Used: No Drains Post-Op Condition: Good Date of Surgery/Procedure: 10/27/18 Time of Surgery/Procedure: 12:22
[2018-10-27 13:30] VITALS: BP 125/60; PULSE 63; RESP 18; TEMP 98; O2SAT 99
--- NOTE | 2018-10-28 00:04 | OP ---
PROCEDURE DATE: 10/27/2018 PREOPERATIVE DIAGNOSIS: Unnecessary intravascular device. PROCEDURE CARRIED OUT: Removal of left femoral Perm-A-Cath. SURGEON: Arturo Lackey Jr., MD CAMERA MAKER: Stew Bardales DO ANESTHESIOLOGIST: Cheryl Pascual CRNA INDICATIONS FOR PROCEDURE: The patient is a 47-year-old woman, dialyzed by means of left arm fistula. She had had this femoral catheter inserted previously. OPERATIVE FINDINGS: Catheter was removed uneventfully including the cuff. DESCRIPTION OF PROCEDURE: The area was prepped and draped. Anesthesia was administered and then we made sure that the sutures were cut across the catheter, removed it, applied pressure to the site and obtained hemostasis. Blood loss was less than 5 mL. Operation carried out was removal of left femoral Perm-A-Cath. Catheter was submitted. Arturo Lackey Jr., MD
== END 2018-10-27 14:27 | disposition home or self-care (01) ==
LOC: C.SDS 10:12
PROVIDERS: ATTEND Surgery Vascular Surgery
DX: I12.0 Hypertensive chronic kidney disease with stage 5 chronic kidney disease or end stage renal disease (principal); N18.6 End stage renal disease; T86.12 Kidney transplant failure; Y83.0 Surgical operation with transplant of whole organ as the cause of abnormal reaction of the patient, or of later complication, without mention of misadventure at the time of the procedure
CPT/HCPCS: 36590; 88300; J1170; J2250; J2704; J3010; J7120

== ENCOUNTER 2019-02-09 09:38 | Outpatient (CLI) | payer MEDICARE | END 2019-02-09 09:39 | disposition home or self-care (01) | LOC: C.RADH 09:38 ==

== ENCOUNTER 2019-02-16 12:02 | Outpatient (CLI) | payer OTHER | END 2019-02-16 12:03 | disposition home or self-care (01) | LOC: C.MAMMO 12:03 ==

== ENCOUNTER 2019-02-18 09:48 | Outpatient (CLI) | payer MEDICARE | END 2019-02-18 09:49 | disposition home or self-care (01) | LOC: C.VASC 09:48 ==

== ENCOUNTER 2019-02-25 07:54 | Outpatient (CLI) | payer OTHER | END 2019-02-25 07:55 | disposition home or self-care (01) | LOC: C.CARD 07:54 | DX: Z01.818 Encounter for other preprocedural examination (principal); N18.6 End stage renal disease ==